=== PATIENT | male | born 1955 | race Caucasian/White ===

== ENCOUNTER 2016-11-14 13:37 | Inpatient (IN) | payer BC ==
[~2016-11-14] VITALS: Ht 185.4 cm; Wt 112.0 kg
[~2016-11-14 13:37] MED LIST: ATEN50TA2 PO; FURO20TA2 PO; IBUP40TA PO; LASI40TA PO; SPIR100T PO; THIA100TA PO; VITA500T53 PO; VITMTA PO
[2016-11-14] MEDS ORDERED: ONDANSETRON 4MG/2ML VIAL (J2405) As Ordered ONE (14:58)
[2016-11-14] MEDS ORDERED: LACTULOSE 20 GM/30 ML SYRUP UD As Ordered ONE (14:58)
[2016-11-14 15:10] LABS: INR 1.63
[2016-11-14] MEDS ORDERED: NS 1,000 ML IV SCH (15:15)
[2016-11-14 15:25] LABS: MEAN CORPUSCULAR HEMOGLOBIN 35.4 pg (27.0-33.0); MEAN CORPUSCULAR HGB CONC 33.8 g/dl (32.0-36.5); MEAN CORPUSCULAR VOLUME 104.5 fl (80.0-96.0); PLATELET COUNT, AUTOMATED 126 k/mm3 (150-450); RED CELL DISTRIBUTION WIDTH 15.3 % (11.5-14.5); WHITE BLOOD COUNT 6.8 K/mm3 (4.0-10.0)
[2016-11-14 15:26] LABS: ALBUMIN 2.5 GM/DL (3.2-5.2); ALBUMIN/GLOBULIN RATIO 0.51 (1.00-1.93); BILIRUBIN,DIRECT 2.6 MG/DL (0.0-0.2); BILIRUBIN,TOTAL 7.3 MG/DL (0.2-1.0); CALCIUM LEVEL 8.5 MG/DL (8.8-10.2); CREATININE FOR GFR 1.31 MG/DL (0.70-1.30); GLOMERULAR FILTRATION RATE 59.2 (>49); POTASSIUM SERUM 4.4 MEQ/L (3.5-5.1); TOTAL PROTEIN 7.4 GM/DL (6.4-8.2)
--- NOTE | 2016-11-14 16:03 | REP ---
CT of the abdomen pelvis 11/14/2016 without IV or oral contrast: Indication: Abdominal pain. Comparison: CT abdomen pelvis with IV and oral contrast 10/21/2016. Findings: There is a small left basilar pleural effusion decreased/improved from prior study. There is right basilar calcified pleural plaques, right basilar disease most compatible with scarring. There is a moderate amount of diffuse ascites within the abdomen and pelvis but improved from that seen on 10/21/2016. The liver has a slightly scalloped margin and is enlarged consistent with hepatomegaly. The spleen is also moderately enlarged, 17.3 cm in cranial caudal dimension. Pancreas is grossly normal. The gallbladder is contracted. There are no visualized stones. Mild thickening of the lateral limb of the left adrenal with density greater than simple fluid, therefore indeterminate. Multiple venous collaterals are seen within the abdomen in the region of splenic hilum, splenorenal location and paraesophageal locations. There is a recanalized umbilical vein. No definitive omental implants or peritoneal carcinomatosis are seen. Bladder is contracted. Scattered sigmoid diverticula are noted . Generalized mural thickening is seen throughout the colon contributed to by under distension, and nonspecific inflammatory and/or edematous changes from ascites. There is diffuse mural thickening seen throughout the small bowel which represents interval change when compared with prior study. Impression: Previous massive ascites is improved, now moderate in amount. Generalized mural thickening seen throughout the colon and to a greater extent small bowel. These findings can be contributed to by the generalized ascites. Differential diagnosis also includes infectious or inflammatory gastroenteritis. There is no free intraperitoneal air. Enlarged liver and spleen; venous collaterals consistent with cirrhosis and portal venous hypertension Parenchymal disease within the lung bases most compatible with atelectasis and/or scarring. Follow-up to resolution recommended. Small left basilar pleural effusion, with improvement. Calcified right basilar pleural plaques consistent with asbestos related disease. Signed by Blanca Poole MD 11/16/2016 10:23 P
[2016-11-14 16:44] LABS: ANISOCYTOSIS 1+; BANDS 37 % (< 11)
[2016-11-14] MEDS ORDERED: PROP10TA56 PO (16:57)
[2016-11-14] MEDS ORDERED: SPIR100T PO (16:57)
[2016-11-14] MEDS ORDERED: VITA500T3 PO (16:57)
[2016-11-14] MEDS ORDERED: FURO40TA2 PO (16:57)
[2016-11-14] MEDS ORDERED: LACT10SO29 PO (16:57)
[2016-11-14] MEDS ORDERED: VITMTA PO (16:57)
[2016-11-14] MEDS ORDERED: ONDANSETRON 4MG/2ML VIAL (J2405) IV PRN (17:00)
[2016-11-14] MEDS ORDERED: METOCLOPRAMIDE INJ 10MG/2ML VIAL (J2765) IV PRN (17:00)
--- NOTE | 2016-11-14 17:34 | HPEPDOC ---
General Date of Admission 11/14/16 Chief Complaint The patient is a 61-year-old male admitted with a reason for visit of Vomiting. Source: Patient, Family Exam Limitations: Clinical conditions History of Present Illness 61-year-old male with past medical history of recently diagnosed alcohol- induced hepatic cirrhosis presented to the ER with a chief complaint of abdominal pain with associated diarrhea over the last 3 days. The patient states that his abdominal pain is crampy and achy in nature, quantified as a 6 out of 10 in intensity, in the lower abdominal quadrants. The patient states that his abdominal pain is the worst when having loose bowel movements. The patient describes the diarrhea as loose, nonbloody, with up to 10 episodes a day for the last 3 days. Of note, the patient was started on Lasix, spironolactone, and lactulose over the last 3 weeks since his diagnosis. In addition, the patient has required 3 ultrasound-guided abdominal paracentesis yielding about 12 L of fluid on each occasion during this time period. At this time, the patient states that he has been feeling more confused, and dehydrated because of his lack of by mouth intake over the last 3 days with associated abdominal pain with diarrhea. Patient states that although his abdomen is mildly distended, it has not caused him any shortness of breath, and it is not nearly as distended as it has been in the past. In addition, the patient states that the lower extremity edema is also better than it has been in the past. The patient denies any complaints of fevers, chills, shortness of breath, chest pain , palpitations, sick contacts, recent travel, or ingestion of any foreign foods. In the ER, the patient had a CT scan of the abdomen which revealed an improvement of the ascites compared to before. However, a generalized mural thickening was seen throughout the colon and small bowel suggestive of possible underlying infectious or inflammatory gastroenteritis. In addition, the patient' s ammonia level appears to be at baseline to what it was when he was discharged from the hospital earlier this month. Of note, the patient does have an acute kidney injury as well as an elevated lactic acid level which appears to be secondary to a possible underlying infectious/inflammatory gastroenteritis with dehydration from diarrhea. We will get the patient to the inpatient hospitalist service for further evaluation and management. Home Medications Scheduled Cyanocobalamin (Vitamin B-12) 500 Mcg Tab 500 MCG PO DAILY (Reported) Lactulose (Lactulose) 10 Gm/15 Ml Sherrill 30 ML PO DAILY (Reported) Metronidazole (Flagyl) 500 Mg Tab 500 MG PO Q8H Midodrine HCl (Midodrine HCl) 5 Mg Tab 5 MG PO TID@08,12,16 Midodrine HCl (Midodrine HCl) 5 Mg Tab 5 MG PO TID Multivitamins *[facility] STOCKED* (Thera M Plus *[facility] STOCKED*) 1 Tab Tab 1 TAB PO DAILY (Reported) Pentoxifylline (Pentoxifylline ER) 400 Mg Tab 400 MG PO TID Allergies Coded Allergies: No Known Allergies (Unverified , 10/21/16) Past Medical History Medical History As noted in HPI. Surgical History History of right knee aspiration, and bunionectomy. Family History Significant Family History: No pertinent family hx Social History * Smoker: non-smoker Alcohol: other (previously drank 12-18 beers a day starting in his 20s. Most recently quit drinking 8-10 beers a week when he was found to have cirrhosis in the first week of October 2016.) Drugs: denies Review of Symptoms Other systems 10 point review of systems is negative unless otherwise specified in HPI. Physical Examination ENT Exam: Positive: Atraumatic, Mucous membr. moist/pink Chest Exam: Positive: Clear to auscultation, Normal air movement Heart Exam: Positive: Normal S1, Normal S2, Rate Normal Telemetry: Positive: Sinus Abdomen Exam: Positive: Other (abdomen noted to be distended, with positive fluid waves noted. No rebound tenderness, guarding, or rigidity noted.), Soft Extremity Exam: Positive: Edema (1+ pitting edema), Negative: Tenderness Vital Signs As listed in EMR Laboratory Data Labs 24H Laboratory Tests 2 11/14/16 14:40: Aspartate Amino Transf (AST/SGOT) 93H, Alanine Aminotransferase (ALT/SGPT) 74, Alkaline Phosphatase 172H, Total Bilirubin 7.3H, Direct Bilirubin 2.6H, Albumin 2.5L, Albumin/Globulin Ratio 0.51L, Ammonia 73H, Amylase Level 70, Anion Gap 12 , Anisocytosis 1+, Band Neutrophils 37H, White Blood Count 6.8, Red Blood Count 4.20L, Hemoglobin 14.9, Hematocrit 44.0, Mean Corpuscular Volume 104.5H, Mean Corpuscular Hemoglobin 35.4H, Mean Corpuscular Hemoglobin Concent 33.8, Red Cell Distribution Width 15.3H, Platelet Count 126L, Neutrophils (%) (Auto) , Lymphocytes (%) (Auto) , Monocytes (%) (Auto) , Eosinophils (%) (Auto) , Basophils (%) (Auto) , Neutrophils # (Auto) , Lymphocytes # (Auto) , Monocytes # (Auto) , Eosinophils # (Auto) , Basophils # (Auto) , Calcium Level 8.5L, Glomerular Filtration Rate 59.2, Lactic Acid Level 3.6*H, Large Unclassified Cells # , Large Unclassified Cells % , Lipase 322, Lymphocytes (Manual) 5L, Macrocytosis 2+, Metamyelocytes 2H, Monocytes (Manual) 5, Neutrophils 51, Platelet Estimate NORMAL, Prothromb Time International Ratio 1.63, Prothrombin Time 19.4H, Total Protein 7.4 CBC/BMP Laboratory Tests 11/14/16 14:40 Red Blood Count 4.20 L, Mean Corpuscular Volume 104.5 H, Mean Corpuscular Hemoglobin 35.4 H, Mean Corpuscular Hemoglobin Concent 33.8, Red Cell Distribution Width 15.3 H, Neutrophils (%) (Auto) , Lymphocytes (%) (Auto) , Monocytes (%) (Auto) , Eosinophils (%) (Auto) , Basophils (%) (Auto) , Neutrophils # (Auto) , Lymphocytes # (Auto) , Monocytes # (Auto) , Eosinophils # (Auto) , Basophils # (Auto) Assessment/Plan Problems: (1) Diarrhea Status: Acute Response to Treatment: Stable Problem Text: CT scan of the abdomen revealed an improvement of the ascites compared to before. However, a generalized mural thickening was seen throughout the colon and small bowel suggestive of possible underlying infectious or inflammatory gastroenteritis. GI panel ordered Will empirically cover the patient with meropenem Gentle IV fluid hydration at 60 mL an hour We will continue to monitor the patient's course (2) Lactic acidosis Status: Acute Problem Text: Serum lactate level noted to be 3.6 Possibly secondary to intravascular volume depletion from diarrhea, with possible underlying infectious/inflammatory gastroenteritis We will treat the patient with gentle IV fluid hydration given his underlying hepatic cirrhosis with frequent decompensation requiring 3 ultrasound guided abdominal paracenteses over the last 3 weeks. 2 L fluid resection diet Started on meropenem for empiric coverage, GI panel ordered. Repeat serum lactate level (3) Acute kidney injury Status: Acute Response to Treatment: Stable Problem Text: Serum creatinine noted to be 1.3, baseline creatinine 0.9-1.0 Possibly secondary to intravascular volume depletion, will order urine lytes. We will hold nephrotoxins such as Lasix and spironolactone at this time Gentle IV fluid hydration Repeat BMP in the a.m. (4) Hepatic cirrhosis Status: Chronic Problem Text: Patient recently diagnosed with hepatic cirrhosis secondary to alcohol use in the first week of October 2016. The patient was supposed to follow up at [facility] however he has been unable to obtain this appointment, and has sought possible referral to [place]. The patient has yet to get a liver biopsy done for further confirmation of diagnosis. We will hold the patient's Lasix, spironolactone, and lactulose at this time given his current diagnosis of diarrhea with acute kidney injury. The patient's ammonia level of 73 appears to be near its baseline compared to his 11/06 lab work. Plan / VTE VTE Prophylaxis Ordered?: Yes MOMO GARCIA MD Nov 14, 2016 17:34
--- NOTE | 2016-11-14 22:03 | EDDOCDS ---
Nurse's Notes [facility] Name: Kory Mosley Age: 61 yrs Sex: Male : 1955 Arrival Date: 11/14/2016 Time: 13:37 Bed 14 Private MD: John Martinez NCFM Diagnosis: Alcoholic cirrhosis of liver with ascites;Altered mental status, unspecified Presentation: 11/14 13:47 Presenting complaint: Patient states: seen here earlier this month and admitted with dy cirrhosis of liver. having generalized abdominal pain with vomiting and diarrhea since yesterday. Adult Sepsis Screening: Patient has new or worsening altered mentation (1 point). Patient's respiratory rate is less than 22. Systolic blood pressure is greater than 100. Patient has a qSOFA score of 1- Negative Sepsis Screen. Patient has abdominal pain- Positive Sepsis Screen. Notified Roberto Bravo NET REPAIRER Patient made STEVEN Level 2. Patient placed in exam room. Charge nurse notified. Suicide/Homicide risk assessment- the patient denies having any suicidal and/or homicidal ideations and does not present with any other emotional, behavioral or mental health complaints. 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 Transition of care: patient was not received from another setting of care. 13:47 Acuity: STEVEN Level 2 dy 13:47 Method Of Arrival: Walkin/Carried/Asstd dy Triage Assessment: 13:51 General: Appears ill. Pain: Location: abdomen. HIV screening NA for this visit Offered dy previously. Historical: - Allergies: No known drug Allergies; - Home Meds: 1. atenolol 50 mg Oral tab 1 tab once daily 2. furosemide 20 mg Oral tab 1 tab once daily 3. propranolol 10 mg Oral tab 1 tab twice a day 4. lactulose 10 gram/15 mL Oral soln 15 mL once daily for Hyperammonemia (Last dose: 11/12/2016) - PMHx: Hypertension; Cirrhosis; - PSHx: Bunion Surgery; right knee surgery; - Social history: Smoking status: Patient states was never smoker of tobacco. No barriers to communication noted, The patient speaks fluent [place], Speaks appropriately for age. - Family history: Not pertinent. - : The pt / caregiver states he / she is not on anticoagulants. Home medication list is obtained from the patient, family members. - Exposure Risk Screening:: None identified. Screenin:00 Screening information is obtained from the patient. Fall risk: No risks identified. jmb Assistance ADL's: requires no assistance with activities of daily living. Abuse/DV Screen: The patient / caregiver reports he/she is: not in a situation that causes fear, pain or injury. Nutritional screening: No deficits noted. home support is adequate. 16:59 Advance Directives: Currently, there is a health care proxy, Lou Mosley () Copy lf1 on file. Assessment: 14:00 General: Appears uncomfortable, Behavior is appropriate for age, cooperative. Pain: jmb Location: abdomen Pain currently is 8 out of 10 on a pain scale. Neurological: Level of Consciousness is awake, alert, obeys commands, Oriented to person, place, time, Apple Packing Header are equal bilaterally Speech is normal, Facial symmetry appears normal, Facial symmetry: tongue is midline. EENT: Sclera/Cornea jaundiced. Cardiovascular: Capillary refill < 3 seconds Heart tones present Pulses are all present. Rhythm is regular. Respiratory: Airway is patent Respiratory effort is even, unlabored, Respiratory pattern is regular, symmetrical, Breath sounds are clear bilaterally. GI: Abdomen is noted to have ascites, Bowel sounds present X 4 quads. Abd is soft X 4 quads. Derm: Skin is jaundiced. Musculoskeletal: Range of motion limited in all extremities. 15:08 General: Appears in no apparent distress, comfortable, Behavior is appropriate for age, jmb cooperative, Patient laying on stretcher with family at bedside. NO voiced complaints at this time. . Neurological: Level of Consciousness is awake, alert, obeys commands, Oriented to person, place, time. Respiratory: Airway is patent Respiratory effort is even, unlabored, Respiratory pattern is regular, symmetrical. 15:12 General: Appears comfortable, Behavior is cooperative. Neurological: Level of lf1 Consciousness is awake. EENT:. Respiratory: Respiratory effort is even, unlabored. GI: Abdomen is distended, noted to have ascites, Bowel sounds present X 4 quads. Derm: Skin is jaundiced. 16:27 General: Appears comfortable, Behavior is cooperative. Neurological: Level of lf1 Consciousness is awake, confused. EENT: No deficits noted. Respiratory: Respiratory effort is even, unlabored. GI: Abdomen is distended. Derm: Skin is jaundiced. 17:05 Adult Sepsis Screening: The patient does not have new or worsening altered mentation. lf1 Patient's respiratory rate is less than 22. Systolic blood pressure is less than or equal to 100 (1 point). Patient has a qSOFA score of 1- Negative Sepsis Screen. General: Appears in no apparent distress, uncomfortable, Behavior is cooperative. Pain: Location: chronic back pain Pain currently is 4 out of 10 on a pain scale. Neurological: Level of Consciousness is awake, alert, confused. EENT: No deficits noted. Respiratory: Respiratory effort is even, unlabored. GI: Abdomen is noted to have ascites. Derm: Skin is jaundiced. 18:00 General: Appears comfortable, Behavior is cooperative, Pt advised that we are currently lf1 awaiting for a bed assignment. Pain: Location: abdomen and back. Neurological: Level of Consciousness is awake, alert. Respiratory: Respiratory effort is even, unlabored. GI: Abdomen is distended. Derm: Skin is jaundiced. 18:35 General: Appears in no apparent distress, Behavior is cooperative. Pain: Location: back lf1 Pain currently is 4 out of 10 on a pain scale. Neurological: Level of Consciousness is awake, confused. Respiratory: Respiratory effort is even, unlabored. GI: Abdomen is distended, noted to have ascites. Derm: Skin is jaundiced. 19:47 General: Appears in no apparent distress, comfortable, Behavior is cooperative. Pain: jf3 Location: back Pain currently is 5 out of 10 on a pain scale. Neurological: Level of Consciousness is awake, confused. Cardiovascular: Capillary refill < 3 seconds Heart tones S1 S2 present Edema is 1+ to left midcalf, left ankle, right midcalf and right ankle Chest pain is denied. Respiratory: Airway is patent Respiratory effort is even, unlabored, Respiratory pattern is regular, symmetrical, Breath sounds are clear bilaterally. Denies shortness of breath. GI: Abdomen is distended, Bowel sounds present X 4 quads. distant. Derm: Skin is jaundiced. 20:31 General: Appears comfortable, Behavior is cooperative. Pain: Pain currently is 5 out of jf3 10 on a pain scale. Neurological: Level of Consciousness is awake, alert, Oriented to person, place, time. Cardiovascular: Capillary refill < 3 seconds. Respiratory: Airway is patent Respiratory effort is even, unlabored, Respiratory pattern is regular, symmetrical. 21:46 General: Appears in no apparent distress, comfortable, Behavior is cooperative. Pain: jf3 Pain currently is 4 out of 10 on a pain scale. Neurological: Level of Consciousness is awake, alert, Oriented to person. Cardiovascular: Capillary refill < 3 seconds. Respiratory: Airway is patent Respiratory effort is even, unlabored, Respiratory pattern is regular, symmetrical. Derm: Skin is jaundiced. Vital Signs: 13:38 BP 104 / 67; Pulse 87; Resp 18 S; Temp 98.3(O); Pulse Ox 98% on R/A; Weight 102.51 kg dd6 (R); Height 5 ft. 11 in. (180.34 cm) (R); 13:59 BP 145 / 80 (auto/); jf3 14:01 Pulse 92 MON; Pulse Ox 94% ; jf3 14:14 BP 131 / 73 (auto/); lf1 14:14 Pulse 90 MON; Pulse Ox 96% ; lf1 14:29 BP 138 / 78 (auto/); jmb 14:29 Pulse 98 MON; Pulse Ox 97% ; jmb 14:44 BP 131 / 74 (auto/); jmb 14:44 Pulse 98 MON; Pulse Ox 95% ; jmb 14:59 BP 125 / 76 (auto/); jmb 14:59 Pulse 100 MON; Pulse Ox 95% ; jmb 15:14 BP 125 / 80 (auto/); lf1 15:14 Pulse 102 MON; Pulse Ox 95% ; lf1 15:29 BP 119 / 77 (auto/); lf1 15:29 Pulse 102 MON; Pulse Ox 95% ; lf1 15:44 BP 97 / 60 (auto/); lf1 15:44 Pulse 100 MON; Pulse Ox 95% ; lf1 15:59 BP 107 / 68 (auto/); lf1 15:59 Pulse 104 MON; Pulse Ox 95% ; lf1 16:14 BP 109 / 61 (auto/); lf1 16:14 Pulse 106 MON; Pulse Ox 94% ; lf1 16:27 Pulse 104 MON; Resp 18; Pulse Ox 93% ; lf1 16:29 BP 114 / 71 (auto/); lf1 16:29 Pulse 104 MON; Pulse Ox 92% ; lf1 16:44 BP 113 / 75 (auto/); lf1 16:44 Pulse 106 MON; Pulse Ox 94% ; lf1 16:59 BP 98 / 55 (auto/); lf1 16:59 Pulse 100 MON; Resp 16; Temp 100.0(TE); Pulse Ox 93% ; Pain 4/10; lf1 17:13 BP 118 / 65 (auto/); lf1 17:13 Pulse 102 MON; Resp 16; Pulse Ox 93% ; lf1 17:15 BP 100 / 53 (auto/); lf1 17:15 Pulse 102 MON; Pulse Ox 93% ; lf1 17:30 BP 102 / 64 (auto/); lf1 17:30 Pulse 104 MON; Pulse Ox 95% ; lf1 17:45 BP 108 / 68 (auto/); lf1 17:45 Pulse 104 MON; Pulse Ox 93% ; lf1 18:00 BP 87 / 50 (auto/); jf3 18:00 Pulse 102 MON; Pulse Ox 94% ; jf3 18:15 BP 93 / 58 (auto/); lf1 18:15 Pulse 108 MON; Pulse Ox 94% ; lf1 18:30 BP 109 / 61 (auto/); lf1 18:30 Pulse 104 MON; Pulse Ox 98% ; lf1 18:45 BP 90 / 51 (auto/); lf1 18:45 Pulse 100 MON; Resp 18; Pulse Ox 96% ; Pain 4/10; lf1 18:59 Pulse 102 MON; Pulse Ox 96% ; jf3 19:00 Pulse 102 MON; Pulse Ox 96% ; lf1 19:00 BP 100 / 55 (auto/); jf3 19:15 BP 101 / 55 (auto/); jf3 19:15 Pulse 108 MON; Pulse Ox 96% ; jf3 19:30 BP 94 / 51 (auto/); jf3 19:30 Pulse 106 MON; Pulse Ox 98% ; jf3 19:45 BP 92 / 51 (auto/); jf3 19:45 Pulse 106 MON; Pulse Ox 99% ; jf3 20:00 BP 111 / 57 (auto/); jf3 20:00 Pulse 106 MON; Pulse Ox 94% ; jf3 20:15 BP 106 / 62 (auto/); jf3 20:15 Pulse 104 MON; Pulse Ox 94% ; jf3 20:30 BP 94 / 62 (auto/); jf3 20:30 Pulse 104 MON; Pulse Ox 94% ; jf3 20:31 BP 106 / 62; Pulse 103; Resp 18; Temp 98.7(TE); Pulse Ox 94% on R/A; Pain 5/10; jf3 21:15 BP 102 / 57 (auto/); jf3 21:15 Pulse 104 MON; Pulse Ox 94% ; jf3 21:30 BP 104 / 59 (auto/); jf3 21:30 Pulse 106 MON; Pulse Ox 95% ; jf3 21:45 BP 101 / 56 (auto/); jf3 21:45 Pulse 106 MON; Pulse Ox 95% ; jf3 13:38 Body Mass Index 31.52 (102.51 kg, 180.34 cm) dd6 Vitals: 13:38 Log In Time: November 14, 2016 at 13:36. dd6 ED Course: 13:38 Patient visited by Martin Goetz PCA. dd6 13:38 John Martinez is Private Physician. dd6 13:38 Patient moved to Waiting dd6 13:39 Patient moved to Pre RCE dd6 13:49 Triage Initiated dy 13:51 Patient moved to 14 dy 14:00 The patient / caregiver is instructed regarding the plan of care and ED course. jmb 14:02 Patient visited by Nahid Lora RN. jmb 14:16 Roberto Bravo FNP is [facility]. ke 14:16 Patient visited by Roberto Bravo FNP. ke 14:16 Patient visited by Roberto Bravo FNP. ke 14:29 Inserted saline lock: 20 gauge in left forearm and blood collected. The patient alexa tolerated the procedure well. Labs drawn. (by ED staff). Sent per order to lab. 14:36 Patient name changed from Kory\S\L\S\Dimitri\S\ to Kory\S\Jorge\S\Dimitri. EDMS 14:39 [facility] Payment Agreement was scanned into [employer] and attached to record. pm4 14:55 Patient visited by Roberto Bravo FNP. ke 15:05 Report received from Nahid Lora RN. lf1 15:09 Patient visited by Nahid Lora RN. jmb 15:12 Accompanied by Family Member. Door closed. Noise minimized. lf1 15:12 IV is intact. lf1 15:13 Patient visited by Priscilla Brooks RN. lf1 15:53 Patient visited by Roberto Bravo FNP. ke 16:05 Patient visited by Jaron Fulton PCA. jlf 16:12 Jay Guerrero is Hospitalizing Provider. ke 16:12 CT ABD & PELVIS: No Contrast Returned. EDMS 16:27 Patient visited by Priscilla Brooks,ROWDY. lf1 16:27 Door closed. Noise minimized. lf1 16:30 Patient visited by Priscilla Brooks,RN. lf1 17:05 Patient visited by Priscilla Brooks,ROWDY. lf1 17:13 Patient visited by Priscilla Brooks,ROWDY. lf1 17:16 Priscilla Brooks,RN is Primary Nurse. lf1 17:17 Patient visited by Priscilla Brooks,ROWDY. lf1 18:45 Report given to Cheng Kolb RN. lf1 19:49 Patient visited by Cheng Kolb,ROWDY. jf3 Administered Medications: 15:07 Drug: NS 0.9% 1000 ml [sodium chloride 0.9 % intravenous solution] Route: IV; Rate: jmb bolus; Site: left wrist; 15:07 Drug: Lactulose 30 ml [lactulose 20 gram/30 mL oral solution (30 mL)] Route: PO; jmb 15:08 Drug: Ondansetron 4 mg [ondansetron HCl 2 mg/mL intravenous solution (2 mL)] Route: jmb IVP; Site: left wrist; Order Results: Lab Order: Amylase; [facility]' 11/14/16 14:40 Test: AMYLASE; Value: 70; Range: 25-115; Units: U/L; Status: F Lab Order: Basic Metabolic Profile; SPEC' 11/14/16 14:40 Test: GLUCOSE, FASTING; Value: 107; Range: 80-110; Units: MG/DL; Status: F Test: BLOOD UREA NITROGEN; Value: 27; Range: 7-18; Abnormal: Above high normal; Units: MG/DL; Status: F Test: CREATININE FOR GFR; Value: 1.31; Range: 0.70-1.30; Abnormal: Above high normal; Units: MG/DL; Status: F Test: GLOMERULAR FILTRATION RATE; Value: 59.2; Range: >49; Status: F Test: SODIUM LEVEL; Value: 135; Range: 136-145; Abnormal: Below low normal; Units: MEQ/L; Status: F Test: POTASSIUM SERUM; Value: 4.4; Range: 3.5-5.1; Units: MEQ/L; Status: F Test: CHLORIDE LEVEL; Value: 97; Range: 98-107; Abnormal: Below low normal; Units: MEQ/L; Status: F Test: CARBON DIOXIDE LEVEL; Value: 26; Range: 21-32; Units: MEQ/L; Status: F Test: ANION GAP; Value: 12; Range: 8-16; Units: MEQ/L; Status: F Test: CALCIUM LEVEL; Value: 8.5; Range: 8.8-10.2; Abnormal: Below low normal; Units: MG/DL; Status: F Test Note: ; Units are mL/min/1.73 m2 Chronic Kidney Disease Staging per NKF: Stage I & II GFR >=60 Normal to Mildly Decreased Stage III GFR 30-59 Moderately Decreased Stage IV GFR 15-29 Severely Decreased Stage V GFR <15 Very Little GFR Left ESRD GFR <15 on [employer] Lab Order: CBC with Diff; SPEC'M 11/14/16 14:40 Test: WHITE BLOOD COUNT; Value: 6.8; Range: 4.0-10.0; Units: K/mm3; Status: F Test: RED BLOOD COUNT; Value: 4.20; Range: 4.30-6.10; Abnormal: Below low normal; Units: M/mm3; Status: F Test: HEMOGLOBIN; Value: 14.9; Range: 14.0-18.0; Units: g/dl; Status: F Test: HEMATOCRIT; Value: 44.0; Range: 42.0-52.0; Units: %; Status: F Test: MEAN CORPUSCULAR VOLUME; Value: 104.5; Range: 80.0-96.0; Abnormal: Above high normal; Units: fl; Status: F Test: MEAN CORPUSCULAR HEMOGLOBIN; Value: 35.4; Range: 27.0-33.0; Abnormal: Above high normal; Units: pg; Status: F Test: MEAN CORPUSCULAR HGB CONC; Value: 33.8; Range: 32.0-36.5; Units: g/dl; Status: F Test: RED CELL DISTRIBUTION WIDTH; Value: 15.3; Range: 11.5-14.5; Abnormal: Above high normal; Units: %; Status: F Test: PLATELET COUNT, AUTOMATED; Value: 126; Range: 150-450; Abnormal: Below low normal; Units: k/mm3; Status: F Test: NEUTROPHILS; Value: 51; Range: 35-75; Units: %; Status: F Test: BANDS; Value: 37; Range: < 11; Abnormal: Above high normal; Units: %; Status: F Test: LYMPHOCYTES; Value: 5; Range: 16-52; Abnormal: Below low normal; Units: %; Status: F Test: MONOCYTES; Value: 5; Range: 0-8; Units: %; Status: F Test: METAMYELOCYTES; Value: 2; Range: 0-0; Abnormal: Above high normal; Units: %; Status: F Test: ANISOCYTOSIS; Value: 1+; Status: F Test: MACROCYTOSIS; Value: 2+; Status: F Lab Order: Lipase; [facility] 11/14/16 14:40 Test: LIPASE; Value: 322; Range: 73-393; Units: U/L; Status: F Lab Order: Liver Profile; [facility] 11/14/16 14:40 Test: AST/SGOT; Value: 93; Range: 15-37; Abnormal: Above high normal; Units: U/L; Status: F Test: ALT/SGPT; Value: 74; Range: 12-78; Units: U/L; Status: F Test: ALKALINE PHOSPHATASE; Value: 172; Range: 45-117; Abnormal: Above high normal; Units: U/L; Status: F Test: BILIRUBIN,TOTAL; Value: 7.3; Range: 0.2-1.0; Abnormal: Above high normal; Units: MG/DL; Status: F Test: BILIRUBIN,DIRECT; Value: 2.6; Range: 0.0-0.2; Abnormal: Above high normal; Units: MG/DL; Status: F Test: TOTAL PROTEIN; Value: 7.4; Range: 6.4-8.2; Units: GM/DL; Status: F Test: ALBUMIN; Value: 2.5; Range: 3.2-5.2; Abnormal: Below low normal; Units: GM/DL; Status: F Test: ALBUMIN/GLOBULIN RATIO; Value: 0.51; Range: 1.00-1.93; Abnormal: Below low normal; Status: F Lab Order: Prothrombin Time Profile\E\INR; [facility] 11/14/16 14:40 Test: PROTHROMBIN TIME; Value: 19.4; Range: 12.3-14.5; Abnormal: Above high normal; Units: SECONDS; Status: F Test: INR; Value: 1.63; Status: F Test Note: ; THERAPUTIC HUMAN INR VALUES INDICATIONS NORMAL RANGES PROPHYLAXIS/TREATMENT OF: VENOUS THROMBOSIS 2.0-3.0 PULMONARY EMBOLISM 2.0-3.0 PREVENTION OF SYSTEMIC EMBOLISM FROM: TISSUE HEART VALVES 2.0-3.0 ACUTE MYOCARDIAL INFARCTION 2.0-3.0 VALVULAR HEART DISEASE 2.0-3.0 ATRIAL FIBRILLATION 2.0-3.0 MECHANICAL VALVES(HIGH RISK) 2.5-3.5 RECURRENT MYOCARDIAL INFARCTION 2.5-3.5 Lab Order: Lactic Acid ([place] tube on ice); [facility] 11/14/16 14:40 Test: LACTIC ACID LEVEL, LACTATE; Value: 3.6; Range: 0.4-2.0; Abnormal: Above upper panic limits; Units: MMOL/L; Status: F Lab Order: Ammonia ([place] Tube on Ice, Not [place]); [facility] 11/14/16 14:40 Test: AMMONIA; Value: 73; Range: <32; Abnormal: Above high normal; Units: uMOL/L; Status: F Lab Order: PLATELET ESTIMATE; [facility] 11/14/16 14:40 Test: PLATELET ESTIMATE; Value: NORMAL; Range: NORMAL; Status: F Radiology Order: CT ABD & PELVIS: No Contrast Test: CT ABD & PELVIS: No Contrast REASON FOR EXAMINATION: Abdomen Pain; CT of the abdomen pelvis 11/14/2016 without IV or oral contrast:; ; Indication: Abdominal pain.; ; Comparison: CT abdomen pelvis with IV and oral contrast 10/21/2016.; ; Findings: There is a small left basilar pleural effusion decreased/improved from; prior study. There is right basilar calcified pleural plaques, right basilar; disease most compatible with scarring. There is a moderate amount of diffuse; ascites within the abdomen and pelvis but improved from that seen on 10/21/2016.; The liver has a slightly scalloped margin and is enlarged consistent with; hepatomegaly. The spleen is also moderately enlarged, 17.3 cm in cranial caudal; dimension. Pancreas is grossly normal. The gallbladder is contracted. There; are no visualized stones. Mild thickening of the lateral limb of the left; adrenal with density greater than simple fluid, therefore indeterminate.; Multiple venous collaterals are seen within the abdomen in the region of splenic; hilum, splenorenal location and paraesophageal locations. There is a; recanalized umbilical vein. No definitive omental implants or peritoneal; carcinomatosis.; ; Bladder is contracted. Scattered sigmoid diverticula are noted . Generalized; mural thickening is seen throughout the colon contributed to by underdistension,; and nonspecific inflammatory and/or edematous changes from ascites. There is; diffuse mural thickening seen throughout the small bowel which represents; interval change when compared with prior study.; ; Impression:; Previous massive ascites is improved, now moderate in amount.; ; Generalized mural thickening seen throughout the colon and to a greater extent; small bowel. These findings can be contributed to by the generalized ascites.; Differential diagnosis also includes infectious or inflammatory gastroenteritis.; There is no free intraperitoneal air.; ; Enlarged liver and spleen; venous collaterals consistent with cirrhosis and; portal venous hypertension; ; Parenchymal disease within the lung bases most compatible with atelectasis and/or; scarring follow-up to resolution recommended.; ; Small left basilar pleural effusion, with improvement.; ; Calcified right basilar pleural plaques consistent with asbestos related; disease.; ; ; ; Unreviewed; Outcome: 16:13 Decision to Hospitalize by Provider. ke 22:02 Patient left the ED. jf3 Signatures: Dispatcher [employer] EDIN Jordy Lawson RN RN dy Elsner, Karl, NET REPAIRER NET REPAIRER Priscilla Lewis RN RN lf1 Martin Goetz, PROPERTY FIELD INSPECTOR PROPERTY FIELD INSPECTOR dd6 Nahid Lora RN RN jmb Forney, Jordain, PROPERTY FIELD INSPECTOR PROPERTY FIELD INSPECTOR jlf Cheng Kolb RN RN jf3 John Sepulveda, Reg Reg pm4 MTDD
--- NOTE | 2016-11-14 22:03 | EDDOCDS ---
Physician Documentation [facility] Name: Kory Mosley Age: 61 yrs Sex: Male : 1955 Arrival Date: 11/14/2016 Time: 13:37 Bed 14 Private MD: John Martinez [facility] Disposition: 11/14/16 16:13 Hospitalization ordered by Jay Guerrero for Inpatient Admission. Preliminary diagnosis are Alcoholic cirrhosis of liver with ascites, Altered mental status, unspecified. - Bed requested for 4 [place]. - Status is Inpatient Admission. jf3 - Condition is Stable. - Problem is an acute exacerbation. - Symptoms are unchanged. Historical: - Allergies: No known drug Allergies; - Home Meds: 1. atenolol 50 mg Oral tab 1 tab once daily 2. furosemide 20 mg Oral tab 1 tab once daily 3. propranolol 10 mg Oral tab 1 tab twice a day 4. lactulose 10 gram/15 mL Oral soln 15 mL once daily for Hyperammonemia (Last dose: 11/12/2016) - PMHx: Hypertension; Cirrhosis; - PSHx: Bunion Surgery; right knee surgery; - Social history: Smoking status: Patient states was never smoker of tobacco. No barriers to communication noted, The patient speaks fluent [place], Speaks appropriately for age. - Family history: Not pertinent. - : The pt / caregiver states he / she is not on anticoagulants. Home medication list is obtained from the patient, family members. - Exposure Risk Screening:: None identified. Vital Signs: 11/14 13:38 BP 104 / 67; Pulse 87; Resp 18 S; Temp 98.3(O); Pulse Ox 98% on R/A; Weight 102.51 kg / dd6 226 lbs (R); Height 5 ft. 11 in. (180.34 cm) (R); 13:59 BP 145 / 80 (auto/); jf3 14:01 Pulse 92 MON; Pulse Ox 94% ; jf3 14:14 BP 131 / 73 (auto/); lf1 14:14 Pulse 90 MON; Pulse Ox 96% ; lf1 14:29 BP 138 / 78 (auto/); jmb 14:29 Pulse 98 MON; Pulse Ox 97% ; jmb 14:44 BP 131 / 74 (auto/); jmb 14:44 Pulse 98 MON; Pulse Ox 95% ; jmb 14:59 BP 125 / 76 (auto/); jmb 14:59 Pulse 100 MON; Pulse Ox 95% ; jmb 15:14 BP 125 / 80 (auto/); lf1 15:14 Pulse 102 MON; Pulse Ox 95% ; lf1 15:29 BP 119 / 77 (auto/); lf1 15:29 Pulse 102 MON; Pulse Ox 95% ; lf1 15:44 BP 97 / 60 (auto/); lf1 15:44 Pulse 100 MON; Pulse Ox 95% ; lf1 15:59 BP 107 / 68 (auto/); lf1 15:59 Pulse 104 MON; Pulse Ox 95% ; lf1 16:14 BP 109 / 61 (auto/); lf1 16:14 Pulse 106 MON; Pulse Ox 94% ; lf1 16:27 Pulse 104 MON; Resp 18; Pulse Ox 93% ; lf1 16:29 BP 114 / 71 (auto/); lf1 16:29 Pulse 104 MON; Pulse Ox 92% ; lf1 16:44 BP 113 / 75 (auto/); lf1 16:44 Pulse 106 MON; Pulse Ox 94% ; lf1 16:59 BP 98 / 55 (auto/); lf1 16:59 Pulse 100 MON; Resp 16; Temp 100.0(TE); Pulse Ox 93% ; Pain 4/10; lf1 17:13 BP 118 / 65 (auto/); lf1 17:13 Pulse 102 MON; Resp 16; Pulse Ox 93% ; lf1 17:15 BP 100 / 53 (auto/); lf1 17:15 Pulse 102 MON; Pulse Ox 93% ; lf1 17:30 BP 102 / 64 (auto/); lf1 17:30 Pulse 104 MON; Pulse Ox 95% ; lf1 17:45 BP 108 / 68 (auto/); lf1 17:45 Pulse 104 MON; Pulse Ox 93% ; lf1 18:00 BP 87 / 50 (auto/); jf3 18:00 Pulse 102 MON; Pulse Ox 94% ; jf3 18:15 BP 93 / 58 (auto/); lf1 18:15 Pulse 108 MON; Pulse Ox 94% ; lf1 18:30 BP 109 / 61 (auto/); lf1 18:30 Pulse 104 MON; Pulse Ox 98% ; lf1 18:45 BP 90 / 51 (auto/); lf1 18:45 Pulse 100 MON; Resp 18; Pulse Ox 96% ; Pain 4/10; lf1 18:59 Pulse 102 MON; Pulse Ox 96% ; jf3 19:00 Pulse 102 MON; Pulse Ox 96% ; lf1 19:00 BP 100 / 55 (auto/); jf3 19:15 BP 101 / 55 (auto/); jf3 19:15 Pulse 108 MON; Pulse Ox 96% ; jf3 19:30 BP 94 / 51 (auto/); jf3 19:30 Pulse 106 MON; Pulse Ox 98% ; jf3 19:45 BP 92 / 51 (auto/); jf3 19:45 Pulse 106 MON; Pulse Ox 99% ; jf3 20:00 BP 111 / 57 (auto/); jf3 20:00 Pulse 106 MON; Pulse Ox 94% ; jf3 20:15 BP 106 / 62 (auto/); jf3 20:15 Pulse 104 MON; Pulse Ox 94% ; jf3 20:30 BP 94 / 62 (auto/); jf3 20:30 Pulse 104 MON; Pulse Ox 94% ; jf3 20:31 BP 106 / 62; Pulse 103; Resp 18; Temp 98.7(TE); Pulse Ox 94% on R/A; Pain 5/10; jf3 21:15 BP 102 / 57 (auto/); jf3 21:15 Pulse 104 MON; Pulse Ox 94% ; jf3 21:30 BP 104 / 59 (auto/); jf3 21:30 Pulse 106 MON; Pulse Ox 95% ; jf3 21:45 BP 101 / 56 (auto/); jf3 21:45 Pulse 106 MON; Pulse Ox 95% ; jf3 13:38 Body Mass Index 31.52 (102.51 kg, 180.34 cm) dd6 MDM: 14:26 NS 0.9% 1000 ml IV at bolus once ordered. ke 14:26 Ondansetron 4 mg IVP once ordered. ke 14:26 IV Saline Lock ordered. ke 14:26 Undress patient appropriately for examination ordered. ke 14:26 Lactulose Liquid 30 ml PO once ordered. ke 14:27 Amylase Ordered. EDMS 14:27 Basic Metabolic Profile Ordered. EDMS 14:27 CBC with Diff Ordered. EDMS 14:27 Lipase Ordered. EDMS 14:27 Liver Profile Ordered. EDMS 14:27 Prothrombin Time Profile\E\INR Ordered. EDMS 14:27 Lactic Acid (Georges tube on ice) Ordered. EDMS 14:27 Ammonia ([place] Tube on Ice, Not [place]a [place]) Ordered. EDMS 14:27 CT ABD & PELVIS: No Contrast Ordered. EDMS 14:27 NOTHING BY MOUTH+DIET ordered. EDMS 14:33 Financial registration complete. pm4 14:39 [facility] Payment Agreement was scanned into [employer] and attached to record. pm4 15:27 DIFFERENTIAL NO CHARGE Ordered. EDMS 16:08 Basic Metabolic Profile Reviewed. ke 16:08 CBC with Diff Reviewed. ke 16:08 Liver Profile Reviewed. ke 16:08 Prothrombin Time Profile\E\INR Reviewed. ke 16:08 Lactic Acid (Georges tube on ice) Reviewed. ke 16:08 Ammonia ([place] Tube on Ice, Not [place]a Green) Reviewed. ke 16:08 Amylase Reviewed. ke 16:08 Lipase Reviewed. ke 17:10 Admission / Observation Status ordered. EDMS 17:11 2 GRAM SODIUM DIET ordered. EDMS 17:13 LACTIC ACID LEVEL, LACTATE Ordered. EDMS 17:13 GASTROINTESTINAL (GI) PANEL Ordered. EDMS 17:36 SODIUM,RANDOM URINE Ordered. EDMS 17:36 CREATININE,RANDOM URINE Ordered. EDMS 19:32 LACTIC ACID LEVEL, LACTATE Ordered. EDMS 19:32 BASIC METABOLIC PROFILE Ordered. EDMS 19:32 MAGNESIUM LEVEL Ordered. EDMS 19:32 COMPLETE BLOOD COUNT Ordered. EDMS 19:32 AMMONIA Ordered. EDMS Administered Medications: 15:07 Drug: NS 0.9% 1000 ml [sodium chloride 0.9 % intravenous solution] Route: IV; Rate: jmb bolus; Site: left wrist; 15:07 Drug: Lactulose 30 ml [lactulose 20 gram/30 mL oral solution (30 mL)] Route: PO; jmb 15:08 Drug: Ondansetron 4 mg [ondansetron HCl 2 mg/mL intravenous solution (2 mL)] Route: jmb IVP; Site: left wrist; Signatures: [facility] Jordy Lawson RN Roberto Booth, ALMOND ROASTER ALMOND ROASTER Priscilla Lewis RN RN lf1 McLeulalia, Missy, SENIOR QUALITY CONTROL INSPECTOR SENIOR QUALITY CONTROL INSPECTOR tmm1 Cheng Kolb RN RN jf3 John Sepulveda, Reg Reg pm4 Nahid Lora RN The chart was reviewed and I authenticate all verbal orders and agree with the evaluation and treatment provided.Corrections: (The following items were deleted from the chart) 17:13 17:11 GASTROINTESTINAL (GI) PANEL ordered. EDMS EDMS 17:37 17:36 UREA NITROGEN,RANDOM URINE ordered. EDMS EDMS Attachments: 14:39 [facility] Payment Agreement pm4 MTDD
[2016-11-14 22:12] VITALS: BP 99/56
[2016-11-14] MEDS: MEROPENEM INJ 1 GM in D5W MINI-BAG PLUS 100 ML IV SCH (22:55)
[2016-11-14] MEDS ORDERED: PERCOCET 5MG/325MG TAB PO ONE (23:15)
[2016-11-15] VITALS (19 sets, daily range): BP systolic 79–113; BP diastolic 50–67
[2016-11-15] MEDS ORDERED: diphenhydrAMINE INJ 50MG/ML VIAL (J1200) IV ONE (01:30)
[2016-11-15 05:54] LABS: MEAN CORPUSCULAR HEMOGLOBIN 35.4 pg (27.0-33.0); MEAN CORPUSCULAR HGB CONC 33.2 g/dl (32.0-36.5); MEAN CORPUSCULAR VOLUME 106.7 fl (80.0-96.0); RED CELL DISTRIBUTION WIDTH 15.3 % (11.5-14.5); WHITE BLOOD COUNT 8.9 K/mm3 (4.0-10.0)
[2016-11-15 06:06] LABS: CALCIUM LEVEL 8.2 MG/DL (8.8-10.2); MAGNESIUM LEVEL 1.9 MG/DL (1.8-2.4)
[2016-11-15] MEDS ORDERED: SODIUM CHLORIDE 0.9% 1000 ML IV ONE ×2 (06:30→15:30)
[2016-11-15 06:33] LABS: CREATININE FOR GFR 2.67 MG/DL (0.70-1.30); POTASSIUM SERUM 5.2 MEQ/L (3.5-5.1)
[2016-11-15] MEDS: CYANOCOBALAMIN 500 MCG TAB PO SCH (09:24)
[2016-11-15] MEDS: MEROPENEM INJ 1 GM in D5W MINI-BAG PLUS 100 ML IV SCH (09:24)
[2016-11-15] MEDS: MULTIVITAMINS/MINERALS THERAP 1 TAB PO SCH (09:24)
--- NOTE | 2016-11-15 11:25 | REP ---
Clinical: Shortness of breath. Comparison: 10/21/2016. Findings: Chronic changes are suggested and remains stable. Bibasilar atelectasis and possible pleural effusion cannot be excluded. No pneumothorax. Mediastinum and cardiac silhouette grossly normal for portable technique. Impression: Cannot exclude trace basilar atelectasis and possible pleural effusion. Signed by Reinaldo Dawkins MD 11/15/2016 11:16 A
[2016-11-15 11:41] LABS: DIFF SLIDE NUMBER 117; MEAN CORPUSCULAR HEMOGLOBIN 35.5 pg (27.0-33.0); MEAN CORPUSCULAR HGB CONC 33.3 g/dl (32.0-36.5); MEAN CORPUSCULAR VOLUME 106.7 fl (80.0-96.0); RED CELL DISTRIBUTION WIDTH 14.3 % (11.5-14.5); WHITE BLOOD COUNT 9.4 K/mm3 (4.0-10.0)
[2016-11-15] MEDS ORDERED: MIDODRINE 5 MG TAB PO SCH (12:00)
[2016-11-15 12:12] LABS: ALBUMIN 1.8 GM/DL (3.2-5.2); ALBUMIN/GLOBULIN RATIO 0.44 (1.00-1.93); BILIRUBIN,TOTAL 10.9 MG/DL (0.2-1.0); CALCIUM LEVEL 8.2 MG/DL (8.8-10.2); CREATININE FOR GFR 2.73 MG/DL (0.70-1.30); GLOMERULAR FILTRATION RATE 25.4 (>49); POTASSIUM SERUM 5.1 MEQ/L (3.5-5.1); TOTAL PROTEIN 5.9 GM/DL (6.4-8.2)
[2016-11-15 12:15] LABS: PLATELET COUNT, AUTOMATED 70 k/mm3 (150-450)
[2016-11-15 12:20] LABS: BANDS 8 % (< 11)
[2016-11-15 12:21] LABS: ANISOCYTOSIS 2+; POLYCHROMASIA 1+
--- NOTE | 2016-11-15 12:24 | IPNPDOC ---
Assessment/Plan Date Seen The patient was seen on 11/15/16. Problems Problems: (1) Hepatic cirrhosis Status: Chronic Problem Text: hepatic cirrhosis 2/2 to alcohol use albumin ordered, pt started on midodrine nephrology consulted-appreciate their recommendations pt received paracentesis this afternoon- took off 500 cc fluid fluid sent for cell count and cultures We will hold the patient's Lasix, spironolactone, and lactulose at this time given his current diagnosis of diarrhea with acute kidney injury. Ammonia today is 40 from 73 on arrival to ED (2) Diarrhea Status: Acute Response to Treatment: Stable Problem Text: CT scan upon presentation showed generalized mural thickening was seen throughout the colon and small bowel suggestive of possible underlying infectious or inflammatory gastroenteritis. C-diff panel pending ordered blood culture ordered fungal smear GI panel ordered pending Continue pt on meropenem Gentle IV fluid hydration continued at 60 mL an hour We will continue to monitor the patient's course (3) Lactic acidosis Status: Acute Response to Treatment: Stable Problem Text: Serum lactate increased to 8.1 from 3.6 on arrival to ED May be 2/2 intravascular volume depletion from diarrhea or possible underlying infectious/inflammatory gastroenteritis Pt will receive paracentesis today and we will send for cultures and cell count of fluid 2 L fluid resection diet Will continue meropenem f GI panel ordered and pending Will continue to monitor serum lactate (4) Acute kidney injury Status: Acute Response to Treatment: Stable Problem Text: Nephrology consulted-appreciate their recommendations Serum creatinine noted to be 12.67, up from 1.31 on presentation to ED, baseline creatinine 0.9-1.0 May be 2/2 intravascular volume depletion Urine lytes ordered We will hold nephrotoxins such as Lasix and spironolactone at this time Gentle IV fluid hydration (5) Ascites Status: Chronic Response to Treatment: Stable Problem Text: pt will receive paracentesis today - 500 cc removed will send fluid for culture and cell counts (6) Alcohol abuse Status: Chronic Response to Treatment: Stable Problem Text: pt on multivitamin and B12 continue to monitor for signs of w/d pt not currently having signs of w/d (7) HTN (hypertension) Status: Chronic Problem Text: unfortunately pt is hypotensive will necessitate ICU care at this time pt received central line placement for potential future pressor therapy in ICU albumin has been ordered- will begin therapy Plan / VTE VTE Prophylaxis Ordered?: Yes Plan / Urinary Catheter Reason for insertion/continuin: Critical Pt monitoring Subjective Review of Systems CC/HPI The patient is a 61-year-old male admitted with a reason for visit of Diarrhea. General: Reports: Malaise, Denies: Chills, Fatigue, Night Sweats Constitutional: Denies: Chills, Fever Eyes: Denies: Conjunctivae inflammation, Eyelid inflammation, Pain, Redness, Vision change ENT: Denies: Head Aches Skin: Denies: Jaundice, Lesions, Rash Pulmonary: Denies: Cough, Dyspnea, Pleuritic Chest Pain Cardiovascular: Denies: Chest Pain, Edema, Orthopnea, Palpitations, Paroxysmal Noc. Dyspnea Gastrointestinal: Reports: Abdominal Pain (achy diffuse), Denies: Constipation, Diarrhea, Nausea, Vomiting Neurological: Denies: Incoordination, Numbness, Weakness Psych: Reports: Mood Normal Objective Physical Examination Eye Exam: Positive: Conjunctiva & lids normal, EOMI, PERRLA, Negative: Ptosis, Sclera icteric ENT Exam: Positive: Atraumatic, Mucous membr. moist/pink, Pharynx Normal, Tongue Midline, Negative: Pharyngeal Edema Neck Exam: Positive: Supple Chest Exam: Positive: Clear to auscultation, Normal air movement Heart Exam: Positive: Normal S1, Normal S2, Rate Normal, Negative: Gallops, Murmurs Telemetry: Positive: Sinus Abdomen Exam: Positive: Other (Abdomen continues to be distended but no rebound tenderness, guarding, or rigidity noted. Pt is not painful to palpitation.), Soft Extremity Exam: Positive: Edema (+1 edema b/l ), Negative: Tenderness Psych Exam: Positive: Mental status NL Vital Signs/I&O Vital Signs Date Time Temp Pulse Resp B/P Pulse Ox O2 Delivery O2 Flow Rate FiO2 11/15/16 06:00 97.1 85 18 90/54 93 Room Air I&O- Last 24 Hours up to 6 AM 11/15/16 06:00 Intake Total 664 ml Output Total 0 ml Balance 664 ml Laboratory Data Labs 24H Laboratory Tests 2 11/14/16 14:40: Aspartate Amino Transf (AST/SGOT) 93H, Alanine Aminotransferase (ALT/SGPT) 74, Alkaline Phosphatase 172H, Total Bilirubin 7.3H, Direct Bilirubin 2.6H, Albumin 2.5L, Albumin/Globulin Ratio 0.51L, Ammonia 73H, Amylase Level 70, Anion Gap 12 , Anisocytosis 1+, Band Neutrophils 37H, White Blood Count 6.8, Red Blood Count 4.20L, Hemoglobin 14.9, Hematocrit 44.0, Mean Corpuscular Volume 104.5H, Mean Corpuscular Hemoglobin 35.4H, Mean Corpuscular Hemoglobin Concent 33.8, Red Cell Distribution Width 15.3H, Platelet Count 126L, Neutrophils (%) (Auto) , Lymphocytes (%) (Auto) , Monocytes (%) (Auto) , Eosinophils (%) (Auto) , Basophils (%) (Auto) , Neutrophils # (Auto) , Lymphocytes # (Auto) , Monocytes # (Auto) , Eosinophils # (Auto) , Basophils # (Auto) , Calcium Level 8.5L, Glomerular Filtration Rate 59.2, Lactic Acid Level 3.6*H, Large Unclassified Cells # , Large Unclassified Cells % , Lipase 322, Lymphocytes (Manual) 5L, Macrocytosis 2+, Metamyelocytes 2H, Monocytes (Manual) 5, Neutrophils 51, Platelet Estimate NORMAL, Prothromb Time International Ratio 1.63, Prothrombin Time 19.4H, Total Protein 7.4 11/14/16 22:59: Lactic Acid Level 5.1*H 11/15/16 05:34: Ammonia 40H, Anion Gap 16, Calcium Level 8.2L, Glomerular Filtration Rate 26.0L , Lactic Acid Level 8.1*H, Blood Urea Nitrogen 37H, Creatinine 2.67#H, Sodium Level 136, Potassium Level 5.2H, Chloride Level 101, Carbon Dioxide Level 19L, Magnesium Level 1.9 11/15/16 11:18: B-Type Natriuretic Peptide 163H CBC/BMP Laboratory Tests 11/14/16 14:40 Red Blood Count 4.20 L, Mean Corpuscular Volume 104.5 H, Mean Corpuscular Hemoglobin 35.4 H, Mean Corpuscular Hemoglobin Concent 33.8, Red Cell Distribution Width 15.3 H, Neutrophils (%) (Auto) , Lymphocytes (%) (Auto) , Monocytes (%) (Auto) , Eosinophils (%) (Auto) , Basophils (%) (Auto) , Neutrophils # (Auto) , Lymphocytes # (Auto) , Monocytes # (Auto) , Eosinophils # (Auto) , Basophils # (Auto) 11/15/16 05:34 Red Blood Count 3.48 L, Mean Corpuscular Volume 106.7 H, Mean Corpuscular Hemoglobin 35.4 H, Mean Corpuscular Hemoglobin Concent 33.2, Red Cell Distribution Width 15.3 H, Calcium Level 8.2 L GME ATTESTATION GME ATTESTATION My preceptor for this patient encounter was physically present in the building during the encounter and was fully available. As needed, all aspects of the patient interview, examination, medical decision making process, and medical care plan development were reviewed and approved by the preceptor. Preceptor is aware and concurs with the plan as stated in the body of this note and will attest to such by his/her cosignature. RADHA NEGRON DO Nov 15, 2016 12:23
--- NOTE | 2016-11-15 13:55 | REP ---
Clinical: Catheter placement. Comparison: 11/15/2016 at 11:16 a.m. Findings: Right IJ line with tip in the SVC. Mediastinum and cardiac silhouette are stable. Basilar atelectasis cannot be excluded along with possible small layering effusion. No pneumothorax. Skeletal structures intact. Impression: 1. Right IJ line in SVC without pneumothorax. 2. Continued findings to suggest bibasilar atelectasis and possible layering effusion. Signed by Reinaldo Dawkins MD 11/15/2016 01:47 P
[2016-11-15] MEDS: MIDODRINE 5 MG TAB PO SCH ×2 (14:13→16:27)
[2016-11-15] MEDS: OCTREOTIDE ACETATE 1,200 MCG in NS 238.8 ML IV SCH (14:13)
--- NOTE | 2016-11-15 14:47 | RO ---
DATE OF PROCEDURE: 11/15/2016 PREPROCEDURE DIAGNOSIS: Hypotension. POSTPROCEDURE DIAGNOSIS: Hypotension. PROCEDURE: Right internal jugular (IJ) triple lumen central line. SURGEON: Dr. Karen Boyd DIRECTOR OF EVENT SALES: Dr. Dustin Rose SEDATION: None. ANESTHETIC: 1% local lidocaine. VENTILATION: Patient on 100% nonrebreather for the duration of the procedure. ESTIMATED BLOOD LOSS: 15 mL. DESCRIPTION OF PROCEDURE: The patient was placed in the supine position. The right side of the patient's neck was cleaned with Chloraprep, the patient was covered in a sterile manner. Ultrasound was used. Internal jugular was located, superficial 1% lidocaine was injected with ultrasound guidance, subsequently needle was inserted, flash of blood was obtained with ultrasound guidance. Subsequently, the wire was inserted, needle was removed, position of the wire was confirmed with ultrasound once again, so site was dilated, triple lumen central line was inserted over a guidewire, wire was removed. The line was secured with stitches and clamps. Subsequently, dressing was placed. All ports of central line were flushed. X-ray was ordered for confirmation. The patient tolerated the procedure with no complications.
--- NOTE | 2016-11-15 14:58 | RO ---
DATE OF PROCEDURE: 11/15/2016 PREPROCEDURE DIAGNOSIS: Cirrhosis with ascites. POSTPROCEDURE DIAGNOSIS: Cirrhosis with ascites. PROCEDURE: Diagnostic paracentesis. SURGEON: Dr. Karen Boyd MEDICAL RECORDS CUSTODIAN: Dr. Loo ANESTHESIA: 1% local lidocaine. VENTILATION: None. SEDATION: None. ESTIMATED BLOOD LOSS: Minimum. DESCRIPTION OF PROCEDURE: Patient was placed in supine position. The site was initially located with ultrasound. Subsequently cleaned with Chloraprep twice and covered in a sterile manner. Ultrasound was used for guidance to locate a spot as well. Subsequently, 1% local lidocaine was injected, first superficial then deep. The skin was nicked with a scalpel blade for approximately 1-2 mm. Skin traction was pulled and subsequently needle was inserted. Ascites fluid was obtained. Subsequently, a plastic catheter was advanced over the needle and needle was removed. A total of 250 mL syringe of ascites fluid was removed initially for testing. Preprocedure blood pressure: Patient had a blood pressure of 88/56. Subsequently, two plastic tubes were connected to low suction, further fluid was removed. After a total of 425 mL of fluid was removed, repeat vital signs showed a blood pressure of 80/50, subsequently the procedure was terminated given patient with hypotension and catheter was removed, dressing was placed. The patient tolerated the procedure with no complications. A total of 425 mL of ascites fluid was removed; it is pinkish, cloudy.
[2016-11-15 15:20] LABS: RBC ASCITES FLUID < 10 (<10mm3 cells/uL); TNC ASCITES FLUID 2895 cells/uL (0-20)
[2016-11-15 15:21] LABS: BF DIFF IF INDICATED? YES (NO)
[2016-11-15 16:13] LABS: CC BF DIFF EXAM CYTOCENTRIFUGE
[2016-11-15] MEDS ORDERED: NOREPINEPHRINE BITARTRATE 8 MG in D5W 500 ML IV SCH (18:00)
--- NOTE | 2016-11-15 20:15 | CR ---
DATE OF CONSULTATION: 11/15/2016 REQUESTING PHYSICIAN: Dr. Mary Mak CONSULTING PHYSICIAN: Dr. Pfeiffer REASON FOR CONSULTATION: Management of acute kidney injury in a cirrhotic patient. CHIEF COMPLAINT: The patient presented with diarrhea and vomiting yesterday. Note:history was obtained from the medical records and from the medical team. The patient was unable to provide me with any reliable history. HISTORY OF PRESENT ILLNESS: Mr. Kory Mosley is a 61-year-old male with a past medical history of alcoholic cirrhosis. As per patient, his last drink was on 10/21/2016. He has a history of ascites requiring taps, latest tap was on 11/11/2016 and about 12 liters of fluid was removed. The patient was also on Lasix, spironolactone, and Lactulose. He presented to the emergency room yesterday with diarrhea, which was non-bloody with up to ten episodes of day, pain in the abdomen, abdominal distention, nausea and vomiting. He also complained of decreased appetite and confusion. The patient got a CT scan of the abdomen and pelvis without IV contrast yesterday. His creatinine on admission was 1.3 on 11/14/2016, which has bumped to 2.7 today. Nephrology service was called for the management of acute kidney injury in the setting of decompensated cirrhosis. PAST MEDICAL HISTORY: 1. Decompensated liver cirrhosis secondary to alcohol abuse. 2. Ascites requiring multiple ascitic taps. 3. History of hypertension as well, as reported by the patient. PAST SURGICAL HISTORY: 1. Status post bunionectomy. 2. Recently, the patient got the ascitic tap on 11/11/2016 and 12 liters of fluid was removed. ALLERGIES: No known drug allergies. CURRENT MEDICATIONS: When I saw the patient, the patient was already on: - meropenem 1 gram IV every 12 hours - normal saline at 85 mL an hour - vitamin B12 - Benadryl - Reglan as needed - multivitamin - he was given one dose of normal saline bolus at 500 mL IV FAMILY HISTORY: No significant family history of end stage renal disease requiring hemodialysis. SOCIAL HISTORY: The patient lives at home. He is not a smoker. He has a history of alcohol abuse. His last drink was on 10/21/2016. He was recently diagnosed with cirrhosis on October. REVIEW OF SYSTEMS: CONSTITUTIONAL: The patient reported weakness, inability to walk and confusion. EYES: He denied any recent blurry vision or changes in vision. ENT: He denies any ear discharge, ear pain, sore throat, or dysphagia. CARDIOVASCULAR: He denies any chest pain or palpitations. RESPIRATORY: He denies any shortness of breath or cough. GASTROINTESTINAL: He reports cirrhosis and ascites and abdominal distention. GENITOURINARY: He denies any dysuria or hematuria. MUSCULOSKELETAL: He denies any muscle aches or pains. NEUROLOGIC: The patient reports history of confusion and he is confused at this time as well. ENDOCRINE: The patient denies any history of diabetes or thyroid problems. HEMATOLOGIC/ONCOLOGIC: There is no history of malignancy or anemia. SKIN: He denies any rashes or ulcers. PSYCHIATRIC: He denies any history of depression, but history of alcoholism is present. All other review of systems is negative. PHYSICAL EXAMINATION: GENERAL: The patient is awake, alert, oriented times two, lying in bed. Mildly confused. HEAD AND NECK EXAM: Positive conjunctival jaundice. Mucous membranes are dry. NECK: Supple. There is no jugular venous distention (JVD). CARDIOVASCULAR: S1, S2. Regular rate. No murmur, rub or gallop. RESPIRATORY: Clear to auscultation bilaterally; however, there were decreased breath sounds at the bases because of the ascites. ABDOMEN: Abdomen is distended, protuberant. Positive bowel sounds. No tenderness. Positive ascites. EXTREMITIES: No clubbing or cyanosis. Pulses are 2+. There is no edema of the lower extremities. NEUROLOGIC: The patient does not have any asterixis, but he is oriented times two. Power is 5/5 in all extremities. SKIN: No rashes or ulcers, but positive jaundice. LYMPHATICS: There is no significant cervical, axillary or inguinal lymphadenopathy. LABORATORY DATA: Complete blood count (CBC) showed a WBC of 9.4, hemoglobin 12.6, platelets of 70. His bands were 37 when he came in and they are 8 today. INR was 1.6. Urinalysis showed it was cloudy with positive bilirubin, positive urobilinogen. Urine creatinine was 322. Urine sodium was 12. Ascitic fluid, diagnostic tap done at the bedside this afternoon showed 2895 nucleated cells and 62% of them were neutrophils, which is diagnostic of spontaneous bacterial peritonitis. Basic metabolic panel (BMP) done today showed a sodium of 135, potassium 5.1, chloride 99, bicarbonate is 80, BUN 40, creatinine 2.7, lactate was 8.7, calcium 8.2, total bilirubin 10.9. Ammonia was 49. BNP was 163. Albumin is 1.9. Microbiology: Blood cultures are pending. IMAGING: Chest x-ray done this morning showed trace basilar atelectasis and possible pleural effusions. A CAT scan of the abdomen and pelvis without oral or intravenous contrast was done yesterday and showed massive ascites were improving though it was moderate in amount. There was a question of inflammatory gastroenteritis and liver and spleen were enlarged. There was portal venous hypertension. ASSESSMENT: 61-year-old male with a past medical history of alcoholic cirrhosis admitted this time with nausea, vomiting, and abdominal pain and diarrhea. The patient has severe sepsis secondary to spontaneous bacterial peritonitis and now he is in acute renal failure. PLAN: 1. Acute renal failure. The patient is in type 1 hepatorenal syndrome secondary to severe sepsis and SBP. He has been started on midodrine 10 mg by mouth every 8 hours, albumin 25% 25 grams intravenously every 8 hours and octreotide infusion at 50 mcg an hour. If the patient's mean arterial pressure stays below 65, then he will be started on Levophed infusion. The patient is being transferred to intensive care unit (ICU). 2. Severe sepsis secondary to spontaneous bacterial peritonitis. The patient got stat cultures done. Albumin already started. He has been transferred to intensive care unit (ICU), central line has been placed. Lactate is very high. Levophed is being initiated. The patient is already on antibiotics, meropenem 1 gram IV every 12 hours, which was decreased to 500 mg IV every 12 hours because of fall in the patient's GFR and acute renal failure. I ordered Stool C diff which is pending. 3. Lactic acidosis. Lactic acidosis is secondary to severe sepsis and inability of the lactate to be metabolized in the liver because of cirrhosis. Continue aggressive volume repletion with 25% albumin. Continue antibiotics. Follow the sepsis protocol. 4. Decompensated alcoholic cirrhosis. The patient's last alcohol drink was about 2 months ago. His MDS score is high. He is being started on Pentoxifylline. He is not a candidate for steroids at this time because of sepsis. 5. Hyponatremia. Hyponatremia is secondary to decompensated cirrhosis. It is expected to improve with intravenous albumin and hopefully with improving renal function. 6. Metabolic acidosis. Metabolic acidosis is secondary to acute kidney injury. Serum bicarbonate is around 18 at this time. I am hopeful with the improving kidney function that his bicarbonate will improve. I am not going to start bicarbonate repletion at this time. Thank you for involving us in the care of this patient. The plan of care was discussed with the hospitalist team, Dr. Mary Mak, and with the medical technician. The patient was transferred to intensive care unit (ICU). Orders were placed in the system. I shall follow the patient with you tomorrow morning. MARIANNE
[2016-11-15] MEDS ORDERED: FIDAXOMICIN 200 MG TAB (DIFICID) PO SCH (21:00)
[2016-11-15] MEDS: MEROPENEM INJ 500 MG in D5W MINI-BAG PLUS 100 ML IV SCH (21:21)
[2016-11-15] MEDS ORDERED: NS 1,000 ML IV SCH (23:00)
[2016-11-16] VITALS (31 sets, daily range): BP systolic 88–129; BP diastolic 51–69
[2016-11-16 06:22] LABS: ALBUMIN 2.1 GM/DL (3.2-5.2); ALBUMIN/GLOBULIN RATIO 0.6 (1.00-1.93); BILIRUBIN,DIRECT 4.1 MG/DL (0.0-0.2); BILIRUBIN,TOTAL 8.5 MG/DL (0.2-1.0); CALCIUM LEVEL 7.7 MG/DL (8.8-10.2); CREATININE FOR GFR 3.02 MG/DL (0.70-1.30); GLOMERULAR FILTRATION RATE 22.6 (>49); TOTAL PROTEIN 5.6 GM/DL (6.4-8.2)
[2016-11-16 06:26] LABS: POTASSIUM SERUM 5.3 MEQ/L (3.5-5.1)
[2016-11-16 06:31] LABS: INR 3.55
[2016-11-16 06:37] LABS: MEAN CORPUSCULAR HGB CONC 34.1 g/dl (32.0-36.5); MEAN CORPUSCULAR VOLUME 105.7 fl (80.0-96.0); WHITE BLOOD COUNT 9.2 K/mm3 (4.0-10.0)
[2016-11-16] MEDS: MULTIVITAMINS/MINERALS THERAP 1 TAB PO SCH (08:02)
[2016-11-16] MEDS: CYANOCOBALAMIN 500 MCG TAB PO SCH (08:02)
[2016-11-16] MEDS: MIDODRINE 5 MG TAB PO SCH ×3 (08:03→15:36)
[2016-11-16] MEDS: metroNIDAZOLE (FLAGYL) 500 MG TAB PO SCH ×3 (08:54→21:26)
[2016-11-16] MEDS: MEROPENEM INJ 500 MG in D5W MINI-BAG PLUS 100 ML IV SCH ×2 (08:54→21:25)
--- NOTE | 2016-11-16 11:35 | IPNPDOC ---
Assessment/Plan Date Seen The patient was seen on 11/16/16. Problems Problems: (1) Decompensated hepatic cirrhosis Status: Acute Problem Text: alcoholic cirrhosis with ascitis, thrombocytopenia, hyponatremia, coagulopathy and hepatic encephalopathy high bilirubin got bed side diagnostic tapping done on 11/15/16 positive for peritonitis on albumin , midodrine, octreotide, meropenem. (2) Severe sepsis Status: Acute Problem Text: present on admission due to c diff colitis and bacterial peritonitis. continue meropenem and metronidazole. (3) C. difficile diarrhea Status: Acute Problem Text: will start on metronidazole on gentle hydration also (4) Peritonitis Status: Acute Problem Text: could be primary SBP or secondary to c diff colitis will continue with meropenem , fluid culture and fungal culture of fluid pending (5) Acute kidney injury Status: Acute Response to Treatment: Stable Problem Text: from sepsis and volume depletion from diarrhea and hypotension resulting in hepatorenal syn on midodrine, albumin, levophed, octreotide (6) Lactic acidosis Status: Acute Response to Treatment: Stable Problem Text: Serum lactate increased to 8.1 from 3.6 on arrival to ED From liver failure + hypotension (7) Ascites Status: Chronic Response to Treatment: Stable Problem Text: pt will receive paracentesis today - 500 cc removed will send fluid for culture and cell counts (8) Alcohol abuse Status: Chronic Response to Treatment: Stable Problem Text: pt on multivitamin and B12 continue to monitor for signs of w/d pt not currently having signs of w/d Plan / VTE VTE Prophylaxis Ordered?: Yes Plan / Urinary Catheter Reason for insertion/continuin: Critical Pt monitoring Subjective Review of Systems CC/HPI The patient is a 61-year-old male admitted with a reason for visit of Diarrhea. Events since last encounter pateint complains of some craps in his abdomen and headache , poor appetite, denies any chest pain , or sob , denies any fever or chills, Objective Physical Examination General Exam: Positive: Alert, Cooperative, No Acute Distress Eye Exam: Positive: Conjunctiva & lids normal, EOMI, PERRLA, Sclera icteric, Negative: Ptosis ENT Exam: Positive: Atraumatic, Mucous membr. moist/pink, Pharynx Normal, Tongue Midline, Negative: Pharyngeal Edema Neck Exam: Positive: Supple Chest Exam: Positive: Clear to auscultation, Normal air movement Heart Exam: Positive: Normal S1, Normal S2, Rate Normal, Negative: Gallops, Murmurs Telemetry: Positive: Sinus Abdomen Exam: Positive: Normal bowel sounds, Other (Abdomen continues to be distended but no rebound tenderness, guarding, or rigidity noted. Pt is not painful to palpitation.), Soft Extremity Exam: Positive: Edema (+1 edema b/l ), Negative: Tenderness Psych Exam: Positive: Mental status NL Vital Signs/I&O Vital Signs Date Time Temp Pulse Resp B/P Pulse Ox O2 Delivery O2 Flow Rate FiO2 11/16/16 10:31 65 20 105/56 95 Nasal Cannula 2.0 11/16/16 08:17 97.2 I&O- Last 24 Hours up to 6 AM 11/16/16 06:00 Intake Total 2765 ml Output Total 795 ml Balance 1970 ml Laboratory Data Labs 24H Laboratory Tests 2 11/15/16 11:18: Blood Urea Nitrogen 40H, Creatinine 2.73H, Sodium Level 135L, Potassium Level 5.1, Chloride Level 99, Carbon Dioxide Level 18L, Calcium Level 8.2L, Aspartate Amino Transf (AST/SGOT) 83H, Alanine Aminotransferase (ALT/SGPT) 63, Alkaline Phosphatase 89, Total Bilirubin 10.9H, Total Protein 5.9#L, Albumin 1.8#L, Albumin/Globulin Ratio 0.44L, Anion Gap 18H, B-Type Natriuretic Peptide 163H, Glomerular Filtration Rate 25.4L 11/15/16 11:24: Anisocytosis 2+, Band Neutrophils 8, Lymphocytes (Manual) 16, Macrocytosis 2+, Monocytes (Manual) 2, Neutrophils 74, Platelet Estimate DECREASED, Polychromasia 1+ 11/15/16 11:52: Albumin 1.9L, Lactic Acid Level 8.7*H 11/15/16 11:55: Urine Amorphous Sediment MODERATEH, Urine Appearance CLOUDYH, Urine Color ANGEL , Urine pH 5.0, Urine Specific [place] 1.021, Urine Protein 1+H, Urine Glucose ( UA) 1+H, Urine Ketones NEGATIVE, Urine Urobilinogen 4.0H, Urine Bilirubin 1+H, Urine Leukocyte Esterase NEGATIVE, Urine Bacteria (Auto) 1+H, Urine Blood 2+H, Urine Calcium Carbonate Cryst(Auto) , Urine Calcium Oxalate Cryst (Auto) , Urine Calcium Phosphate Le (Auto) , Urine Cellular Casts , Urine Cystine Crystals , Urine Granular Casts (Auto) 13, Urine Hyaline Casts (Auto) 40, Urine Leucine Crystals , Urine Mucus (Auto) SMALL, Urine Nitrite NEGATIVE, Urine Oval Fat Bodies (Auto) , Urine RBC (Auto) 44H, Urine Random Creatinine 322.0, Urine Random Potassium 35.6, Urine Random Sodium 12, Urine Renal Epithelial Cells , Urine Sperm (Auto) , Urine Squamous Epithelial Cells 1, Urine Transitional Epithelial Cells , Urine Trichomonas (Auto) , Urine Triple Phosphate Cryst (Auto ) , Urine Tyrosine Crystals , Urine Uric Acid Crystals (Auto) , Urine WBC (Auto ) 3, Urine Waxy Casts (Auto) , Urine Yeast-Like Cells (Auto) 11/15/16 14:26: Body Fluid Appearance CLOUDY, Body Fluid Color YELLOW, Body Fluid Lymphocytes 17 , Body Fluid Monocytes/Macrophages 21, Body Fluid Neutrophils 62, Body Fluid RBC (Auto) < 10, Body Fluid Source ASCITES, Body Fluid Total Nucleated Cells 2895H 11/15/16 23:15: Lactic Acid Level 5.6*H 11/16/16 05:42: Blood Urea Nitrogen 56H, Creatinine 3.02H, Sodium Level 130L, Potassium Level 5.3H, Chloride Level 97L, Carbon Dioxide Level 22, Calcium Level 7.7L, Aspartate Amino Transf (AST/SGOT) 71H, Alanine Aminotransferase (ALT/SGPT) 56, Alkaline Phosphatase 59, Total Bilirubin 8.5H, Direct Bilirubin 4.1H, Total Protein 5.6L, Albumin 2.1L, Albumin/Globulin Ratio 0.60L, Ammonia 44H, Anion Gap 11, Glomerular Filtration Rate 22.6L 11/16/16 05:43: Magnesium Level 2.0, Prothromb Time International Ratio 3.55, Prothrombin Time 35.5H CBC/BMP Laboratory Tests 11/15/16 11:18 Calcium Level 8.2 L, Aspartate Amino Transf (AST/SGOT) 83 H, Alanine Aminotransferase (ALT/SGPT) 63, Alkaline Phosphatase 89, Total Bilirubin 10.9 H , Total Protein 5.9 #L, Albumin 1.8 #L 11/15/16 11:24 Red Blood Count 3.54 L, Mean Corpuscular Volume 106.7 H, Mean Corpuscular Hemoglobin 35.5 H, Mean Corpuscular Hemoglobin Concent 33.3, Red Cell Distribution Width 14.3 11/16/16 05:42 Calcium Level 7.7 L, Aspartate Amino Transf (AST/SGOT) 71 H, Alanine Aminotransferase (ALT/SGPT) 56, Alkaline Phosphatase 59, Total Bilirubin 8.5 H, Total Protein 5.6 L, Albumin 2.1 L, Red Blood Count 2.86 L, Mean Corpuscular Volume 105.7 H, Mean Corpuscular Hemoglobin 36.0 H, Mean Corpuscular Hemoglobin Concent 34.1, Red Cell Distribution Width 14.0, Direct Bilirubin 4.1 H Microbiology Microbiology 11/15/16 Blood Culture, Received Pending 11/15/16 Blood Culture, Received Pending 11/15/16 Fungal Smear, Received Pending 11/15/16 Fungal Culture, Received Pending 11/15/16 Gram Stain - Final, Resulted 11/15/16 Body Fluid Culture, Resulted Pending 11/15/16 Clostridium difficile (PCR) - Final, Complete 11/15/16 MRSA Screen, Received Pending RANJIT LOPEZ MD Nov 16, 2016 11:35
[2016-11-16] MEDS: OCTREOTIDE ACETATE 1,200 MCG in NS 238.8 ML IV SCH (13:36)
[2016-11-16] MEDS: oxyCODONE 5MG TAB PO PRN (15:37)
[2016-11-16] MEDS: PENTOXIFYLLINE 400 MG TAB PO SCH (17:32)
--- NOTE | 2016-11-16 18:18 | IPN ---
DATE: 11/16/2016 SUBJECTIVE: The patient was seen and examined at the bedside today. Last 24- hour events were noted. In addition to spontaneous bacterial peritonitis (SBP), the patient was also found to have a positive Clostridium (C.) difficile. The patient was started on Flagyl 500 mg by mouth every eight hours for C. difficile colitis. He continues to be on intravenous (IV) antibiotics. His urine output is slightly better than yesterday; however, he continues to be oliguric at this time. His creatinine is still trending up. He did not require any Levophed infusion because his blood pressure responded to albumin and midodrine. The patient is awake, alert times two, and his was also present at the bedside. His lactate is slightly better as compared with yesterday. Yesterday it was 5.6, and it is 3.1 today. REVIEW OF SYSTEMS: The patient denies any fevers, chills, rigors, headaches, chest pain, shortness of breath. He does report some pain abdomen and some or diarrhea which is getting better, and he reports abdominal distention as well. Rest of review of systems is negative. OBJECTIVE: VITAL SIGNS: Temperature is 96.6 degrees Fahrenheit, blood pressure is 122/63, pulse is 84, respiratory rate of 18, saturating 93% on nasal cannula at two liters per minute. INTAKE AND OUTPUT: Urine output is recorded as 250 mL yesterday, and 445 mL so far today since overnight. He had two liters positive fluid balance yesterday and about 80 mL positive fluid balance so far today since midnight. PHYSICAL EXAMINATION: GENERAL: The patient is awake, alert, oriented times three lying in bed, no apparent distress at this time. HEAD/NECK: Extraocular muscles intact. Positive jaundice in the sclerae. Mucous membranes are moist. Neck is supple. There is no jugular venous distention (JVD) . CARDIOVASCULAR: S1, S2, regular rate. No murmur, rub, or gallop. RESPIRATORY: Chest is clear to auscultation bilaterally. Bilateral equal air entry. No rales or rhonchi. ABDOMEN: Soft, distended, with positive ascites and positive tympanitic percussion in the epigastrium and hypogastrium. There is no tenderness at this time. Left lobe of the liver was also palpable. EXTREMITIES: Very trace edema on the bilateral lower extremities. No clubbing or cyanosis. Pulses are 2+. CENTRAL NERVOUS SYSTEM ([employer] PLATE): No asterixis at this time. Power is 5/5 in all extremities. SKIN: No rashes or ulcers, but positive jaundice. LABORATORY DATA: CBC showed a WBC 9.2, hemoglobin 10.3, platelets of 50. INR is 3.5. BMP shows sodium 130, potassium 5.3, chloride 97, bicarbonate 22, BUN 56, creatinine 3.02 which is worse than yesterday. Lactic acid is 3.1 today. Calcium is 7.7. Magnesium is 2. Total bilirubin is 8.5. Ammonia 44, albumin is 2.1. MICROBIOLOGY: Stool for C. difficile is positive. Gram's stain of body fluid showed moderate white blood cells, no organisms. Blood cultures are negative so far. CURRENT MEDICATIONS: The patient's current medications are reviewed by me. He is not requiring Levophed at this time. He continues to be on meropenem 500 mg IV every 12 hours. He was on IV normal saline at 50 mL per hour which was stopped by me today. He continues to be on Sandostatin drip at 50 mcg an hour. He is on vitamin B12. He has been started on Flagyl 500 mg by mouth every eight hours. He is on midodrine 10 mg by mouth three times a day, and he is on oxycodone as needed, and he has been started on pentoxifylline 400 mg by mouth twice a day. ASSESSMENT: A 61-year-old male with past medical history of alcoholic cirrhosis, last drink was about a month ago, admitted with pain abdomen and diarrhea. Later on he was found to have Clostridium (C.)difficile colitis and spontaneous bacterial peritonitis (SBP). Nephrology service following the patient for management of acute renal failure. PLAN: 1. Acute renal failure. It can be sec to severe sepsis, SBP, and C. difficile colitis. He was already started on midodrine 25%, albumin 25 gram IV every eight hours, and octreotide infusion. I ordered the Levophed, but the patient did not require Levophed yesterday because his mean arterial pressure is above 70. Continue to monitor 24-hour intake and output. Continue the current care in the intensive care unit (ICU) at this time. 2. Severe sepsis secondary to spontaneous bacterial peritonitis and C. difficile colitis. The patient is currently on IV meropenem, and he has been started on oral Flagyl as well. The patient is not requiring pressors at this time. Continue albumin 25 grams every eight hours. I am stopping the IV fluids at this time, because in patients with cirrhosis, IV fluids ultimately worsen the ascites. If patient needed IV hydration, I would give him 5% albumin instead of normal saline. 3. Lactic acidosis. Lactic acidosis is secondary to severe sepsis and inability of the lactate to be metabolized in the liver. However, lactic acid is getting better as compared with yesterday. Continue aggressive management in the ICU. 4. Decompensated alcoholic cirrhosis. The patient's last drink was one month ago. His MDS score is high. I have started the patient on pentoxifylline 400 mg by mouth twice a day. 5. Hyponatremia. Hyponatremia secondary to decompensated cirrhosis. Sodium will hopefully improve after improvement in the renal function. Continue the current management at this time, and continue albumin infusions. 6. Metabolic acidosis. The patient's bicarbonate improved as compared with yesterday, is 22. With improvement of the lactic acidosis, his metabolic acidosis will also improve. No need of bicarbonate administration at this time. The plan of care was discussed with the hospitalist team, Dr. Mary Mak, and with the patient's at the bedside today in the morning. MARIANNE
--- NOTE | 2016-11-16 23:03 | EDDOCDS ---
Physician Documentation [facility] Name: Kory Mosley Age: 61 yrs Sex: Male : 1955 Arrival Date: 11/14/2016 Time: 13:37 Bed 14 Private MD: John Martinez [facility] Disposition: 11/14/16 16:13 Hospitalization ordered by Jay Guerrero for Inpatient Admission. Preliminary diagnosis are Alcoholic cirrhosis of liver with ascites, Altered mental status, unspecified. - Bed requested for 4 [place]. - Status is Inpatient Admission. jf3 - Condition is Stable. - Problem is an acute exacerbation. - Symptoms are unchanged. Historical: - Allergies: No known drug Allergies; - Home Meds: 1. atenolol 50 mg Oral tab 1 tab once daily 2. furosemide 20 mg Oral tab 1 tab once daily 3. propranolol 10 mg Oral tab 1 tab twice a day 4. lactulose 10 gram/15 mL Oral soln 15 mL once daily for Hyperammonemia (Last dose: 11/12/2016) - PMHx: Hypertension; Cirrhosis; - PSHx: Bunion Surgery; right knee surgery; - Social history: Smoking status: Patient states was never smoker of tobacco. No barriers to communication noted, The patient speaks fluent Norwegian, Speaks appropriately for age. - Family history: Not pertinent. - : The pt / caregiver states he / she is not on anticoagulants. Home medication list is obtained from the patient, family members. - Exposure Risk Screening:: None identified. Vital Signs: 11/14 13:38 BP 104 / 67; Pulse 87; Resp 18 S; Temp 98.3(O); Pulse Ox 98% on R/A; Weight 102.51 kg / dd6 226 lbs (R); Height 5 ft. 11 in. (180.34 cm) (R); 13:59 BP 145 / 80 (auto/); jf3 14:01 Pulse 92 MON; Pulse Ox 94% ; jf3 14:14 BP 131 / 73 (auto/); lf1 14:14 Pulse 90 MON; Pulse Ox 96% ; lf1 14:29 BP 138 / 78 (auto/); jmb 14:29 Pulse 98 MON; Pulse Ox 97% ; jmb 14:44 BP 131 / 74 (auto/); jmb 14:44 Pulse 98 MON; Pulse Ox 95% ; jmb 14:59 BP 125 / 76 (auto/); jmb 14:59 Pulse 100 MON; Pulse Ox 95% ; jmb 15:14 BP 125 / 80 (auto/); lf1 15:14 Pulse 102 MON; Pulse Ox 95% ; lf1 15:29 BP 119 / 77 (auto/); lf1 15:29 Pulse 102 MON; Pulse Ox 95% ; lf1 15:44 BP 97 / 60 (auto/); lf1 15:44 Pulse 100 MON; Pulse Ox 95% ; lf1 15:59 BP 107 / 68 (auto/); lf1 15:59 Pulse 104 MON; Pulse Ox 95% ; lf1 16:14 BP 109 / 61 (auto/); lf1 16:14 Pulse 106 MON; Pulse Ox 94% ; lf1 16:27 Pulse 104 MON; Resp 18; Pulse Ox 93% ; lf1 16:29 BP 114 / 71 (auto/); lf1 16:29 Pulse 104 MON; Pulse Ox 92% ; lf1 16:44 BP 113 / 75 (auto/); lf1 16:44 Pulse 106 MON; Pulse Ox 94% ; lf1 16:59 BP 98 / 55 (auto/); lf1 16:59 Pulse 100 MON; Resp 16; Temp 100.0(TE); Pulse Ox 93% ; Pain 4/10; lf1 17:13 BP 118 / 65 (auto/); lf1 17:13 Pulse 102 MON; Resp 16; Pulse Ox 93% ; lf1 17:15 BP 100 / 53 (auto/); lf1 17:15 Pulse 102 MON; Pulse Ox 93% ; lf1 17:30 BP 102 / 64 (auto/); lf1 17:30 Pulse 104 MON; Pulse Ox 95% ; lf1 17:45 BP 108 / 68 (auto/); lf1 17:45 Pulse 104 MON; Pulse Ox 93% ; lf1 18:00 BP 87 / 50 (auto/); jf3 18:00 Pulse 102 MON; Pulse Ox 94% ; jf3 18:15 BP 93 / 58 (auto/); lf1 18:15 Pulse 108 MON; Pulse Ox 94% ; lf1 18:30 BP 109 / 61 (auto/); lf1 18:30 Pulse 104 MON; Pulse Ox 98% ; lf1 18:45 BP 90 / 51 (auto/); lf1 18:45 Pulse 100 MON; Resp 18; Pulse Ox 96% ; Pain 4/10; lf1 18:59 Pulse 102 MON; Pulse Ox 96% ; jf3 19:00 Pulse 102 MON; Pulse Ox 96% ; lf1 19:00 BP 100 / 55 (auto/); jf3 19:15 BP 101 / 55 (auto/); jf3 19:15 Pulse 108 MON; Pulse Ox 96% ; jf3 19:30 BP 94 / 51 (auto/); jf3 19:30 Pulse 106 MON; Pulse Ox 98% ; jf3 19:45 BP 92 / 51 (auto/); jf3 19:45 Pulse 106 MON; Pulse Ox 99% ; jf3 20:00 BP 111 / 57 (auto/); jf3 20:00 Pulse 106 MON; Pulse Ox 94% ; jf3 20:15 BP 106 / 62 (auto/); jf3 20:15 Pulse 104 MON; Pulse Ox 94% ; jf3 20:30 BP 94 / 62 (auto/); jf3 20:30 Pulse 104 MON; Pulse Ox 94% ; jf3 20:31 BP 106 / 62; Pulse 103; Resp 18; Temp 98.7(TE); Pulse Ox 94% on R/A; Pain 5/10; jf3 21:15 BP 102 / 57 (auto/); jf3 21:15 Pulse 104 MON; Pulse Ox 94% ; jf3 21:30 BP 104 / 59 (auto/); jf3 21:30 Pulse 106 MON; Pulse Ox 95% ; jf3 21:45 BP 101 / 56 (auto/); jf3 21:45 Pulse 106 MON; Pulse Ox 95% ; jf3 13:38 Body Mass Index 31.52 (102.51 kg, 180.34 cm) dd6 MDM: 14:26 NS 0.9% 1000 ml IV at bolus once ordered. ke 14:26 Ondansetron 4 mg IVP once ordered. ke 14:26 IV Saline Lock ordered. ke 14:26 Undress patient appropriately for examination ordered. ke 14:26 Lactulose Liquid 30 ml PO once ordered. ke 14:27 Amylase Ordered. EDMS 14:27 Basic Metabolic Profile Ordered. EDMS 14:27 CBC with Diff Ordered. EDMS 14:27 Lipase Ordered. EDMS 14:27 Liver Profile Ordered. EDMS 14:27 Prothrombin Time Profile\E\INR Ordered. EDMS 14:27 Lactic Acid (Georges tube on ice) Ordered. EDMS 14:27 Ammonia ([place] Green Tube on Ice, Not Pea Green) Ordered. EDMS 14:27 CT ABD & PELVIS: No Contrast Ordered. EDMS 14:27 NOTHING BY MOUTH+DIET ordered. EDMS 14:33 Financial registration complete. pm4 14:39 [facility] [place] Payment Agreement was scanned into [employer] and attached to record. pm4 15:27 DIFFERENTIAL NO CHARGE Ordered. EDMS 16:08 Basic Metabolic Profile Reviewed. ke 16:08 CBC with Diff Reviewed. ke 16:08 Liver Profile Reviewed. ke 16:08 Prothrombin Time Profile\E\INR Reviewed. ke 16:08 Lactic Acid (Georges tube on ice) Reviewed. ke 16:08 Ammonia ([place] Tube on Ice, Not [place]a Green) Reviewed. ke 16:08 Amylase Reviewed. ke 16:08 Lipase Reviewed. ke 17:10 Admission / Observation Status ordered. EDMS 17:11 2 GRAM SODIUM DIET ordered. EDMS 17:13 LACTIC ACID LEVEL, LACTATE Ordered. EDMS 17:13 GASTROINTESTINAL (GI) PANEL Ordered. EDMS 17:36 SODIUM,RANDOM URINE Ordered. EDMS 17:36 CREATININE,RANDOM URINE Ordered. EDMS 19:32 LACTIC ACID LEVEL, LACTATE Ordered. EDMS 19:32 BASIC METABOLIC PROFILE Ordered. EDMS 19:32 MAGNESIUM LEVEL Ordered. EDMS 19:32 COMPLETE BLOOD COUNT Ordered. EDMS 19:32 AMMONIA Ordered. EDMS 11/15 05:37 T-Sheet-- Draft Copy was scanned into [employer] and attached to record. clement Administered Medications: 11/14 15:07 Drug: NS 0.9% 1000 ml [sodium chloride 0.9 % intravenous solution] Route: IV; Rate: jmb bolus; Site: left wrist; 15:07 Drug: Lactulose 30 ml [lactulose 20 gram/30 mL oral solution (30 mL)] Route: PO; jmb 15:08 Drug: Ondansetron 4 mg [ondansetron HCl 2 mg/mL intravenous solution (2 mL)] Route: jmb IVP; Site: left wrist; Signatures: Dispatcher [employer] EDMS Jordy Lawson RN Roberto Booth, PROJECT MANAGEMENT PROFESSOR PROJECT MANAGEMENT PROFESSOR Priscilla Lewis RN RN lf1 McLear, Missy, BOTTLING MACHINE OPERATOR BOTTLING MACHINE OPERATOR tmm1 Arel, Priscilla Cheng Burrell,RN RN jf3 John Sepulveda, Reg Reg pm4 Nahid Lora RNb The chart was reviewed and I authenticate all verbal orders and agree with the evaluation and treatment provided.Corrections: (The following items were deleted from the chart) 17:13 17:11 GASTROINTESTINAL (GI) PANEL ordered. EDMS EDMS 17:37 17:36 UREA NITROGEN,RANDOM URINE ordered. EDMS EDMS Attachments: 14:39 [facility] [place] Payment Agreement pm4 11/15 05:37 T-Sheet-- Draft Copy clement Chart Complete MTDD
--- NOTE | 2016-11-16 23:03 | EDDOCDS ---
Physician Documentation [facility] Name: Kory Mosley Age: 61 yrs Sex: Male : 1955 Arrival Date: 11/14/2016 Time: 13:37 Bed 14 Private MD: John Martinez [facility] Disposition: 11/14/16 16:13 Hospitalization ordered by Jay Guerrero for Inpatient Admission. Preliminary diagnosis are Alcoholic cirrhosis of liver with ascites, Altered mental status, unspecified. - Bed requested for 4 [place]. - Status is Inpatient Admission. jf3 - Condition is Stable. - Problem is an acute exacerbation. - Symptoms are unchanged. Historical: - Allergies: No known drug Allergies; - Home Meds: 1. atenolol 50 mg Oral tab 1 tab once daily 2. furosemide 20 mg Oral tab 1 tab once daily 3. propranolol 10 mg Oral tab 1 tab twice a day 4. lactulose 10 gram/15 mL Oral soln 15 mL once daily for Hyperammonemia (Last dose: 11/12/2016) - PMHx: Hypertension; Cirrhosis; - PSHx: Bunion Surgery; right knee surgery; - Social history: Smoking status: Patient states was never smoker of tobacco. No barriers to communication noted, The patient speaks fluent Georgian, Speaks appropriately for age. - Family history: Not pertinent. - : The pt / caregiver states he / she is not on anticoagulants. Home medication list is obtained from the patient, family members. - Exposure Risk Screening:: None identified. Vital Signs: 11/14 13:38 BP 104 / 67; Pulse 87; Resp 18 S; Temp 98.3(O); Pulse Ox 98% on R/A; Weight 102.51 kg / dd6 226 lbs (R); Height 5 ft. 11 in. (180.34 cm) (R); 13:59 BP 145 / 80 (auto/); jf3 14:01 Pulse 92 MON; Pulse Ox 94% ; jf3 14:14 BP 131 / 73 (auto/); lf1 14:14 Pulse 90 MON; Pulse Ox 96% ; lf1 14:29 BP 138 / 78 (auto/); jmb 14:29 Pulse 98 MON; Pulse Ox 97% ; jmb 14:44 BP 131 / 74 (auto/); jmb 14:44 Pulse 98 MON; Pulse Ox 95% ; jmb 14:59 BP 125 / 76 (auto/); jmb 14:59 Pulse 100 MON; Pulse Ox 95% ; jmb 15:14 BP 125 / 80 (auto/); lf1 15:14 Pulse 102 MON; Pulse Ox 95% ; lf1 15:29 BP 119 / 77 (auto/); lf1 15:29 Pulse 102 MON; Pulse Ox 95% ; lf1 15:44 BP 97 / 60 (auto/); lf1 15:44 Pulse 100 MON; Pulse Ox 95% ; lf1 15:59 BP 107 / 68 (auto/); lf1 15:59 Pulse 104 MON; Pulse Ox 95% ; lf1 16:14 BP 109 / 61 (auto/); lf1 16:14 Pulse 106 MON; Pulse Ox 94% ; lf1 16:27 Pulse 104 MON; Resp 18; Pulse Ox 93% ; lf1 16:29 BP 114 / 71 (auto/); lf1 16:29 Pulse 104 MON; Pulse Ox 92% ; lf1 16:44 BP 113 / 75 (auto/); lf1 16:44 Pulse 106 MON; Pulse Ox 94% ; lf1 16:59 BP 98 / 55 (auto/); lf1 16:59 Pulse 100 MON; Resp 16; Temp 100.0(TE); Pulse Ox 93% ; Pain 4/10; lf1 17:13 BP 118 / 65 (auto/); lf1 17:13 Pulse 102 MON; Resp 16; Pulse Ox 93% ; lf1 17:15 BP 100 / 53 (auto/); lf1 17:15 Pulse 102 MON; Pulse Ox 93% ; lf1 17:30 BP 102 / 64 (auto/); lf1 17:30 Pulse 104 MON; Pulse Ox 95% ; lf1 17:45 BP 108 / 68 (auto/); lf1 17:45 Pulse 104 MON; Pulse Ox 93% ; lf1 18:00 BP 87 / 50 (auto/); jf3 18:00 Pulse 102 MON; Pulse Ox 94% ; jf3 18:15 BP 93 / 58 (auto/); lf1 18:15 Pulse 108 MON; Pulse Ox 94% ; lf1 18:30 BP 109 / 61 (auto/); lf1 18:30 Pulse 104 MON; Pulse Ox 98% ; lf1 18:45 BP 90 / 51 (auto/); lf1 18:45 Pulse 100 MON; Resp 18; Pulse Ox 96% ; Pain 4/10; lf1 18:59 Pulse 102 MON; Pulse Ox 96% ; jf3 19:00 Pulse 102 MON; Pulse Ox 96% ; lf1 19:00 BP 100 / 55 (auto/); jf3 19:15 BP 101 / 55 (auto/); jf3 19:15 Pulse 108 MON; Pulse Ox 96% ; jf3 19:30 BP 94 / 51 (auto/); jf3 19:30 Pulse 106 MON; Pulse Ox 98% ; jf3 19:45 BP 92 / 51 (auto/); jf3 19:45 Pulse 106 MON; Pulse Ox 99% ; jf3 20:00 BP 111 / 57 (auto/); jf3 20:00 Pulse 106 MON; Pulse Ox 94% ; jf3 20:15 BP 106 / 62 (auto/); jf3 20:15 Pulse 104 MON; Pulse Ox 94% ; jf3 20:30 BP 94 / 62 (auto/); jf3 20:30 Pulse 104 MON; Pulse Ox 94% ; jf3 20:31 BP 106 / 62; Pulse 103; Resp 18; Temp 98.7(TE); Pulse Ox 94% on R/A; Pain 5/10; jf3 21:15 BP 102 / 57 (auto/); jf3 21:15 Pulse 104 MON; Pulse Ox 94% ; jf3 21:30 BP 104 / 59 (auto/); jf3 21:30 Pulse 106 MON; Pulse Ox 95% ; jf3 21:45 BP 101 / 56 (auto/); jf3 21:45 Pulse 106 MON; Pulse Ox 95% ; jf3 13:38 Body Mass Index 31.52 (102.51 kg, 180.34 cm) dd6 MDM: 14:26 NS 0.9% 1000 ml IV at bolus once ordered. ke 14:26 Ondansetron 4 mg IVP once ordered. ke 14:26 IV Saline Lock ordered. ke 14:26 Undress patient appropriately for examination ordered. ke 14:26 Lactulose Liquid 30 ml PO once ordered. ke 14:27 Amylase Ordered. EDMS 14:27 Basic Metabolic Profile Ordered. EDMS 14:27 CBC with Diff Ordered. EDMS 14:27 Lipase Ordered. EDMS 14:27 Liver Profile Ordered. EDMS 14:27 Prothrombin Time Profile\E\INR Ordered. EDMS 14:27 Lactic Acid (Georges tube on ice) Ordered. EDMS 14:27 Ammonia ([place] Tube on Ice, Not [place]) Ordered. EDMS 14:27 CT ABD & PELVIS: No Contrast Ordered. EDMS 14:27 NOTHING BY MOUTH+DIET ordered. EDMS 14:33 Financial registration complete. pm4 14:39 [facility] [place] Agreement was scanned into [employer] and attached to record. pm4 15:27 DIFFERENTIAL NO CHARGE Ordered. EDMS 16:08 Basic Metabolic Profile Reviewed. ke 16:08 CBC with Diff Reviewed. ke 16:08 Liver Profile Reviewed. ke 16:08 Prothrombin Time Profile\E\INR Reviewed. ke 16:08 Lactic Acid (Georges tube on ice) Reviewed. ke 16:08 Ammonia ([place] Tube on Ice, Not [place]a [place]) Reviewed. ke 16:08 Amylase Reviewed. ke 16:08 Lipase Reviewed. ke 17:10 Admission / Observation Status ordered. EDMS 17:11 2 GRAM SODIUM DIET ordered. EDMS 17:13 LACTIC ACID LEVEL, LACTATE Ordered. EDMS 17:13 GASTROINTESTINAL (GI) PANEL Ordered. EDMS 17:36 SODIUM,RANDOM URINE Ordered. EDMS 17:36 CREATININE,RANDOM URINE Ordered. EDMS 19:32 LACTIC ACID LEVEL, LACTATE Ordered. EDMS 19:32 BASIC METABOLIC PROFILE Ordered. EDMS 19:32 MAGNESIUM LEVEL Ordered. EDMS 19:32 COMPLETE BLOOD COUNT Ordered. EDMS 19:32 AMMONIA Ordered. EDMS 11/15 05:37 T-Sheet-- Draft Copy was scanned into [employer] and attached to record. clement Administered Medications: 11/14 15:07 Drug: NS 0.9% 1000 ml [sodium chloride 0.9 % intravenous solution] Route: IV; Rate: jmb bolus; Site: left wrist; 15:07 Drug: Lactulose 30 ml [lactulose 20 gram/30 mL oral solution (30 mL)] Route: PO; jmb 15:08 Drug: Ondansetron 4 mg [ondansetron HCl 2 mg/mL intravenous solution (2 mL)] Route: jmb IVP; Site: left wrist; Signatures: Dispatcher [employer] EDMS Jordy Lawson RN Roberto Booth, GROUND SUPPORT EQUIPMENT FITTER GROUND SUPPORT EQUIPMENT FITTER Priscilla Lewis RN RN lf1 McLear, Missy, ASSEMBLY LEAD PERSON ASSEMBLY LEAD PERSON tmm1 Arel, Priscilla Cheng Burrell,RN RN jf3 John Sepulveda, Reg Reg pm4 Nahid Lora RNb The chart was reviewed and I authenticate all verbal orders and agree with the evaluation and treatment provided.Corrections: (The following items were deleted from the chart) 17:13 17:11 GASTROINTESTINAL (GI) PANEL ordered. EDMS EDMS 17:37 17:36 UREA NITROGEN,RANDOM URINE ordered. EDMS EDMS Attachments: 14:39 [facility] [place] Agreement pm4 11/15 05:37 T-Sheet-- Draft Copy clement Chart Complete MTDD
--- NOTE | 2016-11-16 23:03 | EDDOCDS ---
Nurse's Notes [facility] Name: Kory Mosley Age: 61 yrs Sex: Male : 1955 Arrival Date: 11/14/2016 Time: 13:37 Bed 14 Private MD: John Martinez NCFM Diagnosis: Alcoholic cirrhosis of liver with ascites;Altered mental status, unspecified Presentation: 11/14 13:47 Presenting complaint: Patient states: seen here earlier this month and admitted with dy cirrhosis of liver. having generalized abdominal pain with vomiting and diarrhea since yesterday. Adult Sepsis Screening: Patient has new or worsening altered mentation (1 point). Patient's respiratory rate is less than 22. Systolic blood pressure is greater than 100. Patient has a qSOFA score of 1- Negative Sepsis Screen. Patient has abdominal pain- Positive Sepsis Screen. Notified Roberto Bravo CLERICAL ORDER FILLER Patient made STEVEN Level 2. Patient placed in exam room. Charge nurse notified. Suicide/Homicide risk assessment- the patient denies having any suicidal and/or homicidal ideations and does not present with any other emotional, behavioral or mental health complaints. Status: Patient is not a manager of creative services or dependent. Transition of care: patient was not received from another setting of care. 13:47 Acuity: STEVEN Level 2 dy 13:47 Method Of Arrival: Walkin/Carried/Asstd dy Triage Assessment: 13:51 General: Appears ill. Pain: Location: abdomen. HIV screening NA for this visit Offered dy previously. Historical: - Allergies: No known drug Allergies; - Home Meds: 1. atenolol 50 mg Oral tab 1 tab once daily 2. furosemide 20 mg Oral tab 1 tab once daily 3. propranolol 10 mg Oral tab 1 tab twice a day 4. lactulose 10 gram/15 mL Oral soln 15 mL once daily for Hyperammonemia (Last dose: 11/12/2016) - PMHx: Hypertension; Cirrhosis; - PSHx: Bunion Surgery; right knee surgery; - Social history: Smoking status: Patient states was never smoker of tobacco. No barriers to communication noted, The patient speaks fluent Bulgarian, Speaks appropriately for age. - Family history: Not pertinent. - : The pt / caregiver states he / she is not on anticoagulants. Home medication list is obtained from the patient, family members. - Exposure Risk Screening:: None identified. Screenin:00 Screening information is obtained from the patient. Fall risk: No risks identified. jmb Assistance ADL's: requires no assistance with activities of daily living. Abuse/DV Screen: The patient / caregiver reports he/she is: not in a situation that causes fear, pain or injury. Nutritional screening: No deficits noted. home support is adequate. 16:59 Advance Directives: Currently, there is a health care proxy, Lou Mosley () Copy lf1 on file. Assessment: 14:00 General: Appears uncomfortable, Behavior is appropriate for age, cooperative. Pain: jmb Location: abdomen Pain currently is 8 out of 10 on a pain scale. Neurological: Level of Consciousness is awake, alert, obeys commands, Oriented to person, place, time, Canvas Cutter Machine are equal bilaterally Speech is normal, Facial symmetry appears normal, Facial symmetry: tongue is midline. EENT: Sclera/Cornea jaundiced. Cardiovascular: Capillary refill < 3 seconds Heart tones present Pulses are all present. Rhythm is regular. Respiratory: Airway is patent Respiratory effort is even, unlabored, Respiratory pattern is regular, symmetrical, Breath sounds are clear bilaterally. GI: Abdomen is noted to have ascites, Bowel sounds present X 4 quads. Abd is soft X 4 quads. Derm: Skin is jaundiced. Musculoskeletal: Range of motion limited in all extremities. 15:08 General: Appears in no apparent distress, comfortable, Behavior is appropriate for age, jmb cooperative, Patient laying on stretcher with family at bedside. NO voiced complaints at this time. . Neurological: Level of Consciousness is awake, alert, obeys commands, Oriented to person, place, time. Respiratory: Airway is patent Respiratory effort is even, unlabored, Respiratory pattern is regular, symmetrical. 15:12 General: Appears comfortable, Behavior is cooperative. Neurological: Level of lf1 Consciousness is awake. EENT:. Respiratory: Respiratory effort is even, unlabored. GI: Abdomen is distended, noted to have ascites, Bowel sounds present X 4 quads. Derm: Skin is jaundiced. 16:27 General: Appears comfortable, Behavior is cooperative. Neurological: Level of lf1 Consciousness is awake, confused. EENT: No deficits noted. Respiratory: Respiratory effort is even, unlabored. GI: Abdomen is distended. Derm: Skin is jaundiced. 17:05 Adult Sepsis Screening: The patient does not have new or worsening altered mentation. lf1 Patient's respiratory rate is less than 22. Systolic blood pressure is less than or equal to 100 (1 point). Patient has a qSOFA score of 1- Negative Sepsis Screen. General: Appears in no apparent distress, uncomfortable, Behavior is cooperative. Pain: Location: chronic back pain Pain currently is 4 out of 10 on a pain scale. Neurological: Level of Consciousness is awake, alert, confused. EENT: No deficits noted. Respiratory: Respiratory effort is even, unlabored. GI: Abdomen is noted to have ascites. Derm: Skin is jaundiced. 18:00 General: Appears comfortable, Behavior is cooperative, Pt advised that we are currently lf1 awaiting for a bed assignment. Pain: Location: abdomen and back. Neurological: Level of Consciousness is awake, alert. Respiratory: Respiratory effort is even, unlabored. GI: Abdomen is distended. Derm: Skin is jaundiced. 18:35 General: Appears in no apparent distress, Behavior is cooperative. Pain: Location: back lf1 Pain currently is 4 out of 10 on a pain scale. Neurological: Level of Consciousness is awake, confused. Respiratory: Respiratory effort is even, unlabored. GI: Abdomen is distended, noted to have ascites. Derm: Skin is jaundiced. 19:47 General: Appears in no apparent distress, comfortable, Behavior is cooperative. Pain: jf3 Location: back Pain currently is 5 out of 10 on a pain scale. Neurological: Level of Consciousness is awake, confused. Cardiovascular: Capillary refill < 3 seconds Heart tones S1 S2 present Edema is 1+ to left midcalf, left ankle, right midcalf and right ankle Chest pain is denied. Respiratory: Airway is patent Respiratory effort is even, unlabored, Respiratory pattern is regular, symmetrical, Breath sounds are clear bilaterally. Denies shortness of breath. GI: Abdomen is distended, Bowel sounds present X 4 quads. distant. Derm: Skin is jaundiced. 20:31 General: Appears comfortable, Behavior is cooperative. Pain: Pain currently is 5 out of jf3 10 on a pain scale. Neurological: Level of Consciousness is awake, alert, Oriented to person, place, time. Cardiovascular: Capillary refill < 3 seconds. Respiratory: Airway is patent Respiratory effort is even, unlabored, Respiratory pattern is regular, symmetrical. 21:46 General: Appears in no apparent distress, comfortable, Behavior is cooperative. Pain: jf3 Pain currently is 4 out of 10 on a pain scale. Neurological: Level of Consciousness is awake, alert, Oriented to person. Cardiovascular: Capillary refill < 3 seconds. Respiratory: Airway is patent Respiratory effort is even, unlabored, Respiratory pattern is regular, symmetrical. Derm: Skin is jaundiced. Vital Signs: 13:38 BP 104 / 67; Pulse 87; Resp 18 S; Temp 98.3(O); Pulse Ox 98% on R/A; Weight 102.51 kg dd6 (R); Height 5 ft. 11 in. (180.34 cm) (R); 13:59 BP 145 / 80 (auto/); jf3 14:01 Pulse 92 MON; Pulse Ox 94% ; jf3 14:14 BP 131 / 73 (auto/); lf1 14:14 Pulse 90 MON; Pulse Ox 96% ; lf1 14:29 BP 138 / 78 (auto/); jmb 14:29 Pulse 98 MON; Pulse Ox 97% ; jmb 14:44 BP 131 / 74 (auto/); jmb 14:44 Pulse 98 MON; Pulse Ox 95% ; jmb 14:59 BP 125 / 76 (auto/); jmb 14:59 Pulse 100 MON; Pulse Ox 95% ; jmb 15:14 BP 125 / 80 (auto/); lf1 15:14 Pulse 102 MON; Pulse Ox 95% ; lf1 15:29 BP 119 / 77 (auto/); lf1 15:29 Pulse 102 MON; Pulse Ox 95% ; lf1 15:44 BP 97 / 60 (auto/); lf1 15:44 Pulse 100 MON; Pulse Ox 95% ; lf1 15:59 BP 107 / 68 (auto/); lf1 15:59 Pulse 104 MON; Pulse Ox 95% ; lf1 16:14 BP 109 / 61 (auto/); lf1 16:14 Pulse 106 MON; Pulse Ox 94% ; lf1 16:27 Pulse 104 MON; Resp 18; Pulse Ox 93% ; lf1 16:29 BP 114 / 71 (auto/); lf1 16:29 Pulse 104 MON; Pulse Ox 92% ; lf1 16:44 BP 113 / 75 (auto/); lf1 16:44 Pulse 106 MON; Pulse Ox 94% ; lf1 16:59 BP 98 / 55 (auto/); lf1 16:59 Pulse 100 MON; Resp 16; Temp 100.0(TE); Pulse Ox 93% ; Pain 4/10; lf1 17:13 BP 118 / 65 (auto/); lf1 17:13 Pulse 102 MON; Resp 16; Pulse Ox 93% ; lf1 17:15 BP 100 / 53 (auto/); lf1 17:15 Pulse 102 MON; Pulse Ox 93% ; lf1 17:30 BP 102 / 64 (auto/); lf1 17:30 Pulse 104 MON; Pulse Ox 95% ; lf1 17:45 BP 108 / 68 (auto/); lf1 17:45 Pulse 104 MON; Pulse Ox 93% ; lf1 18:00 BP 87 / 50 (auto/); jf3 18:00 Pulse 102 MON; Pulse Ox 94% ; jf3 18:15 BP 93 / 58 (auto/); lf1 18:15 Pulse 108 MON; Pulse Ox 94% ; lf1 18:30 BP 109 / 61 (auto/); lf1 18:30 Pulse 104 MON; Pulse Ox 98% ; lf1 18:45 BP 90 / 51 (auto/); lf1 18:45 Pulse 100 MON; Resp 18; Pulse Ox 96% ; Pain 4/10; lf1 18:59 Pulse 102 MON; Pulse Ox 96% ; jf3 19:00 Pulse 102 MON; Pulse Ox 96% ; lf1 19:00 BP 100 / 55 (auto/); jf3 19:15 BP 101 / 55 (auto/); jf3 19:15 Pulse 108 MON; Pulse Ox 96% ; jf3 19:30 BP 94 / 51 (auto/); jf3 19:30 Pulse 106 MON; Pulse Ox 98% ; jf3 19:45 BP 92 / 51 (auto/); jf3 19:45 Pulse 106 MON; Pulse Ox 99% ; jf3 20:00 BP 111 / 57 (auto/); jf3 20:00 Pulse 106 MON; Pulse Ox 94% ; jf3 20:15 BP 106 / 62 (auto/); jf3 20:15 Pulse 104 MON; Pulse Ox 94% ; jf3 20:30 BP 94 / 62 (auto/); jf3 20:30 Pulse 104 MON; Pulse Ox 94% ; jf3 20:31 BP 106 / 62; Pulse 103; Resp 18; Temp 98.7(TE); Pulse Ox 94% on R/A; Pain 5/10; jf3 21:15 BP 102 / 57 (auto/); jf3 21:15 Pulse 104 MON; Pulse Ox 94% ; jf3 21:30 BP 104 / 59 (auto/); jf3 21:30 Pulse 106 MON; Pulse Ox 95% ; jf3 21:45 BP 101 / 56 (auto/); jf3 21:45 Pulse 106 MON; Pulse Ox 95% ; jf3 13:38 Body Mass Index 31.52 (102.51 kg, 180.34 cm) dd6 Vitals: 13:38 Log In Time: November 14, 2016 at 13:36. dd6 ED Course: 13:38 Patient visited by Martin Goetz PCA. dd6 13:38 John Martinez is Private Physician. dd6 13:38 Patient moved to Waiting dd6 13:39 Patient moved to Pre RCE dd6 13:49 Triage Initiated dy 13:51 Patient moved to 14 dy 14:00 The patient / caregiver is instructed regarding the plan of care and ED course. jmb 14:02 Patient visited by Nahid Lora RN. jmb 14:16 Roberto Bravo FNP is [facility]. ke 14:16 Patient visited by Roberto Bravo FNP. ke 14:16 Patient visited by Roberto Bravo FNP. ke 14:29 Inserted saline lock: 20 gauge in left forearm and blood collected. The patient alexa tolerated the procedure well. Labs drawn. (by ED staff). Sent per order to lab. 14:36 Patient name changed from Kory\S\L\S\Dimitri\S\ to Kory\S\Jorge\S\Dimitri. EDMS 14:39 [facility] [place] into [employer] and attached to record. pm4 14:55 Patient visited by Roberto Bravo FNP. ke 15:05 Report received from Nahid Lora RN. lf1 15:09 Patient visited by Nahid Lora RN. jmb 15:12 Accompanied by Family Member. Door closed. Noise minimized. lf1 15:12 IV is intact. lf1 15:13 Patient visited by Priscilla Brooks RN. lf1 15:53 Patient visited by Roberto Bravo FNP. ke 16:05 Patient visited by Jaron Fulton PCA. jlf 16:12 Jay Guerrero is Hospitalizing Provider. ke 16:12 CT ABD & PELVIS: No Contrast Returned. EDMS 16:27 Patient visited by Priscilla Brooks,ROWDY. lf1 16:27 Door closed. Noise minimized. lf1 16:30 Patient visited by Priscilla Brooks,RN. lf1 17:05 Patient visited by Priscilla Brooks,ROWDY. lf1 17:13 Patient visited by Priscilla Brooks,ROWDY. lf1 17:16 Priscilla Brooks,RN is Primary Nurse. lf1 17:17 Patient visited by Priscilla Brooks,ROWDY. lf1 18:45 Report given to Cheng Kolb RN. lf1 19:49 Patient visited by Cheng Kolb,ROWDY. jf3 11/15 05:37 T-Sheet-- Draft Copy was scanned into [employer] and attached to record. lja Administered Medications: 11/14 15:07 Drug: NS 0.9% 1000 ml [sodium chloride 0.9 % intravenous solution] Route: IV; Rate: jmb bolus; Site: left wrist; 15:07 Drug: Lactulose 30 ml [lactulose 20 gram/30 mL oral solution (30 mL)] Route: PO; jmb 15:08 Drug: Ondansetron 4 mg [ondansetron HCl 2 mg/mL intravenous solution (2 mL)] Route: jmb IVP; Site: left wrist; Order Results: Lab Order: Amylase; SPEC'M 11/14/16 14:40 Test: AMYLASE; Value: 70; Range: 25-115; Units: U/L; Status: F Lab Order: Basic Metabolic Profile; SPEC'M 11/14/16 14:40 Test: GLUCOSE, FASTING; Value: 107; Range: 80-110; Units: MG/DL; Status: F Test: BLOOD UREA NITROGEN; Value: 27; Range: 7-18; Abnormal: Above high normal; Units: MG/DL; Status: F Test: CREATININE FOR GFR; Value: 1.31; Range: 0.70-1.30; Abnormal: Above high normal; Units: MG/DL; Status: F Test: GLOMERULAR FILTRATION RATE; Value: 59.2; Range: >49; Status: F Test: SODIUM LEVEL; Value: 135; Range: 136-145; Abnormal: Below low normal; Units: MEQ/L; Status: F Test: POTASSIUM SERUM; Value: 4.4; Range: 3.5-5.1; Units: MEQ/L; Status: F Test: CHLORIDE LEVEL; Value: 97; Range: 98-107; Abnormal: Below low normal; Units: MEQ/L; Status: F Test: CARBON DIOXIDE LEVEL; Value: 26; Range: 21-32; Units: MEQ/L; Status: F Test: ANION GAP; Value: 12; Range: 8-16; Units: MEQ/L; Status: F Test: CALCIUM LEVEL; Value: 8.5; Range: 8.8-10.2; Abnormal: Below low normal; Units: MG/DL; Status: F Test Note: ; Units are mL/min/1.73 m2 Chronic Kidney Disease Staging per NKF: Stage I & II GFR >=60 Normal to Mildly Decreased Stage III GFR 30-59 Moderately Decreased Stage IV GFR 15-29 Severely Decreased Stage V GFR <15 Very Little GFR Left ESRD GFR <15 on ALUMINIZER Lab Order: CBC with Diff; SPEC'M 11/14/16 14:40 Test: WHITE BLOOD COUNT; Value: 6.8; Range: 4.0-10.0; Units: K/mm3; Status: F Test: RED BLOOD COUNT; Value: 4.20; Range: 4.30-6.10; Abnormal: Below low normal; Units: M/mm3; Status: F Test: HEMOGLOBIN; Value: 14.9; Range: 14.0-18.0; Units: g/dl; Status: F Test: HEMATOCRIT; Value: 44.0; Range: 42.0-52.0; Units: %; Status: F Test: MEAN CORPUSCULAR VOLUME; Value: 104.5; Range: 80.0-96.0; Abnormal: Above high normal; Units: fl; Status: F Test: MEAN CORPUSCULAR HEMOGLOBIN; Value: 35.4; Range: 27.0-33.0; Abnormal: Above high normal; Units: pg; Status: F Test: MEAN CORPUSCULAR HGB CONC; Value: 33.8; Range: 32.0-36.5; Units: g/dl; Status: F Test: RED CELL DISTRIBUTION WIDTH; Value: 15.3; Range: 11.5-14.5; Abnormal: Above high normal; Units: %; Status: F Test: PLATELET COUNT, AUTOMATED; Value: 126; Range: 150-450; Abnormal: Below low normal; Units: k/mm3; Status: F Test: NEUTROPHILS; Value: 51; Range: 35-75; Units: %; Status: F Test: BANDS; Value: 37; Range: < 11; Abnormal: Above high normal; Units: %; Status: F Test: LYMPHOCYTES; Value: 5; Range: 16-52; Abnormal: Below low normal; Units: %; Status: F Test: MONOCYTES; Value: 5; Range: 0-8; Units: %; Status: F Test: METAMYELOCYTES; Value: 2; Range: 0-0; Abnormal: Above high normal; Units: %; Status: F Test: ANISOCYTOSIS; Value: 1+; Status: F Test: MACROCYTOSIS; Value: 2+; Status: F Lab Order: Lipase; [facility] 11/14/16 14:40 Test: LIPASE; Value: 322; Range: 73-393; Units: U/L; Status: F Lab Order: Liver Profile; [facility] 11/14/16 14:40 Test: AST/SGOT; Value: 93; Range: 15-37; Abnormal: Above high normal; Units: U/L; Status: F Test: ALT/SGPT; Value: 74; Range: 12-78; Units: U/L; Status: F Test: ALKALINE PHOSPHATASE; Value: 172; Range: 45-117; Abnormal: Above high normal; Units: U/L; Status: F Test: BILIRUBIN,TOTAL; Value: 7.3; Range: 0.2-1.0; Abnormal: Above high normal; Units: MG/DL; Status: F Test: BILIRUBIN,DIRECT; Value: 2.6; Range: 0.0-0.2; Abnormal: Above high normal; Units: MG/DL; Status: F Test: TOTAL PROTEIN; Value: 7.4; Range: 6.4-8.2; Units: GM/DL; Status: F Test: ALBUMIN; Value: 2.5; Range: 3.2-5.2; Abnormal: Below low normal; Units: GM/DL; Status: F Test: ALBUMIN/GLOBULIN RATIO; Value: 0.51; Range: 1.00-1.93; Abnormal: Below low normal; Status: F Lab Order: Prothrombin Time Profile\E\INR; [facility] 11/14/16 14:40 Test: PROTHROMBIN TIME; Value: 19.4; Range: 12.3-14.5; Abnormal: Above high normal; Units: SECONDS; Status: F Test: INR; Value: 1.63; Status: F Test Note: ; THERAPUTIC HUMAN INR VALUES INDICATIONS NORMAL RANGES PROPHYLAXIS/TREATMENT OF: VENOUS THROMBOSIS 2.0-3.0 PULMONARY EMBOLISM 2.0-3.0 PREVENTION OF SYSTEMIC EMBOLISM FROM: TISSUE HEART VALVES 2.0-3.0 ACUTE MYOCARDIAL INFARCTION 2.0-3.0 VALVULAR HEART DISEASE 2.0-3.0 ATRIAL FIBRILLATION 2.0-3.0 MECHANICAL VALVES(HIGH RISK) 2.5-3.5 RECURRENT MYOCARDIAL INFARCTION 2.5-3.5 Lab Order: Lactic Acid ([place] tube on ice); [facility] 11/14/16 14:40 Test: LACTIC ACID LEVEL, LACTATE; Value: 3.6; Range: 0.4-2.0; Abnormal: Above upper panic limits; Units: MMOL/L; Status: F Lab Order: Ammonia ([place] Tube on Ice, Not [place]); [facility] 11/14/16 14:40 Test: AMMONIA; Value: 73; Range: <32; Abnormal: Above high normal; Units: uMOL/L; Status: F Lab Order: PLATELET ESTIMATE; [facility] 11/14/16 14:40 Test: PLATELET ESTIMATE; Value: NORMAL; Range: NORMAL; Status: F Radiology Order: CT ABD & PELVIS: No Contrast Test: CT ABD & PELVIS: No Contrast REASON FOR EXAMINATION: Abdomen Pain; CT of the abdomen pelvis 11/14/2016 without IV or oral contrast:; ; Indication: Abdominal pain.; ; Comparison: CT abdomen pelvis with IV and oral contrast 10/21/2016.; ; Findings: There is a small left basilar pleural effusion decreased/improved from; prior study. There is right basilar calcified pleural plaques, right basilar; disease most compatible with scarring. There is a moderate amount of diffuse; ascites within the abdomen and pelvis but improved from that seen on 10/21/2016.; The liver has a slightly scalloped margin and is enlarged consistent with; hepatomegaly. The spleen is also moderately enlarged, 17.3 cm in cranial caudal; dimension. Pancreas is grossly normal. The gallbladder is contracted. There; are no visualized stones. Mild thickening of the lateral limb of the left; adrenal with density greater than simple fluid, therefore indeterminate.; Multiple venous collaterals are seen within the abdomen in the region of splenic; hilum, splenorenal location and paraesophageal locations. There is a; recanalized umbilical vein. No definitive omental implants or peritoneal; carcinomatosis.; ; Bladder is contracted. Scattered sigmoid diverticula are noted . Generalized; mural thickening is seen throughout the colon contributed to by underdistension,; and nonspecific inflammatory and/or edematous changes from ascites. There is; diffuse mural thickening seen throughout the small bowel which represents; interval change when compared with prior study.; ; Impression:; Previous massive ascites is improved, now moderate in amount.; ; Generalized mural thickening seen throughout the colon and to a greater extent; small bowel. These findings can be contributed to by the generalized ascites.; Differential diagnosis also includes infectious or inflammatory gastroenteritis.; There is no free intraperitoneal air.; ; Enlarged liver and spleen; venous collaterals consistent with cirrhosis and; portal venous hypertension; ; Parenchymal disease within the lung bases most compatible with atelectasis and/or; scarring follow-up to resolution recommended.; ; Small left basilar pleural effusion, with improvement.; ; Calcified right basilar pleural plaques consistent with asbestos related; disease.; ; ; ; Unreviewed; Outcome: 16:13 Decision to Hospitalize by Provider. ke 22:02 Patient left the ED. jf3 Signatures: Dispatcher [employer] EDOR Jordy Lawson RN Roberto Booth, CLERICAL ORDER FILLER [facility] Priscilla LewisRN RN lf1 Martin Goetz, AUXILIARY POWER EQUIPMENT OPERATOR AUXILIARY POWER EQUIPMENT OPERATOR dd6 Nahid Lora RN RN jmb Forney, Jordain, AUXILIARY POWER EQUIPMENT OPERATOR AUXILIARY POWER EQUIPMENT OPERATOR jlf Priscilla Garcia JustinRN RN jf3 John Sepulveda, Reg Reg pm4 Chart Complete MTDD
[2016-11-17] VITALS (14 sets, daily range): BP systolic 95–130; BP diastolic 50–76
[2016-11-17] MEDS: oxyCODONE 5MG TAB PO PRN ×3 (00:07→16:04)
[2016-11-17] MEDS: metroNIDAZOLE (FLAGYL) 500 MG TAB PO SCH ×3 (05:55→21:39)
[2016-11-17 06:00] LABS: MEAN CORPUSCULAR HEMOGLOBIN 35.7 pg (27.0-33.0); MEAN CORPUSCULAR HGB CONC 34.4 g/dl (32.0-36.5); MEAN CORPUSCULAR VOLUME 103.6 fl (80.0-96.0); WHITE BLOOD COUNT 6.8 K/mm3 (4.0-10.0)
[2016-11-17 06:02] LABS: INR 2.82
[2016-11-17 06:11] LABS: ALBUMIN 2.4 GM/DL (3.2-5.2); ALBUMIN/GLOBULIN RATIO 0.77 (1.00-1.93); BILIRUBIN,TOTAL 7.3 MG/DL (0.2-1.0); CALCIUM LEVEL 7.9 MG/DL (8.8-10.2); CREATININE FOR GFR 1.91 MG/DL (0.70-1.30); GLOMERULAR FILTRATION RATE 38.3 (>49); MAGNESIUM LEVEL 2.3 MG/DL (1.8-2.4); POTASSIUM SERUM 4.7 MEQ/L (3.5-5.1); TOTAL PROTEIN 5.5 GM/DL (6.4-8.2)
[2016-11-17] MEDS: MIDODRINE 5 MG TAB PO SCH ×3 (08:01→15:58)
[2016-11-17] MEDS: PENTOXIFYLLINE 400 MG TAB PO SCH ×2 (08:02→18:13)
[2016-11-17] MEDS: CYANOCOBALAMIN 500 MCG TAB PO SCH (08:17)
[2016-11-17] MEDS: MULTIVITAMINS/MINERALS THERAP 1 TAB PO SCH (08:17)
[2016-11-17] MEDS: MEROPENEM INJ 500 MG in D5W MINI-BAG PLUS 100 ML IV SCH ×2 (08:17→20:51)
--- NOTE | 2016-11-17 09:18 | IPNPDOC ---
Assessment/Plan Date Seen The patient was seen on 11/17/16. Problems Problems: (1) Decompensated hepatic cirrhosis Status: Acute Problem Text: will receive paracentesis tomorrow pt is on pentoxifylline 400 mg BID PO alcoholic cirrhosis denies abdominal pain with ascites, thrombocytopenia, hyponatremia, coagulopathy and hepatic encephalopathy high bilirubin got bed side diagnostic tapping done on 11/15/16 & positive for peritonitis on albumin , midodrine, octreotide, meropenem. (2) Severe sepsis Status: Acute Problem Text: due to c diff colitis and bacterial peritonitis. continue meropenem and oral metronidazole. pt not on pressor therapy at this time as BP has been stable (3) C. difficile diarrhea Status: Acute Problem Text: will start on metronidazole on gentle hydration also (4) Peritonitis Status: Acute Problem Text: could be primary SBP or secondary to c diff colitis will continue with meropenem , fluid culture and fungal culture of fluid pending (5) Acute kidney injury Status: Acute Response to Treatment: Stable Problem Text: type 1 hepatrenal syndrome started on midodrine 25% albumin 25 g IV q8h octreotide infusion strict I&O nephrology consulted-appreciate their recommendations 2/2 sepsis and volume depletion from diarrhea and hypotension resulting in hepatorenal syndrome (6) Lactic acidosis Status: Acute Response to Treatment: Stable Problem Text: last lactic acid was 1.4- stabilized continue to monitor From liver failure + hypotension (7) Ascites Status: Chronic Response to Treatment: Stable Problem Text: pt will receive paracentesis today tomorrow last paracentesis + for peritonitis- abx therapy initiated (8) Alcohol abuse Status: Chronic Response to Treatment: Stable Problem Text: pt on multivitamin and B12 continue to monitor for signs of w/d pt not currently having signs of w/d Plan / VTE VTE Prophylaxis Ordered?: Yes Plan / Urinary Catheter Reason for insertion/continuin: Critical Pt monitoring Subjective Review of Systems CC/HPI The patient is a 61-year-old male admitted with a reason for visit of Diarrhea. General: Denies: Chills, Night Sweats Constitutional: Denies: Chills, Fever Eyes: Denies: Conjunctivae inflammation, Eyelid inflammation, Pain, Redness, Vision change Pulmonary: Denies: Cough, Dyspnea, Pleuritic Chest Pain Cardiovascular: Denies: Chest Pain, Orthopnea, Palpitations Gastrointestinal: Reports: Abdominal Pain (diffuse achy in nature), Denies: Nausea, Vomiting Genitourinary: Denies: Dysuria Neurological: Denies: Incoordination, Numbness, Weakness Psych: Reports: Mood Normal Objective Physical Examination General Exam: Positive: Alert, Cooperative, No Acute Distress Eye Exam: Positive: Conjunctiva & lids normal, EOMI, PERRLA, Sclera icteric, Negative: Ptosis ENT Exam: Positive: Atraumatic, Mucous membr. moist/pink, Pharynx Normal, Tongue Midline, Negative: Pharyngeal Edema Neck Exam: Positive: Supple Chest Exam: Positive: Clear to auscultation, Normal air movement Heart Exam: Positive: Normal S1, Normal S2, Rate Normal, Negative: Gallops, Murmurs Telemetry: Positive: Sinus Abdomen Exam: Positive: Normal bowel sounds, Other (abdomen is distended, ascitic. minor pain to palpitation diffusely.), Soft, Tenderness Extremity Exam: Positive: Edema (+1 edema b/l ), Negative: Tenderness Psych Exam: Positive: Mental status NL Vital Signs/I&O Vital Signs Date Time Temp Pulse Resp B/P Pulse Ox O2 Delivery O2 Flow Rate FiO2 11/17/16 08:32 16 Room Air 11/17/16 08:00 97.3 77 117/65 96 11/16/16 15:37 2.0 I&O- Last 24 Hours up to 6 AM 11/17/16 06:00 Intake Total 1640 ml Output Total 1550 ml Balance 90 ml Laboratory Data Labs 24H Laboratory Tests 2 11/16/16 11:19: Lactic Acid Level 3.1*H 11/16/16 23:30: Lactic Acid Level 1.4 11/17/16 05:36: Blood Urea Nitrogen 61H, Creatinine 1.91H, Sodium Level 132L, Potassium Level 4.7, Chloride Level 99, Carbon Dioxide Level 25, Calcium Level 7.9L, Aspartate Amino Transf (AST/SGOT) 55H, Alanine Aminotransferase (ALT/SGPT) 52, Alkaline Phosphatase 63, Total Bilirubin 7.3H, Total Protein 5.5L, Albumin 2.4L, Albumin/ Globulin Ratio 0.77L, Ammonia 39H, Anion Gap 8, Glomerular Filtration Rate 38.3L , Magnesium Level 2.3, Prothromb Time International Ratio 2.82, Prothrombin Time 29.7H CBC/BMP Laboratory Tests 11/17/16 05:36 Calcium Level 7.9 L, Aspartate Amino Transf (AST/SGOT) 55 H, Alanine Aminotransferase (ALT/SGPT) 52, Alkaline Phosphatase 63, Total Bilirubin 7.3 H, Total Protein 5.5 L, Albumin 2.4 L, Red Blood Count 2.91 L, Mean Corpuscular Volume 103.6 H, Mean Corpuscular Hemoglobin 35.7 H, Mean Corpuscular Hemoglobin Concent 34.4, Red Cell Distribution Width 15.0 H Microbiology Microbiology 11/15/16 Blood Culture - Preliminary, Resulted No growth after 24 hours . All specim... 11/15/16 Blood Culture - Preliminary, Resulted No growth after 24 hours . All specim... 11/15/16 Fungal Smear, Received Pending 11/15/16 Fungal Culture, Received Pending 11/15/16 Gram Stain - Final, Resulted 11/15/16 Body Fluid Culture, Resulted Pending 11/15/16 Clostridium difficile (PCR) - Final, Complete 11/15/16 MRSA Screen, Received Pending GME ATTESTATION GME ATTESTATION My preceptor for this patient encounter was physically present in the building during the encounter and was fully available. As needed, all aspects of the patient interview, examination, medical decision making process, and medical care plan development were reviewed and approved by the preceptor. Preceptor is aware and concurs with the plan as stated in the body of this note and will attest to such by his/her cosignature. RADHA NEGRON DO Nov 17, 2016 09:18
[2016-11-17] MEDS ORDERED: SLF 3 ML SYR IV PRN (12:15)
[2016-11-17] MEDS ORDERED: SODIUM CHLORIDE 0.9% INJ 10 ML SYR IV PRN (12:15)
--- NOTE | 2016-11-17 12:21 | IPN ---
DATE: 11/17/2016 SUBJECTIVE: Patient was seen and examined at the bedside today in the morning in the intensive care unit (ICU). He feels much better. His urine output is improving. His kidney function also started improving. His blood pressure is stable. Patient continues to be on intravenous (IV) octreotide infusion and IV albumin, and he is currently on midodrine 10 mg every eight hourly. Patient is not requiring Levophed in the last 24 hours. REVIEW OF SYSTEMS: Patient denies any fevers, chills, rigors, headache, nausea, vomiting, chest pain, shortness of breath. He still reports a decreased appetite, and he reports abdominal distention and ascites, and back pain associated with tense ascites. Rest of review of systems is negative. OBJECTIVE: Vital signs: Temperature is 97.3 degree Fahrenheit, blood pressure is 117/65, pulse is 77, respiratory rate of 16, saturating 96% on room air. Intake and output: Urine output recorded in the last 24 hours is 1145 mL, and urine output so far today since overnight is 900 mL. Weight in the bed scale is 112 kg. PHYSICAL EXAMINATION: GENERAL: Patient is awake, alert, oriented times three, lying in bed. No apparent distress. HEAD AND NECK: Extraocular muscles intact. Pupils equally round and reactive to light. Positive scleral icterus. Mucous membranes are moist. Neck is supple. There is no jugular venous distention (JVD). CARDIOVASCULAR: S1, S2, regular rate. No murmur, rub, or gallop. RESPIRATORY: Chest is clear to auscultation bilaterally. Bilateral equal air entry. No rales or rhonchi. ABDOMEN: Abdomen is soft, distended. Positive ascites. There is no tenderness. Positive bowel sounds. Left lobe of the liver is palpable. EXTREMITIES: Patient has 1+ pitting edema of the bilateral lower extremities. No clubbing or cyanosis at this time. Pulses are 2+. CENTRAL NERVOUS SYSTEM: No asterixis at this time. Power is 5/5 in all extremities. SKIN: No rashes or ulcers. Positive jaundice. LABORATORY REVIEW: CBC showed a WBC 6.8, hemoglobin 10.4, platelets are 52. BMP showed sodium 132, potassium 4.7, chloride 99, bicarbonate 25, BUN 61, creatinine 1.9. Lactic acid was 1.4 yesterday, calcium is 7.9, magnesium 2.3. Total bilirubin is 7.3, ammonia was 39, albumin is 2.4. Microbiology: Cultures are negative so far apart from positive Clostridium (C) difficile in the stools. CURRENT MEDICATIONS: Patient's current medications were all reviewed by me. There is no change in the medications at this time. He continues to be on oral Flagyl, intravenous (IV) meropenem, IV Sandostatin infusion, and albumin infusion as well. ASSESSMENT: A 61-year-old male with past medical history of alcoholic cirrhosis, last drink about a month ago, admitted to pain in abdomen and diarrhea. Later on, he was found to have Clostridium (C) difficile colitis and spontaneous bacterial peritonitis. Nephrology service following the patient for management of acute renal failure. PLAN: 1. Acute renal failure. It is secondary to severe sepsis, C. difficile colitis, and spontaneous bacterial peritonitis (SBP). Patient continues to be on IV albumin 25%, 25 gram IV 8 hours, octreotide infusion at 50 mcg at hour, and midodrine 10 mg by mouth three times a day. Renal function continues to improve. Continue the current regimen at this time. 2. Severe sepsis secondary to spontaneous bacterial peritonitis and C. difficile colitis. Patient continues to be on IV meropenem and oral Flagyl. His diarrhea is improved. His white cell is better. His lactate is back to normal. He is not requiring any pressors. Continue the current regimen at this time. It is okay to downgrade the patient to progressive care unit today. 3. Lactic acidosis. Patient's lactate came down to normal yesterday. His blood pressure is stable. 4. Decompensated alcoholic cirrhosis. Patient's last drink was one month ago. I started the patient on pentoxifylline 400 mg by mouth twice a day. 5. Hyponatremia. It is secondary to decompensated cirrhosis and acute kidney injury. Sodium is improving with IV albumin administration and improving urine output. Continue the current regimen at this time. 6. Tense ascites. Patient will get the ascites tap tomorrow. I will continue the albumin infusion at this time. Plan of care was discussed with the hospitalist team, Dr. Mary Mak.
[2016-11-17] MEDS: SODIUM CHLORIDE 0.9% INJ 10 ML SYR IV SCH ×2 (13:59→22:45)
[2016-11-17] MEDS: SLF 3 ML SYR IV SCH ×2 (13:59→22:45)
[2016-11-18] MEDS: oxyCODONE 5MG TAB PO PRN ×3 (00:28→18:33)
[2016-11-18] MEDS: SODIUM CHLORIDE 0.9% INJ 10 ML SYR IV SCH ×3 (05:30→20:49)
[2016-11-18] MEDS: metroNIDAZOLE (FLAGYL) 500 MG TAB PO SCH ×3 (05:30→20:48)
[2016-11-18] MEDS: SLF 3 ML SYR IV SCH ×3 (05:30→20:48)
[2016-11-18 05:49] LABS: MEAN CORPUSCULAR HEMOGLOBIN 35.9 pg (27.0-33.0); MEAN CORPUSCULAR HGB CONC 34.3 g/dl (32.0-36.5); MEAN CORPUSCULAR VOLUME 104.7 fl (80.0-96.0); RED CELL DISTRIBUTION WIDTH 13.8 % (11.5-14.5); WHITE BLOOD COUNT 4.2 K/mm3 (4.0-10.0)
[2016-11-18 05:53] LABS: INR 2.42
[2016-11-18 06:00] VITALS: BP 136/64
[2016-11-18 06:02] LABS: ALBUMIN 2.9 GM/DL (3.2-5.2); ALKALINE PHOSPHATASE 69 U/L (45-117); ALT/SGPT 51 U/L (12-78); ANION GAP 7 MEQ/L (8-16); AST/SGOT 63 U/L (15-37); BILIRUBIN,TOTAL 7.8 MG/DL (0.2-1.0); BLOOD UREA NITROGEN 44 MG/DL (7-18); CALCIUM LEVEL 7.7 MG/DL (8.8-10.2); CARBON DIOXIDE LEVEL 26 MEQ/L (21-32); CHLORIDE LEVEL 102 MEQ/L (98-107); CREATININE FOR GFR 1.23 MG/DL (0.70-1.30); GLOMERULAR FILTRATION RATE > 60.0 (>49); GLUCOSE, FASTING 97 MG/DL (80-110); MAGNESIUM LEVEL 2.3 MG/DL (1.8-2.4); POTASSIUM SERUM 4.7 MEQ/L (3.5-5.1); SODIUM LEVEL 135 MEQ/L (136-145); TOTAL PROTEIN 5.8 GM/DL (6.4-8.2)
[2016-11-18] MEDS: PENTOXIFYLLINE 400 MG TAB PO SCH ×2 (09:35→17:31)
[2016-11-18] MEDS: MULTIVITAMINS/MINERALS THERAP 1 TAB PO SCH (09:35)
[2016-11-18] MEDS: CYANOCOBALAMIN 500 MCG TAB PO SCH (09:35)
[2016-11-18] MEDS: MIDODRINE 5 MG TAB PO SCH ×3 (09:35→16:22)
[2016-11-18] MEDS: MEROPENEM INJ 500 MG in D5W MINI-BAG PLUS 100 ML IV SCH (09:38)
--- NOTE | 2016-11-18 10:48 | IPNPDOC ---
Assessment/Plan Date Seen The patient was seen on 11/18/16. Problems Problems: (1) Decompensated hepatic cirrhosis Status: Acute Problem Text: will receive paracentesis today fluid cultures pending pt is on pentoxifylline 400 mg BID PO alcoholic cirrhosis denies abdominal pain past: with ascites, thrombocytopenia, hyponatremia, coagulopathy and hepatic encephalopathy high bilirubin got bed side diagnostic tapping done on 11/15/16 & positive for peritonitis on albumin , midodrine, octreotide, meropenem. (2) Severe sepsis Status: Acute Problem Text: due to c diff colitis and bacterial peritonitis. continue meropenem and oral metronidazole. pt not on pressor therapy at this time as BP has been stable (3) C. difficile diarrhea Status: Acute Problem Text: no diarrhea in past 24 hours, in fact last BM was 2-3 days ago as per pt. continue metronidazole on gentle hydration also (4) Peritonitis Status: Acute Problem Text: could be primary SBP or secondary to c. diff colitis will continue with meropenem fluid culture and fungal culture of fluid pending (5) Acute kidney injury Status: Acute Response to Treatment: Stable Problem Text: type 1 hepatrenal syndrome started on midodrine 25% albumin 25 g IV [id number] receive paracentesis today octreotide infusion strict I&O nephrology consulted-appreciate their recommendations 2/2 sepsis and volume depletion from diarrhea and hypotension resulting in hepatorenal syndrome (6) Lactic acidosis Status: Acute Response to Treatment: Stable Problem Text: last lactic acid was 1.4- stabilized continue to monitor From liver failure + hypotension (7) Ascites Status: Chronic Response to Treatment: Stable Problem Text: pt. will receive paracentesis today - fluid will be sent for cultures last paracentesis + for peritonitis- abx. therapy initiated (8) Alcohol abuse Status: Chronic Response to Treatment: Stable Problem Text: pt. on multivitamin and B12 continue to monitor for signs of w/d pt not currently having signs of w/d Plan / VTE VTE Prophylaxis Ordered?: Yes Plan / Urinary Catheter Reason for insertion/continuin: Critical Pt monitoring Subjective Review of Systems CC/HPI The patient is a 61-year-old male admitted with a reason for visit of Diarrhea. General: Denies: Chills, Night Sweats Constitutional: Denies: Chills, Fever, Malaise Eyes: Denies: Conjunctivae inflammation, Eyelid inflammation, Pain, Redness, Vision change Skin: Denies: Breakdown, Bruising, Itching, Jaundice, Lesions, Rash Pulmonary: Denies: Cough, Dyspnea, Pleuritic Chest Pain Cardiovascular: Reports: Edema (+1 b/l), Denies: Chest Pain, Orthopnea, Palpitations Gastrointestinal: Denies: Abdominal Pain, Nausea, Vomiting Neurological: Denies: Weakness Psych: Reports: Mood Normal Objective Physical Examination General Exam: Positive: Alert, Cooperative, No Acute Distress Eye Exam: Positive: Conjunctiva & lids normal, EOMI, PERRLA, Sclera icteric, Negative: Ptosis ENT Exam: Positive: Atraumatic, Mucous membr. moist/pink, Pharynx Normal, Tongue Midline, Negative: Pharyngeal Edema Neck Exam: Positive: Supple Chest Exam: Positive: Clear to auscultation, Normal air movement Heart Exam: Positive: Normal S1, Normal S2, Rate Normal, Negative: Gallops, Murmurs Telemetry: Positive: Sinus Abdomen Exam: Positive: Normal bowel sounds, Other (abdomen is distended, ascitic. no pain to palpitation. ), Soft, Tenderness Extremity Exam: Positive: Edema (+1 edema b/l ), Negative: Tenderness Psych Exam: Positive: Mental status NL Vital Signs/I&O Vital Signs Date Time Temp Pulse Resp B/P Pulse Ox O2 Delivery O2 Flow Rate FiO2 11/18/16 09:45 18 11/18/16 06:00 96.8 81 136/64 94 Room Air 11/16/16 15:37 2.0 I&O- Last 24 Hours up to 6 AM 11/18/16 06:00 Intake Total 1500 ml Output Total 1725 ml Balance -225 ml Laboratory Data Labs 24H Laboratory Tests 2 11/18/16 05:20: Blood Urea Nitrogen 44H, Creatinine 1.23, Sodium Level 135L, Potassium Level 4.7 , Chloride Level 102, Carbon Dioxide Level 26, Calcium Level 7.7L, Aspartate Amino Transf (AST/SGOT) 63H, Alanine Aminotransferase (ALT/SGPT) 51, Alkaline Phosphatase 69, Total Bilirubin 7.8H, Total Protein 5.8L, Albumin 2.9#L, Albumin /Globulin Ratio 1.00, Ammonia 36H, Anion Gap 7L, Glomerular Filtration Rate > 60.0, Magnesium Level 2.3, Prothromb Time International Ratio 2.42, Prothrombin Time 26.4H CBC/BMP Laboratory Tests 11/18/16 05:20 Calcium Level 7.7 L, Aspartate Amino Transf (AST/SGOT) 63 H, Alanine Aminotransferase (ALT/SGPT) 51, Alkaline Phosphatase 69, Total Bilirubin 7.8 H, Total Protein 5.8 L, Albumin 2.9 #L, Red Blood Count 2.86 L, Mean Corpuscular Volume 104.7 H, Mean Corpuscular Hemoglobin 35.9 H, Mean Corpuscular Hemoglobin Concent 34.3, Red Cell Distribution Width 13.8 Microbiology Microbiology 11/15/16 Blood Culture - Preliminary, Resulted No Growth after 48 hours. All Specime... 11/15/16 Blood Culture - Preliminary, Resulted No Growth after 48 hours. All Specime... 11/15/16 Fungal Smear, Received Pending 11/15/16 Fungal Culture, Received Pending 11/15/16 Gram Stain - Final, Complete 11/15/16 Body Fluid Culture - Final, Complete 11/15/16 Clostridium difficile (PCR) - Final, Complete 11/17/16 MRSA Screen, Received Pending 11/15/16 MRSA Screen - Final, Complete GME ATTESTATION GME ATTESTATION My preceptor for this patient encounter was physically present in the building during the encounter and was fully available. As needed, all aspects of the patient interview, examination, medical decision making process, and medical care plan development were reviewed and approved by the preceptor. Preceptor is aware and concurs with the plan as stated in the body of this note and will attest to such by his/her cosignature. RADHA NEGRON DO Nov 18, 2016 10:48
[2016-11-18 14:00] VITALS: BP 120/76
[2016-11-18 22:00] VITALS: BP 132/68
[2016-11-19] MEDS: MEROPENEM INJ 500 MG in D5W MINI-BAG PLUS 100 ML IV SCH ×3 (00:52→18:02)
[2016-11-19] MEDS: oxyCODONE 5MG TAB PO PRN ×3 (02:24→18:54)
--- NOTE | 2016-11-19 03:31 | IPN ---
DATE: 11/18/2016 SUBJECTIVE: Patient was seen and examined at the bedside today in the morning. He feels much better today. He was downgraded out of intensive care unit (ICU). He is on the medical-surgical floor at this time. His kidney function continues to improve. REVIEW OF SYSTEMS: Patient denies any fever, chills, rigors, headache, nausea, vomiting, chest pain. He denies any shortness of breath, but he does report abdominal distention and discomfort, and he also reports back pain because of abdominal distention. The rest of the review of systems is negative. OBJECTIVE: VITAL SIGNS: Temperature is 97.5 degrees Fahrenheit, blood pressure is 120/76, pulse is 82, respiratory rate of 18, saturating 98% on room air. Intake and output: Urine output is recorded as 2.2 liters yesterday, 1400 mL so far today since overnight. GENERAL: Patient is awake, alert, and oriented times three, lying in bed in no apparent distress. HEAD AND NECK EXAM: Extraocular muscles are intact. Pupils equally round and reactive to light. Patient does have scleral icterus. Mucous membranes are moist. Neck is supple. There is no jugular venous distention (JVD). CARDIOVASCULAR: S1, S2 regular rate. No murmur, rub, or gallop. RESPIRATORY: Chest is clear to auscultation bilaterally. Bilaterally equal air entry. No rales or rhonchi. ABDOMEN: Soft, distended. Positive ascites. There is no tenderness. Positive bowel sounds. Liver is palpable as well. EXTREMITIES: No clubbing or cyanosis. Patient has 1+ pitting edema of the bilateral lower extremities. CENTRAL NERVOUS SYSTEM: No asterixis. Power is 5/5 in all extremities. Patient is oriented times three today. LAB REVIEW: CBC showed a WBC of 4.2, hemoglobin 10.3, platelets of 47. INR is 2.4 today. Repeat ascitic fluid cell count is pending. BMP done today shows sodium 135, potassium 4.7, chloride 102, bicarbonate 26, BUN 44, creatinine 1.23, calcium 7.7, total bilirubin 7.8, albumin is 2.9 today. MICROBIOLOGY: Nasal MRSA is negative. Blood cultures are negative so far. Ascitic fluid culture is pending so far. CURRENT MEDICATIONS: Patient's current medications were all reviewed by me. He continues to be on IV meropenem 500 mg IV every 12 hours, Flagyl 500 mg by mouth every eight hours, midodrine 10 mg by mouth three times a day, and there are no other changes in the medications as compared with yesterday. ASSESSMENT: 61-year-old male with past medical history of alcoholic cirrhosis last drink was about a month ago admitted this time with severe sepsis secondary to Clostridium difficile (C. diff) colitis and spontaneous bacterial peritonitis. Nephrology service following the patient for management of acute renal failure. PLAN: 1. Acute renal failure. It was secondary to severe sepsis and C. diff colitis. Patient required IV albumin, octreotide, and midodrine. His renal function is back to normal. Continue albumin for one more day. Octreotide is already stopped. 2. Severe sepsis secondary to spontaneous bacterial peritonitis and C. diff colitis. Patient's diarrhea significantly better. Continue current dose of Flagyl. I have increased the meropenem frequency to every eight hours because the patient's kidney function is better now. Patient should finish one course of antibiotics for one week. 3. Decompensated alcoholic cirrhosis. Patient has tense ascites at this time. He will get ascitic tap an about 5-6 liters of fluid can be removed. I am going to continue IV albumin at this time because patient is going to get the tap today by interventional radiology (IR). 4. Hyponatremia. Hyponatremia is secondary to decompensated cirrhosis and acute renal failure. Continue current administration of albumin. Sodium is improving and today's level is 135. 5. Alcoholic cirrhosis. Patient has been started on pentoxifylline 400 mg by mouth twice a day. Continue the current dose. Plan of care was discussed with the hospitalist team.
[2016-11-19] MEDS: metroNIDAZOLE (FLAGYL) 500 MG TAB PO SCH ×3 (05:02→21:39)
[2016-11-19] MEDS: SODIUM CHLORIDE 0.9% INJ 10 ML SYR IV SCH ×3 (05:03→22:00)
[2016-11-19] MEDS: SLF 3 ML SYR IV SCH ×3 (05:03→22:00)
[2016-11-19 05:43] LABS: MEAN CORPUSCULAR HEMOGLOBIN 35.3 pg (27.0-33.0); MEAN CORPUSCULAR HGB CONC 32.4 g/dl (32.0-36.5)
[2016-11-19 05:46] LABS: ALBUMIN 3.3 GM/DL (3.2-5.2); ALBUMIN/GLOBULIN RATIO 1.14 (1.00-1.93); ALKALINE PHOSPHATASE 74 U/L (45-117); ALT/SGPT 52 U/L (12-78); ANION GAP 7 MEQ/L (8-16); AST/SGOT 75 U/L (15-37); BILIRUBIN,TOTAL 8.9 MG/DL (0.2-1.0); BLOOD UREA NITROGEN 29 MG/DL (7-18); CALCIUM LEVEL 7.9 MG/DL (8.8-10.2); CARBON DIOXIDE LEVEL 27 MEQ/L (21-32); CHLORIDE LEVEL 101 MEQ/L (98-107); CREATININE FOR GFR 1.01 MG/DL (0.70-1.30); GLOMERULAR FILTRATION RATE > 60.0 (>49); GLUCOSE, FASTING 94 MG/DL (80-110); POTASSIUM SERUM 4.3 MEQ/L (3.5-5.1); SODIUM LEVEL 135 MEQ/L (136-145); TOTAL PROTEIN 6.2 GM/DL (6.4-8.2)
[2016-11-19 05:55] LABS: INR 2.45
[2016-11-19 06:00] VITALS: BP 128/64
--- NOTE | 2016-11-19 08:15 | IPNPDOC ---
Assessment/Plan Date Seen The patient was seen on 11/19/16. Problems Problems: (1) Decompensated hepatic cirrhosis Status: Acute Problem Text: pt did not have paracentesis performed one day ago as INR was >2 and plts <50- will give one unit of FFP and vitamin K today and recheck INR- if acceptable, pt may have paracentesis done today fluid cultures pending pt is on pentoxifylline 400 mg BID PO alcoholic cirrhosis denies abdominal pain past: with ascites, thrombocytopenia, hyponatremia, coagulopathy and hepatic encephalopathy high bilirubin got bed side diagnostic tapping done on 11/15/16 & positive for peritonitis on albumin , midodrine, octreotide, meropenem. (2) Severe sepsis Status: Acute Problem Text: due to c diff colitis and bacterial peritonitis. continue meropenem-dose increased by nephrology. continue oral metronidazole. pt not on pressor therapy at this time as BP has been stable (3) C. difficile diarrhea Status: Acute Problem Text: no diarrhea in past 24 hours, in fact last BM was 2-3 days ago as per pt. continue metronidazole on gentle hydration also (4) Peritonitis Status: Acute Problem Text: could be primary SBP or secondary to c. diff colitis will continue with meropenem- dose increased by nephro as kidney function improving fluid culture and fungal culture of fluid pending (5) Acute kidney injury Status: Acute Response to Treatment: Stable Problem Text: type 1 hepatrenal syndrome started on midodrine 25% albumin 25 g IV q8h- will continue for today, pt did not have paracentesis one day prior as his INR was too high and platelet too low, will give one unit FFP and vitamin K, recheck INR- may get paracentesis today if better octreotide infusion stopped strict I&O nephrology consulted-appreciate their recommendations 2/2 sepsis and volume depletion from diarrhea and hypotension resulting in hepatorenal syndrome (6) Lactic acidosis Status: Acute Response to Treatment: Stable Problem Text: last lactic acid was 1.4- stabilized continue to monitor From liver failure + hypotension (7) Ascites Status: Chronic Response to Treatment: Stable Problem Text: pt. will hopefully receive paracentesis today- will receive one unit FFP and vitamin K and recheck INR as it was too high one day ago and plts too low, plts are >50 today. fluid will be sent for cultures once pt has paracentesis last paracentesis + for peritonitis- abx. therapy initiated (8) Alcohol abuse Status: Chronic Response to Treatment: Stable Problem Text: pt. on multivitamin and B12 continue to monitor for signs of w/d pt not currently having signs of w/d (9) Back pain Status: Acute Response to Treatment: Stable Problem Text: This is new complaint, probably 2/2 distension abdomen due to his need for paracentesis. will schedule tramdol for pain 50 mg q12h prn Plan / VTE VTE Prophylaxis Ordered?: Yes Plan / Urinary Catheter Reason for insertion/continuin: Critical Pt monitoring Subjective Review of Systems CC/HPI The patient is a 61-year-old male admitted with a reason for visit of Diarrhea. General: Denies: Chills, Fatigue, Night Sweats Constitutional: Denies: Chills, Fever, Malaise Eyes: Denies: Conjunctivae inflammation, Eyelid inflammation, Pain, Vision change ENT: Denies: Ear Pain, Head Aches Skin: Denies: Jaundice, Lesions, Rash Pulmonary: Denies: Cough, Dyspnea Cardiovascular: Denies: Chest Pain Gastrointestinal: Denies: Abdominal Pain, Diarrhea, Nausea, Vomiting Genitourinary: Denies: Dysuria Neurological: Denies: Numbness, Weakness Psych: Reports: Mood Normal Objective Physical Examination General Exam: Positive: Alert, Cooperative, No Acute Distress Eye Exam: Positive: Conjunctiva & lids normal, EOMI, PERRLA, Sclera icteric, Negative: Ptosis ENT Exam: Positive: Atraumatic, Mucous membr. moist/pink, Pharynx Normal, Tongue Midline, Negative: Pharyngeal Edema Neck Exam: Positive: Supple Chest Exam: Positive: Clear to auscultation, Normal air movement Heart Exam: Positive: Normal S1, Normal S2, Rate Normal, Negative: Gallops, Murmurs Telemetry: Positive: Sinus Abdomen Exam: Positive: Normal bowel sounds, Other (abdomen is less distended, ascitic. no pain to palpitation. ), Soft, Tenderness Extremity Exam: Positive: Edema (+1 edema b/l ), Negative: Tenderness Psych Exam: Positive: Mental status NL Vital Signs/I&O Vital Signs Date Time Temp Pulse Resp B/P Pulse Ox O2 Delivery O2 Flow Rate FiO2 11/19/16 06:00 97.5 92 19 128/64 92 Room Air 11/16/16 15:37 2.0 I&O- Last 24 Hours up to 6 AM 11/19/16 06:00 Intake Total 1290 ml Output Total 2175 ml Balance -885 ml Laboratory Data Labs 24H Laboratory Tests 2 11/18/16 15:34: 11/19/16 05:05: Blood Urea Nitrogen 29H, Creatinine 1.01, Sodium Level 135L, Potassium Level 4.3 , Chloride Level 101, Carbon Dioxide Level 27, Calcium Level 7.9L, Aspartate Amino Transf (AST/SGOT) 75H, Alanine Aminotransferase (ALT/SGPT) 52, Alkaline Phosphatase 74, Total Bilirubin 8.9H, Total Protein 6.2L, Albumin 3.3, Albumin/ Globulin Ratio 1.14, Ammonia 47H, Anion Gap 7L, Glomerular Filtration Rate > 60.0, Magnesium Level 2.0, Prothromb Time International Ratio 2.45, Prothrombin Time 26.6H CBC/BMP Laboratory Tests 11/19/16 05:05 Calcium Level 7.9 L, Aspartate Amino Transf (AST/SGOT) 75 H, Alanine Aminotransferase (ALT/SGPT) 52, Alkaline Phosphatase 74, Total Bilirubin 8.9 H, Total Protein 6.2 L, Albumin 3.3, Red Blood Count 2.84 L, Mean Corpuscular Volume 109.0 H, Mean Corpuscular Hemoglobin 35.3 H, Mean Corpuscular Hemoglobin Concent 32.4, Red Cell Distribution Width 15.0 H Microbiology Microbiology 11/15/16 Blood Culture - Preliminary, Resulted No Growth after 72 hours. All specime... 11/15/16 Blood Culture - Preliminary, Resulted No Growth after 72 hours. All specime... 11/15/16 Fungal Smear, Received Pending 11/15/16 Fungal Culture, Received Pending 11/15/16 Gram Stain - Final, Complete 11/15/16 Body Fluid Culture - Final, Complete 11/18/16 Stool Occult Blood (JOSE A) - Final, Complete 11/15/16 Clostridium difficile (PCR) - Final, Complete 11/17/16 MRSA Screen - Final, Complete 11/15/16 MRSA Screen - Final, Complete GME ATTESTATION GME ATTESTATION My preceptor for this patient encounter was physically present in the building during the encounter and was fully available. As needed, all aspects of the patient interview, examination, medical decision making process, and medical care plan development were reviewed and approved by the preceptor. Preceptor is aware and concurs with the plan as stated in the body of this note and will attest to such by his/her cosignature. RADHA NEGRON DO Nov 19, 2016 08:15
[2016-11-19] MEDS: PENTOXIFYLLINE 400 MG TAB PO SCH ×3 (08:46→21:39)
[2016-11-19] MEDS: MIDODRINE 5 MG TAB PO SCH ×3 (08:46→15:07)
[2016-11-19] MEDS: MULTIVITAMINS/MINERALS THERAP 1 TAB PO SCH (08:46)
[2016-11-19] MEDS: CYANOCOBALAMIN 500 MCG TAB PO SCH (08:46)
[2016-11-19] MEDS ORDERED: PHYTONADIONE 10MG/ML INJECTION (J3430) IV ONE (09:45)
--- NOTE | 2016-11-19 12:09 | IPN ---
DATE: 11/19/2016 SUBJECTIVE: Patient was seen and examined at the bedside today in the morning. He feels much better. His kidney function is improving everyday. Patient did not get the ascitic tap done because of high INR and low platelet count. He continues to get IV albumin at this time. REVIEW OF SYSTEMS: Patient denies any fever, chills rigors, headache, nausea, vomiting, chest pain, shortness of breath. He does report abdominal distention and back pain and he still reports weakness and inability to walk. Rest of review of system is negative. OBJECTIVE: Vital signs: Temperature 97.5 degrees Fahrenheit, blood pressure is 128/64, pulse is 92, respiratory rate 18, saturating 92% on room air. Intake and output: Urine output recorded as 1.8 liters yesterday and around 375 mL today. There is no bed scale weight available. PHYSICAL EXAMINATION: General: Patient is awake, alert, oriented times three, lying in bed, no apparent distress. Head and neck exam: Extraocular muscles intact. Pupils equally round and reactive to light. Patient does have significant scleral icterus. Mucous membranes are moist. Neck is supple, there is no jugular venous distention (JVD). Cardiovascular: S1, S2. Regular rate. No murmur, rub or gallop. Respiratory: Chest is clear to auscultation bilaterally. Bilateral equal air entry. No rales. No rhonchi. Abdomen: Patient has tense ascites. Abdomen is distended. Positive bowel sounds. There is no tenderness. Liver is palpable. Extremities: No clubbing or stenosis. Patient has 1+ pitting edema of the bilateral lower extremities. Central nervous system: No asterixis. No focal neurological deficit. Power is 5/5 in all extremities. LAB REVIEW: CBC showed WBC of 5, hemoglobin 10, platelets 54. INR is 2.45 today. BMP showed sodium 135, potassium 4.3, chloride 101, bicarbonate 27, BUN 29, creatinine 1.01. Calcium is 7.9, magnesium 2, total bilirubin 8.9, total protein is 6.2. Microbiology: Stool for occult blood is positive. CURRENT MEDICATIONS: Patient's current medications were all reviewed by me. He continues to be on: - IV meropenem 500 mg IV every 8 hours - oral Flagyl His midodrine dose was decreased to 5 mg by mouth three times daily. There is no other change in the medication as compared with yesterday. ASSESSMENT: 61-year-old male with past medical history of alcoholic cirrhosis, last drink was about a month ago. Patient admitted this time with severe sepsis secondary to Clostridium difficile colitis and spontaneous bacterial peritonitis. Nephrology service following the patient for management of acute renal failure. PLAN: 1. Acute renal failure. It was secondary to severe sepsis, spontaneous bacterial peritonitis (SBP) and Clostridium difficile colitis. Patient got IV albumin, octreotide and midodrine. Octreotide has been stopped. I am going to decrease the midodrine dose to 5 mg every 8 hours and IV albumin can also be stopped today. 2. Sepsis secondary to SBP and C. Difficile colitis. Patient's sepsis is significantly improved. His white cell count is better. He continues to be on IV meropenem and Flagyl. Meropenem will be finished on November 22. His diarrhea is significantly better. 3. Decompensated alcohol cirrhosis. Patient has tense ascites. He will ge ascitic tap done today after infusion of fresh frozen plasma. Patient can also be given a dose of vitamin K 5 mg IV to help improve the INR. 4. Hyponatremia. Hyponatremia is secondary to decompensated cirrhosis. Sodium is around 135 which is stable. Continue to monitor for now. 5. Alcoholic cirrhosis. Patient has been started on Pentoxifylline for decompensated alcohol cirrhosis. Dose will be adjusted according to renal function. Plan of care was discussed with the patient's RN at the bedside and with the medical office technician.
[2016-11-19] MEDS: traMADol 50 MG TAB PO PRN (12:58)
[2016-11-19 14:00] VITALS: BP 144/72
[2016-11-19 15:30] LABS: INR 2.3
[2016-11-19 22:00] VITALS: BP 134/84
[2016-11-20] MEDS: traMADol 50 MG TAB PO PRN ×2 (00:08→21:07)
[2016-11-20] MEDS: MEROPENEM INJ 500 MG in D5W MINI-BAG PLUS 100 ML IV SCH ×3 (00:09→16:46)
[2016-11-20] MEDS: oxyCODONE 5MG TAB PO PRN ×2 (03:06→15:19)
[2016-11-20] MEDS: metroNIDAZOLE (FLAGYL) 500 MG TAB PO SCH ×3 (05:35→21:06)
[2016-11-20 06:00] VITALS: BP 138/78
[2016-11-20] MEDS: SODIUM CHLORIDE 0.9% INJ 10 ML SYR IV SCH ×2 (06:00→13:25)
[2016-11-20] MEDS: SLF 3 ML SYR IV SCH ×3 (06:00→22:00)
[2016-11-20 06:02] LABS: MEAN CORPUSCULAR HEMOGLOBIN 35.6 pg (27.0-33.0); MEAN CORPUSCULAR HGB CONC 33.3 g/dl (32.0-36.5); MEAN CORPUSCULAR VOLUME 106.9 fl (80.0-96.0); RED CELL DISTRIBUTION WIDTH 15.3 % (11.5-14.5); WHITE BLOOD COUNT 5.4 K/mm3 (4.0-10.0)
[2016-11-20 06:17] LABS: INR 2.45
[2016-11-20 06:20] LABS: ALBUMIN 3.1 GM/DL (3.2-5.2); ALBUMIN/GLOBULIN RATIO 1.11 (1.00-1.93); ALKALINE PHOSPHATASE 82 U/L (45-117); ALT/SGPT 50 U/L (12-78); ANION GAP 10 MEQ/L (8-16); AST/SGOT 76 U/L (15-37); BILIRUBIN,TOTAL 11.8 MG/DL (0.2-1.0); BLOOD UREA NITROGEN 20 MG/DL (7-18); CALCIUM LEVEL 7.9 MG/DL (8.8-10.2); CARBON DIOXIDE LEVEL 25 MEQ/L (21-32); CHLORIDE LEVEL 102 MEQ/L (98-107); CREATININE FOR GFR 0.85 MG/DL (0.70-1.30); GLOMERULAR FILTRATION RATE > 60.0 (>49); GLUCOSE, FASTING 108 MG/DL (80-110); POTASSIUM SERUM 4.3 MEQ/L (3.5-5.1); SODIUM LEVEL 137 MEQ/L (136-145); TOTAL PROTEIN 5.9 GM/DL (6.4-8.2)
--- NOTE | 2016-11-20 08:33 | IPNPDOC ---
Assessment/Plan Date Seen The patient was seen on 11/20/16. Problems Problems: (1) Decompensated hepatic cirrhosis Status: Acute Problem Text: pt did not have paracentesis performed again one day ago as INR was >2 and plts <50- will transfuse 1 unit platelet today pt may have paracentesis done today fluid cultures pending pt is on pentoxifylline 400 mg BID PO alcoholic cirrhosis denies abdominal pain past: with ascites, thrombocytopenia, hyponatremia, coagulopathy and hepatic encephalopathy high bilirubin got bed side diagnostic tapping done on 11/15/16 & positive for peritonitis on albumin , midodrine, octreotide, meropenem. (2) Severe sepsis Status: Acute Problem Text: due to c diff colitis and bacterial peritonitis. continue meropenem-dose increased by nephrology one day ago. continue oral metronidazole. pt not on pressor therapy at this time as BP has been stable (3) C. difficile diarrhea Status: Acute Problem Text: no diarrhea in past 24 hours, in fact last BM was 2-3 days ago as per pt. continue metronidazole on gentle hydration also (4) Peritonitis Status: Acute Problem Text: could be primary SBP or secondary to c. diff colitis will continue with meropenem- dose increased by nephro. one day ago as kidney function improving fluid culture and fungal culture of fluid pending (5) Acute kidney injury Status: Acute Response to Treatment: Stable Problem Text: type 1 hepatrenal syndrome started on midodrine 25% albumin 25 g IV q8h- will continue for today, pt did not have paracentesis again one day prior as his INR was sill too high and platelet too low will give 1 unit platelet today may get paracentesis today octreotide infusion stopped strict I&O nephrology consulted-appreciate their recommendations 2/2 sepsis and volume depletion from diarrhea and hypotension resulting in hepatorenal syndrome (6) Lactic acidosis Status: Acute Response to Treatment: Stable Problem Text: last lactic acid was 1.4- stabilized continue to monitor From liver failure + hypotension (7) Ascites Status: Chronic Response to Treatment: Stable Problem Text: pt. will hopefully receive paracentesis today- will receive 1 unit platelets transfused today fluid will be sent for cultures once pt has paracentesis last paracentesis + for peritonitis- abx. therapy initiated (8) Alcohol abuse Status: Chronic Response to Treatment: Stable Problem Text: pt. on multivitamin and B12 continue to monitor for signs of w/d pt not currently having signs of w/d (9) Back pain Status: Acute Response to Treatment: Stable Problem Text: This is new complaint, probably 2/2 distension abdomen due to his need for paracentesis. Says low back pain is better but now has right shoulder scapular pain, will have lidocaine patch ordered for pt. and k-pad pt says low back pain is present but a little improved from one day prior tramdol for pain 50 mg q12h prn Plan / VTE VTE Prophylaxis Ordered?: Yes Plan / Urinary Catheter Reason for insertion/continuin: Critical Pt monitoring Subjective Review of Systems CC/HPI The patient is a 61-year-old male admitted with a reason for visit of Diarrhea. General: Denies: Chills, Fatigue, Night Sweats Constitutional: Denies: Chills Eyes: Denies: Conjunctivae inflammation, Eyelid inflammation, Pain, Redness, Vision change ENT: Denies: Head Aches Skin: Denies: Bruising, Jaundice, Lesions, Rash Pulmonary: Denies: Cough, Dyspnea, Pleuritic Chest Pain Cardiovascular: Denies: Chest Pain, Orthopnea, Palpitations Gastrointestinal: Reports: Abdominal Pain (diffuse achy lower abdomen most likely 2/2 acitic abdomen), Denies: Nausea, Vomiting Genitourinary: Denies: Dysuria Musculoskeletal: Reports: Back Pain, Other Symptoms Neurological: Denies: Numbness, Weakness Psych: Reports: Mood Normal Objective Physical Examination General Exam: Positive: Alert, Cooperative, No Acute Distress Eye Exam: Positive: Conjunctiva & lids normal, EOMI, PERRLA, Sclera icteric, Negative: Ptosis ENT Exam: Positive: Atraumatic, Mucous membr. moist/pink, Pharynx Normal, Tongue Midline, Negative: Pharyngeal Edema Neck Exam: Positive: Supple Chest Exam: Positive: Clear to auscultation, Normal air movement Heart Exam: Positive: Normal S1, Normal S2, Rate Normal, Negative: Gallops, Murmurs Telemetry: Positive: Sinus Abdomen Exam: Positive: Normal bowel sounds, Other (distended abdomen, achy pain to palpitataion in lower pelvis b/l), Soft, Tenderness Extremity Exam: Positive: Edema (+1 edema b/l ), Negative: Tenderness Psych Exam: Positive: Mental status NL Vital Signs/I&O Vital Signs Date Time Temp Pulse Resp B/P Pulse Ox O2 Delivery O2 Flow Rate FiO2 11/20/16 06:00 97.3 138/78 11/20/16 03:36 16 Room Air 11/19/16 22:00 94 95 11/16/16 15:37 2.0 I&O- Last 24 Hours up to 6 AM 11/20/16 05:59 Intake Total 2150 ml Output Total 1050 ml Balance 1100 ml Laboratory Data Labs 24H Laboratory Tests 2 11/19/16 15:06: Prothromb Time International Ratio 2.30, Prothrombin Time 25.4H 11/20/16 05:35: Prothromb Time International Ratio 2.45, Prothrombin Time 26.6H, Blood Urea Nitrogen 20H, Creatinine 0.85, Sodium Level 137, Potassium Level 4.3, Chloride Level 102, Carbon Dioxide Level 25, Calcium Level 7.9L, Aspartate Amino Transf ( AST/SGOT) 76H, Alanine Aminotransferase (ALT/SGPT) 50, Alkaline Phosphatase 82, Total Bilirubin 11.8H, Total Protein 5.9L, Albumin 3.1L, Albumin/Globulin Ratio 1.11, Ammonia 33H, Anion Gap 10, Glomerular Filtration Rate > 60.0, Magnesium Level 2.0 CBC/BMP Laboratory Tests 11/20/16 05:35 Calcium Level 7.9 L, Aspartate Amino Transf (AST/SGOT) 76 H, Alanine Aminotransferase (ALT/SGPT) 50, Alkaline Phosphatase 82, Total Bilirubin 11.8 H , Total Protein 5.9 L, Albumin 3.1 L, Red Blood Count 2.92 L, Mean Corpuscular Volume 106.9 H, Mean Corpuscular Hemoglobin 35.6 H, Mean Corpuscular Hemoglobin Concent 33.3, Red Cell Distribution Width 15.3 H Microbiology Microbiology 11/15/16 Blood Culture - Preliminary, Resulted No Growth after 72 hours. All specime... 11/15/16 Blood Culture - Preliminary, Resulted No Growth after 72 hours. All specime... 11/15/16 Fungal Smear, Received Pending 11/15/16 Fungal Culture, Received Pending 11/15/16 Gram Stain - Final, Complete 11/15/16 Body Fluid Culture - Final, Complete 11/18/16 Stool Occult Blood (JOSE A) - Final, Complete 11/15/16 Clostridium difficile (PCR) - Final, Complete 11/17/16 MRSA Screen - Final, Complete 11/15/16 MRSA Screen - Final, Complete GME ATTESTATION GME ATTESTATION My preceptor for this patient encounter was physically present in the building during the encounter and was fully available. As needed, all aspects of the patient interview, examination, medical decision making process, and medical care plan development were reviewed and approved by the preceptor. Preceptor is aware and concurs with the plan as stated in the body of this note and will attest to such by his/her cosignature. RADHA NEGRON DO Nov 20, 2016 08:33
[2016-11-20] MEDS: PENTOXIFYLLINE 400 MG TAB PO SCH ×3 (08:38→21:06)
[2016-11-20] MEDS: CYANOCOBALAMIN 500 MCG TAB PO SCH (08:38)
[2016-11-20] MEDS: MULTIVITAMINS/MINERALS THERAP 1 TAB PO SCH (08:39)
[2016-11-20] MEDS: MIDODRINE 5 MG TAB PO SCH ×3 (08:39→15:18)
--- NOTE | 2016-11-20 12:57 | IPN ---
DATE: 11/20/2016 SUBJECTIVE: Patient was seen and examined at the bedside today in the morning. He is getting fresh frozen plasma (FFP) transfusion at this time and then he will be shortly going for ascitic tap. He otherwise feels better. His renal function is stable at this time. REVIEW OF SYSTEMS: Patient denies any fever, chills, rigors, headache, nausea, vomiting, chest pain, or shortness of breath. He does report abdominal distention and back pain because of tense ascites. The rest of review of systems is negative. OBJECTIVE: Vital Signs: Temperature 97.3 degrees Fahrenheit, blood pressure is 138/78, pulse is 94, respiratory rate 16, saturating 95% on room air. Intake and Output: Urine output recorded as 825 mL yesterday and 225 mL so far mL today since overnight. PHYSICAL EXAMINATION: General: Patient is awake, alert, oriented times three, laying in bed, no apparent distress. Head and Neck Exam: Extraocular muscles intact. Pupils equally round and reactive to light. Mucous membranes are moist. Significant scleral icterus. Neck is supple, there is no jugular venous distention (JVD). Cardiovascular: S1, S2. Regular rate. No murmur, rub or gallop. Respiratory: Chest is clear to auscultation bilaterally. Bilateral equal air entry. No rales. No rhonchi. Abdomen: Soft. Distended. Positive large volume ascites. No tenderness. Liver is palpable. Extremities: No clubbing or cyanosis. 1+ pitting edema of the bilateral lower extremities. Central Nervous System: No asterixis. No focal neurological deficit. Power is 5/5 in all extremities. Psychiatric: Normal mood. Skin: No rashes or ulcers. LAB REVIEW: CBC showed WBC of 5.4, hemoglobin 10.4, platelets 45. INR is 2.4. BMP showed sodium 137, potassium 4.3, chloride 102, bicarbonate 25, BUN 20, creatinine 0.85. Calcium is 7.9. Total bilirubin is 11.8. Albumin is 3.1. Microbiology: Ascitic fluid cultures are negative. Blood cultures are negative so far. CURRENT MEDICATIONS: Patient's medications were all reviewed by me. He continues to be on meropenem 500 mg IV every 8 hours. Last dose will be on 11/22/2016. He continues to be on Flagyl 500 mg by mouth every 8 hours. His midodrine dose at this time is 5 mg every 8 hours. ASSESSMENT: 61-year-old male with past medical history of alcoholic cirrhosis, last drink one month ago, admitted this time with severe sepsis, and nephrology service following the patient for management of acute renal failure. PLAN: 1. Acute renal failure. His kidney function is significantly better. Rowley catheter was removed yesterday. Albumin was stopped yesterday. His midodrine dose has been decreased to 5 mg every 8 hours and patient is going to get ascitic tap today. 2. Sepsis secondary to SBP and C. Difficile colitis. His white cell count is better. Patient's cultures are negative so far. He is getting IV meropenem which will be finished on 11/22/2016. Continue Flagyl at this time as well. 3. Decompensated alcohol cirrhosis and ascites. Patient will get the fresh frozen plasma (FFP) transfusion today and he will go shortly for ascitic tap after the FFP. Continue current dose of pentoxifylline 400 mg by mouth three times a day for alcoholic cirrhosis. Patient's renal function has improved. Nephrology service would sign off at this moment. The rest of the management is as per primary team. Please call nephrology service as needed for any help in the management of this patient in the future.
[2016-11-20] MEDS: LIDOCAINE 5% (LIDODERM) PATCH TD SCH (13:21)
[2016-11-20 13:47] LABS: SPEC. GRAVITY BODY FLUIDS 1.011 (NOT ESTABLISHED)
[2016-11-20 13:53] LABS: RBC ASCITES FLUID < 10 (<10mm3 cells/uL); TNC ASCITES FLUID 124 cells/uL (0-20)
[2016-11-20 14:01] LABS: BF DIFF IF INDICATED? YES (NO)
[2016-11-20 14:17] LABS: CC BF DIFF EXAM CYTOCENTRIFUGE
[2016-11-20 21:00] VITALS: BP 157/91
[2016-11-20] MEDS ORDERED: **NOTE PATIENT COMMENT** MISC XX SCH (21:00)
[2016-11-21] MEDS: SODIUM CHLORIDE 0.9% INJ 10 ML SYR IV SCH ×2 (00:33→08:55)
[2016-11-21] MEDS: MEROPENEM INJ 500 MG in D5W MINI-BAG PLUS 100 ML IV SCH ×2 (00:33→08:55)
[2016-11-21] MEDS: oxyCODONE 5MG TAB PO PRN (01:14)
[2016-11-21] MEDS: metroNIDAZOLE (FLAGYL) 500 MG TAB PO SCH (05:16)
[2016-11-21] MEDS: SLF 3 ML SYR IV SCH (05:16)
[2016-11-21 05:41] LABS: INR 2.71
[2016-11-21 05:54] LABS: MEAN CORPUSCULAR HEMOGLOBIN 35.5 pg (27.0-33.0); MEAN CORPUSCULAR HGB CONC 33.4 g/dl (32.0-36.5); MEAN CORPUSCULAR VOLUME 106.5 fl (80.0-96.0); RED CELL DISTRIBUTION WIDTH 15.3 % (11.5-14.5); WHITE BLOOD COUNT 6.3 K/mm3 (4.0-10.0)
[2016-11-21 05:59] LABS: ALBUMIN 3.1 GM/DL (3.2-5.2); ALBUMIN/GLOBULIN RATIO 1.07 (1.00-1.93); ALKALINE PHOSPHATASE 102 U/L (45-117); ALT/SGPT 51 U/L (12-78); ANION GAP 8 MEQ/L (8-16); AST/SGOT 83 U/L (15-37); BILIRUBIN,TOTAL 12.9 MG/DL (0.2-1.0); BLOOD UREA NITROGEN 17 MG/DL (7-18); CALCIUM LEVEL 8.3 MG/DL (8.8-10.2); CARBON DIOXIDE LEVEL 27 MEQ/L (21-32); CHLORIDE LEVEL 102 MEQ/L (98-107); CREATININE FOR GFR 0.86 MG/DL (0.70-1.30); GLOMERULAR FILTRATION RATE > 60.0 (>49); GLUCOSE, FASTING 113 MG/DL (80-110); MAGNESIUM LEVEL 2.1 MG/DL (1.8-2.4); POTASSIUM SERUM 4.4 MEQ/L (3.5-5.1); SODIUM LEVEL 137 MEQ/L (136-145)
[2016-11-21 06:25] VITALS: BP 138/79
[2016-11-21] MEDS: MULTIVITAMINS/MINERALS THERAP 1 TAB PO SCH (08:54)
[2016-11-21] MEDS: MIDODRINE 5 MG TAB PO SCH ×2 (08:54→12:01)
[2016-11-21] MEDS: CYANOCOBALAMIN 500 MCG TAB PO SCH (08:55)
[2016-11-21] MEDS: PENTOXIFYLLINE 400 MG TAB PO SCH (08:55)
[2016-11-21] MEDS: LIDOCAINE 5% (LIDODERM) PATCH TD SCH (08:56)
[2016-11-21] MEDS ORDERED: PENT40TASA PO (09:59)
[2016-11-21] MEDS ORDERED: MIDO5TA PO ×2 (09:59→12:50)
[2016-11-21] MEDS ORDERED: FLAG500T PO (09:59)
--- NOTE | 2016-11-21 20:19 | REP ---
ULTRASOUND-GUIDED PARACENTESIS: The procedure was performed under the direct supervision of Dr. Georges. The risks and benefits of the procedure were explained to the patient and informed consent was obtained. The largest pocket of fluid was localized in the right upper quadrant using ultrasound guidance. The skin was prepped and draped in a sterile fashion. 1% Lidocaine was used as a local anesthetic. An #8-Canadian [id number]-[id number] catheter was inserted using trocar technique. 9300 mL of yellow fluid was withdrawn with a sample sent to the lab for analysis. The patient tolerated the procedure well and there were no immediate complications. Reviewed by DIPTI Franco 11/25/2016 11:08 AEdited and Signed by Asif Georges MD 12/01/2016 08:45 A
[2016-12-04] MEDS ORDERED: FURO40TA2 PO (15:08)
[2016-12-04] MEDS ORDERED: PROP10TA56 PO (15:08)
[2016-12-04] MEDS ORDERED: MIDO5TA PO (15:08)
[2016-12-04] MEDS ORDERED: LACT10SO29 PO (15:08)
[2016-12-04] MEDS ORDERED: SPIR50TA2 PO (15:08)
--- NOTE | 2016-12-10 00:22 | DSES ---
DATE OF ADMISSION: 11/14/2016 DATE OF DISCHARGE: 11/21/2016 PRIMARY CARE PROVIDER: John Martinez SEED [place] PICKER: Dr. Pfeiffer REASON FOR ADMISSION: Diarrhea and vomiting. FINAL DIAGNOSES: 1. Clostridium difficile colitis. 2. Decompensated hepatic cirrhosis. 3. Sepsis secondary to bacterial peritonitis. 4. Acute kidney injury. 5. Ascites. HISTORY OF PRESENT ILLNESS: The patient is a 61-year-old male, past medical history significant for alcohol-induced hepatic cirrhosis, presented to the emergency room complaining of abdominal pain and diarrhea over the past 3 days. He stated that the pain is crampy, achy in nature, 6 out of 10 in intensity, lower abdominal quadrants. He stated he has been having loose bowel movements described as loose, nonbloody, up to 10 episodes a day for the past 3 days. The patient stated he recently started taking Lasix and spironolactone as well as lactulose for his cirrhosis. He also required three ultrasound-guided paracentesis, yielding 12 liters of fluid on each occasion during that time. The patient stated he has been feeling more confused and dehydrated because of lack of oral intake over the past 3 days. He was admitted under hospitalist service. HOSPITAL COURSE: CT scan of the belly revealed improvement in the ascites compared to prior imaging, but it did show generalized mural thickening seen throughout the colon, small bowel, suggestive of possible underlying infection, inflammatory gastroenteritis. Ammonia level appears to be at baseline. The patient gave a sample of the stool which came back positive for Clostridium difficile. The patient was treated with Dificid 200 mg by mouth twice a day and Flagyl for 7 days. The patient underwent another paracentesis during hospitalization, which was positive for peritonitis. He was treated with Merrem for peritonitis. Dr. Pfeiffer was consulted during the admission for acute kidney injury, which he felt it was likely secondary to severe sepsis due to spontaneous bacterial peritonitis (SBP). He started the patient on midodrine 10 mg every 8 hours and albumin 25% intravenously every 8 hours and octreotide infusion at 50 mcg an hour. The patient had lactic acidosis that eventually normalized. Once the patient completed a course of antibiotics for SBP as well as Clostridium difficile and creatinine had improved, kidney function returning to baseline, patient was discharged home after he had one more paracentesis. Upon discharge, it was explained to the patient and his significant other that his condition is very advanced and hospice services were offered. However, at this time, the patient states he would like to be referred to a airport operations officer and medical office rep in [place]. DISCHARGE INSTRUCTIONS: He is to followup with his primary care provider in 2-5 days. He is to followup with Dr. Pfeiffer in 1 week. The patient was given a referral to Dr. Hernandez in [facility] for gastroenterology. Diet: Low-sodium diet. Activities: As tolerated. DISCHARGE MEDICATIONS: Include: - pentoxifylline 400 mg by mouth three times a day - multivitamin one tablet by mouth daily - Lasix 40 mg by mouth daily - propranolol 10 mg by mouth twice a day - spironolactone 100 mg by mouth daily Condition was guarded.
== END 2016-11-21 13:25 | disposition home or self-care (01) | DRG 720 ==
LOC: M ED 13:37 → M ED INP 17:00 → M MSPAV 22:10 → M ICU 11-15 12:44 → M MSPAV 11-17 16:56
PROVIDERS: ADMIT Internal Medicine; ATTEND Internal Medicine
PROC: 05HM33Z Insertion of Infusion Device into Right Internal Jugular Vein, Percutaneous Approach (ICD-10-PCS; principal; 2016-11-15)
PROC: 0W9G3ZZ Drainage of Peritoneal Cavity, Percutaneous Approach (ICD-10-PCS; 2016-11-15)
PROC: 0W9G3ZZ Drainage of Peritoneal Cavity, Percutaneous Approach (ICD-10-PCS; 2016-11-20)
DX: A41.9 Sepsis, unspecified organism (principal); K76.7 Hepatorenal syndrome; N17.9 Acute kidney failure, unspecified; E87.0 Hyperosmolality and hypernatremia; A04.7 Enterocolitis due to Clostridium difficile; E87.2 Acidosis; K70.31 Alcoholic cirrhosis of liver with ascites; K65.2 Spontaneous bacterial peritonitis; N18.9 Chronic kidney disease, unspecified; Z79.899 Other long term (current) drug therapy; I12.9 Hypertensive chronic kidney disease with stage 1 through stage 4 chronic kidney disease, or unspecified chronic kidney disease; R65.20 Severe sepsis without septic shock

== ENCOUNTER → 2016-11-27 | Outpatient (CLI) | payer BC ==
[~2016-11-27] MED LIST changes: +FLAG500T PO; +FURO40TA2 PO; +LACT10SO29 PO; +MIDO5TA PO; +PENT40TASA PO; +PROP10TA56 PO; +SPIR50TA2 PO; +VITA500T3 PO
--- NOTE | 2016-11-27 16:21 | REP ---
ULTRASOUND GUIDED PARACENTESIS: The procedure was performed under the direct supervision of Dr. Chung. The risks and benefits of the procedure were explained to the patient and informed consent was obtained. The largest pocket of fluid was localized in the left flank using ultrasound guidance. The skin was prepped and draped in a sterile fashion. 1% Lidocaine was used as a local anesthetic. An 8-Armenian [id number] catheter was inserted using trocar technique. 7250 mL of yellow fluid was withdrawn and discarded. The patient tolerated the procedure well and there were no immediate complications. After the appropriate amount of monitored convalesce the patient was discharged from the department. Reviewed by DIPTI Franco 11/27/2016 04:43 PEdited and Signed by Adams Chung MD 11/27/2016 04:52 P
== END ==
LOC: M RADPRO 10:42
PROVIDERS: ATTEND Nurse Practitioner Family
DX: R18.8 Other ascites (principal); Z79.2 Long term (current) use of antibiotics; Z79.899 Other long term (current) drug therapy; Z88.8 Allergy status to other drugs, medicaments and biological substances

== ENCOUNTER → 2016-12-03 | Outpatient (REF) | payer BC ==
[2016-12-03 18:38] LABS: VITAMIN B12 LEVEL > 2000 PG/ML (247-911)
[2016-12-03 18:39] LABS: FOLATE 10.2 NG/ML (>5.4)
[2016-12-03 18:46] LABS: FERRITIN 1890 NG/ML (26-388); PERCENT SATURATION 97.8 % (19.7-37.4); TOTAL IRON BINDING CAPACITY 135 UG/DL (250-450)
== END ==
LOC: M LAB REF 16:58
PROVIDERS: ATTEND Internal Medicine Nephrology
DX: D64.9 Anemia, unspecified (principal)

== ENCOUNTER → 2016-12-04 | Outpatient (REF) | payer BC | LOC: M LAB REF 12:55 | PROVIDERS: ATTEND Internal Medicine Nephrology | DX: A04.7 Enterocolitis due to Clostridium difficile (principal) ==

== ENCOUNTER → 2016-12-04 | Outpatient (CLI) | payer BC ==
--- NOTE | 2016-12-05 19:05 | REP ---
ULTRASOUND GUIDED PARACENTESIS: The procedure was performed under the direct supervision of Dr. Chung. The images were reviewed with Dr. Chung. The largest pocket of fluid was localized in the right flank using ultrasound guidance. The skin was prepped and draped in a sterile fashion. 1% Lidocaine was used as a local anesthetic. An 8-Norwegian [id number] catheter was inserted using trocar technique. 5900 mL of chivo colored fluid was withdrawn and discarded. The patient tolerated the procedure well and there were no immediate complications. After the appropriate amount of monitored convalesce the patient was discharged from the department. Reviewed by DIPTI Franco 12/08/2016 05:14 PEdited and Signed by Adams Chung MD 12/08/2016 05:33 P
== END ==
LOC: M RADPRO 12:31
PROVIDERS: ATTEND Nurse Practitioner Family
DX: K70.31 Alcoholic cirrhosis of liver with ascites (principal); D53.9 Nutritional anemia, unspecified; I10 Essential (primary) hypertension; R23.3 Spontaneous ecchymoses; Z88.6 Allergy status to analgesic agent; Z88.8 Allergy status to other drugs, medicaments and biological substances

== ENCOUNTER → 2016-12-12 | Outpatient (CLI) | payer BC ==
--- NOTE | 2016-12-12 15:50 | REP ---
ULTRASOUND GUIDED PARACENTESIS: The procedure was performed under the direct supervision of Dr. Chung. The risks and benefits of the procedure were explained to the patient and informed consent was obtained. The largest pocket of fluid was localized in the right flank using ultrasound guidance. The skin was prepped and draped in a sterile fashion. 1% Lidocaine was used as a local anesthetic. An 8-Chinese fyvgu-kdnf-ujfd catheter was inserted using trocar technique. 5650 mL of chivo fluid was withdrawn and discarded. The patient tolerated the procedure well and there were no immediate complications. After the appropriate amount of monitored convalesce the patient was discharged from the department. Reviewed by DIPTI Franco 12/12/2016 04:19 PEdited and Signed by Adams Chung MD 12/12/2016 04:57 P
== END ==
LOC: M RADPRO 12:23
PROVIDERS: ATTEND Nurse Practitioner Family
DX: R18.8 Other ascites (principal); Z88.6 Allergy status to analgesic agent; Z88.8 Allergy status to other drugs, medicaments and biological substances; Z79.899 Other long term (current) drug therapy

== ENCOUNTER → 2016-12-19 | Outpatient (CLI) | payer BC ==
[~2016-12-19] MED LIST changes: +XIFA550T PO
[2016-12-19 13:20] LABS: INR 1.71
[2016-12-19 13:32] LABS: ALBUMIN 2.4 GM/DL (3.2-5.2); ALBUMIN/GLOBULIN RATIO 0.53 (1.00-1.93); ALKALINE PHOSPHATASE 155 U/L (45-117); ALT/SGPT 79 U/L (12-78); ANION GAP 7 MEQ/L (8-16); AST/SGOT 84 U/L (15-37); BILIRUBIN,TOTAL 7.3 MG/DL (0.2-1.0); BLOOD UREA NITROGEN 26 MG/DL (7-18); CALCIUM LEVEL 8.4 MG/DL (8.8-10.2); CARBON DIOXIDE LEVEL 27 MEQ/L (21-32); CHLORIDE LEVEL 99 MEQ/L (98-107); GLOMERULAR FILTRATION RATE > 60.0 (>49); GLUCOSE, FASTING 112 MG/DL (80-110); SODIUM LEVEL 133 MEQ/L (136-145); TOTAL PROTEIN 6.9 GM/DL (6.4-8.2)
[2016-12-19 14:01] LABS: ADD MORPHOLOGY? YES; BASO % 0.6 % (0.0-1.0); EOS # 0.1 K/mm3 (0.0-0.50); EOS % 1.4 % (0.0-3.0); LARGE UNSTAINED CELL # 0.3 K/mm3 (0.0-0.4); LARGE UNSTAINED CELL % 3.4 % (0.0-4.0); LYMPH # 0.8 K/mm3 (1.5-4.5); LYMPH % 9.1 % (24.0-44.0); MEAN CORPUSCULAR HEMOGLOBIN 35.7 pg (27.0-33.0); MEAN CORPUSCULAR HGB CONC 33.4 g/dl (32.0-36.5); MEAN CORPUSCULAR VOLUME 106.9 fl (80.0-96.0); MONO # 0.7 K/mm3 (0.0-0.8); MONO % 8.4 % (0.0-5.0); NEUTROPHILS # 6.8 K/mm3 (1.8-7.7); NEUTROPHILS % 77.2 % (36.0-66.0); PLATELET COUNT, AUTOMATED 104 k/mm3 (150-450); WHITE BLOOD COUNT 8.8 K/mm3 (4.0-10.0)
[2016-12-19 14:25] LABS: ANISOCYTOSIS 2+
== END ==
LOC: M SMT 10:25
PROVIDERS: ATTEND Internal Medicine Gastroenterology
DX: K76.6 Portal hypertension (principal)

== ENCOUNTER → 2016-12-26 | Outpatient (CLI) | payer BC ==
[~2016-12-26] MED LIST changes: +LIDOCAINE 1% MDV 20ML VIAL As Ordered ONE
--- NOTE | 2016-12-26 15:26 | REP ---
ULTRASOUND GUIDED PARACENTESIS: The procedure was performed under the direct supervision of Dr. Chung. The risks and benefits of the procedure were explained to the patient and informed consent was obtained. The largest pocket of fluid was localized in the right flank using ultrasound guidance. The skin was prepped and draped in a sterile fashion. 1% Lidocaine was used as a local anesthetic. An #8-Yakut vaghk-csen-efre catheter was inserted using trocar technique. 6950 mL of clear yellow fluid was withdrawn and discarded. The patient tolerated the procedure well and there were no immediate complications. After the appropriate amount of monitored convalescence the patient was discharged from the department. Reviewed by DIPTI Franco 12/26/2016 03:44 PEdited and Signed by Adams Chung MD 12/26/2016 04:26 P
== END ==
LOC: M RADPRO 11:06
PROVIDERS: ATTEND Nurse Practitioner Family
DX: K70.31 Alcoholic cirrhosis of liver with ascites (principal); K76.6 Portal hypertension
CPT/HCPCS: 49083; P9047

== ENCOUNTER → 2016-12-29 | Outpatient (CLI) | payer BC ==
[~2016-12-29] VITALS: Ht 180.3 cm; Wt 94.3 kg
[~2016-12-29] MED LIST changes: -LIDOCAINE 1% MDV 20ML VIAL As Ordered ONE; +PROPOFOL 200 MG/20 ML VIAL As Ordered ONE
[2016-12-29] MEDS: NS 1,000 ML IV SCH ×2 (07:45→14:44)
--- NOTE | 2016-12-29 15:20 | ROOR ---
Patient Name: Kory Mosley Procedure Date: 12/29/2016 2:54 PM Date of : 1955 Age: 61 Room: [facility] Gender: Male Note Status: Finalized Procedure: Upper GI endoscopy Indications: Cirrhosis rule out esophageal varices, Portal hypertension rule out esophageal varices, Exclusion of gastric varices Providers: Jordy HERNANDEZ MD Referring MD: John Martinez NP Requesting Provider: Medicines: Monitored Anesthesia Care Complications: No immediate complications. Procedure: Pre-Anesthesia Assessment: - The heart rate, respiratory rate, oxygen saturations, blood pressure, adequacy of pulmonary ventilation, and response to care were monitored throughout the procedure. The Endoscope was introduced through the mouth, and advanced to the second part of duodenum. The upper GI endoscopy was accomplished without difficulty. The patient tolerated the procedure well. Findings: Grade I varices were found in the lower third of the esophagus. They were small in size. Small varices-no endoscopic therapy indicated One superficial esophageal ulcer with no bleeding was found at the gastroesophageal junction. The lesion was 8 mm in largest dimension. Biopsies were taken with a cold forceps for histology. Mild portal hypertensive gastropathy was found in the gastric fundus and in the gastric body. There is no endoscopic evidence of varices in the cardia. The examined duodenum was normal. Impression: - Grade I esophageal varices. (Small varices-no endoscopic therapy indicated) - Shallow non-bleeding esophageal ulcer at GE junction. Biopsied. - Mild to moderate portal hypertensive gastropathy with heme type material in stomach - Normal examined duodenum. Recommendation: - Use Prilosec (omeprazole) 40 mg PO daily. - Await pathology results. - Give a beta ayala with dosage titrated by the heart rate. Start/continue a Non-selective Beta Ayala such as Propranolol or Nadolol, titrate to heart rate. - Return to my office at the next available appointment. - Perform a colonoscopy at appointment to be scheduled. (I would also recommend repeating EGD to ascertain healing of the esophageal ulcer--biopsies pending) Jordy Hernandez MD Jordy HERNANDEZ MD 12/29/2016 3:20:36 PM This report has been signed electronically. Number of Addenda: 0 Note Initiated On: 12/29/2016 2:54 PM Estimated Blood Loss: Estimated blood loss: none.
[2016-12-29 15:40] VITALS: BP 127/73
== END | disposition home or self-care (01) ==
LOC: M OPP 14:07
PROVIDERS: ATTEND Internal Medicine Gastroenterology
DX: K74.60 Unspecified cirrhosis of liver (principal); I85.10 Secondary esophageal varices without bleeding; K76.6 Portal hypertension; K22.10 Ulcer of esophagus without bleeding; K31.89 Other diseases of stomach and duodenum; I10 Essential (primary) hypertension; R18.8 Other ascites; R06.02 Shortness of breath; Z57.8 Occupational exposure to other risk factors; Z80.3 Family history of malignant neoplasm of breast; Z79.899 Other long term (current) drug therapy

== ENCOUNTER → 2017-01-09 | Outpatient (CLI) | payer BC ==
[~2017-01-09] MED LIST changes: -PROPOFOL 200 MG/20 ML VIAL As Ordered ONE
--- NOTE | 2017-01-10 08:08 | REP ---
ULTRASOUND GUIDED PARACENTESIS: The procedure was performed under the direct supervision of Dr. Banks. The risks and benefits of the procedure were explained to the patient and informed consent was obtained. The largest pocket of fluid was localized in the left flank using ultrasound guidance. The skin was prepped and draped in a sterile fashion. 1% Lidocaine was used as a local anesthetic. An #8-Yi slmha-wvzj-mjgk catheter was inserted using trocar technique. 8750 mL of chivo-colored fluid was withdrawn and discarded. The patient tolerated the procedure well and there were no immediate complications. After the appropriate amount of monitored convalescence the patient was discharged from the department. Reviewed by DIPTI Franco 01/12/2017 08:20 AEdited and Signed by Manish Banks MD 01/12/2017 11:34 A
== END ==
LOC: M RADPRO 12:43
PROVIDERS: ATTEND Internal Medicine Nephrology
DX: K70.31 Alcoholic cirrhosis of liver with ascites (principal); K76.6 Portal hypertension
CPT/HCPCS: 49083; 96374; P9047

== ENCOUNTER → 2017-01-15 | Outpatient (REF) | payer BC ==
[2017-01-15 13:35] LABS: BASO % 0.5 % (0.0-1.0); EOS # 0.1 K/mm3 (0.0-0.50); EOS % 1.2 % (0.0-3.0); LARGE UNSTAINED CELL # 0.1 K/mm3 (0.0-0.4); LARGE UNSTAINED CELL % 1.2 % (0.0-4.0); LYMPH # 0.7 K/mm3 (1.5-4.5); LYMPH % 6.7 % (24.0-44.0); MEAN CORPUSCULAR HEMOGLOBIN 34.8 pg (27.0-33.0); MEAN CORPUSCULAR HGB CONC 32.9 g/dl (32.0-36.5); MEAN CORPUSCULAR VOLUME 105.9 fl (80.0-96.0); MONO # 0.6 K/mm3 (0.0-0.8); MONO % 6.2 % (0.0-5.0); NEUTROPHILS # 8.3 K/mm3 (1.8-7.7); NEUTROPHILS % 84.2 % (36.0-66.0); PLATELET COUNT, AUTOMATED 124 k/mm3 (150-450); RED CELL DISTRIBUTION WIDTH 13.8 % (11.5-14.5); WHITE BLOOD COUNT 9.8 K/mm3 (4.0-10.0)
[2017-01-15 13:45] LABS: ALBUMIN 2.3 GM/DL (3.2-5.2); ALBUMIN/GLOBULIN RATIO 0.56 (1.00-1.93); BILIRUBIN,TOTAL 6.1 MG/DL (0.2-1.0); CALCIUM LEVEL 8.5 MG/DL (8.8-10.2); CREATININE FOR GFR 1.44 MG/DL (0.70-1.30); GLOMERULAR FILTRATION RATE 53.1 (>49); PERCENT SATURATION 97.3 % (19.7-37.4); POTASSIUM SERUM 4.2 MEQ/L (3.5-5.1); TOTAL PROTEIN 6.4 GM/DL (6.4-8.2)
[2017-01-15 13:55] LABS: INR 1.7
== END ==
LOC: M LABDRAW1 12:50 → M LAB REF 12:50
PROVIDERS: ATTEND Internal Medicine Gastroenterology
DX: K70.31 Alcoholic cirrhosis of liver with ascites (principal)

== ENCOUNTER → 2017-01-15 | Outpatient (REF) | payer BC ==
[2017-01-15 13:53] LABS: ALBUMIN 2.3 GM/DL (3.2-5.2); ALBUMIN/GLOBULIN RATIO 0.56 (1.00-1.93); BILIRUBIN,DIRECT 2.5 MG/DL (0.0-0.2); BILIRUBIN,TOTAL 6.1 MG/DL (0.2-1.0); TOTAL PROTEIN 6.4 GM/DL (6.4-8.2)
== END ==
LOC: M LAB REF 12:52
PROVIDERS: ATTEND Internal Medicine Nephrology
DX: K70.31 Alcoholic cirrhosis of liver with ascites (principal)

== ENCOUNTER → 2017-01-23 | Outpatient (CLI) | payer BC ==
--- NOTE | 2017-01-23 13:51 | REP ---
ULTRASOUND GUIDED PARACENTESIS: The procedure was performed under the direct supervision of Dr. Georges. The risks and benefits of the procedure were explained to the patient and informed consent was obtained. The largest pocket of fluid was localized in the right flank using ultrasound guidance. The skin was prepped and draped in a sterile fashion. 1% lidocaine was used as a local anesthetic. An #8-Welsh uwgwq-bcnk-wlqx catheter was inserted using trocar technique. 8150 mL of chivo-colored fluid was withdrawn and discarded. The patient tolerated the procedure well and there were no immediate complications. After the appropriate amount of monitored convalescence, the patient was discharged from the department. Reviewed by DIPTI Franco 01/23/2017 03:37 PEdited and Signed by Asif Georges MD 01/23/2017 04:55 P
== END ==
LOC: M RADPRO 10:39
PROVIDERS: ATTEND Internal Medicine Nephrology
DX: K70.31 Alcoholic cirrhosis of liver with ascites (principal); K76.6 Portal hypertension; Z79.899 Other long term (current) drug therapy; Z88.8 Allergy status to other drugs, medicaments and biological substances
CPT/HCPCS: 49083; 96365; P9047

== ENCOUNTER → 2017-02-06 | Outpatient (CLI) | payer BC ==
[~2017-02-06] MED LIST changes: +MULT1CHW39 PO; +RANI1TAB6 PO
--- NOTE | 2017-02-06 16:15 | REP ---
ULTRASOUND GUIDED PARACENTESIS: The procedure was performed under the direct supervision of Dr. Georgse. The risks and benefits of the procedure were explained to the patient and informed consent was obtained. The largest pocket of fluid was localized in the right flank using ultrasound guidance. The skin was prepped and draped in a sterile fashion. 1% Lidocaine was used as a local anesthetic. An #8-English rrkap-cdzm-prmo catheter was inserted using trocar technique. 8875 mL of chivo-colored fluid was withdrawn and discarded. The patient tolerated the procedure well and there were no immediate complications. After the appropriate amount of monitored convalescence the patient was discharged from the department. Reviewed by DIPTI Franco 02/06/2017 04:28 PEdited and Signed by Asif Georges MD 02/06/2017 04:49 P
== END ==
LOC: M RADPRO 10:37
PROVIDERS: ATTEND Internal Medicine Nephrology
DX: K70.31 Alcoholic cirrhosis of liver with ascites (principal); K76.6 Portal hypertension; I10 Essential (primary) hypertension; D64.9 Anemia, unspecified; Z88.8 Allergy status to other drugs, medicaments and biological substances; Z79.899 Other long term (current) drug therapy
CPT/HCPCS: 49083; 96365; P9047

== ENCOUNTER → 2017-02-10 | Outpatient (REF) | payer BC ==
[2017-02-10 18:38] LABS: ALBUMIN 2.3 GM/DL (3.2-5.2); ALBUMIN/GLOBULIN RATIO 0.51 (1.00-1.93); BILIRUBIN,TOTAL 5.2 MG/DL (0.2-1.0); TOTAL PROTEIN 6.8 GM/DL (6.4-8.2)
== END ==
LOC: M LAB REF 16:44
PROVIDERS: ATTEND Internal Medicine Nephrology
DX: K70.31 Alcoholic cirrhosis of liver with ascites (principal)

== ENCOUNTER → 2017-02-13 | Outpatient (CLI) | payer BC ==
[~2017-02-13] VITALS: Ht 180.3 cm; Wt 90.7 kg
[~2017-02-13] MED LIST changes: +LIDOCAINE 2% INJ 100 MG/5 ML SDV (FOR ANES.) As Ordered ONE; +NS 1,000 ML IV SCH; +PROPOFOL 200 MG/20 ML VIAL As Ordered ONE
--- NOTE | 2017-02-13 11:32 | ROOR ---
Patient Name: Kory Mosley Procedure Date: 02/13/2017 11:16 AM Date of : 1955 Age: 61 Room: [facility] Gender: Male Note Status: Finalized Procedure: Upper GI endoscopy Indications: Cirrhosis rule out esophageal varices, follow up esophageal ulcer Providers: Jordy HERNANDEZ MD Referring MD: John Martinez NP, Daxa Valdez MD Requesting Provider: Medicines: Monitored Anesthesia Care Complications: No immediate complications. Procedure: Pre-Anesthesia Assessment: - The heart rate, respiratory rate, oxygen saturations, blood pressure, adequacy of pulmonary ventilation, and response to care were monitored throughout the procedure. The Endoscope was introduced through the mouth, and advanced to the second part of duodenum. The upper GI endoscopy was accomplished without difficulty. The patient tolerated the procedure well. Findings: Grade I varices were found in the lower third of the esophagus. Small varices-no endoscopic therapy indicated The exam of the esophagus was otherwise normal. Mild portal hypertensive gastropathy was found in the gastric fundus and in the gastric body. The exam of the stomach was otherwise normal. The examined duodenum was normal. Impression: - Grade I esophageal varices. Small varices-no endoscopic therapy indicated - Portal hypertensive gastropathy. - Stomach is otherwise normal. No gastric varices seen - Normal examined duodenum. - No specimens collected. Recommendation: - Observe patient's clinical course. Jordy Hernandez MD Jordy HERNANDEZ MD 02/13/2017 11:32:36 AM This report has been signed electronically. Number of Addenda: 0 Note Initiated On: 02/13/2017 11:16 AM Estimated Blood Loss: Estimated blood loss: none.
--- NOTE | 2017-02-13 11:47 | ROOR ---
Patient Name: Kory Mosley Procedure Date: 02/13/2017 11:18 AM Date of : 1955 Age: 61 Room: [facility] Gender: Male Note Status: Finalized Procedure: Colonoscopy Indications: Screening for colorectal malignant neoplasm Providers: Jordy HERNANDEZ MD Referring MD: John Martinez NP, Daxa Valdez MD Requesting Provider: Medicines: Monitored Anesthesia Care Complications: No immediate complications. Procedure: Pre-Anesthesia Assessment: - The heart rate, respiratory rate, oxygen saturations, blood pressure, adequacy of pulmonary ventilation, and response to care were monitored throughout the procedure. The Colonoscope was introduced through the anus and advanced to the terminal ileum, with identification of the appendiceal orifice and IC valve. The colonoscopy was performed without difficulty. The patient tolerated the procedure well. The quality of the bowel preparation was good. Findings: The perianal exam findings include non-thrombosed external hemorrhoids. (Exam: Complete, Prep: Good or Excellent.) A 5 mm polyp was found in the mid ascending colon. The polyp was sessile. The polyp was removed with a cold snare. Resection and retrieval were complete. An area of mildly congested mucosa was found from rectum to descending colon. Small Internal Hemorrhoids. The exam was otherwise without abnormality on direct and retroflexion views. Impression: - Non-thrombosed external hemorrhoids found on perianal exam. - Small Internal Hemorrhoids. - One 5 mm polyp in the mid ascending colon, removed with a cold snare. Resected and retrieved. - The examination of the colon is otherwise normal on direct and retroflexion views. Recommendation: - Repeat colonoscopy in 5 years for surveillance. Jordy Hernandez MD Jordy HERNANDEZ MD 02/13/2017 11:47:26 AM This report has been signed electronically. Number of Addenda: 0 Note Initiated On: 02/13/2017 11:18 AM Estimated Blood Loss: Estimated blood loss: none.
[2017-02-13 12:20] VITALS: BP 113/69
== END | disposition home or self-care (01) ==
LOC: M OPP 09:47
PROVIDERS: ATTEND Internal Medicine Gastroenterology
DX: Z12.11 Encounter for screening for malignant neoplasm of colon (principal); D12.2 Benign neoplasm of ascending colon; K64.4 Residual hemorrhoidal skin tags; K64.8 Other hemorrhoids; K63.89 Other specified diseases of intestine; K74.60 Unspecified cirrhosis of liver; I85.10 Secondary esophageal varices without bleeding; K76.6 Portal hypertension; K31.89 Other diseases of stomach and duodenum; I12.9 Hypertensive chronic kidney disease with stage 1 through stage 4 chronic kidney disease, or unspecified chronic kidney disease; R12 Heartburn; N18.9 Chronic kidney disease, unspecified; Z88.8 Allergy status to other drugs, medicaments and biological substances; Z79.899 Other long term (current) drug therapy; Z80.3 Family history of malignant neoplasm of breast

== ENCOUNTER → 2017-02-19 | Outpatient (CLI) | payer BC ==
[~2017-02-19] MED LIST changes: -LIDOCAINE 2% INJ 100 MG/5 ML SDV (FOR ANES.) As Ordered ONE; -NS 1,000 ML IV SCH; -PROPOFOL 200 MG/20 ML VIAL As Ordered ONE
--- NOTE | 2017-02-19 12:36 | REP ---
THERAPEUTIC PARACENTESIS: Subsequent. HISTORY: Hepatic ascites. PROCEDURE: The patient was interviewed and informed consent was obtained. Preliminary sonography survey confirms the presence of a large amount of diffuse abdominal ascites. Ultrasound was utilized to select optimal location for today's paracentesis in the right flank. After patient safety time-out was articulated and agreed to, the right flank area was prepped and draped in the usual fashion. 1% lidocaine was given, 4 mL, for local anesthetic. An #8-Occitan paracentesis catheter was placed in the peritoneal space without significant technical difficulty. 6400 mL of chivo ascitic fluid was retrieved. The patient tolerated the procedure well. IMPRESSION: Ultrasound guided paracentesis procedure. Albumin was given per referring providers request during the procedure. Signed by Adams Chung MD 02/19/2017 05:35 P
== END ==
LOC: M RADPRO 08:52
PROVIDERS: ATTEND Internal Medicine Nephrology
DX: K70.31 Alcoholic cirrhosis of liver with ascites (principal); K76.6 Portal hypertension; I10 Essential (primary) hypertension; Z79.899 Other long term (current) drug therapy; Z88.8 Allergy status to other drugs, medicaments and biological substances
CPT/HCPCS: 49083; 96365; P9047

== ENCOUNTER 2017-03-04 23:33 | Inpatient (IN) | payer BC ==
[~2017-03-04] VITALS: Ht 180.3 cm; Wt 84.4 kg
[2017-03-05] VITALS (14 sets, daily range): BP systolic 83–101; BP diastolic 47–65; PULSE 90
[2017-03-05] MEDS ORDERED: ONDANSETRON 4MG/2ML VIAL (J2405) IV ONE (01:00)
--- NOTE | 2017-03-05 01:50 | REPUSA ---
CLINICAL HISTORY: Chest pain. TECHNIQUE: Multiple axial CT images were obtained through the thorax without IV contrast material. COMMENTS: Small left pleural effusion. Passive atelectatic airspace disease of the left lower lobe. Bilateral basilar atelectatic pulmonary changes. Elevation of the right hemidiaphragm. Right pleural calcifications. Moderate ascites. Mild cardiomegaly. Small pericardial effusion. There is no evidence of pleural or parenchymal-based mass. There is no evidence of hilar or mediastin al lymphadenopathy. The heart and great vessels are within normal limits. There is no intra or extrahepatic biliary ductal dilatation. The spleen is unremarkable. The visualiz ed pancreas is of normal contour and attenuation characteristics. There is no evidence of adrenal mas s. The visualized portions of the kidneys present no abnormalities. The bony structures are free of lytic or blastic lesions. IMPRESSION: Cardiomegaly. Small pericardial effusion. Small left pleural effusion. Passive atelectatic airspace disease of the left lower lobe. Basilar atelectatic pulmonary changes. Elevation of the right hemidiaphragm. Right basilar pleural plaque calcifications. Thank you for your kind referral of this patient.
[2017-03-05 02:00] LABS: INR 2.12
[2017-03-05 02:06] LABS: DIFF SLIDE NUMBER 115; MEAN CORPUSCULAR HEMOGLOBIN 35.1 pg (27.0-33.0); MEAN CORPUSCULAR HGB CONC 33.3 g/dl (32.0-36.5); MEAN CORPUSCULAR VOLUME 105.4 fl (80.0-96.0); PLATELET COUNT, AUTOMATED 213 k/mm3 (150-450); RED CELL DISTRIBUTION WIDTH 14.7 % (11.5-14.5)
--- NOTE | 2017-03-05 02:10 | REPUSA ---
CLINICAL HISTORY: Abdominal pain. TECHNIQUE: Multiple axial, sagittal and coronal CT images were obtained through the abdomen and pelvi s without administration of oral or IV contrast material. COMMENTS: The liver is cirrhotic without mass or defect. There is no intra or extrahepatic biliary ductal dilat ation. The spleen is mildly enlarged. The gallbladder is within normal limits. The pancreas is of nor mal contour and attenuation characteristics. There is no evidence of adrenal mass. The kidneys are normal in size, shape and configuration. No renal or ureteral calculi are identified. There is no hydroureter or hydronephrosis. There is no evidence for appendicitis. There is no bowel wall thickening. No evidence for small or la rge bowel obstruction. There is no evidence of intrinsic or extrinsic bladder mass. There is large ascites. There is diffuse thickening of the wall of the bladder. Images of the lung bases show no evidence of pleural or parenchymal mass. There are no pleural effusi ons. The bony structures are free of lytic or blastic lesions. Multilevel degenerative changes are seen in volving the thoracolumbar spine. Scattered calcifications are seen involving the aorta and major branches compatible with atherosclero sis. IMPRESSION: Large ascites. Liver cirrhosis. Splenomegaly. Thickened bladder. Findings are suggestive of mild cystitis. Thank you for your kind referral of this patient.
[2017-03-05 02:19] LABS: ANISOCYTOSIS 1+; BANDS 10 % (< 11)
[2017-03-05 02:20] LABS: HYPOCHROMASIA 1+
[2017-03-05] MEDS ORDERED: fentaNYL 100 MCG/2 ML INJECTION (J3010) IV ONE (02:45)
[2017-03-05 02:46] LABS: ALBUMIN 1.7 GM/DL (3.2-5.2); ALBUMIN/GLOBULIN RATIO 0.39 (1.00-1.93); BILIRUBIN,DIRECT 2.8 MG/DL (0.0-0.2); BILIRUBIN,TOTAL 6.9 MG/DL (0.2-1.0); CALCIUM LEVEL 7.6 MG/DL (8.8-10.2); CREATININE FOR GFR 2.41 MG/DL (0.70-1.30); GLOMERULAR FILTRATION RATE 29.3 (>49); POTASSIUM SERUM 4.8 MEQ/L (3.5-5.1); TOTAL PROTEIN 6.1 GM/DL (6.4-8.2)
--- NOTE | 2017-03-05 04:42 | HPEPDOC ---
General Date of Admission Mar 05, 2017 at 04:07 Other Providers PCP: John Martinez Attending Physician: MARCUS COHEN MD Chief Complaint The patient is a 61-year-old male admitted with a reason for visit of Decompensated Hepatic Cirrhosis. History of Present Illness 61-year-old male with past medical history of alcohol induced liver cirrhosis diagnosed in October 2016 presented to the ER with a chief complaint of increased abdominal distention. 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 The patient notes that he has been getting abdominal paracentesis every 2 weeks over the last 5 months, removing anywhere from 6-8 L of fluid in the process here at [facility]. He states that he was scheduled for paracentesis on Thursday03/06/2017, however his abdominal distention has worsened and he states that he could no longer wait. The patient denies an increase in salty food or fluid intake. However, the patient does note that he ate a significant amount of fruit yesterday afternoon, after which he noted that his abdominal distention gotten worse. The patient also notes that he has had some chills over the last 24 hours. He denies any abdominal pain, but does state that the abdominal distention is uncomfortable. The patient denies any complaints of confusion, cough, chest pain, palpitations, or any nausea/vomiting /diarrhea. In the ER, a CT scan of the abdomen/pelvis revealed a large amount of ascites. Laboratory results were significant for acute kidney injury superimposed on chronic kidney disease. The patient will be admitted under the hospitalist service for further evaluation and management of decompensated hepatic cirrhosis. Home Medications Scheduled Furosemide (Furosemide) 40 Mg Tab 40 MG PO DAILY (Reported) Midodrine HCl (Midodrine HCl) 5 Mg Tab 5 MG PO BID (Reported) Propranolol HCl (Propranolol HCl) 10 Mg Tab 10 MG PO BID (Reported) Ranitidine HCl (Ranitidine [address]) 150 Mg Tab 1 TAB PO BID (Reported) Rifaximin (Xifaxan) 550 Mg Tab 550 MG PO BID (Reported) Spironolactone (Spironolactone) 50 Mg Tab 50 MG PO DAILY (Reported) Allergies Coded Allergies: Aspirin (Verified Adverse Reaction, Mild, rectal bleeding, 03/04/17) Omeprazole (Verified Adverse Reaction, Mild, stomach pain, 03/04/17) Past Medical History Medical History As noted in HPI. Family History Significant Family History: No pertinent family hx Social History * Smoker: non-smoker Alcohol: other (previously drank 12-18 beers a day starting in his 20s. Most recently quit drinking 8-10 beers a week when he was found to have cirrhosis in the first week of October 2016.) Drugs: denies Review of Symptoms Other systems 10 point review of systems negative unless otherwise specified in HPI. Physical Examination General Exam: Positive: Alert, Cooperative, No Acute Distress ENT Exam: Positive: Atraumatic, Mucous membr. moist/pink Neck Exam: Negative: JVD Chest Exam: Positive: Diminished, Rales (faint rales noted in the left lower lobe) Heart Exam: Positive: Normal S1, Normal S2, Rate Normal Abdomen Exam: Positive: Soft, Negative: Tenderness Extremity Exam: Negative: Swelling, Tenderness Psych Exam: Positive: Oriented x 3 Vital Signs Vital Signs Date Time Temp Pulse Resp B/P Pulse Ox O2 Delivery O2 Flow Rate FiO2 03/05/17 03:45 83/55 03/05/17 03:43 98.8 93 18 96 Nasal Cannula 2 Laboratory Data Labs 24H Laboratory Tests 2 03/05/17 01:41: Activated Partial Thromboplast Time 40.6H, Aspartate Amino Transf (AST/SGOT) 71H , Alanine Aminotransferase (ALT/SGPT) 45, Alkaline Phosphatase 136H, Total Bilirubin 6.9H, Direct Bilirubin 2.8H, Albumin 1.7L, Albumin/Globulin Ratio 0.39L, Anion Gap 10, Anisocytosis 1+, Band Neutrophils 10, Calcium Level 7.6L, Glomerular Filtration Rate 29.3L, Hypochromasia 1+, Lipase 400H, Lymphocytes ( Manual) 1L, Macrocytosis 2+, Metamyelocytes 1H, Monocytes (Manual) 4, Neutrophils 84H, Platelet Estimate NORMAL, Prothromb Time International Ratio 2.12, Prothrombin Time 23.8H, Total Protein 6.1L CBC/BMP Laboratory Tests 03/05/17 01:41 Red Blood Count 3.10 L, Mean Corpuscular Volume 105.4 H, Mean Corpuscular Hemoglobin 35.1 H, Mean Corpuscular Hemoglobin Concent 33.3, Red Cell Distribution Width 14.7 H Plan / VTE VTE Prophylaxis Ordered?: Yes Plan Plan Decompensated Liver cirrhosis CT scan abdomen/pelvis notable for a large amount of ascites Ultrasound-guided paracentesis ordered Ascites fluid cell count ordered MELD Score Calculated to be 31 (Estimated 66% 90-day Mortality Rate) Has abstained from Alcohol since October 2016 Ammonia level ordered, Cont Rifaximin Patient follows with Hepatology in the [place], [place] Area-- next appt in March 2017 Patient's current condition is guarded at best, we will continue to monitor progress Acute kidney injury superimposed on chronic kidney disease likely secondary to decompensated liver cirrhosis, with decrease in effective circulating volume Baseline serum creatinine 1.2-1.4 (serum creatinine today noted to be 2.41) Likely secondary to decompensated liver cirrhosis secondary to intravascular volume depletion 2/2 Hypoalbuminemia Will with-hold Nephrotoxins at this time--(Diuretics will also be held as the patient is noted to be borderline hypotensive at this time in the ER) Repeat trend BMP following paracentesis Leukocytosis likely 2/2 Above WBC noted to be 15K Blood cultures ordered Ascites Fluid Count ordered Will Empirically treat the patient for SBP with Rocephin Lactic Acid Level ordered With Borderline low B/P, elevated WBC, and Possible SBP there is concern for a septic picture complicating the patient's underlying decompensated liver cirrhosis presentation DVT prophylaxis ordered Current condition guarded at best, with poor Prison prognosis given the patient's advanced Liver Disease and current clinical presentation. The patient will be admitted under the service of Dr. Cohen, who will begin to follow the patient on 03/05/2017. MOMO GARCIA MD Mar 05, 2017 04:42
[2017-03-05] MEDS ORDERED: SLF 3 ML SYR IV PRN (05:30)
[2017-03-05 05:48] LABS: MEAN CORPUSCULAR HEMOGLOBIN 35.6 pg (27.0-33.0); MEAN CORPUSCULAR HGB CONC 32.8 g/dl (32.0-36.5); MEAN CORPUSCULAR VOLUME 108.3 fl (80.0-96.0); RED CELL DISTRIBUTION WIDTH 14.8 % (11.5-14.5); WHITE BLOOD COUNT 14.2 K/mm3 (4.0-10.0)
[2017-03-05] MEDS: MORPHINE 4 MG/ML 1ML SYRINGE IV PRN ×2 (05:51→07:05)
[2017-03-05] MEDS: SLF 3 ML SYR IV SCH ×3 (05:52→21:51)
[2017-03-05] MEDS: cefTRIAXone SOD 2 GM in D5W MINI-BAG PLUS 50 ML IV SCH (05:52)
[2017-03-05 06:08] LABS: ALBUMIN 1.6 GM/DL (3.2-5.2); ALBUMIN/GLOBULIN RATIO 0.38 (1.00-1.93); BILIRUBIN,TOTAL 7.8 MG/DL (0.2-1.0); CALCIUM LEVEL 7.7 MG/DL (8.8-10.2); CREATININE FOR GFR 2.7 MG/DL (0.70-1.30); GLOMERULAR FILTRATION RATE 25.7 (>49); TOTAL PROTEIN 5.8 GM/DL (6.4-8.2)
[2017-03-05 06:11] LABS: POTASSIUM SERUM 5.2 MEQ/L (3.5-5.1)
[2017-03-05] MEDS: FAMOTIDINE 20 MG TAB PO SCH ×2 (08:58→21:51)
[2017-03-05] MEDS: LACTOBACILLUS ACIDOPHILUS CAP (BACID) PO SCH ×2 (08:58→21:51)
[2017-03-05] MEDS: rifAXIMin 550 MG TAB (XIFAXAN) PO SCH ×2 (08:58→21:51)
[2017-03-05] MEDS ORDERED: MIDODRINE 5 MG TAB PO SCH (09:00)
[2017-03-05] MEDS ORDERED: oxyCODONE 5MG TAB PO PRN (09:45)
[2017-03-05] MEDS ORDERED: PHYTONADIONE 5 MG TAB PO ONE (12:30)
[2017-03-05 13:36] LABS: TOTAL PROTEIN, BODY FLUID 0.9 G/DL (NOT ESTABLISHED)
[2017-03-05 13:54] LABS: RBC ASCITES FLUID < 10 (<10mm3 cells/uL); TNC ASCITES FLUID 4827 cells/uL (0-20)
[2017-03-05 13:58] LABS: BF DIFF IF INDICATED? YES (NO)
[2017-03-05 14:50] LABS: CC BF DIFF EXAM CYTOCENTRIFUGE
[2017-03-05] MEDS ORDERED: NS 1,000 ML IV SCH (15:30)
--- NOTE | 2017-03-05 17:02 | REP ---
ULTRASOUND GUIDED PARACENTESIS: The procedure was performed under the direct supervision of Dr. Chung. The risks and benefits of the procedure were explained to the patient and informed consent was obtained. The largest pocket of fluid was localized in the right flank using ultrasound guidance. The skin was prepped and draped in a sterile fashion. 1% Lidocaine was used as a local anesthetic. An 8-Korean [id number] catheter was inserted using trocar technique. 57246 mL of dark yellow fluid was withdrawn with a sample sent to the lab for analysis. The patient tolerated the procedure well and there were no immediate complications. Reviewed by DIPTI Franco 03/06/2017 08:48 AEdited and Signed by Adams Chung MD 03/06/2017 12:45 P
[2017-03-05] MEDS: MIDODRINE 5 MG TAB PO SCH (17:41)
[2017-03-05] MEDS: MEROPENEM INJ 1 GM in D5W MINI-BAG PLUS 100 ML IV SCH (17:41)
[2017-03-05 18:43] LABS: ALBUMIN 2.4 GM/DL (3.2-5.2); ALBUMIN/GLOBULIN RATIO 0.65 (1.00-1.93); CALCIUM LEVEL 7.9 MG/DL (8.8-10.2); CREATININE FOR GFR 3.36 MG/DL (0.70-1.30); TOTAL PROTEIN 6.1 GM/DL (6.4-8.2)
[2017-03-05 18:45] LABS: POTASSIUM SERUM 5.6 MEQ/L (3.5-5.1)
--- NOTE | 2017-03-05 19:37 | CR ---
DATE OF CONSULTATION: 03/05/2017 CONSULTATION REPORT FOR: Jose Hall MD REASON FOR CONSULTATION: Acute renal failure in this gentleman with history of hepatic cirrhosis and ascites. HISTORY OF PRESENT ILLNESS: Mr. Mosley is a 61-year-old gentleman with known history of alcoholic cirrhosis and recurrent ascites. He gets paracentesis done almost every week. He is admitted to [facility] with worsening abdominal distension and weakness. He is noticed to have massive ascites and worsening kidney function with serum creatinine significantly elevated from his prior baseline. A nephrology consultation was requested this morning and the patient was seen on his bedside in progressive care unit. PAST MEDICAL AND SURGICAL HISTORY: Significant for: 1. 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 2. Recurrent ascites requiring paracentesis. 3. Chronic kidney disease at baseline. 4. Chronic hypotension. MEDICATIONS: His home medications include: furosemide 40 mg daily, midodrine 5 mg twice a day, propranolol 10 mg twice a day, ranitidine 150 mg twice a day, Xifaxan 550 mg twice a day and spironolactone 50 mg daily. ALLERGIES: The patient has allergy to ASPIRIN and OMEPRAZOLE. FAMILY HISTORY: Negative for renal failure or hepatic failure. PERSONAL AND SOCIAL HISTORY: The patient stopped drinking in September 2016. He was diagnosed with alcoholic cirrhosis in October. He denies any smoking or drug use. REVIEW OF SYSTEMS: The patient feels generally weak and tired. He denies any high-grade fever, shivering or chills. Ears, nose and throat are unremarkable. He denies any sore throat or sinus problems. Cardiovascular system is significant for shortness of breath due to increased ascites. He denies any chest pain. Respiratory system is negative for cough or hemoptysis. Gastrointestinal (GI) system is as per history of present illness. The patient has recurrent ascites. He denies any rectal bleeding or black colored stools. There is no vomiting or hematemesis. Genitourinary () system is significant for decreased urine output. There is no history of kidney stones. Hematological system is significant for chronic anemia. Neurological system is negative for seizures or altered mentation. Psychosocial system is negative for depression or anxiety. Skin is significant for jaundice. There is no history of rash or ulcers. Musculoskeletal system is negative for any significant leg edema. PHYSICAL EXAMINATION: Temperature 98.3 degrees Fahrenheit, heart rate 88 per minute and respiratory rate 18 per minute. Blood pressure 88/53 mmHg and oxygen saturation 96% on room air. Head is atraumatic. The patient has obvious jaundice with yellowish-brownish discoloration of his skin. Pupils are equal and reactive to light. Sclerae is icteric. Ears, nose and throat are unremarkable. His palate is also yellowish in color. Neck is supple and jugular venous distention (JVD) is only mild. There is no thyroid enlargement and trachea is midline. Heart sounds are regular and lungs with slightly diminished breath sounds at bases. Abdomen is markedly distended and tender. Bowel sounds are present. I could not palpate any organomegaly. Extremities have no cyanosis or clubbing. His lower extremities have 1+ edema. Neurologically he is awake, alert and oriented times three. There is no focal neurological deficit. LABORATORY DATA: WBC count 15.0, hemoglobin 10.9 and hematocrit 32.7. Platelets 230. 84% neutrophils and 10% band neutrophils noted. His chemistry showed sodium level 135, potassium 5.2, CO2 21, BUN 49 and creatinine 2.7 service tech/welder. His lactic acid level was 6.7 and a repeat lactic acid level 7.6. His initial lactic acid level was 5.5 and a repeat one this afternoon is 7.9. Sodium is 133 and potassium 5.6. BUN 57 and creatinine 3.36. Total bilirubin is 10.0, AST 68, ALT 43 and alkaline phosphatase 91. Albumin 2.4. CT scan of abdomen and pelvis showed large amount of ascites and cirrhotic liver. Splenomegaly was also noted and a thickened bladder. PROBLEMS: 1. Acute renal failure superimposed on possible chronic kidney disease. This is most likely hepatorenal in origin. The patient has massive ascites with cirrhosis of liver and possible ongoing infection. He has leukocytosis with elevated bands. I am concerned about possibility of cystitis or spontaneous bacterial peritonitis (SBP). Unfortunately we do not have a urinalysis available so far. I suggest to get paracentesis done and check the fluid for cell count and cultures. The patient has already been started on empiric antibiotic therapy. At the time of paracentesis the patient should be treated with IV albumin. I would recommend to do the paracentesis as soon as possible today and then repeat it as needed. To be on safe side only 5 or 6 liters should be drained at one time and replaced with 25% albumin 100 mL every 6 hours. The patient should be kept on low-sodium diet and fluid restriction of 1500 mL per day. At this point there is no indication for emergent dialysis and we will continue to monitor his renal function closely. 2. Hyperkalemia. Most likely this is related to worsening kidney function and use of spironolactone. At present all his diuretics should be put on hold and certainly spironolactone should be stopped. Electrolytes will be checked again in several hours. 3. Lactic acidosis. This is most likely related to hypotension. IV albumin is likely to help. We can increase the midodrine dose to 10 mg three times a day. 4. Chronic hypotension. The patient has been on low-dose midodrine however at present he is probably also septic with leukocytosis and bandemia. I suggest to increase his midodrine dose to 10 mg three times a day. Broad-spectrum antibiotics should be continued until his culture results are back. 5. Metabolic acidosis. The patient has mild metabolic acidosis in addition to lactic acidosis. This could be related to acute renal failure. We will avoid sodium bicarbonate at this point. I would recommend to get a venous blood gas to check for his acidosis status. Overall prognosis remains poor. I will follow Mr. Mosley along with you. I thank you for involving me in his care.
[2017-03-05] MEDS ORDERED: SOD POLYSTYRENE SULFONATE SUSP 15 GM/60 ML UD PO ONE (21:00)
[2017-03-06] VITALS (19 sets, daily range): BP systolic 86–112; BP diastolic 50–63
[2017-03-06] MEDS: MEROPENEM INJ 1 GM in D5W MINI-BAG PLUS 100 ML IV SCH ×2 (03:19→16:13)
[2017-03-06 05:15] LABS: MEAN CORPUSCULAR HEMOGLOBIN 35.9 pg (27.0-33.0); MEAN CORPUSCULAR HGB CONC 32.7 g/dl (32.0-36.5); MEAN CORPUSCULAR VOLUME 109.8 fl (80.0-96.0); RED CELL DISTRIBUTION WIDTH 14.4 % (11.5-14.5); WHITE BLOOD COUNT 10.5 K/mm3 (4.0-10.0)
[2017-03-06 05:33] LABS: ALBUMIN 2.3 GM/DL (3.2-5.2); ALBUMIN/GLOBULIN RATIO 0.77 (1.00-1.93); BILIRUBIN,TOTAL 9.4 MG/DL (0.2-1.0); CALCIUM LEVEL 7.7 MG/DL (8.8-10.2); CREATININE FOR GFR 3.63 MG/DL (0.70-1.30); GLOMERULAR FILTRATION RATE 18.3 (>49); TOTAL PROTEIN 5.3 GM/DL (6.4-8.2)
[2017-03-06 05:41] LABS: INR 3.14
[2017-03-06 05:43] LABS: POTASSIUM SERUM 5.6 MEQ/L (3.5-5.1)
[2017-03-06] MEDS: SLF 3 ML SYR IV SCH ×3 (06:00→21:29)
[2017-03-06] MEDS: cefTRIAXone SOD 2 GM in D5W MINI-BAG PLUS 50 ML IV SCH (06:00)
[2017-03-06] MEDS: MIDODRINE 5 MG TAB PO SCH ×3 (06:01→16:13)
[2017-03-06 07:07] LABS: MEAN CORPUSCULAR HEMOGLOBIN 35.8 pg (27.0-33.0); MEAN CORPUSCULAR HGB CONC 32.5 g/dl (32.0-36.5); MEAN CORPUSCULAR VOLUME 110.2 fl (80.0-96.0); RED CELL DISTRIBUTION WIDTH 14.4 % (11.5-14.5); WHITE BLOOD COUNT 11.6 K/mm3 (4.0-10.0)
[2017-03-06] MEDS ORDERED: PHYTONADIONE 5 MG TAB PO ONE (08:00)
[2017-03-06] MEDS: FAMOTIDINE 20 MG TAB PO SCH ×2 (08:35→20:21)
[2017-03-06] MEDS: rifAXIMin 550 MG TAB (XIFAXAN) PO SCH ×2 (08:35→20:21)
[2017-03-06] MEDS: LACTOBACILLUS ACIDOPHILUS CAP (BACID) PO SCH ×2 (08:35→20:20)
[2017-03-06 09:05] LABS: VENOUS BASE EXCESS -8.1 (-2.0-2.0); VENOUS O2 SATURATION 98.9 % (60.0-80.0); VENOUS PARTIAL PRESSURE O2 138.7 mmHg (30.0-50.0); VENOUS STANDARD HCO3 17.9 MEQ/L; VENOUS TOTAL CO2 19.5 MEQ/L (24.0-28.0)
--- NOTE | 2017-03-06 11:40 | IPN ---
DATE OF VISIT: 03/05/2017 TIME OF VISIT: 9 a.m. SUBJECTIVE: Mr. Mosley is a 61-year-old male with history of alcoholism, liver cirrhosis secondary to alcohol abuse, who was admitted overnight for worsening abdominal pain. Per patient, he was doing relatively well until 3-4 days ago, when he noticed worsening distention of his abdomen. He was recently diagnosed with liver cirrhosis back in October and has since been seeing a security systems integrator in [place]. He is currently not on the wait list for a liver transplant but has an appointment with them coming up in March. His last paracentesis was 02/20/2017. Since his paracentesis, has been doing well until 3 days ago when he started noticing fluid build up of his abdomen. In the last couple of days, also noticed chills. Denies any fevers, rigors, lightheadedness, dizziness, chest pain. He continues to feel uncomfortable with his abdomen due to worsening abdominal distention. OBJECTIVE: VITAL SIGNS: Blood pressure 99/65, heart rate 92, temperature 98.3, respiration rate 18, pulse oximetry 96% on room air. INTAKE AND OUTPUT: Not documented. Weight is 95.6 kg. GENERAL: Patient is lying in bed, comfortable, in no acute respiratory or psychiatric distress. Appears older than chronological age. Skin is bronzed. HEENT: Normocephalic, atraumatic. Moist oral mucosa. Fair dentition. Nasal septum midline. No thrush or lesions appreciated. Eyes: Extraocular movement intact. Pupils equal and reactive to light. Positive for scleral icterus. NECK: Supple. Trachea midline. Neck vein distention by the ear. HEART: Distant sounding but regular. Could not appreciate murmurs, rubs, or gallops. LUNGS: Breath sounds diminished bilateral lung bases with dullness to percussion. ABDOMEN: Is distended. Tender diffusely but most significant in left lower quadrant. It is dull to percussion. Difficult to appreciate bowel sounds. Could not appreciate organomegaly due to significant ascites. EXTREMITIES: 1 to 2+ pitting edema bilateral lower extremities. Also has sacral edema. NEUROLOGIC: Alert, awake, oriented times three. No focal deficits appreciated. PSYCHIATRIC: Pleasant. Normal affect. LABORATORY DATA: WBC 14.2, mild decrease from yesterday. Hemoglobin 10, hematocrit 30.4, platelets 163. Sodium 135, potassium 5.2, chloride 102, carbon dioxide 21, BUN 49, creatinine 2.7, glucose 100. Lactic acid 7.6, increased from this morning 5.5. Calcium 7.7, total bilirubin 7.8, AST 69, ALT 45, alkaline phosphatase 119, total protein 5.8, albumin 1.6. PT 23.8, INR 2.12. Blood culture is pending. CT chest showed cardiomegaly, small pericardial effusion, small left pleural effusion, passive atelectatic airspace disease of left lower lobe, bibasilar atelectatic pulmonary changes, elevation of right hemidiaphragm, right basilar pleural plaque calcification. CT abdomen and pelvis showed large ascites, liver cirrhosis, hepatomegaly, thickened bladder suggestive of mild cystitis. IMPRESSION AND PLAN: Mr. Mosley is a 61-year-old male with past medical history of alcoholism, liver cirrhosis, who previously was undergoing paracentesis every 2 weeks, who presented to the emergency department (ED) for worsening ascites. 1. Liver cirrhosis with ascites. Based on his signs and symptoms, it is concerning for spontaneous bacterial peritonitis (SBP). The patient will be undergoing paracentesis both for therapeutic and diagnostic tests later today. The patient has been empirically started on Rocephin. Will continue the same. Will followup with peritoneal fluid culture. His model for end-stage liver disease (MELD) score is 32. Patient follows with a security systems integrator in [place]. The patient currently is not wait listed. His last alcoholic drink was approximately 5 months ago. 2. Acute kidney injury (NICOLÁS), etiology unclear. Could be secondary to underlying infection. CT did show possible cystitis. Will followup with urinalysis. Because of his worsening renal function, we have asked Dr. Valdez for assistance. Will follow up with his recommendations. 3. Elevated lactic acid. Could be secondary to underlying infection and/or liver disease. Continue to monitor lactic acid level. Repeat every 4 hours. Continue antibiotic as mentioned above. Due to his volume status, no IV fluid will be given. If his condition worsens, he will likely require pressor support. 4. Hypotension. Patient reports baseline systolic blood pressure typically in the 1-teen range. His hypotension could be secondary to underlying infection. We will continue to monitor. Hopefully this will improve with albumin support. If worsens, might need pressor support. 5. Hypoalbuminemia. Secondary to liver cirrhosis. Depending on how much he will have fluid removal, will likely require a significant amount of albumin supplementation. 6. Supratherapeutic INR. Level is elevated secondary to his liver cirrhosis. 7. History of alcoholism. The patient reportedly has been sober since September 2016. No concern for withdrawal at this time. 8. Pericardial effusion. CT chest incidentally showed a small amount of pericardial effusion. We have ordered echocardiogram to further evaluate. 9. History of Clostridium (C) difficile colitis. Will need to monitor his symptoms closely due to this history. Have added Bacid while the patient is on empiric treatment for SBP. 10. History of adenomatous polyp. Last colonoscopy was January 2017. 11. Deep venous thrombosis (DVT) prophylaxis. Sequential compression devices (SCDs), thromboembolism deterrents (TEDs). No pharmacological intervention due to elevated INR secondary to his liver cirrhosis. My preceptor for this patient encounter was Dr. Hall. The preceptor was physically present in the building during the encounter and was fully available. As needed, all aspects of the patient interview, examination, medical decision making process, and medical care plan development were reviewed and approved by the preceptor. The preceptor is aware and concurs with the plan as stated in the body of this note and will attest to such by his/her cosignature. MARIANNE
--- NOTE | 2017-03-06 13:09 | IPN ---
DATE: 03/06/2017 Mr. Mosley is seen this morning on his bedside. He was transferred to the intensive care unit after his paracentesis yesterday. Patient had 11.8 liters of ascitic fluid drained following which he was given a large amount of intravenous albumin to prevent hypotension. He already has acute renal failure in the setting of hepatic failure and possible subacute bacterial peritonitis. The patient is feeling much better today and reports that his abdominal discomfort has completely resolved. He denies any nausea, vomiting, dyspnea or chest pain. PHYSICAL EXAMINATION: Temperature 97.1 degrees Fahrenheit, heart rate 70 per minute and respiratory rate 18 per minute. Blood pressure 106/60 mmHg and oxygen saturation 98% on room air. He is jaundiced which is unchanged since yesterday. Head is atraumatic. Pupils are equal and reactive to light and sclera is icteric. Ears, nose and throat are unremarkable. His neck veins are not abnormally distended. Neck is supple and without JVD or thyroid enlargement. Heart sounds are regular and lungs clear to auscultation. Abdomen is minimally distended with some residual ascites. Bowel sounds are normal. There is no tenderness. Extremities have no cyanosis or clubbing. Skin has no rash or ulcers. Neurologically he is awake, alert and oriented times three. Today's labs show WBC count 11.6, hemoglobin 8.0, and hematocrit 24.7. Platelets are 88,000. He had a blood gas done which showed pH of 7.26, pCO2 41, pO2 138.7 and bicarb 17.9. His chemistry showed sodium level 132 and potassium 5.6. CO2 is up to 21 today, BUN 67 and creatinine 3.63. Glucose 141. His lactic acid level 4.8. Calcium is 7.7 and total bilirubin 9.4. Total protein 5.3 and albumin 2.3. Ascitic fluid cultures are still pending and blood cultures are negative. PROBLEMS: 1. Acute renal failure superimposed on chronic kidney disease. The patient has slight worsening of kidney function since yesterday which is most likely related to negative fluid balance, massive ascites drained and hypotension. He does have some urine output today while he had no urine output for the last several days. We anticipate that with IV albumin infusion his kidney function will improve over the next couple of days. At this point there is no emergent indication for dialysis. 2. Lactic acidosis. The patient does have lactic acidosis as indicated by his blood gas and lactic acid level. His lactic acid level is better than before and blood pressure is also better. We will monitor and repeat his lactic acid level. I suggest to continue with broad spectrum antibiotics for possible peritonitis. 3. Hyperkalemia. This is mild and likely to improve as his urine output is now improving. I also anticipate that hyperkalemia would improve as his acidosis improves. Suggest to recheck his electrolytes again later this evening. 4. Anemia and thrombocytopenia. Most likely related to cirrhosis of liver and hemodynamic changes. I suggest to monitor closely for any blood loss. His CBC should be checked and transfusion should be arranged if he drops his hemoglobin any further. 5. Hypotension most likely this was related to massive amount of ascites drained yesterday. I recommend to drain only 5-6 liters at a time and probably increase the frequency of his paracentesis to once a week. At present, I recommend to continue with intravenous albumin infusions to maintain his systolic blood pressure about 100 mmHg. The patient is very high risk for acute renal failure with massive paracentesis. I have discussed the care plan with the physicians involved and nursing staff. I have answered all the questions the patient and his family had.
--- NOTE | 2017-03-06 14:05 | IPN ---
DATE: 03/06/2017 SUBJECTIVE: This is a 61-year-old male who is seen and examined at bedside. Yesterday he underwent a paracentesis with 11.8 liters removed. He did require a multiple vials albumin. He was transferred to ICU after becoming hypotensive. This morning feels a lot better compared to admission. States that since removal of fluid he feels as if he is 100% back to his normal self. Chills resolved. No fevers, cough, chest pain, shortness of breath, palpitations, nausea, vomiting, diarrhea, or constipation. His urine output has improved after his paracentesis. OBJECTIVE: VITAL SIGNS: Blood pressure 101/62, heart rate 77, temperature 97.1, T-max 99, respiration rate 18, pulse oximetry 98% on room air. Intake and output in the last 24 hours 720 and 260. No bowel movements documented. Weight is 85.1 kg, yesterday was 95 kg. GENERAL: Patient is sitting in bed in no acute respiratory or psychiatric distress. Family is at bedside. His skin appears bronzed. HEENT: Normocephalic, atraumatic. Moist oral mucosa. Fair dentition. Ears with normal tympanic membranes. Eyes extraocular movement intact. Pupils equal and reactive to light. Positive for scleral icterus. NECK: Supple. Trachea midline. No JVD. HEART: Distant sounding but regular. Could not appreciate murmurs, rubs, or gallops. LUNGS: Breath sounds diminished bilateral lung bases with dullness to percussion. ABDOMEN: Distended but less so than compared to yesterday. No caput medusa. Bowel sounds are hypoactive but present. EXTREMITIES: 1+ edema bilateral lower extremities. No sacral edema. NEUROLOGIC: He is alert, awake, oriented times three. No focal deficits appreciated. PSYCHIATRIC: Pleasant. Cooperative. Normal affect. LABORATORY DATA: WBC 11.6, increased from yesterday 10.5, hemoglobin 8, mildly improved fro 7.5, hematocrit 24.7, platelets 88. This is a decrease from yesterday of 163. Sodium 132, potassium 5.6, chloride 99, carbon dioxide 21, BUN 67, creatinine 3.63, glucose 141. Lactic acid 4.8, calcium 7.7, total bilirubin 9.1, AST 57, ALT 37, alkaline phosphatase 66, PT 32.3, INR 3.14. Urinalysis cloudy appearance, 1+ protein, trace ketones, 1+ bilirubin and 2 urobilinogen. Blood gas pH 7.26, pCO2 41, pO2 138. Paracentesis fluid showed total nucleated cells of 4827. IMPRESSION/PLAN: Mr. Mosley is a 61-year-old male with a history of alcoholism , liver cirrhosis, who presented with worsening ascites and chills. 1. Abdominal pain secondary to liver cirrhosis and possible SBP. We will continue with meropenem, on day 2 of antibiotics. Symptoms are a lot better today compared to yesterday after his paracentesis. 2. Acute kidney injury. His renal function appears worsened today compared to yesterday. This is likely secondary to excessive removal of his ascites. He did receive 1 liter of normal saline yesterday. Will continue to monitor. Greatly appreciate Dr. Valdez's assistance. 3. Elevated lactic acid. Level is improving today compared to yesterday. This is likely secondary to underlying infection and liver disease. He is on meropenem as mentioned above. 4. Hypotension. Blood pressure is improving today compared to yesterday. He did receive IV fluids as mentioned above. We also increased his midodrine last night. He is also receiving albumin. 5. Hypoalbuminemia. Received a total of 7 vials yesterday. Because of his significant ascitic fluid removal we will supplement again with 4 vials of albumin. 6. Supratherapeutic INR. INR continues to be elevated today. We have written for a one time dose of vitamin K. 7. Hyponatremia. Likely secondary to his ascites secondary to his liver disease. Continue to monitor for now. 8. Hyperkalemia. Continue to monitor for now. Have adjusted his diet so it will be a low potassium diet. Because of his SBP the patient will not be resumed on Lasix at this time. 9. Anemia. His hemoglobin today shows a decrease compared to yesterday. No acute evidence of bleeding at this time. Will continue to monitor. 10. Thrombocytopenia. In reviewing his labs on previous admissions his lowest platelet was 45. We will continue to monitor for now. 11. History of alcoholism. Continues to be abstinent in the last 5 months. No concern for withdrawals at this time. 12. Incidental finding of pericardial effusion on CT. Echocardiogram has been ordered and completed. Results are pending. 13. History of adenomatous polyp. Last colonoscopy was January 2017. 14. History of Clostridium (C) difficile colitis. Monitor for symptoms. He is currently being empirically treated for SBP. Continue Bacid. 15. Deep venous thrombosis (DVT) prophylaxis. Sequential compression devices (SCD), thromboembolism deterrents (TEDS). No pharmacological intervention secondary to supratherapeutic INR secondary to his liver disease. My preceptor for this patient encounter was Dr. Jose Hall. The preceptor was physically present in the building during the encounter and was fully available. As needed, all aspects of the patient interview, examination, medical decision making process, and medical care plan development were reviewed and approved by the preceptor. The preceptor is aware and concurs with the plan as stated in the body of this note and will attest to such by his/her cosignature. MARIANNE
[2017-03-07] VITALS (17 sets, daily range): BP systolic 90–123; BP diastolic 53–75
[2017-03-07] MEDS: MEROPENEM INJ 1 GM in D5W MINI-BAG PLUS 100 ML IV SCH ×2 (03:43→19:04)
[2017-03-07 04:40] LABS: INR 2.83
[2017-03-07 04:41] LABS: MEAN CORPUSCULAR HEMOGLOBIN 36.4 pg (27.0-33.0); MEAN CORPUSCULAR HGB CONC 34.3 g/dl (32.0-36.5); MEAN CORPUSCULAR VOLUME 106.1 fl (80.0-96.0); RED CELL DISTRIBUTION WIDTH 14.3 % (11.5-14.5); WHITE BLOOD COUNT 9.3 K/mm3 (4.0-10.0)
[2017-03-07 04:55] LABS: ALBUMIN 2.4 GM/DL (3.2-5.2); ALBUMIN/GLOBULIN RATIO 0.8 (1.00-1.93); BILIRUBIN,TOTAL 5.2 MG/DL (0.2-1.0); CALCIUM LEVEL 7.3 MG/DL (8.8-10.2); CREATININE FOR GFR 3.1 MG/DL (0.70-1.30); GLOMERULAR FILTRATION RATE 21.9 (>49); POTASSIUM SERUM 4.2 MEQ/L (3.5-5.1); TOTAL PROTEIN 5.4 GM/DL (6.4-8.2)
[2017-03-07] MEDS: SLF 3 ML SYR IV SCH ×3 (06:01→22:00)
[2017-03-07] MEDS: MIDODRINE 5 MG TAB PO SCH ×2 (06:01→17:57)
--- NOTE | 2017-03-07 06:49 | ECHO ---
DATE OF PROCEDURE: 03/05/2017 REFERRING PROVIDER: Dr. Jose Hall PATIENT LOCATION: Room 3208 REASON FOR THE ECHOCARDIOGRAM: Pericardial effusion. 2D MEASUREMENT: IVS: 1.1 cm LV: 4.9 cm LVPW: 1.1 cm LA: 3.4 cm Aorta: 4.0 cm IVC: 2.4 cm DOPPLER MEASUREMENT: Peak velocity across the aortic valve: 1.96 m/s Peak velocity across the LVOT: 1.58 m/s Peak gradient across the aortic valve: 15.3 mmHg Mean gradient across the aortic valve: 7.0 mmHg Mitral E: 0.69, mitral A: 0.71 with a ratio of 0.97 Maximum tricuspid valve velocity: 2.6 m/s 2D COMMENTS: 1. Normal left ventricular size, wall thickness and normal global left ventricular systolic function estimated at 65%. 2. Normal left atrium. Normal right atrium and right ventricle. 3. The atrial septum appeared to be normal without evidence of defect or shunt. 4. Mildly enlarged aortic root at 4.0 cm. 5. Trace pericardial effusion noted, no evidence of cardiac tamponade. 6. Mildly calcified aortic valve with minimally limited leaflet excursion. Mildly calcified mitral annulus with normal anterior mitral valve leaflet motion. Normal tricuspid valve. The pulmonic valve and proximal pulmonary artery branches were not well visualized. 7. The inferior vena cava was mildly enlarged, central venous pressure might be elevated. DOPPLER: It detects trace mitral regurgitation and mild tricuspid regurgitation. The calculated pulmonary artery systolic pressure varied between 30-40 mmHg. Abnormal relaxation pattern was noted across the mitral valve leaflets as well as the mitral valve annulus consistent with a delayed relaxation. IMPRESSION: 1. Normal global left ventricular systolic function. There are features of left ventricular diastolic dysfunction, grade 1. 2. Aortic valve sclerosis with trivial aortic stenosis but no aortic regurgitation. 3. Mildly calcified mitral annulus with trace mitral regurgitation. 4. Mild tricuspid regurgitation with mild pulmonary hypertension. 5. Mildly dilated aortic root at 4.0 cm. 6. The inferior vena cava was mildly enlarged, central venous pressure might be elevated. 7. Trace pericardial effusion was noted. No evidence of cardiac tamponade. Copy To: Dr. Jose Hall [facility]
[2017-03-07 08:17] LABS: VENOUS BASE EXCESS -2.4 (-2.0-2.0); VENOUS O2 SATURATION 66.5 % (60.0-80.0); VENOUS PARTIAL PRESSURE CO2 46.2 mmHg (38.0-50.0)
[2017-03-07] MEDS: FAMOTIDINE 20 MG TAB PO SCH ×2 (08:51→20:49)
[2017-03-07] MEDS: rifAXIMin 550 MG TAB (XIFAXAN) PO SCH ×2 (08:51→20:49)
[2017-03-07] MEDS: LACTOBACILLUS ACIDOPHILUS CAP (BACID) PO SCH ×2 (08:51→20:49)
[2017-03-07] MEDS: FUROSEMIDE 40 MG TAB PO SCH (11:37)
[2017-03-07] MEDS: SPIRONOLACTONE 25 MG TAB PO SCH (11:37)
--- NOTE | 2017-03-07 12:12 | IPN ---
DATE OF VISIT: 03/07/2017 Mr. Mosley is seen this morning on his bedside in intensive care unit. He is feeling better and his blood pressure has improved. He denies any abdominal pain, nausea or vomiting. He has no dyspnea or chest pain. On physical exam, temperature 98.7 degrees Fahrenheit, heart rate 85 per minute and respiratory rate 20 per minute. Blood pressure 117/65 mmHg and oxygen saturation 96% on room air. He is jaundiced. Head is atraumatic. Neck is supple and without JVD or thyroid enlargement. Pupils are equal and reactive to light and sclera is icteric. Heart sounds are regular and lungs clear to auscultation. Abdomen is distended with ascites which is slightly worse than yesterday. Extremities have no cyanosis or clubbing. Neurologically he is awake, alert and oriented times three. Today's labs show WBC count 9.3, hemoglobin 7.6 and hematocrit 22.2. Platelets 72,000. Blood gas showed a pH of 7.32, pCO2 46, pO2 38 on a venous blood gas and bicarb 22. His chemistry showed sodium 132 and potassium 4.2. BUN 74 and creatinine 3.10. His lactic acid level is down to 2.1. Calcium 7.3 and total bilirubin is down to 5.2. Total protein 5.4 and albumin 2.4. PROBLEMS: 1. Acute renal failure superimposed on chronic kidney disease. Improvement in kidney function is noted which is very encouraging. The patient had a urine output of 755 mL yesterday. He is retaining more fluid and his ascites is increasing. In view of improving kidney function we will go ahead and resume his diuretics. He will be started on Lasix 40 mg and spironolactone 25 mg daily. 2. Lactic acidosis. This has improved as his blood pressure has improved. The patient is not on any pressors other than midodrine which will be continued. 3. Hyperkalemia. Potassium level has also corrected as his acidosis and kidney function has started to improve. At this point no intervention is indicated. 4. Worsening anemia and thrombocytopenia. Probably the patient has some blood loss as his platelets are also being consumed up and hemoglobin has dropped significantly. I recommend to transfuse him 2 units of packed RBCs. 5. Disposition from a renal standpoint, the patient can be transferred to progressive care unit.
--- NOTE | 2017-03-07 12:49 | IPN ---
DATE: 03/07/2017 SUBJECTIVE: This is a 61-year-old male who is seen and examined in intensive care unit (ICU) room. Overnight, no reported acute events. This morning feels a lot better compared to yesterday. Denies any chest pain, shortness of breath, nausea, vomiting, diarrhea, constipation. Had formed bowel movement. No longer reports chills. OBJECTIVE: VITAL SIGNS: Blood pressure 117/65, heart rate 90, temperature 97.9, respiration rate 19, pulse oximetry 96% on room air. Intake and output in the last 24 hours 1410 and 755. Weight is 85.8 kg. GENERAL: Patient is lying in bed comfortable and in no acute distress. He is alert, awake, oriented times three. Pleasant, cooperative. Family at bedside. HEENT: Normocephalic, atraumatic. Moist oral mucosa. NECK: Supple. Trachea midline. No jugular venous distention (JVD). HEART: Regular rate and rhythm. Normal S1, S2. Could not appreciate murmurs, rubs, or gallops. LUNGS: Breath sounds diminished in bilateral lung bases. No accessory muscle use. ABDOMEN: Distended but nontender. Significantly less protuberant today and less distended today compared to prior visits. Bowel sounds are distant. EXTREMITIES: Significantly less edematous today compared to previous visits. NEUROLOGIC: He is alert, awake, oriented times three. No focal deficits appreciated. PSYCHIATRIC: Pleasant. Cooperative. Normal affect. LABORATORY DATA: WBC 9.3, hemoglobin 7.6, hematocrit 22.2, platelets 72. Sodium 132, potassium 4.2, chloride 97, carbon dioxide 24, BUN 74, creatinine 3.1, glucose 122, lactic acid 2.1, calcium 7.3, total bilirubin 5.2, AST 51, ALT 33, alkaline phosphatase 70, albumin 2.4, PT 29.1, INR 2.83. Venous gas shows pH of 7.3, PCO2 46.2. Gram-stain with moderate WBC, no organisms. Echocardiogram from February 2017 showed normal left ventricular systolic function, features of left ventricular diastolic dysfunction, grade 1 aortic valve sclerosis with trivial stenosis, no regurgitation. IVC mildly enlarged. Central venous pressure might be elevated. Trace pericardial effusion. No tamponade. IMPRESSION/PLAN: Mr. Mosley is a pleasant 61-year-old male with a history of alcoholism, liver cirrhosis, who presented with worsening ascites and chills. 1. Abdominal pain. Secondary to a combination of worsening ascites and possible spontaneous bacterial peritonitis. The patient will continue with meropenem. He is status post paracentesis on 03/05/2017. At that time he had 11.8 liters of fluid removed. After discussion with Dr. Valdez, it is recommended that he should have paracentesis weekly rather than twice a month, and removal should be limited to 5 to 6 liters each episode to prevent worsening hypotension and acute kidney injury. His abdominal pain is now resolved now that he is status post paracentesis and antibiotic coverage. 2. Acute kidney injury. Renal function showed slight improvement today compared to yesterday. His urine output is also improved. Currently no plans for emergent dialysis. Greatly appreciate Dr. Valdez's assistance. 3. Elevated lactic acid. Likely secondary to underlying infection and liver disease. Level is significantly improved compared to admission. Monitor for now. 4. Hypotension. Blood pressure is significantly improved. Because of his improved blood pressure, we will resume his Lasix 40 mg daily with hold parameters. Also resume spironolactone but decrease dose compared to his home dose of 50 mg daily at home. We will also decrease his midodrine today due to his improved blood pressure. He remains asymptomatic with his hypotension. 5. Hypoalbuminemia, secondary to liver disease. He is status post 11 vials of albumin so far this admission. 6. Anemia, etiology unclear. Check iron studies. He is status post colonoscopy in January 2017, at that time was found to have adenomatous polyps. Because of decrease in his hemoglobin, we have order for 2 units of packed red blood cells. 7. Thrombocytopenia. In reviewing his prior laboratory studies from previous admissions, his lowest platelet was 45. He is currently not on any anticoagulation. We will continue to monitor for now. 8. Liver cirrhosis, secondary to alcoholism. The patient continues to remain abstinent in the last 5 months. Follows with instrument and control technician in [place]. His next appointment is in March. 9. Supratherapeutic INR. He is status post vitamin K. INR level is improved today. 10. Hyponatremia, likely secondary to his ascites from liver disease. Monitor for now. 11. Hyperkalemia, resolved. Continue on low potassium diet. We will resume his Lasix and spironolactone today. 12. Abnormal CT. CT of the chest on admission found to have small pericardial effusion. Echocardiogram showed evidence of trace effusion without concern for tamponade. Continue to monitor for now. 13. History of adenomatous polyp. Last colonoscopy was January 2017. 14. History of Clostridium (C) difficile colitis. Continue to monitor for now. He is currently treated for possible SBP. Continue Bacid. No diarrhea episodes since admission. 15. Deep venous thrombosis (DVT) prophylaxis. Sequential compression devices (SCD), thromboembolism deterrents (TEDS). No pharmacological intervention secondary to supratherapeutic INR due to his advanced liver disease. My preceptor for this patient encounter was Dr. Hall. The preceptor was physically present in the building during the encounter and was fully available. As needed, all aspects of the patient interview, examination, medical decision making process, and medical care plan development were reviewed and approved by the preceptor. The preceptor is aware and concurs with the plan as stated in the body of this note and will attest to such by his/her cosignature. MARIANNE
[2017-03-08] VITALS (18 sets, daily range): BP systolic 82–123; BP diastolic 50–79
[2017-03-08] MEDS: MEROPENEM INJ 1 GM in D5W MINI-BAG PLUS 100 ML IV SCH ×2 (04:37→16:26)
[2017-03-08 06:45] LABS: MEAN CORPUSCULAR HEMOGLOBIN 33.7 pg (27.0-33.0); MEAN CORPUSCULAR HGB CONC 33.4 g/dl (32.0-36.5); RED CELL DISTRIBUTION WIDTH 16.5 % (11.5-14.5); RETIC HEMOGLOBIN CONTENT CHr 37.1 PG (24-36); RETICULOCYTE % ADVIA2120 3.8 % (0.5-1.5); WHITE BLOOD COUNT 8.7 K/mm3 (4.0-10.0)
[2017-03-08 06:46] LABS: INR 2.23
[2017-03-08 06:52] LABS: MEAN CORPUSCULAR VOLUME 100.8 fl (80.0-96.0)
[2017-03-08] MEDS: SLF 3 ML SYR IV SCH ×3 (06:55→20:47)
[2017-03-08] MEDS: MIDODRINE 5 MG TAB PO SCH ×2 (06:55→16:27)
[2017-03-08 07:07] LABS: ALBUMIN 2.4 GM/DL (3.2-5.2); ALBUMIN/GLOBULIN RATIO 0.75 (1.00-1.93); BILIRUBIN,TOTAL 4.9 MG/DL (0.2-1.0); CALCIUM LEVEL 7.4 MG/DL (8.8-10.2); CREATININE FOR GFR 2.27 MG/DL (0.70-1.30); GLOMERULAR FILTRATION RATE 31.4 (>49); TOTAL PROTEIN 5.6 GM/DL (6.4-8.2)
[2017-03-08] MEDS: rifAXIMin 550 MG TAB (XIFAXAN) PO SCH ×2 (08:07→20:45)
[2017-03-08] MEDS: LACTOBACILLUS ACIDOPHILUS CAP (BACID) PO SCH ×2 (08:07→20:45)
[2017-03-08] MEDS: FAMOTIDINE 20 MG TAB PO SCH ×2 (08:07→20:45)
[2017-03-08] MEDS: FUROSEMIDE 40 MG TAB PO SCH (08:08)
[2017-03-08] MEDS: SPIRONOLACTONE 25 MG TAB PO SCH (08:08)
[2017-03-08] MEDS ORDERED: METOPROLOL TART 12.5 MG PER 1/2 TAB PO SCH (09:00)
[2017-03-08] MEDS ORDERED: METOPROLOL 5 MG/5 ML VIAL IV STA ×2 (10:49→11:37)
[2017-03-08 11:16] LABS: MAGNESIUM LEVEL 2.2 MG/DL (1.8-2.4)
[2017-03-08] MEDS ORDERED: MIDODRINE 5 MG TAB PO STA (11:39)
[2017-03-08] MEDS ORDERED: SODIUM CHLORIDE 0.9% 1000 ML IV ONE (11:45)
--- NOTE | 2017-03-08 12:42 | IPNPDOC ---
Text Note Date of Service The patient was seen on 03/08/17. NOTE Subjective: Pt feels well. Denies any complaints. 11 AM, patient wanted to know onset rapid atrial fibrillation. Asymptomatic. Patient denies chest pain/ shortness of breath. Objective: Vitals: (see below) General: No acute distress, laying comfortably in bed. HEENT: Moist mucous membranes. Neck: No JVD or lymphadenopathy Cardiac: RRR, No murmurs Pulm: Diminished breath sounds at the bases bilaterally with crackles noted b/ l. No wheezing, rhonchi Abd: NT/mildly distended.+ BS Ext: No edema or cyanosis Labs (see below) Images: Assessment/Plan 1. New onset atrial fibrillation with rapid ventricular response- started on metoprolol twice a day. We will need to address whether patient is a good candidates for anticoagulation given his baseline liver disease and INR greater than 2. Echocardiogram (see above). Cardiac enzymes and EKG pending. TSH pending 2. Decompensated cirrhosis- from alcoholic liver disease- patient states he was told he is not a transplant candidate by his vp analytics. Status post paracentesis with 11.8 L output, 11 bottles albumin. On Midodrin. Restarted on Lasix and spironolactone. Appreciate Dr. Valdez's input. Meld score greater than 30. Patient has a very poor prognosis and high mortality rate. 3. Acute on chronic anemia- transfuse 2 units PRBC. No bleeding at this time. We 'll continue to monitor. 4. Acute kidney injury- likely secondary to decompensated cirrhosis as well as underlying sepsis. Improving. 5. Lactic acidosis secondary to the above. Improving. 6. Chronic thrombocytopenia- from liver disease. No bleeding at this time 7. Hyperkalemia- resolved 8. Hyponatremia- improving; secondary to cirrhosis 9. History of C. difficile 10. History of adenomatous polyp DVT prophy: SCDs VS,Fishbone, I+O VS, Fishbone, I+O Laboratory Tests 03/08/17 04:46 Calcium Level 7.4 L, Aspartate Amino Transf (AST/SGOT) 83 H, Alanine Aminotransferase (ALT/SGPT) 41, Total Creatine Kinase 23 L, Alkaline Phosphatase 131 H, Total Bilirubin 4.9 H, Total Protein 5.6 L, Albumin 2.4 L, Red Blood Count 2.76 L, Mean Corpuscular Volume 100.8 #H, Mean Corpuscular Hemoglobin 33.7 H, Mean Corpuscular Hemoglobin Concent 33.4, Red Cell Distribution Width 16.5 H Vital Signs Date Time Temp Pulse Resp B/P Pulse Ox O2 Delivery O2 Flow Rate FiO2 03/08/17 11:59 140 132/89 03/08/17 08:00 98.2 18 100 Room Air 03/05/17 05:15 2.0 I&O- Last 24 Hours up to 6 AM 03/08/17 06:00 Intake Total 1690 ml Output Total 1200 ml Balance 490 ml MARCUS COHEN MD Mar 08, 2017 12:42
--- NOTE | 2017-03-08 13:16 | IPNPDOC ---
Text Note Date of Service The patient was seen on 03/08/17. VS,Fishbone, I+O VS, Fishbone, I+O Laboratory Tests 03/08/17 04:46 Calcium Level 7.4 L, Aspartate Amino Transf (AST/SGOT) 83 H, Alanine Aminotransferase (ALT/SGPT) 41, Total Creatine Kinase 23 L, Alkaline Phosphatase 131 H, Total Bilirubin 4.9 H, Total Protein 5.6 L, Albumin 2.4 L, Red Blood Count 2.76 L, Mean Corpuscular Volume 100.8 #H, Mean Corpuscular Hemoglobin 33.7 H, Mean Corpuscular Hemoglobin Concent 33.4, Red Cell Distribution Width 16.5 H Vital Signs Date Time Temp Pulse Resp B/P Pulse Ox O2 Delivery O2 Flow Rate FiO2 03/08/17 12:52 145 90/68 03/08/17 08:00 98.2 18 100 Room Air 03/05/17 05:15 2.0 I&O- Last 24 Hours up to 6 AM 03/08/17 05:59 Intake Total 1810 ml Output Total 1300 ml Balance 510 ml MARCUS COHEN MD Mar 08, 2017 13:16 3. Diabetes mellitus- oral agents on hold. On SSI 4. Hyperlipidemia -on statin 5. Constipation improved. Likely secondary to necrotic. 6. Hypothyroidism- on Synthroid 7. Anxiety/depression- on clonazepam 8. Bipolar disorder- continue home meds 9. Rheumatoid arthritis- on the leflunomide 10. GERD- on PPI 11. Insomnia- on trazodone as needed 12. Vitamin D- on replacement DVT prophy: SCDs/heparin subcutaneous VS,Fishbone, I+O VS, Fishbone, I+O Laboratory Tests 03/08/17 04:46 Calcium Level 7.4 L, Aspartate Amino Transf (AST/SGOT) 83 H, Alanine Aminotransferase (ALT/SGPT) 41, Total Creatine Kinase 23 L, Alkaline Phosphatase 131 H, Total Bilirubin 4.9 H, Total Protein 5.6 L, Albumin 2.4 L, Red Blood Count 2.76 L, Mean Corpuscular Volume 100.8 #H, Mean Corpuscular Hemoglobin 33.7 H, Mean Corpuscular Hemoglobin Concent 33.4, Red Cell Distribution Width 16.5 H Vital Signs Date Time Temp Pulse Resp B/P Pulse Ox O2 Delivery O2 Flow Rate FiO2 03/08/17 12:52 145 90/68 03/08/17 08:00 98.2 18 100 Room Air 03/05/17 05:15 2.0 I&O- Last 24 Hours up to 6 AM 03/08/17 05:59 Intake Total 1810 ml Output Total 1300 ml Balance 510 ml MARCUS COHEN MD Mar 08, 2017 13:16
[2017-03-08] MEDS ORDERED: DIGOXIN INJ 0.5 MG/2 ML AMP (J1160) IV STA (14:48)
--- NOTE | 2017-03-08 16:06 | ECGEPIP ---
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
[2017-03-08] MEDS: PROPRANOLOL 10 MG TAB PO SCH (20:46)
--- NOTE | 2017-03-08 21:45 | IPN ---
DATE: 03/08/2017 SUBJECTIVE: Mr. Mosley is seen this afternoon on his bedside in progressive care unit. He is somewhat discouraged as he had a new-onset atrial fibrillation with tachycardia. He denies any dyspnea or chest pain. There is no nausea or vomiting. However, his ascites is increasing once again. PHYSICAL EXAMINATION: VITAL SIGNS: Temperature 97.8 degrees Fahrenheit, heart rate 118 per minute and respiratory rate 18 per minute. Blood pressure 100/52 mmHg and oxygen saturation 97% on room air. Intake and output records from yesterday showed total intake 1760 and output 1200 mL. HEENT: His jaundice has slightly improved. His head is atraumatic. Neck veins are not abnormally distended. Ears, nose and throat are unremarkable. Sclerae are still icteric. Pupils are equal and reactive to light. HEART: Sounds are irregular and tachycardiac. LUNGS: Lung sounds clear to auscultation. ABDOMEN: Distended with ascites. Bowel sounds are normal. EXTREMITIES: Have no cyanosis or clubbing. LABORATORY DATA: Today's labs show WBC count 8.7, hemoglobin 9.3 and hematocrit 27.8. Platelets are 83,000. Sodium 133 and potassium 4.0. CO2 of 21, BUN 74 and creatinine 2.27. Iron level is 78 and saturation 60%. Ferritin 1617. CPK 23 and troponin 0.03. A TSH level is 1.84. PROBLEMS: 1. Acute kidney injury superimposed on chronic kidney disease. Kidney function is gradually improving. The patient has no uremic symptoms. 2. Recurrent ascites with cirrhosis of liver. Ascites is re-accumulating. He is likely to require paracentesis again in few days. I have recommended weekly paracentesis with at the most 5-6 liters of fluid removal per procedure. He did have severe hypotension following his prior paracentesis when 11.8 liters of fluid was removed. That puts him at very high risk for recurrent acute renal failure. 3. Anemia. Most likely his anemia is related to blood loss as he also has severe thrombocytopenia and high risk for bleeding. His anemia has improved at present with transfusion. Continued monitoring is needed. 4. Thrombocytopenia. Slight improvement in platelets is noted over last 24 hours. There is no obvious acute blood loss. 5. New-onset atrial fibrillation. The patient is auto-anticoagulated due to his hepatic insufficiency. INR is 2.23. His ventricular rate is improving as he is receiving digoxin and diltiazem. He has also been placed on low-dose metoprolol. 6. Cirrhosis of liver with recurrent ascites. The patient has been started on spironolactone and furosemide in low dose which will be continued for now as his kidney function is improving and it might help with the prevention of recurrent ascites to a certain extent.
[2017-03-09] VITALS: BP 100/69
[2017-03-09] MEDS: MEROPENEM INJ 1 GM in D5W MINI-BAG PLUS 100 ML IV SCH ×2 (04:00→16:47)
[2017-03-09] MEDS: SLF 3 ML SYR IV SCH ×3 (04:04→20:55)
[2017-03-09 04:45] VITALS: BP 111/73
[2017-03-09 05:01] LABS: MEAN CORPUSCULAR HGB CONC 33.5 g/dl (32.0-36.5); MEAN CORPUSCULAR VOLUME 101.7 fl (80.0-96.0); RED CELL DISTRIBUTION WIDTH 16.8 % (11.5-14.5); WHITE BLOOD COUNT 8.8 K/mm3 (4.0-10.0)
[2017-03-09 05:06] LABS: ALBUMIN 2.1 GM/DL (3.2-5.2); ALBUMIN/GLOBULIN RATIO 0.62 (1.00-1.93); BILIRUBIN,TOTAL 4.6 MG/DL (0.2-1.0); CALCIUM LEVEL 7.4 MG/DL (8.8-10.2); GLOMERULAR FILTRATION RATE 36.3 (>49); INR 2.33; POTASSIUM SERUM 3.8 MEQ/L (3.5-5.1); TOTAL PROTEIN 5.5 GM/DL (6.4-8.2)
[2017-03-09] MEDS: MIDODRINE 5 MG TAB PO SCH ×2 (07:00→16:47)
[2017-03-09 08:00] VITALS: BP 111/73
[2017-03-09] MEDS: PROPRANOLOL 10 MG TAB PO SCH ×2 (08:12→20:54)
[2017-03-09] MEDS: SPIRONOLACTONE 25 MG TAB PO SCH (08:12)
[2017-03-09] MEDS: LACTOBACILLUS ACIDOPHILUS CAP (BACID) PO SCH ×2 (08:12→20:55)
[2017-03-09] MEDS: rifAXIMin 550 MG TAB (XIFAXAN) PO SCH ×2 (08:13→20:55)
[2017-03-09] MEDS: FUROSEMIDE 40 MG TAB PO SCH (08:13)
[2017-03-09] MEDS: FAMOTIDINE 20 MG TAB PO SCH ×2 (08:13→20:55)
[2017-03-09] MEDS ORDERED: VANCOMYCIN HCL 1,000 MG, VIAL MATE ADAPTER 1 EACH in D5W 250 ML IV ONE (09:30)
[2017-03-09 12:00] VITALS: BP 124/69
--- NOTE | 2017-03-09 13:01 | IPN ---
DATE OF VISIT: 03/09/2017 Ms. Mosley is seen this morning on his bedside. He is feeling better, and his dizziness has improved. He reports rash on his left leg and a blister on his right leg. The patient denies any fever or chills. There is no nausea or vomiting. However, his abdominal distention due to ascites has increased. On physical examination, temperature 99 degrees Fahrenheit, heart rate 70 per minute, and respiratory rate 18 per minute. Blood pressure 111/73 mmHg and oxygen saturation 97% on room air. Head: Is atraumatic. Ears, nose, and throat are unremarkable. Neck is supple and without jugular venous distention (JVD) or thyroid enlargement. Pupils are equal and reactive to light and sclerae icteric. Heart sounds are regular now. Lungs clear to auscultation. Abdomen is distended with ascites. Bowel sounds are present. Extremities have no cyanosis or clubbing. Skin has multiple ecchymotic areas on his extremities. On the left leg, he has rash, which seems to be scabbed over. On the right leg, he has a small pustule, which is draining purulent discharge. Neurologically, he is awake, alert, and oriented times three. Today's laboratories show WBC count 8.8, hemoglobin 10.3, and hematocrit 30.7, platelets 7000. Sodium 132, potassium 3.8, BUN 66, and creatinine 2.0. Total bilirubin is down to 4.6. PROBLEMS: 1. Acute renal failure proposed on chronic kidney disease. Further improvement in kidney function is noted since yesterday. We will continue to monitor his kidney function on a daily basis. At present, there is no indication for dialysis, and he remains nonoliguric. 2. Anemia and thrombocytopenia. His anemia has improved following transfusion. Platelets have been essentially unchanged. 3. Cirrhosis of liver with recurrent ascites. The patient has gradually increasing amount of ascites following his last paracentesis. I recommend to drain only 5-6 liters at one time. He is likely to require paracentesis soon. 4. Atrial fibrillation with rapid rate. The patient has sinus rhythm. He is already auto anticoagulated due to his advanced liver disease. He remains on low-dose beta isabella and probably will not need digoxin anymore. 5. Pustule in right lower extremity. The patient has been on meropenem, which is probably not covering. We will get a culture from his wound and give him a dose of vancomycin 1 gram intravenously today. A vancomycin level will be checked tomorrow morning, and then further dose will be calculated. MTDD
--- NOTE | 2017-03-09 14:05 | IPN ---
DATE: 03/09/2017 SUBJECTIVE: This is a 61-year-old male who is seen and examined at bedside. Yesterday, he went into rapid atrial fibrillation and required multiple medications to help slow down his rate, including Digoxin 0.5 mg IV times one, diltiazem 10 mg IV times one, Lopressor total of 5 mg IV times one and one dose of Lopressor by mouth 12.5 mg times one. He converted back to sinus rhythm later in the afternoon. This morning, because of infection to his right foot, he was started on vancomycin times one. Denies any chest pain, shortness of breath, palpitations, fevers, chills, nausea, vomiting, diarrhea, constipation. Wants to know if he can walk around in his room, as he was placed on bedrest after his atrial fibrillation with rapid ventricular rate. OBJECTIVE: VITAL SIGNS: Blood pressure 111/73, heart rate 71, respiration rate 18, pulse oximetry 97% on room air, temperature 99, maximum temperature (t-max) was 99.8 last night. Intake and output in the last 24 hours 1200 and 1950, net negative of 750 overnight. One bowel movement. Documented weight is 87.6 kg. GENERAL: Patient is lying in bed comfortable and in no acute distress. He is alert, awake, oriented times three. Pleasant, cooperative. Daughter at bedside. Tired, chronically ill and frail appearing. HEENT: Normocephalic, atraumatic. Moist oral mucosa. No thrush or oral lesions appreciated. Fair dentition. Eyes: Extraocular movements intact. Pupils are equal and reactive to light. Scleral icterus. NECK: Supple. Trachea midline. No jugular venous distention (JVD). Chest with symmetric chest rise. No accessory muscle use. Breath sounds are clear to auscultation bilaterally. HEART: Regular rate and rhythm. Normal S1, S2. Did not appreciate murmurs, rubs, or gallops. ABDOMEN: Protuberant and distended. Bowel sounds are normoactive and not tender to palpation. No guarding. No rebound. No peritoneal signs. EXTREMITIES: No longer edematous. Pedal pulses are present bilaterally. SKIN: He has jaundice with multiple areas of ecchymotic changes throughout his upper extremities and lower extremities bilaterally. His right pretibial region has small lesion measuring approximately 1.0 x 1.0 cm. It is currently draining purulent discharge. Not significantly tender to palpation. Area is red and warm to palpation. LABORATORY DATA: WBC 8.8, hemoglobin 10.3, improved from yesterday 9.3, hematocrit 30.7, platelets 72. Sodium 132, potassium 3.8, chloride 101, carbon dioxide 34, BUN 66, creatinine 2.0, which is improved compared to yesterday, which was 74 and 2.27. Cardiac markers are negative times 5, albumin 2.1, total bilirubin 4.6, PT 25.6, INR 2.33. IMPRESSION/PLAN: Mr. Mosley is a pleasant 61-year-old male with liver cirrhosis, admitted for worsening ascites. 1. Ascites and possible spontaneous bacterial peritonitis. Currently on day 4 of meropenem. It appears that he is slowly starting to accumulate fluid. We will continue to monitor for now. If it continues worsen significantly, he might require repeat paracentesis sooner than planned. His most recent paracentesis was 03/12/2017 and at that time had 11.8 liters removed. In the future, for each paracentesis, we will aim to remove only 5 to 6 liters to prevent hypotension and acute kidney injury. 2. Right lower extremity cellulitis. Wound culture has already been sent and was given IV vancomycin today by Dr. Valdez. 3. Acute kidney injury on chronic kidney disease. His renal function significantly improved compared to admission. There is no plan for emergent dialysis due to his improved function. Greatly appreciate Dr. Valdez's assistance. 4. Atrial fibrillation with rapid ventricular rate. The patient has converted back to sinus rhythm with multiple medications given. Despite not being anticoagulated, his INR is 2.3. The patient is currently on propranolol 10 mg by mouth twice a day, which is his home medication. 5. Anemia. Hemoglobin is improved compared to yesterday. He is status post 2 units of packed red blood cells. No gross evidence of bleeding. 6. Thrombocytopenia. This is chronic and likely secondary to cirrhosis. No intervention needed at this time. We will continue to monitor. 7. Hypotension, resolved. His blood pressure has been running high and we have resumed his Lasix 40 mg daily. He is also on half dose of his spironolactone, 25 mg daily. 8. Hypoalbuminemia. Received 11 vials of albumin since admission. He will require further transfusion with repeat paracentesis. 9. Supratherapeutic INR. Secondary to liver disease. He is status post Vitamin K. 10. Hyponatremia, secondary to ascites. Monitor for now. No significant change. 11. History of Clostridium (C.) difficile colitis. Monitor symptoms closely to prevent recurrence. Continue Bacid. 12. Deep vein thrombosis (DVT) prophylaxis. Sequential compression device (SCD ) and TEDs. No pharmacological intervention secondary to elevated INR from his liver disease. We did discuss further anticoagulation recommendations for him at this time. 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 He has an appointment with his nurse care manager on 03/16/2017. My preceptor for this patient encounter was Dr. Hall. The preceptor was physically present in the building during the encounter and was fully available. As needed, all aspects of the patient interview, examination, medical decision making process, and medical care plan development were reviewed and approved by the preceptor. The preceptor is aware and concurs with the plan as stated in the body of this note and will attest to such by his/her cosignature. MARIANNE
[2017-03-09 15:42] VITALS: BP 110/71
[2017-03-09 19:32] VITALS: BP 112/71
--- NOTE | 2017-03-09 21:16 | ECGEPIP ---
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
[2017-03-10] VITALS (7 sets, daily range): BP systolic 110–117; BP diastolic 67–81
[2017-03-10] MEDS: MEROPENEM INJ 1 GM in D5W MINI-BAG PLUS 100 ML IV SCH ×2 (04:16→15:25)
[2017-03-10] MEDS: SLF 3 ML SYR IV SCH ×3 (04:17→20:57)
[2017-03-10] MEDS: MIDODRINE 5 MG TAB PO SCH ×2 (06:27→16:51)
[2017-03-10 06:28] LABS: MEAN CORPUSCULAR HEMOGLOBIN 33.7 pg (27.0-33.0); MEAN CORPUSCULAR HGB CONC 32.9 g/dl (32.0-36.5); MEAN CORPUSCULAR VOLUME 102.5 fl (80.0-96.0); RED CELL DISTRIBUTION WIDTH 16.7 % (11.5-14.5); WHITE BLOOD COUNT 10.4 K/mm3 (4.0-10.0)
[2017-03-10 06:32] LABS: INR 2.33
[2017-03-10 06:54] LABS: ALBUMIN 2.2 GM/DL (3.2-5.2); ALBUMIN/GLOBULIN RATIO 0.69 (1.00-1.93); BILIRUBIN,TOTAL 6.3 MG/DL (0.2-1.0); CALCIUM LEVEL 7.3 MG/DL (8.8-10.2); CREATININE FOR GFR 1.78 MG/DL (0.70-1.30); GLOMERULAR FILTRATION RATE 41.6 (>49); POTASSIUM SERUM 3.9 MEQ/L (3.5-5.1); TOTAL PROTEIN 5.4 GM/DL (6.4-8.2); VANCOMYCIN RANDOM 5.5 UG/ML
[2017-03-10] MEDS ORDERED: VANCOMYCIN HCL 1,000 MG, VIAL MATE ADAPTER 1 EACH in D5W 250 ML IV ONE (08:00)
[2017-03-10] MEDS: LACTOBACILLUS ACIDOPHILUS CAP (BACID) PO SCH ×2 (08:41→20:57)
[2017-03-10] MEDS: rifAXIMin 550 MG TAB (XIFAXAN) PO SCH ×2 (08:42→20:56)
[2017-03-10] MEDS: FAMOTIDINE 20 MG TAB PO SCH ×2 (08:42→20:57)
[2017-03-10] MEDS: SPIRONOLACTONE 25 MG TAB PO SCH (08:42)
[2017-03-10] MEDS: PROPRANOLOL 10 MG TAB PO SCH ×2 (08:42→20:57)
[2017-03-10] MEDS: FUROSEMIDE 40 MG TAB PO SCH (08:43)
--- NOTE | 2017-03-10 12:01 | IPN ---
DATE: 03/12/2017 Mr. Mosley is seen this morning on his bedside. He is somewhat discouraged with his condition. His appetite is not great. He denies any vomiting or diarrhea. His abdominal distension is increasing due to recurrent ascites. He denies any dyspnea, chest pain, cough, fever or chills. We gave him one dose of intravenous vancomycin yesterday due to a pustule on his right leg while culture from that pustule is still pending. PHYSICAL EXAMINATION: Temperature 97.6 degrees Fahrenheit, heart rate 70 per minute and respiratory rate 18 per minute. Blood pressure 117/69 mmHg and oxygen saturation 98% on room air. Head is atraumatic. Neck is supple and without any JVD or thyroid enlargement. Trachea is midline. Pupils are equal and reactive to light and sclera is icteric. Nose and throat are unremarkable. Heart sounds are regular and lungs clear to auscultation. Abdomen is markedly distended with ascites. Bowel sounds are present. Extremities have no cyanosis or clubbing. Skin has multiple areas of ecchymosis on his upper extremities. Neurologically he is awake, alert and oriented times three. Today's labs show WBC count 10.4, hemoglobin 10.9 and hematocrit 33.1. Platelets 83,000. Sodium is 130 and potassium 3.9. CO2 20, BUN 66 and creatinine 1.78. Glucose 175 and calcium 7.3. Total bilirubin is up to 6.3 today. Protein 5.4 and albumin 2.2. PROBLEMS: 1. Acute renal failure superimposed on chronic kidney disease. Slight improvement in kidney function noticed since yesterday. He has a decent amount of urine output with diuretic use, which will be continued. 2. Hyponatremia. Sodium is gradually decreasing due to recurrent ascites. At present we would like to continue with the diuretics due to large amount of ascites and try to keep him in an even fluid balance. 3. Anemia. His anemia has been stable since he was transfused. No intervention is indicated. 4. Thrombocytopenia. Platelets are also essentially unchanged for the last several days. There is no active bleeding. 5. Cirrhosis of liver with recurrent ascites. The patient is likely to require another paracentesis this week. I recommend to remove about 5-6 liters at a time. 6. Right leg pustule. The patient remains on vancomycin. Today his vancomycin level was 5.5. I have given him one more gram of vancomycin today pending the culture results. He is currently afebrile. 7. Possible SBP. The patient has been on intravenous meropenem. The patient continues to have a guarded prognosis due to advanced liver disease leading to hepatorenal issues. We will continue to monitor and follow him along with you.
[2017-03-10] MEDS ORDERED: ONDANSETRON 4MG/2ML VIAL (J2405) IV PRN (15:15)
--- NOTE | 2017-03-10 15:37 | IPN ---
DATE: 03/10/2017 SUBJECTIVE: This is a 61-year-old who was seen and examined at bedside. Overnight, no reported acute events. This morning, feels tired, but no chest pain, shortness of breath, palpitations, fevers, chills, night sweats, diarrhea. Anxious to go home. OBJECTIVE: VITAL SIGNS: Blood pressure 117/69, heart rate 70, temperature 97.6, respiration rate 18, pulse oximetry 98% on room air. INTAKE AND OUTPUT: Over the last 24 hours: 1680 and 1075. Weight is 87.8 kg. GENERAL: Patient is lying in bed, comfortable, no acute distress. at bedside. HEENT: Normocephalic, atraumatic. Sclerae anicteric. NECK: Supple. Trachea midline. No jugular venous distention (JVD). CHEST: Symmetric chest rise. No accessory muscle use. Breath sounds were diminished bilaterally. HEART: Regular rate and rhythm. Normal S1, S2. ABDOMEN: Protuberant, distended, but not tender to palpation. Bowel sounds present but distant. No guarding. No rebound. EXTREMITIES: No pedal edema. Pedal pulses present bilaterally. SKIN: Jaundice with multiple ecchymotic changes of upper and lower extremities. Persistent ulcer by his right pretibial region draining purulent discharge. LABORATORY DATA: WBC 10.4, hemoglobin 10.9, hematocrit 33.1, platelets 83. Sodium 130, potassium 3.9, chloride 99, carbon dioxide 20, BUN 66, creatinine 1.78, glucose 175, calcium 7.3. Total bilirubin 6.3, alkaline phosphatase 177. Wound culture: Few epithelial cells. No organisms. IMPRESSION AND PLAN: Mr. Mosley is a 61-year-old male with history of liver cirrhosis admitted for worsening ascites. 1. Ascites and possible spontaneous bacterial peritonitis (SBP). Currently on day five of meropenem. His abdomen has began to be more distended each day. We will plan for paracentesis tomorrow, but will hopefully remove only 6 liters to prevent acute kidney injury (NICOLÁS) and hypotension. He will likely require four vials of albumin. 2. Right lower extremity cellulitis. Wound culture has been sent. Gram-stain did not show organisms. Vancomycin is currently managed by Dr. Valdez. 3. Acute kidney injury on chronic kidney disease (CKD). Renal function has improved today. Greatly appreciate Dr. Vazquez's assistance. 4. Atrial fibrillation with rapid ventricular response. Continues to be in sinus rhythm. He is on propranolol 10 mg by mouth twice a day. INR is supratherapeutic due to his liver disease. 5. Anemia. Hemoglobin is not significantly changed compared to yesterday. We have requested a stool occult test. 6. Thrombocytopenia secondary to cirrhosis. Will monitor for now. Currently not on antiplatelet therapy. 7. Hypoalbuminemia. Continue with albumin supplementation with paracentesis. 8. History of Clostridium (C) difficile. Continue to monitor closely. No episodes of diarrhea reported. Continue Bacid. 9. Deep venous thrombosis (DVT) prophylaxis. Sequential compression devices (SCDs), thromboembolitic deterrents (TEDs). No pharmacological interventions secondary to supratherapeutic INR. My preceptor for this patient encounter was Dr. Cunningham. The preceptor was physically present in the building during the encounter and was fully available as needed. All aspects of the patient interview, examination, medical decision-making process, and medical care plan development were reviewed and approved by the preceptor. The preceptor is aware and concurs with the plan as stated in the body of this note and will attest to such by his/her co-signature. MARIANNE
[2017-03-11] VITALS (8 sets, daily range): BP systolic 105–135; BP diastolic 65–86
[2017-03-11] MEDS: SLF 3 ML SYR IV SCH ×3 (04:40→20:28)
[2017-03-11] MEDS: MEROPENEM INJ 1 GM in D5W MINI-BAG PLUS 100 ML IV SCH ×2 (04:40→15:23)
[2017-03-11 05:46] LABS: INR 2.35; MEAN CORPUSCULAR HEMOGLOBIN 34.5 pg (27.0-33.0); MEAN CORPUSCULAR HGB CONC 33.1 g/dl (32.0-36.5); MEAN CORPUSCULAR VOLUME 104.2 fl (80.0-96.0); RED CELL DISTRIBUTION WIDTH 16.7 % (11.5-14.5)
[2017-03-11 06:07] LABS: ALBUMIN/GLOBULIN RATIO 0.59 (1.00-1.93); BILIRUBIN,TOTAL 8.6 MG/DL (0.2-1.0); CALCIUM LEVEL 7.4 MG/DL (8.8-10.2); CREATININE FOR GFR 1.74 MG/DL (0.70-1.30); GLOMERULAR FILTRATION RATE 42.7 (>49); POTASSIUM SERUM 4.2 MEQ/L (3.5-5.1); TOTAL PROTEIN 5.4 GM/DL (6.4-8.2)
[2017-03-11] MEDS: rifAXIMin 550 MG TAB (XIFAXAN) PO SCH ×2 (08:14→20:28)
[2017-03-11] MEDS: MIDODRINE 5 MG TAB PO SCH ×2 (08:14→17:27)
[2017-03-11] MEDS: LACTOBACILLUS ACIDOPHILUS CAP (BACID) PO SCH ×2 (08:14→20:27)
[2017-03-11] MEDS: SPIRONOLACTONE 25 MG TAB PO SCH (08:14)
[2017-03-11] MEDS: FAMOTIDINE 20 MG TAB PO SCH ×2 (08:14→20:28)
[2017-03-11] MEDS: FUROSEMIDE 40 MG TAB PO SCH (08:15)
[2017-03-11] MEDS ORDERED: PHYTONADIONE 5 MG TAB PO ONE (10:00)
[2017-03-11 10:15] LABS: BILIRUBIN,DIRECT 3.3 MG/DL (0.0-0.2)
[2017-03-11] MEDS: PROPRANOLOL 10 MG TAB PO SCH ×2 (11:34→20:27)
--- NOTE | 2017-03-11 11:38 | IPN ---
DATE OF VISIT: 03/11/2017 Mr. Mosley is seen this morning on his bedside. He is feeling about the same and wants to go home. He has increased abdominal ascites and is scheduled for another paracentesis today. The patient has no fever or chills. He denies any dyspnea, chest pain, nausea, or vomiting. On physical examination, temperature 97.8 degrees Fahrenheit, heart rate 75 per minute, and respiratory rate 18 per minute. Blood pressure 135/76 mmHg and oxygen saturation 97% on room air. Intake and output records from yesterday showed total intake 1520 and output 700 mL. His neck is supple and without jugular venous distention (JVD) or thyroid enlargement. Head is atraumatic. Sclera is icteric, and pupils are equal and reactive to light. Ears, nose, and throat are unremarkable. Heart sounds regular. Lungs clear to auscultation. Abdomen is markedly distended with ascites. Bowel sounds are present. Extremities: Have no cyanosis or clubbing. Today's laboratories show hemoglobin 10.4 and hematocrit 31.5. Platelets are 76,000 and WBC count 9.0. Sodium 130 and potassium 4.2. BUN 74 and creatinine 1.74. Bilirubin is up to 8.6 and the rest of his liver function tests (LFTs) are improving. PROBLEMS: 1. Acute kidney injury superimposed on chronic kidney disease. Slight improvement in serum creatinine is noted over last 24 hours. At this point, his kidney function will still need to be monitored, as the patient is scheduled for paracentesis and is at risk for another episode of acute renal failure due to hypotension and intravascular hypovolemia. 2. Hyponatremia. Sodium level is unchanged over last 24 hours. Electrolytes should be checked again tomorrow morning. 3. Cirrhosis of liver with recurrent ascites. The patient is scheduled for paracentesis later today. I have recommended to remove only 5-6 liters at a time and perform paracentesis on weekly basis to prevent hypotension and acute renal failure. 4. Anemia and thrombocytopenia. His anemia is stable, and platelets are slightly lower today. This most likely related to cirrhosis of liver. There is no active bleeding at this point. 5. Hypotension. The patient does get hypotension following paracentesis. He should receive 25% albumin 8 grams per liter of fluid removed. 6. Atrial fibrillation. The patient had paroxysmal atrial fibrillation and has converted back to sinus rhythm. He is auto anticoagulated. He remains on beta isabella now.
[2017-03-11 15:31] LABS: INR 1.9
[2017-03-11 18:33] LABS: RBC ASCITES FLUID < 10 (<10mm3 cells/uL); TNC ASCITES FLUID 357 cells/uL (0-20)
[2017-03-11 18:40] LABS: BF DIFF IF INDICATED? YES (NO)
[2017-03-11 19:02] LABS: CC BF DIFF EXAM CYTOCENTRIFUGE
[2017-03-12 04:00] VITALS: BP 107/74
[2017-03-12] MEDS: MEROPENEM INJ 1 GM in D5W MINI-BAG PLUS 100 ML IV SCH ×2 (04:04→15:22)
[2017-03-12] MEDS: SLF 3 ML SYR IV SCH ×3 (04:05→20:34)
[2017-03-12] MEDS: MIDODRINE 5 MG TAB PO SCH ×2 (06:03→16:41)
[2017-03-12 06:19] LABS: INR 2.21
[2017-03-12 06:27] LABS: MEAN CORPUSCULAR HEMOGLOBIN 34.6 pg (27.0-33.0); MEAN CORPUSCULAR VOLUME 101.9 fl (80.0-96.0); RED CELL DISTRIBUTION WIDTH 16.3 % (11.5-14.5); WHITE BLOOD COUNT 7.9 K/mm3 (4.0-10.0)
[2017-03-12 06:31] LABS: ALBUMIN 2.1 GM/DL (3.2-5.2); ALBUMIN/GLOBULIN RATIO 0.62 (1.00-1.93); BILIRUBIN,TOTAL 9.5 MG/DL (0.2-1.0); CALCIUM LEVEL 7.9 MG/DL (8.8-10.2); CREATININE FOR GFR 1.69 MG/DL (0.70-1.30); GLOMERULAR FILTRATION RATE 44.1 (>49); TOTAL PROTEIN 5.5 GM/DL (6.4-8.2)
[2017-03-12 08:00] VITALS: BP 123/73
[2017-03-12] MEDS: rifAXIMin 550 MG TAB (XIFAXAN) PO SCH ×2 (08:58→20:34)
[2017-03-12] MEDS: SPIRONOLACTONE 25 MG TAB PO SCH (08:59)
[2017-03-12] MEDS: FAMOTIDINE 20 MG TAB PO SCH ×2 (08:59→20:33)
[2017-03-12] MEDS: LACTOBACILLUS ACIDOPHILUS CAP (BACID) PO SCH ×2 (08:59→20:33)
[2017-03-12] MEDS: PROPRANOLOL 10 MG TAB PO SCH ×2 (08:59→20:33)
[2017-03-12] MEDS: FUROSEMIDE 40 MG TAB PO SCH (09:00)
[2017-03-12 09:08] LABS: BILIRUBIN,DIRECT 3.8 MG/DL (0.0-0.2)
--- NOTE | 2017-03-12 09:38 | REP ---
CT abdomen and pelvis without IV or bowel contrast: Comparison is 03/05/2017. Within the visualized lung cortes are bibasilar infiltrates, not significantly changed. There is a large volume of ascites throughout the abdomen and pelvis as previously. The margin of the liver is mildly nodular compatible with cirrhosis. No hepatic masses are sign identified, however the study is insensitive in the absence of IV contrast. There are pacemaker opaque material flow in the gallbladder lumen, possibly biliary sludge in the gallbladder is not distended. There is no intrahepatic or extrahepatic biliary duct dilatation. Pancreas is homogeneous and normal size unremarkable. The spleen is enlarged measuring 17 cm craniocaudad. There are no focal splenic lesions. There are small varices in the splenic hilus. The adrenals are unremarkable. The kidneys and abdominal aorta are unremarkable. Pelvis: The bladder is unremarkable. There is a large volume of ascites. The pelvic bowel loops are unremarkable. Impression: No significant interval change. Large volume of ascites. The findings in the liver are compatible with cirrhosis. Suspect there are small varices in the splenic hilus. No biliary duct dilatation. Signed by Asif Vargas MD 03/12/2017 09:29 A
[2017-03-12] MEDS: PHYTONADIONE 5 MG TAB PO SCH (11:23)
[2017-03-12 12:00] VITALS: BP 108/70
--- NOTE | 2017-03-12 14:24 | REP ---
MRCP: MRCP exam is accomplished utilizing multiple heavily T2-weighted sequences in the axial and coronal planes with MIP reconstruction images. Study is limited due to motion and significant ascites. Large amount of ascites is present. No gross filling defect is seen in the gallbladder. There is no evidence of intrahepatic or extrahepatic biliary dilatation. Common bile duct measures approximately 3 mm maximally. There is no definite evidence of choledocholithiasis. IMPRESSION: No evidence of biliary dilatation or choledocholithiasis. Gallbladder is mildly distended and grossly unremarkable. Large amount of ascites. Signed by Asif Georges MD 03/12/2017 04:51 P
--- NOTE | 2017-03-12 14:31 | IPN ---
DATE OF SERVICE: 03/11/2017 SUBJECTIVE: This is a 61-year-old male who was seen and examined at bedside. Overnight, no reported acute events. This morning, still feels tired, anxious to go home. Had one formed bowel movement last night. No chest pain, shortness of breath, palpitations, fevers, chills, nausea, vomiting, diarrhea, constipation. Reports worsening abdominal distention today compared to yesterday. OBJECTIVE: VITAL SIGNS: Blood pressure 135/76, heart rate 75, temperature 97.8, respiration rate 18, pulse oximetry 97% on room air. INTAKE AND OUTPUT: The last 24 hours: 1520 and 700. Weight is 89.7 kg, yesterday was 87.8 kg. HEENT: Normocephalic, atraumatic. Moist oral mucosa. NECK: Supple. Trachea midline. CHEST: Symmetric chest rise. No accessory muscle use. Breath sounds were diminished bilateral lung bases. HEART: Regular rate and rhythm with normal S1, S2. ABDOMEN: Is protuberant, distended, but not tender to palpation. No guarding. No rebound. EXTREMITIES: No pedal edema. Pedal pulses present bilaterally. SKIN: Jaundice with persistent ecchymotic changes. Right pretibial region with ulcer. No longer has purulent drainage. It is not tender to palpation. He has persistent scleral icterus. LABORATORY DATA: WBC 9, hemoglobin 10.4, hematocrit 31.5, platelets 76. Sodium 130, potassium 4.2, chloride 98, carbon dioxide 23, BUN 74, creatinine 1.74, glucose 141, calcium 7.4, total bilirubin is 8.6, direct bilirubin is 3.3, AST 63, ALT 40, alkaline phosphatase 136. Coagulation study today: PT 25.6, INR 2.35. IMPRESSION AND PLAN: Mr. Mosley is a 61-year-old male with past medical history of liver cirrhosis admitted for worsening ascites. 1. Ascites and possible spontaneous bacterial peritonitis (SBP). Currently on day #6 of meropenem. Because of his worsening ascites today, we have planned for repeat paracentesis but only with total of 6 liters removed. We have also ordered four vials albumin. Because of his elevated international normalized ratio (INR), fresh frozen plasma (FFP) was also given and will repeat INR level today prior to his paracentesis. 2. Acute kidney injury on chronic kidney disease. Renal function continues to be improving. Greatly appreciate Dr. Valdez's assistance. 3. Atrial fibrillation with rapid ventricular response. Continues to remain in sinus rhythm. He is on propranolol 10 mg by mouth twice a day. INR is supratherapeutic secondary to his cirrhotic liver. 4. Anemia. Hemoglobin has not changed today compared to yesterday. Will monitor for now. 5. Thrombocytopenia. Secondary to liver disease. 6. Hypoalbuminemia. Continue albumin supplementation with four vials ordered today. 7. History of Clostridium (C) difficile colitis. Continue Bacid. Monitor his symptoms closely due to his history in the past. 8. Hypertension and ascites. He is on home-dose Lasix 40 mg daily and spironolactone is decreased to 25 mg daily. 9. Deep venous thrombosis (DVT) prophylaxis. Sequential compression devices (SCDs), thromboembolitic deterrents (TEDs). No pharmacological interventions secondary to the patient already being supratherapeutic with his INR and per patient's request. Informed him that with cirrhotic liver, he is still high risk for hypercoagulable state; however, patient would like to discuss with [place] regarding anticoagulation. My preceptor for this patient encounter was Dr. Yesenia Cunningham. The preceptor was physically present in the building during the encounter and was fully available as needed. All aspects of the patient interview, examination, medical decision-making process, and medical care plan development were reviewed and approved by the preceptor. The preceptor is aware and concurs with the plan as stated in the body of this note and will attest to such by his/her co-signature. MARIANNE
[2017-03-12] MEDS: BACITRACIN OINT 30GM TOP SCH (15:30)
[2017-03-12 16:00] VITALS: BP 109/72
--- NOTE | 2017-03-12 17:15 | IPN ---
DATE: 03/12/2017 Mr. Mosley is seen this morning at his bedside. He underwent paracentesis yesterday and 6.5 liters of fluid was removed. He still has significant ascites. He denies any nausea or vomiting. He wants to go home as he does not like hospital food. He also has followup at a liver transplant clinic in [place] early next week. PHYSICAL EXAMINATION: Temperature 98 degrees Fahrenheit, heart rate 74 per minute and respiratory rate 18 per minute. Blood pressure 123/73 mmHg and oxygen saturation 98% on room air. His head is atraumatic. Pupils are equal and reactive to light and sclera is icteric. Ears, nose and throat are unremarkable. Neck is supple and without jugular venous distention (JVD) or thyroid enlargement. Heart sounds are regular and lungs clear to auscultation. Abdomen: Distended with ascites. Bowel sounds are present. Extremities: Have no cyanosis or clubbing. Skin has multiple ecchymotic areas on his upper extremity. His ulcer on the right leg is covered with a dressing. Neurologically, he is awake, alert and oriented x3. Today's labs show WBC count 7.9, hemoglobin 10.2 and hematocrit 29.9. Platelets 74,000. Sodium 130 and potassium 4.0. BUN 77 and creatinine 1.69. Calcium level 7.9. Total bilirubin is up to 9.5, direct bilirubin 3.8 and AST 52. Total protein 5.5 and albumin 2.1. Alkaline phosphatase is down to 116. PROBLEMS: 1. Acute renal failure superimposed on chronic kidney disease. Slight improvement in kidney function is noted. The patient had only about 6 liters of paracentesis done yesterday which was safe and he did not drop his blood pressure or had adverse effect on the kidney function. 2. Hyponatremia. This is mild and stable and related to his liver failure and chronic kidney disease. No intervention is indicated. He is only on low dose diuretics, which should be continued. 3. Cirrhosis of liver with recurrent ascites. The patient has worsening serum bilirubin level. His ascites has also been significantly decompensated. He just had a paracentesis yesterday and seems to have significant ascites again today. He is likely to require further paracentesis. His prognosis probably is gradually worsening. I would suggest to use IV albumin in case of any aggressive paracentesis procedures. 4. Anemia. His anemia is stable at present and no intervention is indicated. 5. Thrombocytopenia. This is stable and unchanged. MTDD
[2017-03-12 19:51] VITALS: BP 119/81
--- NOTE | 2017-03-12 20:18 | IPN ---
DATE: 03/12/2017 TIME OF VISIT: 08:30 a.m. SUBJECTIVE: This is a 61-year-old male who has been examined at bedside. Overnight underwent paracentesis with a little over 6 liters removed. He reported relief of abdominal distention after paracentesis was performed. Still feels tired and anxious to go home. He has an appointment with [facility] in March and remains optimistic that they will be able to put him on the transplant list and help with his advanced liver disease. Otherwise, denies any chest pain, shortness of breath, palpitations, fevers, chills, nausea, vomiting, diarrhea, constipation. His right leg is also improving significantly. OBJECTIVE: VITAL SIGNS: Blood pressure 107/74, heart rate 76, temperature 96.0, respiration rate 24, pulse oximetry 98% on room air. INTAKE AND OUTPUT: The last 24 hours is 1280 and 6925. Had 6.25 liters from paracentesis. GENERAL: Patient is lying in bed, is comfortable. In no acute distress. Alert , awake, oriented times three. Pleasant, cooperative. Chronically ill-appearing. at bedside. HEENT: Normocephalic, atraumatic. Moist oral mucosa. Good dentition. NECK: Supple. Trachea midline. No jugular venous distention (JVD). CHEST: Symmetric chest rise. No accessory muscle use. Breath sounds were diminished bilateral lung bases. CARDIOVASCULAR: Regular rate and rhythm with normal S1, S2. ABDOMEN: Protuberant, distended, but nontender to palpation. No guarding. No rebound. EXTREMITIES: No pedal edema. Pedal pulses present bilaterally. SKIN: With chronic ecchymotic changes and is jaundiced. His right tibial region is significantly improved compared to prior visits. LABORATORY DATA: WBC 7.9, hemoglobin 10.2, hematocrit 29.9, platelets 74. Sodium 130, potassium 4, chloride 99, carbon dioxide 23, BUN 77, creatinine 1.69 , glucose 151, calcium 7.9. Total bilirubin 9.5, direct bilirubin 3.8, AST 52, ALT 35, alkaline phosphatase 116, total protein 5.5. PT 24.6, INR 2.21. Wound culture shows Stenotrophomonas, which is sensitive to Levaquin and Bactrim. CT abdomen and pelvis performed this morning showed no significant interval change, large volume of ascites. Findings of liver are compatible with cirrhosis. There are small varices in the splenic hilus. No biliary ductal dilatation. IMPRESSION AND PLAN: Mr. Mosley is a pleasant 61-year-old male with past medical history of liver cirrhosis, admitted for worsening ascites. 1. Sepsis on admission in the setting of possible SBP. He is on day seven of meropenem. He underwent repeat paracentesis last night with 6.2 liters removed. He tolerated that well. Because of his INR being elevated, he did require fresh frozen plasma yesterday. Unfortunately, his abnormal CT continues to show ascites along with his physical examination, we will attempt for a repeat paracentesis tomorrow, as he is not likely to have this done over the weekend. Vitamin K level was also ordered daily to help with his INR for pending paracentesis. In terms of his SBP, patient will be undergoing paracentesis again tomorrow and cell count will be checked. If polymorphonuclear leukocytes (PMN) is less than 250, then we will consider discontinuation of antibiotic course. 2. Elevated bilirubin. Etiology unclear. Could be secondary to advanced liver disease and/or obstruction. We have ordered an magnetic resonance cholangiopancreatography (MRCP). To further evaluate. We have also reached out to Dr. Hernandez for assistance, who is familiar with the patient on an outpatient basis. Per Dr. Hernandez, it is likely that his elevated level is secondary to his underlying liver condition and no ideal treatment can be offered to the patient at this time, as he is already seeing a train attendant at [facility]. However, Dr. Hernandez has agreed to see the patient. 3. Acute kidney injury on chronic kidney disease. His renal function continues to be stable in the last two days. No intervention needed at this time. I greatly appreciate Dr. Valdez's assistance. 4. Atrial fibrillation with rapid ventricular response. He fortunately has remained in sinus rhythm. He is on home dose propranolol 10 mg by mouth twice a day. INR is remains elevated secondary to his advanced liver disease. 5. Anemia. Hemoglobin and hematocrit are stable. Continue to monitor for now. 6. Thrombocytopenia. Platelet level has remained steady. No intervention needed. 7. Hypoalbuminemia. Continue albumin supplementation whenever he undergoes paracentesis. 8. Elevated INR. Secondary to liver disease. 9. History of Clostridium (C) difficile colitis. Asymptomatic for infection. Continue to monitor. 10. Right foot ulcer. His culture came back sensitive to Levaquin and Bactrim. 11. Hyponatremia. Level is unchanged compared to yesterday. This is likely secondary to cirrhosis. We will monitor for now. 12. Deep venous thrombosis (DVT) prophylaxis. Sequential compression devices (SCDs), thromboembolitic deterrents (TEDs). No pharmacological interventions secondary to elevated INR. Spoke with Dr. Valdez, Dr. Hernandez and . Patient and are aware of his advanced disease and prognosis. My preceptor for this patient encounter was Dr. Yesenia Cunningham. The preceptor was physically present in the building during the encounter and was fully available as needed. All aspects of the patient interview, examination, medical decision making process, and medical care plan development were reviewed and approved by the preceptor. The preceptor is aware and concurs with the plan as stated in the body of this note and will attest to such by his/her co-signature. MARIANNE
--- NOTE | 2017-03-12 21:40 | REP ---
ULTRASOUND-GUIDED PARACENTESIS: The procedure was performed under the direct supervision of Dr. Georges. The risks and benefits of the procedure were explained to the patient and informed consent was obtained. The largest pocket of fluid was localized in the right flank using ultrasound guidance. The skin was prepped and draped in a sterile fashion. 1% Lidocaine was used as a local anesthetic. An #8-Albanian bbwpr-tcke-aqub catheter was inserted using trocar technique. 6250 mL of red-colored fluid was withdrawn with a sample sent to the lab for analysis. The patient tolerated the procedure well and there were no immediate complications. Reviewed by DIPTI Franco 03/13/2017 05:29 PEdited and Signed by Asif Georges MD 03/16/2017 05:33 P
--- NOTE | 2017-03-12 23:23 | CR ---
DATE OF CONSULTATION: 03/12/2017 I saw this patient inpatient. REQUESTING PHYSICIAN: Hospitalist service. REASON FOR CONSULTATION: Liver disease and ascites. HISTORY OF PRESENT ILLNESS: Mr. Mosley is a patient well known to me with a history of alcoholic cirrhosis with extensive ascites who has been abstinent from alcohol who presents with progressive worsening of shortness of breath, weakness , and sudden increase in ascites. He has been admitted and has had large-volume paracentesis performed. His lab work continues to slightly worsen over the past several days. He requires frequent abdominal paracentesis. PAST MEDICAL HISTORY: 1. 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 2. Ascites. 3. Portal hypertension. MEDICATIONS AT HOME: - ranitidine - Xifaxan - furosemide 40 mg daily - spironolactone 50 mg daily - midodrine 5 mg twice a day - pentoxifylline ALLERGIES: ASPIRIN and OMEPRAZOLE. FAMILY HISTORY: Noncontributory. SOCIAL HISTORY: Negative for tobacco. Quit alcohol completely and reliably on 10/18/2016. PHYSICAL EXAMINATION: Temperature 98.2, pulse 75, respiratory 28, blood pressure is 119/81, pulse oximetry 95% on room air. GENERAL: He is awake, alert, and oriented times three in no acute distress. He is comfortably in bed. He appears somewhat fatigued but not toxic in appearance. He is more markedly jaundiced. HEAD, EYES, EARS, NOSE AND THROAT: Grossly without abnormality except for scleral icterus. NECK: Negative for lymphadenopathy, thyromegaly. CHEST: Clear bilaterally. HEART: Regular rate and rhythm, S1, S2. No murmurs or gallops. ABDOMEN: Soft, full, positive shifting dullness. He is not tender. No masses are palpable. EXTREMITIES: 1+ pedal edema. Pulses are palpable. LABORATORY WORK: Total bilirubin 4.6/6.3/8.6/9.5, AST is 52, ALT 35, alkaline phosphatase 116, albumin 2.1. BUN 77, creatinine 1.69. PT/INR 2.21. Hemoglobin 10.2, hematocrit 29.9, platelet count is 74. Ascites fluid on 03/05/2017 showing total nucleated cells of 4827 with neutrophils being 63%. Repeat after antibiotic start for spontaneous bacterial peritonitis (SBP) done on 03/11/2017: Total nucleated blood cells 357 with 66% neutrophils. Noncontrast CT abdomen and pelvis 03/12/2017 shows large-volume ascites, liver cirrhosis, small varices in the splenic hilus. No biliary ductal dilatation. Magnetic resonance cholangiopancreatography (MRCP) dated 03/12/2017. Impression : No evidence of biliary dilation or choledocholithiasis. The gallbladder is mildly distended but grossly unremarkable. Large volume of ascites. IMPRESSION 1. Decompensated cirrhosis of the liver with large ascites. 2. Thrombocytopenia. 3. Coagulopathy. 4. Presently with model for end-stage liver disease (MELD) score of 29. 5. possible SBP RECOMMENDATIONS: 1. Continue present management with supportive care and continued antibiotics for probable SBP, although formal culture of ascites did not grow any organism. 2. Repeat paracentesis fluid should be sent for white count once again to confirm decreasing nucleated cell count and appropriate treatment of SBP. 3. Will check an ultrasound of portal vessels to rule out portal vein thrombosis. MTDD
[2017-03-12 23:59] VITALS: BP 122/75
[2017-03-13] VITALS (7 sets, daily range): BP systolic 106–133; BP diastolic 69–85
[2017-03-13] MEDS: SLF 3 ML SYR IV SCH ×2 (03:40→13:31)
[2017-03-13] MEDS: MEROPENEM INJ 1 GM in D5W MINI-BAG PLUS 100 ML IV SCH ×2 (03:40→16:49)
[2017-03-13] MEDS: MIDODRINE 5 MG TAB PO SCH ×2 (06:08→16:49)
[2017-03-13 06:20] LABS: INR 1.9; WHITE BLOOD COUNT 9.6 K/mm3 (4.0-10.0)
[2017-03-13 06:32] LABS: ALBUMIN 2.2 GM/DL (3.2-5.2); ALBUMIN/GLOBULIN RATIO 0.55 (1.00-1.93); BILIRUBIN,TOTAL 8.9 MG/DL (0.2-1.0); CALCIUM LEVEL 8.5 MG/DL (8.8-10.2); CREATININE FOR GFR 1.83 MG/DL (0.70-1.30); GLOMERULAR FILTRATION RATE 40.3 (>49); TOTAL PROTEIN 6.2 GM/DL (6.4-8.2)
[2017-03-13 06:38] LABS: MEAN CORPUSCULAR HEMOGLOBIN 36.8 pg (27.0-33.0); MEAN CORPUSCULAR VOLUME 107.5 fl (80.0-96.0)
[2017-03-13 06:39] LABS: MEAN CORPUSCULAR HGB CONC 34.3 g/dl (32.0-36.5); RED CELL DISTRIBUTION WIDTH 15.8 % (11.5-14.5)
[2017-03-13] MEDS: LACTOBACILLUS ACIDOPHILUS CAP (BACID) PO SCH (09:00)
[2017-03-13] MEDS: FAMOTIDINE 20 MG TAB PO SCH (09:00)
[2017-03-13] MEDS: rifAXIMin 550 MG TAB (XIFAXAN) PO SCH (09:18)
[2017-03-13] MEDS: PHYTONADIONE 5 MG TAB PO SCH (09:18)
[2017-03-13] MEDS: PROPRANOLOL 10 MG TAB PO SCH (09:18)
[2017-03-13] MEDS: SPIRONOLACTONE 25 MG TAB PO SCH (09:18)
[2017-03-13] MEDS: FUROSEMIDE 40 MG TAB PO SCH (09:18)
[2017-03-13] MEDS: BACITRACIN OINT 30GM TOP SCH (09:19)
[2017-03-13] MEDS ORDERED: LIDOCAINE 1% MDV 20ML VIAL As Ordered ONE (13:46)
--- NOTE | 2017-03-13 17:07 | REP ---
ULTRASOUND ABDOMEN WITH DUPLEX DOPPLER EVALUATION OF PORTAL VASCULATURE: Real-time ultrasound evaluation of the abdomen is performed. Gallbladder demonstrates diffusely thickened wall up to 9 mm. Gallbladder is contracted with no definite stones. There is diffuse ascites in the abdomen. There is no intrahepatic or extrahepatic biliary dilation, common bile duct measuring 5 mm in diameter. The liver is psoriatic with diffusely heterogenous echotexture and a nodular contour. No gross mass is seen sonographically. There is no gross abnormality of the visualized pancreas. Body and tail of the pancreas is not optimally seen due to overlying bowel gas. Spleen is enlarged measuring 15.0 x 9.6 x 16.0 cm. Splenic index is 2304. Kidneys are essentially normal in size and echotexture, right kidney measuring 12.3 x 6.5 x 5.1 cm and left kidney 14.0 x 5.6 x 5.7 cm. There is no renal mass, hydronephrosis or nephrolithiasis. Abdominal aorta is not dilated, maximum AP diameter just below the diaphragm is 3.2 cm, at the level of the renal artery is 2.2 cm and at the bifurcation 1.7 cm. Real-time ultrasound evaluation and duplex Doppler interrogation of the portal vasculature is performed. The main portal vein is mildly dilated at 14 mm. Flow is seen in the splenic vein in region of the splenic hilum and is of normal direction. The more central splenic vein could not be visualized, nor could the superior mesenteric vein. The main portal vein demonstrates internal flow with no thrombus. Velocity is 24.3 cm/s. There is no evidence of portal vein thrombosis. The intrahepatic portal veins demonstrates somewhat elevated velocities up to 55.7 cm/s. There is normal direction of flow in the portal veins. Peal systolic velocity in the main hepatic artery is 72 cm/s. IMPRESSION: Significant abdominal ascites. Gallbladder wall thickening likely secondary to ascites. No biliary dilatation. There are findings of cirrhosis of the liver and splenomegaly. No evidence of portal vein thrombosis. Normal direction of flow in the portal veins. Signed by Asif Georges MD 03/16/2017 05:39 P
--- NOTE | 2017-03-13 17:29 | REP ---
ULTRASOUND GUIDED PARACENTESIS: The procedure was performed under the direct supervision of Dr. Georges. The risks and benefits of the procedure were explained to the patient and informed consent was obtained. The largest pocket of fluid was localized in the right flank using ultrasound guidance. The skin was prepped and draped in a sterile fashion. 1% Lidocaine was used as a local anesthetic. An 8-Macedonian xaady-twna-raam catheter was inserted using trocar technique. 5800 mL of dark chivo fluid was withdrawn and discarded. The patient tolerated the procedure well and there were no immediate complications. Reviewed by DIPTI Franco 03/13/2017 05:42 PEdited and Signed by Asif Georges MD 03/16/2017 05:37 P
[2017-03-13] MEDS ORDERED: PHYT5TA PO (18:31)
[2017-03-13] MEDS ORDERED: BACI50OI TOP (18:31)
[2017-03-13] MEDS ORDERED: CIPR-250 PO (18:31)
[2017-03-13] MEDS ORDERED: BACITAB3 PO (18:31)
[2017-03-13] MEDS ORDERED: SPIR25TA2 PO (18:31)
--- NOTE | 2017-03-14 15:05 | DSES ---
DATE OF ADMISSION: 03/05/2017 DATE OF DISCHARGE: 03/13/2017 PRIMARY CARE PROVIDER: John Martinez CONSULTATIONS: Dr. Valdez, nephrology, Dr. Hernandez, gastroenterology, interventional radiology. PROCEDURES: Paracentesis times three with a 23.8 liters of acetic fluid removed. DIAGNOSTIC TESTINGS: 1) CT chest on admission showed cardiomegaly, small pericardial effusion. 2) CT abdomen and pelvis reported large ascites, liver cirrhosis. Suspect small varices in the splenic hilus. 3) Magnetic resonance cholangiopancreatography (MRCP) showed no evidence of biliary ductal dilatation or choledocholithiasis. Gallbladder mildly distended but grossly unremarkable. Large amount of ascites. 4) Abdominal ultrasound showed gallbladder wall thickening secondary to ascites. Thick liver with splenomegaly. No evidence of portal vein thrombosis. Normal direction of flow in portal veins. 5) Echocardiogram showed normal left ventricular systolic function. Features of left ventricular diastolic dysfunction, grade 1 aortic valve sclerosis with trivial aortic stenosis. No regurgitation. Inferior vena cava mildly enlarged. Central venous pressure might be elevated. Trace pericardial effusion. No tamponade. DISCHARGE DIAGNOSES: 1. Sepsis secondary to spontaneous bacterial peritonitis. 2. Recurrent ascites. 3. Liver cirrhosis. Model for end-stage liver disease (MELD) score of 32 on admission. 4. Acute on chronic kidney disease. 5. Atrial fibrillation with rapid ventricular response. 6. Hypotension. 7. Hypoalbuminemia. 8. Elevated INR, reversed with 1 unit of FFP . 9. Anemia required 2 units of PRBCs. 10. Right leg cellulitis. 11. Hyponatremia. 12. Thrombocytopenia. SECONDARY ADMITTING DIAGNOSES: 1. Clostridium (C) difficile colitis. 2. History of alcoholism with last use September 2016. BRIEF HOSPITAL COURSE: Mr. Mosley is a pleasant 61-year-old male with past medical history as mentioned above who presented to the emergency department (ED ) on the day of admission complaining of worsening abdominal pain, distention, and chills. He reportedly was doing well up until 3-4 days prior to presentation. His last paracentesis prior to admission was 02/20/2017, and previously the plan was to get paracentesis every 2 weeks; however, because of his worsening symptoms, he presented to the emergency room (ER) for further evaluation. On admission, he was found to be hypotensive with systolic blood pressure lowest of 78/52. He also had elevated lactic acid level; highest was 7.7. He was treated for sepsis from spontaneous bacterial peritonitis and was started on Meropenem. Midodrine dose was also increased to help improve blood pressure. For his worsening ascites, he underwent paracentesis with over 23 liters of fluid removed. He initially had a nucleated cell count of 4800 but culture was negative for organisms. His acute renal failure was secondary to combination of septic state and also aggressive removal of ascites which improved with less excessive fluid removal. It was recommended by Dr. Valdez that his paracentesis be performed weekly but goal should be only 5-6 Liters to prevent hypotension and renal failure. His renal function slowly improved and did not require emergent dialysis. Hospital course was prolonged due to development of atrial fibrillation with rapid ventricular response (RVR) and required rate-controlling agents, including digoxin, metoprolol. Fortunately, his atrial fibrillation with RVR was very short lived, and for the remainder of his stay he remained in sinus rhythm with just Propanolol, home medication. With his cirrhosis, he is auto-anticoagulated; however, he is also still at risk for hypercoagulable state. We discussed need for possible anticoagulation from hypercoagulable from liver disease. However, he wished to see [facility] before further intervention. He was aware of increased risk of stroke with atrial fibrillation. For his anemia, he received a total of 2 units of packed red blood cells. He also received 1 unit of fresh frozen plasma (FFP) to reverse INR so paracentesis could be performed. He will be sent home with vitamin K until evaluation by [facility] so he can continue with his weekly therapeutic tap. His hyponatremia was believed to be secondary to liver cirrhosis and did not require an intervention. He was also evaluated by Dr. Hernandez from gastroenterology, and because of his spontaneous bacterial peritonitis (SBP) causing sepsis, it was recommended at the time of discharge that he be continued with prophylactic ciprofloxacin until further evaluation by [facility]. PHYSICAL EXAMINATION AT TIME OF DISCHARGE: VITAL SIGNS: Blood pressure 133/78, heart rate 68, temperature 97.3, respiratory rate 16, pulse oximetry 98% on room air. GENERAL: Patient is lying in bed comfortable. No acute distress. Alert, awake, oriented times three. Pleasant, cooperative, anxious to go home. HEENT: Normocephalic, atraumatic. Moist oral mucosa. Chronic icterus. NECK: Supple. Trachea midline. No jugular venous distention (JVD). CHEST: Symmetric chest rise. No accessory muscle use. Breath sounds were clear to auscultation bilaterally. HEART: Regular rate and rhythm with normal S1, S2. ABDOMEN: Soft. Significantly less distended now that he underwent a repeat paracentesis earlier today. No guarding. No rebound. No peritoneal sign. EXTREMITIES: No pedal edema. Pedal pulses present bilaterally. SKIN: With chronic ecchymotic changes throughout, and also he has chronic jaundice secondary to his cirrhosis. LABORATORY DATA: WBC 9.6, hemoglobin 11.5, hematocrit 33.4, platelets 107. Sodium 130, potassium 5, chloride 98, carbon dioxide 24, BUN 78, creatinine 1.83 , glucose 118, calcium 8.5. Total bilirubin 8.9, AST 63, ALT 36, alkaline phosphatase 149. PT 21.9, INR 1.9. DISPOSITION: Home. ACTIVITY: As tolerated. DIET: A 2-gram sodium diet with 1500 fluid mL. DISCHARGE MEDICATIONS: New medication: - bacitracin topical daily for 7 days - ciprofloxacin 250 mg by mouth daily - Bacid 1 tablet by mouth twice a day - vitamin K 2.5 mg by mouth daily - spironolactone 25 mg by mouth daily Continue the following home medications: - Lasix 40 mg by mouth daily - midodrine 5 mg by mouth twice a day - propranolol 10 mg by mouth twice a day - ranitidine one tablet by mouth twice a day - Xifaxan 550 mg by mouth twice a day Stop the following home medication until further evaluation by Aaron: - spironolactone 50 mg by mouth daily DISCHARGE INSTRUCTIONS: Patient is to followup with his primary care physician ( PCP) next week, [facility], on 03/16/2017. Followup with Dr. Pfeiffer's office next week and Dr. Hernandez's office in 2 weeks. He was instructed to return to the hospital if he has worsening recurrent symptoms, abnormal bleeding, diarrhea, or anything else concerning to patient and family. All this was explained to the patient and at the time of discharge and all questions answered. TIME SPENT: 55 minutes. My preceptor for this patient encounter was Dr. Yesenia Cunningham. The preceptor was physically present in the building during the encounter and was fully available as needed. All aspects of the patient interview, examination, medical decision making process, and medical care plan development were reviewed and approved by the preceptor. The preceptor is aware and concurs with the plan as stated in the body of this note and will attest to such by his/her co-signature. cc: John Hernandez [facility]
--- NOTE | 2017-03-14 15:05 | IPN ---
DATE: 03/13/2017 Mr. Mosley is seen this morning on his bedside. He is sitting in the chair. He is hoping to go home today. He denies any nausea or vomiting. He has no dyspnea or chest pain. However, his ascites is increasing. The patient has no fever or chills. PHYSICAL EXAMINATION: Temperature 98 degrees Fahrenheit, heart rate 70 per minute and respiratory rate 18 per minute. Blood pressure 120/85 mmHg and oxygen saturation 96%. Head is atraumatic. Neck is supple and without jugular venous distention (JVD) or thyroid enlargement. Pupils are equal, reactive to light and sclera anicteric. Neck veins are not abnormally distended. Heart: Sounds are regular and lungs slightly diminished breath sounds at bases. Abdomen is distended with ascites and bowel sounds are present. Extremities: Have no cyanosis or clubbing. Neurologically he is awake, alert and oriented times three. Today's labs show WBC count 9.6, hemoglobin 11.5 and hematocrit 33.4. Platelets 107. Sodium is 130 and potassium 5.0. BUN 78 and creatinine 1.83. Calcium level is 8.5 and total bilirubin is 8.9 today. Rest of his LFTs are unchanged. PROBLEMS: 1. Acute kidney injury superimposed on chronic kidney disease. Slight worsening of kidney function is noted since yesterday. This is most likely related to his paracentesis than negative fluid balance. At present we will continue to monitor. 2. Worsening ascites with cirrhosis of liver. The patient is likely to require another paracentesis today. I suggest to continue using IV albumin to prevent hypotension and intravascular hypovolemia. The patient is high risk for acute renal failure due to recurrent paracentesis. His overall prognosis remains guarded. 3. Hyponatremia, is mild and stable. No intervention indicated at this point. We will continue with chronic diuretics. 4. Disposition: From renal standpoint, the patient can be discharged to home when he is hemodynamically stable after paracentesis. He will follow up with Dr. Pfeiffer next week in the office for his kidney problems.
== END 2017-03-13 19:50 | disposition home or self-care (01) | DRG 720 ==
LOC: M ED 03-05 01:22 → M ED INP 03-05 04:07 → M PCU 03-05 05:14 → M ICU 03-05 14:32 → M PCU 03-07 14:19
PROVIDERS: ADMIT Internal Medicine; ATTEND Internal Medicine
PROC: 0W9G30Z Drainage of Peritoneal Cavity with Drainage Device, Percutaneous Approach (ICD-10-PCS; principal; 2017-03-05)
PROC: 30233J1 Transfusion of Nonautologous Serum Albumin into Peripheral Vein, Percutaneous Approach (ICD-10-PCS; 2017-03-05)
PROC: 30233N1 Transfusion of Nonautologous Red Blood Cells into Peripheral Vein, Percutaneous Approach (ICD-10-PCS; 2017-03-07)
PROC: 0W9G30Z Drainage of Peritoneal Cavity with Drainage Device, Percutaneous Approach (ICD-10-PCS; 2017-03-11)
PROC: 30233K1 Transfusion of Nonautologous Frozen Plasma into Peripheral Vein, Percutaneous Approach (ICD-10-PCS; 2017-03-11)
PROC: 0W9G30Z Drainage of Peritoneal Cavity with Drainage Device, Percutaneous Approach (ICD-10-PCS; 2017-03-13)
DX: A41.9 Sepsis, unspecified organism (principal); K76.7 Hepatorenal syndrome; D68.4 Acquired coagulation factor deficiency; N17.9 Acute kidney failure, unspecified; E87.2 Acidosis; K65.2 Spontaneous bacterial peritonitis; I95.89 Other hypotension; I31.3 Pericardial effusion (noninflammatory); K70.31 Alcoholic cirrhosis of liver with ascites; D69.6 Thrombocytopenia, unspecified; E87.1 Hypo-osmolality and hyponatremia; E88.09 Other disorders of plasma-protein metabolism, not elsewhere classified; I48.91 Unspecified atrial fibrillation; E87.5 Hyperkalemia; K72.90 Hepatic failure, unspecified without coma; L03.115 Cellulitis of right lower limb; N18.9 Chronic kidney disease, unspecified; D64.9 Anemia, unspecified; F10.21 Alcohol dependence, in remission; Z79.899 Other long term (current) drug therapy; Z88.6 Allergy status to analgesic agent; Z88.8 Allergy status to other drugs, medicaments and biological substances

== ENCOUNTER → 2017-03-19 | Outpatient (CLI) | payer BC ==
[~2017-03-19] MED LIST changes: +BACI50OI TOP; +BACITAB3 PO; +CIPR-250 PO; +CIPR250T3 PO; +PHYT5TA PO; +SPIR25TA2 PO; +VITA200T4 PO; +VITA400C2 PO
--- NOTE | 2017-03-19 18:22 | REP ---
ULTRASOUND GUIDED PARACENTESIS: The procedure was performed under the direct supervision of Dr. Georges. The risks and benefits of the procedure were explained to the patient and informed consent was obtained. The largest pocket of fluid was localized in the right flank using ultrasound guidance. The skin was prepped and draped in a sterile fashion. 1% Lidocaine was used as a local anesthetic. An 8-Tajik eembr-avcb-ieeb catheter was inserted using trocar technique. 3900 mL of red colored fluid was withdrawn and discarded. The patient tolerated the procedure well and there were no immediate complications. After the appropriate amount of monitored convalesce the patient was discharged from the department. Reviewed by DIPTI Franco 03/20/2017 08:30 AEdited and Signed by Asif Georges MD 03/20/2017 05:08 P
== END ==
LOC: M RADPRO 09:51
PROVIDERS: ATTEND Internal Medicine Nephrology
DX: R18.8 Other ascites (principal); K74.69 Other cirrhosis of liver; K76.6 Portal hypertension; N18.2 Chronic kidney disease, stage 2 (mild); F10.21 Alcohol dependence, in remission; Z88.8 Allergy status to other drugs, medicaments and biological substances
CPT/HCPCS: 49083; 96365; P9047

== ENCOUNTER 2017-03-23 09:56 | Inpatient (IN) | payer BC ==
[~2017-03-23] VITALS: Ht 180.3 cm; Wt 79.4 kg
[~2017-03-23 09:56] MED LIST changes: -CIPR250T3 PO; -VITA200T4 PO; -VITA400C2 PO
[2017-03-23] MEDS ORDERED: VITA200T4 PO (10:05)
[2017-03-23 11:41] LABS: BASO % 0.3 % (0.0-1.0); EOS # 0.2 K/mm3 (0.0-0.50); EOS % 2.5 % (0.0-3.0); LARGE UNSTAINED CELL # 0.1 K/mm3 (0.0-0.4); LARGE UNSTAINED CELL % 0.8 % (0.0-4.0); LYMPH # 0.7 K/mm3 (1.5-4.5); LYMPH % 8.4 % (24.0-44.0); MEAN CORPUSCULAR HEMOGLOBIN 34.7 pg (27.0-33.0); MEAN CORPUSCULAR HGB CONC 33.9 g/dl (32.0-36.5); MEAN CORPUSCULAR VOLUME 102.3 fl (80.0-96.0); MONO # 0.7 K/mm3 (0.0-0.8); MONO % 9.7 % (0.0-5.0); NEUTROPHILS # 5.6 K/mm3 (1.8-7.7); NEUTROPHILS % 78.2 % (36.0-66.0); PLATELET COUNT, AUTOMATED 102 k/mm3 (150-450); RED CELL DISTRIBUTION WIDTH 16.2 % (11.5-14.5); WHITE BLOOD COUNT 7.1 K/mm3 (4.0-10.0)
[2017-03-23 12:01] LABS: ALBUMIN 2.3 GM/DL (3.2-5.2); ALBUMIN/GLOBULIN RATIO 0.58 (1.00-1.93); BILIRUBIN,DIRECT 2.4 MG/DL (0.0-0.2); BILIRUBIN,TOTAL 5.4 MG/DL (0.2-1.0); CALCIUM LEVEL 8.2 MG/DL (8.8-10.2); GLOMERULAR FILTRATION RATE 22.8 (>49); POTASSIUM SERUM 4.4 MEQ/L (3.5-5.1); TOTAL PROTEIN 6.3 GM/DL (6.4-8.2)
[2017-03-23] MEDS ORDERED: SPIR25TA2 PO (12:04)
[2017-03-23] MEDS ORDERED: VITA400C2 PO (12:04)
[2017-03-23] MEDS ORDERED: BACITAB3 PO (12:04)
[2017-03-23] MEDS ORDERED: CIPR250T3 PO (12:04)
[2017-03-23] MEDS ORDERED: ONDANSETRON 4MG/2ML VIAL (J2405) IV PRN (13:30)
--- NOTE | 2017-03-23 13:43 | ECGEPIP ---
Stationary ECG Study [facility] - ED Test Date: 2017-03-23 Pat Name: MARY MCPHERSON Department: Room: - Gender: [employer] Coordinator: rn : 1955 Requested By: GABE Mendoza Order Number: [id number] Reading MD: Mike Betts Measurements Intervals [place] Rate: 61 P: [place]: 0 QRS: -1 QRSD: 96 T: -1 QT: 431 QTc: 434 Interpretive Statements SINUS RHYTHM INFERIOR MYOCARDIAL INFARCTION, PROBABLY OLD NSTTW ABNORMALITIES SIMILAR TO 03/08/17 Electronically Signed On 03-23-2017 13:42:43 EDT by Mike Betts
--- NOTE | 2017-03-23 14:02 | HPEPDOC ---
Medical History and Physical Date of Admission March 23, 2017 at 13:24 History and Physical PRIMARY CARE PROVIDER: ATTENDING: Marcus Hall MD CHIEF COMPLAINT: Told his renal function is worse HISTORY OF PRESENT ILLNESS: This is a 61-year-old male with past history of alcohol abuse leading to decompensated cirrhosis with multiple paracentesis, acute renal failure, and recent hospitalization for possible SBP and he compensated cirrhosis presents stating that his assistant store manager operations told him his kidney function has worsened. Patient has denied chest pain/shortness of breath/palpitations. No nausea/ vomiting/abdominal pain. Patient has not noticed increasing weight gain out of the ordinary. Recent paracentesis on with 3700 mL. The patient states his abdomen is nontender. No fevers or chills. No cough. No diarrhea. The patient's baseline creatinine appeared to be 1.8 on his prior admission prior to discharge. It was noted to be greater than 3 when seen by his assistant store manager operations today, for which she was sent to the ED. PAST MEDICAL HISTORY: As per HPI PAST SURGICAL HISTORY: Multiple paracentesis SOCIAL HISTORY: Denies tobacco. H/o alcohol abuse. Lives with . FAMILY HISTORY: Non contributory ALLERGIES: Please see below. REVIEW OF SYSTEMS: HEENT: Denies sore throat/headache CARDIOVASCULAR: Denies chest pain/palpitations RESPIRATORY: No shortness of breath/cough GASTROINTESTINAL: denies nausea/vomiting GENITOURINARY: Denies dysuria/urinary urgency. MUSCULOSKELETAL: Denies myalgias/arthralgias NEUROLOGICAL: Denies any focal weakness Rest of ROS negative. HOME MEDICATIONS: Please see below. PHYSICAL EXAMINATION: Vitals: (see below) General: No acute distress, laying comfortably in bed. HEENT: Moist mucous membranes. Neck: No JVD or lymphadenopathy Cardiac: RRR, No murmurs Pulm: Diminished breath sounds at the bases bilaterally with crackles noted b/ l. No wheezing, rhonchi Abd: NT/ distended.+ BS Ext: No edema or cyanosis. Eccymosis from prior admission on chest, right arm, back, which patient states is improving. LABORATORY DATA: See below. IMAGING: MICROBIOLOGY: Please see below. ASSESSMENT/PLAN: 1. Decompensated cirrhosis- from alcoholic liver disease- Will need to f/u with [place]. Will give Albumin q8h. Schedule for repeat paracentesis with cell count/culture. On Midodrin. On Lasix and spironolactone. Meld score 30. Patient has a very poor prognosis and high mortality rate. 2. Acute kidney injury- likely secondary to decompensated cirrhosis. Baseline Cr. 1.8 from prior d/c. Now 3.0/ BUN 104. Started on Albumin q8h. Appreciate Dr. Valdez's input. 3. Atrial fibrillation - back in NSR. Refused anticoagulation. 4. Acute on chronic anemia- transfuse 2 units PRBC. No bleeding at this time. We 'll continue to monitor. 5. Chronic thrombocytopenia- from liver disease. No bleeding at this time 6. Chronic Hyponatremia 2/2 cirrhosis- stable. at baseline 9. History of C. difficile 10. History of adenomatous polyp.. DVT prophy - SCDs Pt will be followed by Dr. Janet Ye starting 03/24/17 at 7am. Vital Signs Vital Signs Date Time Temp Pulse Resp B/P (MAP) Pulse Ox O2 Delivery O2 Flow Rate FiO2 03/23/17 11:40 96.3 03/23/17 11:32 107/69 (82) 03/23/17 11:26 60 100 03/23/17 11:11 18 03/23/17 09:56 Room Air Laboratory Data Labs 24H Laboratory Tests 2 03/23/17 11:29: White Blood Count 7.1, Red Blood Count 2.56L, Hemoglobin 8.9L, Hematocrit 26.2L , Mean Corpuscular Volume 102.3H, Mean Corpuscular Hemoglobin 34.7H, Mean Corpuscular Hemoglobin Concent 33.9, Red Cell Distribution Width 16.2H, Platelet Count 102L, Neutrophils (%) (Auto) 78.2H, Lymphocytes (%) (Auto) 8.4L, Monocytes (%) (Auto) 9.7H, Eosinophils (%) (Auto) 2.5, Basophils (%) (Auto) 0.3 , Neutrophils # (Auto) 5.6, Lymphocytes # (Auto) 0.7L, Monocytes # (Auto) 0.7, Eosinophils # (Auto) 0.2, Basophils # (Auto) 0.0, Large Unclassified Cells % 0.8 , Large Unclassified Cells # 0.1, Anion Gap 10, Glomerular Filtration Rate 22.8L , Calcium Level 8.2L, Aspartate Amino Transf (AST/SGOT) 83H, Alanine Aminotransferase (ALT/SGPT) 47, Alkaline Phosphatase 186H, Total Bilirubin 5.4H , Direct Bilirubin 2.4H, Total Protein 6.3L, Albumin 2.3L, Albumin/Globulin Ratio 0.58L, Lipase 552H CBC/BMP Laboratory Tests 03/23/17 11:29 Red Blood Count 2.56 L, Mean Corpuscular Volume 102.3 H, Mean Corpuscular Hemoglobin 34.7 H, Mean Corpuscular Hemoglobin Concent 33.9, Red Cell Distribution Width 16.2 H, Neutrophils (%) (Auto) 78.2 H, Lymphocytes (%) (Auto ) 8.4 L, Monocytes (%) (Auto) 9.7 H, Eosinophils (%) (Auto) 2.5, Basophils (%) ( Auto) 0.3, Neutrophils # (Auto) 5.6, Lymphocytes # (Auto) 0.7 L, Monocytes # ( Auto) 0.7, Eosinophils # (Auto) 0.2, Basophils # (Auto) 0.0 Home Medications Scheduled Ciprofloxacin HCl (Ciprofloxacin HCl) 250 Mg Tab, 250 MG PO DAILY TAKES AT NOON Furosemide (Furosemide) 40 Mg Tab, 40 MG PO DAILY Lactobacillus Acidophilus (Bacid) 1 Tab Tab, 1 TAB PO DAILY TAKES AT NOON Midodrine HCl (Midodrine HCl) 5 Mg Tab, 5 MG PO BID Propranolol HCl (Propranolol HCl) 10 Mg Tab, 10 MG PO BID Ranitidine HCl (Ranitidine [address]) 150 Mg Tab, 1 TAB PO BID TAKES AT NOON AND BEDTIME Rifaximin (Xifaxan) 550 Mg Tab, 550 MG PO BID Spironolactone (Spironolactone) 25 Mg Tab, 25 MG PO DAILY Vitamin E (Vitamin E) 400 Unit Cap, 400 UNIT PO TID Allergies Coded Allergies: Aspirin (Verified Adverse Reaction, Mild, rectal bleeding, 03/04/17) Omeprazole (Verified Adverse Reaction, Mild, stomach pain, 03/04/17) MARCUS HALL MD March 23, 2017 14:02
[2017-03-23 14:30] VITALS: BP 112/78
[2017-03-23 14:34] LABS: VENOUS BASE EXCESS -7.4 (-2.0-2.0); VENOUS O2 SATURATION 79.2 % (60.0-80.0); VENOUS PARTIAL PRESSURE CO2 45.4 mmHg (38.0-50.0); VENOUS PARTIAL PRESSURE O2 53.2 mmHg (30.0-50.0); VENOUS STANDARD HCO3 18.1 MEQ/L; VENOUS TOTAL CO2 20.9 MEQ/L (24.0-28.0)
[2017-03-23] MEDS ORDERED: SLF 3 ML SYR IV PRN (15:45)
[2017-03-23 17:03] VITALS: BP 100/60
[2017-03-23 17:38] LABS: TOTAL PROTEIN, BODY FLUID 0.8 G/DL (NOT ESTABLISHED)
[2017-03-23 18:29] LABS: RBC ASCITES FLUID 11 (<10mm3 cells/uL); TNC ASCITES FLUID 150 cells/uL (0-20)
[2017-03-23 18:30] LABS: BF DIFF IF INDICATED? YES (NO)
[2017-03-23 18:46] LABS: CC BF DIFF EXAM CYTOCENTRIFUGE
[2017-03-23 19:57] VITALS: BP 102/54
[2017-03-23] MEDS: SLF 3 ML SYR IV SCH (21:00)
[2017-03-23 22:10] VITALS: BP 99/61
[2017-03-23 23:07] VITALS: BP 103/57
[2017-03-24] VITALS (8 sets, daily range): BP systolic 100–125; BP diastolic 60–69
[2017-03-24 05:52] LABS: MEAN CORPUSCULAR HEMOGLOBIN 34.3 pg (27.0-33.0); MEAN CORPUSCULAR HGB CONC 32.9 g/dl (32.0-36.5); MEAN CORPUSCULAR VOLUME 104.1 fl (80.0-96.0); RED CELL DISTRIBUTION WIDTH 15.6 % (11.5-14.5); WHITE BLOOD COUNT 7.5 K/mm3 (4.0-10.0)
[2017-03-24 05:59] LABS: CALCIUM LEVEL 7.5 MG/DL (8.8-10.2); CREATININE FOR GFR 2.67 MG/DL (0.70-1.30); MAGNESIUM LEVEL 2.2 MG/DL (1.8-2.4); POTASSIUM SERUM 3.9 MEQ/L (3.5-5.1)
[2017-03-24] MEDS: SLF 3 ML SYR IV SCH ×3 (06:29→22:54)
--- NOTE | 2017-03-24 07:54 | REP ---
ULTRASOUND GUIDED PARACENTESIS: The procedure was performed under the direct supervision of Dr. Georges. The risks and benefits of the procedure were explained to the patient and informed consent was obtained. The largest pocket of fluid was localized in the right flank using ultrasound guidance. The skin was prepped and draped in a sterile fashion. 1% lidocaine was used as a local anesthetic. Using ultrasound guidance, an #8-Congolese [id number]-[id number] catheter was inserted using trocar technique. 4150 mL of low viscosity red colored fluid was withdrawn and sent to the laboratory for analysis. The patient tolerated the procedure well and there were no immediate complications. Reviewed by DIPTI Franco 03/24/2017 08:00 AEdited and Signed by Asif Georges MD 03/24/2017 03:57 P
[2017-03-24] MEDS: PROPRANOLOL 10 MG TAB PO SCH ×2 (09:00→21:00)
[2017-03-24] MEDS: MIDODRINE 5 MG TAB PO SCH ×2 (09:23→15:12)
[2017-03-24] MEDS: VITAMIN E 400 INTERNATIONAL UNITS CAP PO SCH ×3 (09:24→22:53)
[2017-03-24] MEDS: FAMOTIDINE 20 MG TAB PO SCH ×2 (09:24→22:53)
[2017-03-24] MEDS: CIPROFLOXACIN 250 MG TAB PO SCH (09:24)
[2017-03-24] MEDS: LACTOBACILLUS ACIDOPHILUS CAP (BACID) PO SCH (09:24)
[2017-03-24] MEDS: rifAXIMin 550 MG TAB (XIFAXAN) PO SCH ×2 (09:25→22:53)
--- NOTE | 2017-03-24 15:32 | IPNPDOC ---
Text Note Date of Service The patient was seen on 03/24/17. NOTE Subjective: Patient is a 61 year old male with a PMHx of Cirrhosis 2/2 alcohol abuse (with complications of ascites, SBP, acute renal failure and encephalopathy) who presented to the ER at the direction of his personal fitness manager with worsening renal function. Patient was admitted for likely hepatorenal syndrome. Patient was seen and examined at the beside. Has not had any complaints this morning. Objective: Vitals (See below) General: Lying in bed, no acute distress, comfortable, AAOx3 HEENT: NC, AT CVS: RRR, +S1S2 Lungs: Fair air entry b/l, no appreciable crackles Abdomen: Soft, ND, Mild distension, +BSx4 Extremities: +PPx4, - Edema, - Calf tenderness Assessment and plan: 1. Ascites - 2/2 Decompensated cirrhosis - Presented with weight gain and abdominal distension - Physical with mild abdominal distention - s/p Paracentesis (4150 cc output) - Fluid consistent with cirrhosis (SAAG >1.1), no evidence of infection, will f/ u cultures - c/w Propranolol, Midodrine, Rifaximin, Lactobacillus and Ciprofloxacin (SBP prophylaxis) 2. Acute kidney injury - likely 2/2 hepatorenal syndrome - Cr baseline of 0.8 - Presented with Cr of 3.0, has improved to 2.67 - c/w Albumin 25% [id number] and Midodrine - Nephrology is following - appreciate their input 3. A. fib - currently in NSR - c/w rate control with propranolol - not on full anticoagulation 4. Chronic Anemia - Hg baseline of 10 - Hg remains stable over last 2 days - Will continue to monitor 5. Chronic thrombocytopenia - Platelet count remains low - Will continue to follow 6. Chronic hyponatremia - likely 2/2 cirrhosis - will follow 7. Hx of C. difficile 8. Hx of adenomatous polyp 9. GI prophylaxis - c/w famotidine 10. DVT prophylaxis - c/w SCDs VS,Fishbone, I+O VS, Fishbone, I+O Laboratory Tests 03/24/17 04:59 Red Blood Count 2.53 L, Mean Corpuscular Volume 104.1 H, Mean Corpuscular Hemoglobin 34.3 H, Mean Corpuscular Hemoglobin Concent 32.9, Red Cell Distribution Width 15.6 H, Calcium Level 7.5 L Vital Signs Date Time Temp Pulse Resp B/P (MAP) Pulse Ox O2 Delivery O2 Flow Rate FiO2 03/24/17 12:00 97.9 91 20 107/63 (78) 100 Room Air I&O- Last 24 Hours up to 6 AM 03/24/17 06:00 Intake Total 540 ml Output Total 5050 ml Balance -4510 ml NIK SANTOYO MD March 24, 2017 15:32
[2017-03-25] VITALS (10 sets, daily range): BP systolic 105–136; BP diastolic 65–84
[2017-03-25 05:53] LABS: CALCIUM LEVEL 7.4 MG/DL (8.8-10.2); CREATININE FOR GFR 2.5 MG/DL (0.70-1.30); GLOMERULAR FILTRATION RATE 28.1 (>49); MAGNESIUM LEVEL 2.3 MG/DL (1.8-2.4); POTASSIUM SERUM 3.9 MEQ/L (3.5-5.1)
[2017-03-25 05:56] LABS: MEAN CORPUSCULAR HEMOGLOBIN 35.2 pg (27.0-33.0); MEAN CORPUSCULAR HGB CONC 34.4 g/dl (32.0-36.5); MEAN CORPUSCULAR VOLUME 102.3 fl (80.0-96.0); RED CELL DISTRIBUTION WIDTH 16.1 % (11.5-14.5); WHITE BLOOD COUNT 6.6 K/mm3 (4.0-10.0)
[2017-03-25] MEDS: SLF 3 ML SYR IV SCH ×3 (06:34→22:49)
[2017-03-25] MEDS: CIPROFLOXACIN 250 MG TAB PO SCH (06:34)
[2017-03-25] MEDS: PROPRANOLOL 10 MG TAB PO SCH ×2 (09:00→21:00)
[2017-03-25] MEDS: rifAXIMin 550 MG TAB (XIFAXAN) PO SCH ×2 (09:11→22:48)
[2017-03-25] MEDS: LACTOBACILLUS ACIDOPHILUS CAP (BACID) PO SCH (09:11)
[2017-03-25] MEDS: VITAMIN E 400 INTERNATIONAL UNITS CAP PO SCH ×3 (09:11→22:48)
[2017-03-25] MEDS: MIDODRINE 5 MG TAB PO SCH ×2 (09:11→17:01)
[2017-03-25] MEDS: FAMOTIDINE 20 MG TAB PO SCH ×2 (09:11→22:49)
--- NOTE | 2017-03-25 10:46 | CR ---
DATE OF CONSULTATION: 03/24/2017 REASON FOR CONSULTATION: Acute renal failure superimposed on chronic kidney disease in this gentleman with known history of hepatorenal syndrome. HISTORY OF PRESENT ILLNESS: Mr. Mosley is a 61-year-old gentleman who is known to our service from prior hospitalizations and office followup. He has known history of alcoholic cirrhosis with recurrent ascites. He was recently discharged from [facility]. He was seen in the office for followup and was noticed to have worsening kidney function with creatinine up to 3.0. He was sent to emergency room by his primary linen controller. Apparently the patient had a paracentesis done just on with 3700 fluid removal. PAST MEDICAL AND SURGICAL HISTORY: Significant for: 1. Alcoholic cirrhosis with recurrent ascites. 2. Stage III of chronic kidney disease at baseline. 3. History of hepatorenal syndrome with recurrent acute renal failure. 4. History of anemia requiring transfusions. 5. History of thrombocytopenia. 6. History of chronic hypotension. MEDICATIONS: His home medications include: - furosemide 40 mg daily - midodrine 5 mg twice daily - propranolol 10 mg twice daily - Zantac 150 mg twice daily - Xifaxan 550 mg twice a day - spironolactone 25 mg daily ALLERGIES: The patient has allergy to ASPIRIN and OMEPRAZOLE. FAMILY HISTORY: Negative for hepatic failure and end-stage renal disease. PERSONAL AND SOCIAL HISTORY: The patient does have history of alcohol use in the past. However, he has been alcohol free for almost 6 months. He denies any smoking or drug use. The patient is and lives with his . REVIEW OF SYSTEMS: Denies any fever or chills. He feels generally weak. However, is at about baseline. Ears, nose and throat are unremarkable. Cardiovascular system negative for dyspnea or chest pain. Respiratory system is negative for cough or hemoptysis. GI system is as per history of present illness. He has recurrent ascites and requires weekly paracentesis. He denies any nausea, vomiting, black colored stools or blood in the stools. system is negative for dysuria or hematuria. Musculoskeletal system is negative for leg edema. Endocrine system is negative for diabetes or thyroid problems. Hematological system is significant for chronic anemia and thrombocytopenia. Skin is significant for multiple ecchymosis all over his body. Neurological system is negative for seizures or altered mentation. PHYSICAL EXAMINATION: The patient is awake and alert at the time of my visit this morning. His temperature is 97.8 degrees Fahrenheit, heart rate 96 per minute and respiratory rate 20 per minute. Blood pressure 100/60 mmHg and oxygen saturation 100% on room air. Head: Is atraumatic. Ears, nose and throat are unremarkable. Pupils are equal and reactive to light and sclera is icteric. Neck is supple and JVD is only mild. There is no thyroid enlargement and no abnormal cervical lymph nodes. Heart: Sounds are regular and tachycardiac. Lungs: Clear to auscultation. Abdomen is distended with ascites. Bowel sounds are present. There is no tenderness at present. Extremities: Have no cyanosis or clubbing. Skin has multiple areas of ecchymosis all over his limbs and upper chest and neck. Neurologically he is awake, alert and oriented times three. LABORATORY DATA: His WBC count was 7.1, hemoglobin 8.9 and hematocrit 26.2. Platelets 102,000. Sodium 130 and potassium 4.4. BUN 104 and creatinine 3.0. Lactic acid 2.6 and calcium 8.2. AST 83, ALT 47, alkaline phosphatase 186, total protein 6.3 and albumin 2.3. Blood gas showed a pH of 7.25, pCO2 45.4, pO2 53.2 and bicarb 18. This was a venous blood gas. Urinalysis showed pH 5.0, no protein and no blood. His ascitic fluid was also analyzed and showed only 150 nucleated cells with 28% neutrophils and 27% lymphocytes. There were 45% monocytes or macrophages. Fluid total protein was 0.83 and albumin 0.3. PROBLEMS: 1. Acute renal failure superimposed on chronic kidney disease. Most likely related to decompensated cirrhosis and hepatorenal syndrome. I discussed the care plan with Dr. Hall at the time of admission. I recommend to continue with IV albumin every 8 hours and monitor his renal function closely. He most likely had worsening hepatorenal syndrome after paracentesis. 2. Cirrhosis of liver with recurrent ascites. The patient requires weekly paracentesis. I recommend to give him IV albumin prior to each paracentesis. The patient is trying to get on liver transplant list at in [place], [place]. 3. Anemia and thrombocytopenia. This a chronic issue and related to his cirrhosis and kidney disease. At present, there is no indication for transfusion. His platelets are chronically low but no active bleeding. 4. Hyponatremia. This is mild and chronic. No intervention indicated at this point. We will continue to monitor his electrolytes on daily basis. 5. Chronic hypotension. The patient has been on midodrine and I suggest to increase the dose of midodrine to 5 mg three times daily in order to keep his systolic blood pressure about 100 mmHg. I thank you for involving me in the care of Mr. Mosley. I will follow him along with you.
--- NOTE | 2017-03-25 11:31 | IPNPDOC ---
Text Note Date of Service The patient was seen on 03/25/17. NOTE Subjective: Patient is a 61 year old male with a PMHx of Cirrhosis 2/2 alcohol abuse (with complications of ascites, SBP, acute renal failure and encephalopathy) who presented to the ER at the direction of his jig fitter with worsening renal function. Patient was admitted for likely hepatorenal syndrome. Patient was seen and examined at the beside. He notes that there were no events yesterday evening. He has been restarted on the majority of his home medications. Objective: Vitals (See below) General: Lying in bed, no acute distress, comfortable, AAOx3 HEENT: NC, AT CVS: RRR, +S1S2 Lungs: Fair air entry b/l, no appreciable crackles Abdomen: Soft, ND, Mild distension, +BSx4 Extremities: +PPx4, - Edema, - Calf tenderness Assessment and plan: 1. Acute kidney injury - likely 2/2 hepatorenal syndrome - Cr baseline of 0.8 - Presented with Cr of 3.0, continues to decline with current - c/w Albumin 25% [id number] and Midodrine - Nephrology is following - appreciate their input 2. s/p Ascites - 2/2 Decompensated cirrhosis - Presented with weight gain and abdominal distension - Physical with mild abdominal distention - s/p Paracentesis (4150 cc output) - Fluid consistent with cirrhosis (SAAG >1.1), no evidence of infection, will f/ u cultures - c/w Propranolol, Midodrine, Rifaximin, Lactobacillus and Ciprofloxacin (SBP prophylaxis) 3. Right leg wound - Wound culture 03/09/2017: Stenotrophomonas Maltophilia - sensitive to Levaquin - Will check CRP 4. A. fib - currently in NSR - c/w rate control with propranolol - not on full anticoagulation 5. Chronic Anemia - Hg baseline of 10 - Hg remains stable over last 2 days - Will continue to monitor 6. Chronic thrombocytopenia - Platelet count remains low - Will continue to follow 7. Chronic hyponatremia - likely 2/2 cirrhosis - will follow 8. Hx of C. difficile 9. Hx of adenomatous polyp 10. GI prophylaxis - c/w famotidine 11. DVT prophylaxis - c/w SCDs VS,Fishbone, I+O VS, Fishbone, I+O Laboratory Tests 03/25/17 05:06 Red Blood Count 2.29 L, Mean Corpuscular Volume 102.3 H, Mean Corpuscular Hemoglobin 35.2 H, Mean Corpuscular Hemoglobin Concent 34.4, Red Cell Distribution Width 16.1 H 03/25/17 05:07 Calcium Level 7.4 L Vital Signs Date Time Temp Pulse Resp B/P (MAP) Pulse Ox O2 Delivery O2 Flow Rate FiO2 03/25/17 09:00 101/59 03/25/17 08:00 98.1 80 20 98 Room Air I&O- Last 24 Hours up to 6 AM 03/25/17 05:59 Intake Total 1370 ml Output Total 875 ml Balance 495 ml NIK SANTOYO MD March 25, 2017 11:31
[2017-03-26] VITALS: BP 125/74
[2017-03-26 04:00] VITALS: BP 126/73
[2017-03-26] MEDS: SLF 3 ML SYR IV SCH ×3 (05:21→20:27)
[2017-03-26] MEDS: CIPROFLOXACIN 250 MG TAB PO SCH (05:21)
[2017-03-26 05:23] LABS: MEAN CORPUSCULAR HGB CONC 33.8 g/dl (32.0-36.5); MEAN CORPUSCULAR VOLUME 103.6 fl (80.0-96.0); RED CELL DISTRIBUTION WIDTH 15.6 % (11.5-14.5); WHITE BLOOD COUNT 5.6 K/mm3 (4.0-10.0)
[2017-03-26 05:28] LABS: CALCIUM LEVEL 7.7 MG/DL (8.8-10.2); CREATININE FOR GFR 2.42 MG/DL (0.70-1.30); GLOMERULAR FILTRATION RATE 29.2 (>49); MAGNESIUM LEVEL 2.1 MG/DL (1.8-2.4); POTASSIUM SERUM 3.8 MEQ/L (3.5-5.1)
[2017-03-26 07:30] VITALS: BP 116/70
[2017-03-26] MEDS: VITAMIN E 400 INTERNATIONAL UNITS CAP PO SCH ×3 (08:32→20:26)
[2017-03-26] MEDS: MIDODRINE 5 MG TAB PO SCH ×2 (08:33→17:21)
[2017-03-26] MEDS: FAMOTIDINE 20 MG TAB PO SCH ×2 (08:33→20:26)
[2017-03-26] MEDS: PROPRANOLOL 10 MG TAB PO SCH ×2 (08:33→20:30)
[2017-03-26] MEDS: SPIRONOLACTONE 25 MG TAB PO SCH ×2 (08:33→17:21)
[2017-03-26] MEDS: rifAXIMin 550 MG TAB (XIFAXAN) PO SCH ×2 (08:33→20:26)
[2017-03-26] MEDS: LACTOBACILLUS ACIDOPHILUS CAP (BACID) PO SCH (08:33)
--- NOTE | 2017-03-26 11:06 | IPN ---
DATE: 03/25/2017 Mr. Mosley is seen this morning on his bedside. He reports feeling tired today but denies any nausea, vomiting, dyspnea or chest pain. He continues to receive intravenous albumin infusion every eight hours and his kidney function has been improving since admission. Intake and output records from yesterday show a positive balance of only 80 mL. PHYSICAL EXAMINATION: Temperature 97.7 degrees Fahrenheit, heart rate 97 per minute and respiratory rate 20 per minute. Blood pressure 136/70 mmHg and oxygen saturation 97% on room air. Head is atraumatic. Ears, nose and throat are unremarkable. Neck is supple and without jugular venous distention (JVD) or thyroid enlargement. Pupils are equal and reactive to light and sclera is icteric. Heart sounds are somewhat tachycardiac today. Lungs sound clear to auscultation. Abdomen is distended with ascites but nontender. Bowel sounds are normal. Extremities have no cyanosis or clubbing. Skin is jaundiced with multiple areas of ecchymosis. Neurologically, he is awake, alert and oriented times three. LABORATORY DATA: Today's laboratories show WBC count 6.6, hemoglobin 8.1 and hematocrit 23.4. Sodium 128 and potassium 3.9. BUN is down to 88 and creatinine 2.50. PROBLEMS: 1. Acute kidney injury superimposed on chronic kidney disease. The patient is known to have hepatorenal syndrome and acute kidney injury is most likely related to hepatorenal. It is improving with IV albumin infusion. I recommend to continue with the same. The patient does not have any acute infections. 2. Hepatic cirrhosis with recurrent ascites. His ascites is gradually increasing once again. He is likely to require another paracentesis and should be given IV albumin prior to paracentesis. 3. Hyponatremia. His volume status is essentially unchanged. His oral intake has been limited and he should continue with fluid restriction. At present, we will not give him any sodium but continue with IV albumin and diuretic. His electrolytes should be checked again tomorrow morning. 4. Hypotension. The patient has chronic hypotension for which he has been on midodrine which should be continued.
[2017-03-26 12:00] VITALS: BP 107/63
--- NOTE | 2017-03-26 13:32 | IPNPDOC ---
Text Note Date of Service The patient was seen on 03/26/17. NOTE Subjective: Patient is a 61 year old male with a PMHx of Cirrhosis 2/2 alcohol abuse (with complications of ascites, SBP, acute renal failure and encephalopathy) who presented to the ER at the direction of his riddler operator with worsening renal function. Patient was admitted for likely hepatorenal syndrome. Patient was seen and examined at the beside. Patient has noted to feel more fatigued today and tired. He denies any bleeding in his stool. He notes that is abdomen is slightly more distended than usual. Objective: Vitals (See below) General: Lying in bed, no acute distress, comfortable, AAOx3 HEENT: NC, AT CVS: RRR, +S1S2 Lungs: Fair air entry b/l, no appreciable crackles Abdomen: Soft, ND, Mild distension, +BSx4 Extremities: +PPx4, - Edema, - Calf tenderness Assessment and plan: 1. Acute kidney injury - likely 2/2 hepatorenal syndrome - Cr baseline of 0.8 - Presented with Cr of 3.0, continues to decline with current - c/w Albumin 25%; will increase frequency to [id number], Midodrine and Spironolactone - Nephrology is following - appreciate their input 2. s/p Ascites - 2/2 Decompensated cirrhosis - Presented with weight gain and abdominal distension - Physical with mild abdominal distention - Reports that he gets scheduled paracentesis on a weekly basis - s/p Paracentesis 03/23/2017 with 4150 cc output - Will re-order paracentesis for tomorrow AM - Fluid consistent with cirrhosis (SAAG >1.1), no evidence of infection, Cultures negative - c/w Propranolol, Midodrine, Rifaximin, Lactobacillus and Ciprofloxacin (SBP prophylaxis) 3. Right leg wound - No evidence of active infection - Wound culture 03/09/2017: Stenotrophomonas Maltophilia - sensitive to Levaquin - CRP not significantly elevated 4. A. fib - currently in NSR - c/w rate control with propranolol - not on full anticoagulation 5. Chronic Anemia - Hg baseline of 10 - Currently Hg is 7.7 and patient appears to be symptomatic - Will transfuse 2 units of PRBC and follow up post transfusion CBC 6. Chronic thrombocytopenia - Platelet count remains low - Will continue to follow 7. Chronic hyponatremia - likely 2/2 cirrhosis - will follow 8. Hx of C. difficile 9. Hx of adenomatous polyp 10. GI prophylaxis - c/w famotidine 11. DVT prophylaxis - c/w SCDs VS,Fishbone, I+O VS, Fishbone, I+O Laboratory Tests 03/26/17 04:42 Calcium Level 7.7 L 03/26/17 04:43 Red Blood Count 2.20 L, Mean Corpuscular Volume 103.6 H, Mean Corpuscular Hemoglobin 35.0 H, Mean Corpuscular Hemoglobin Concent 33.8, Red Cell Distribution Width 15.6 H Vital Signs Date Time Temp Pulse Resp B/P (MAP) Pulse Ox O2 Delivery O2 Flow Rate FiO2 03/26/17 08:33 85 126/73 03/26/17 07:30 98.0 22 100 Room Air I&O- Last 24 Hours up to 6 AM 03/26/17 06:00 Intake Total 1430 ml Output Total 1325 ml Balance 105 ml NIK SANTOYO MD March 26, 2017 13:32
--- NOTE | 2017-03-26 18:05 | IPN ---
DATE: 03/26/2017 Mr. Mosley is seen this morning on his bedside. He reports feeling weak and short of breath when he tries to get up and walk. He denies any nausea or vomiting. There is no fever or chills. PHYSICAL EXAMINATION: Temperature 98.0 degrees Fahrenheit, heart rate 88 per minute and respiratory rate 22 per minute. Blood pressure 116/70 mmHg and oxygen saturation 100% on room air. His head is atraumatic. Neck is supple and without jugular venous distention (JVD). Pupils are equal and reactive to light and sclerae is icteric. His heart sounds are regular and lungs clear to auscultation. Abdomen distended with ascites. Bowel sounds are normal. There is no tenderness. Extremities have no cyanosis or clubbing. Skin has ecchymosis all over his body. Neurologically he is awake, alert and oriented times three. Today's labs show WBC count 5.6, hemoglobin 7.7 and hematocrit 22.8. Platelets 53,000. Sodium 130 and potassium 3.8. BUN 78 and creatinine 2.42. Calcium level is 7.7 and magnesium 2.1. PROBLEMS: 1. Acute kidney injury superimposed on chronic kidney disease. Gradual improvement in kidney function is noted since admission. The patient has no uremic symptoms. His kidney problem is related to hepatorenal syndrome. At present I would recommend to continue with IV albumin infusions. 2. Hyponatremia. Slight improvement is noted. He is back on spironolactone 25 mg twice a day which should be continued. 3. Cirrhosis of liver with recurrent ascites. The patient is likely to have another paracentesis again tomorrow. I would recommend to limit the fluid removal to about 4-5 liters per session of paracentesis. The patient will also receive 100 grams of albumin intravenously prior to paracentesis in order to prevent worsening renal function. 4. Anemia. His anemia is worse today and he is going to have 2 units of packed red blood cells (RBCs) transfused. 5. Thrombocytopenia. Platelets are also slightly worse. At this point there is no emergent need for platelet transfusion. He will need to be monitored closely. 6. Hypotension. This is chronic and he remains on midodrine 5 mg three times a day.
[2017-03-26 20:00] VITALS: BP 127/81
[2017-03-26 20:27] LABS: BASO % 0.2 % (0.0-1.0); EOS # 0.2 K/mm3 (0.0-0.50); LARGE UNSTAINED CELL # 0.1 K/mm3 (0.0-0.4); LARGE UNSTAINED CELL % 2.1 % (0.0-4.0); LYMPH # 0.5 K/mm3 (1.5-4.5); LYMPH % 8.7 % (24.0-44.0); MEAN CORPUSCULAR HEMOGLOBIN 33.1 pg (27.0-33.0); MEAN CORPUSCULAR HGB CONC 33.1 g/dl (32.0-36.5); MEAN CORPUSCULAR VOLUME 100.1 fl (80.0-96.0); MONO # 0.7 K/mm3 (0.0-0.8); MONO % 12.7 % (0.0-5.0); NEUTROPHILS # 3.9 K/mm3 (1.8-7.7); NEUTROPHILS % 73.3 % (36.0-66.0); RED CELL DISTRIBUTION WIDTH 19.3 % (11.5-14.5); WHITE BLOOD COUNT 5.4 K/mm3 (4.0-10.0)
[2017-03-26 20:49] LABS: PLATELET COUNT, AUTOMATED 62 k/mm3 (150-450)
[2017-03-27 04:00] VITALS: BP 110/65
[2017-03-27 05:07] LABS: MEAN CORPUSCULAR HEMOGLOBIN 33.4 pg (27.0-33.0); MEAN CORPUSCULAR HGB CONC 34.3 g/dl (32.0-36.5); MEAN CORPUSCULAR VOLUME 97.5 fl (80.0-96.0); RED CELL DISTRIBUTION WIDTH 19.7 % (11.5-14.5); WHITE BLOOD COUNT 5.4 K/mm3 (4.0-10.0)
[2017-03-27 05:16] LABS: ALBUMIN 2.9 GM/DL (3.2-5.2); CALCIUM LEVEL 7.7 MG/DL (8.8-10.2); CREATININE FOR GFR 2.3 MG/DL (0.70-1.30); GLOMERULAR FILTRATION RATE 30.9 (>49); MAGNESIUM LEVEL 2.1 MG/DL (1.8-2.4); POTASSIUM SERUM 4.4 MEQ/L (3.5-5.1)
[2017-03-27] MEDS: CIPROFLOXACIN 250 MG TAB PO SCH (05:49)
[2017-03-27] MEDS: SLF 3 ML SYR IV SCH ×3 (05:49→21:14)
[2017-03-27 07:15] VITALS: BP 112/68
[2017-03-27 09:07] VITALS: BP 112/68
[2017-03-27] MEDS: LACTOBACILLUS ACIDOPHILUS CAP (BACID) PO SCH (09:07)
[2017-03-27] MEDS: SPIRONOLACTONE 25 MG TAB PO SCH ×2 (09:07→17:09)
[2017-03-27] MEDS: VITAMIN E 400 INTERNATIONAL UNITS CAP PO SCH ×3 (09:07→21:14)
[2017-03-27] MEDS: rifAXIMin 550 MG TAB (XIFAXAN) PO SCH ×2 (09:07→21:14)
[2017-03-27] MEDS: PROPRANOLOL 10 MG TAB PO SCH (09:07)
[2017-03-27] MEDS: MIDODRINE 5 MG TAB PO SCH ×3 (09:07→18:06)
[2017-03-27] MEDS: FAMOTIDINE 20 MG TAB PO SCH ×2 (09:07→21:14)
[2017-03-27 10:55] LABS: INR 2.49
[2017-03-27 12:00] VITALS: BP 109/65
[2017-03-27] MEDS ORDERED: OCTREOTIDE ACETATE 1,200 MCG in NS 238.8 ML IV SCH (12:00)
--- NOTE | 2017-03-27 12:55 | IPNPDOC ---
Text Note Date of Service The patient was seen on 03/27/17. 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 Patient was admitted for likely hepatorenal syndrome. Patient was seen and examined at the beside. He does not have any additional complaints today. Objective: Vitals (See below) General: Lying in bed, no acute distress, comfortable, AAOx3 HEENT: NC, AT CVS: RRR, +S1S2 Lungs: Fair air entry b/l, no appreciable crackles Abdomen: Soft, ND, Mild distension, +BSx4 Extremities: +PPx4, - Edema, - Calf tenderness Assessment and plan: 1. Acute kidney injury - likely 2/2 hepatorenal syndrome - Cr baseline of 0.8 - Presented with Cr of 3.0, continues to decline with current - c/w Albumin 25%, Midodrine and Spironolactone - Nephrology has increased dose of midodrine, added Octreotide and IV fluid hydration - Nephrology is following - appreciate their input 2. s/p Ascites - 2/2 Decompensated cirrhosis - Presented with weight gain and abdominal distension - Physical with mild abdominal distention - Reports that he gets scheduled paracentesis on a weekly basis - s/p Paracentesis 03/23/2017 with 4150 cc output - Will go for Paracentesis today - Fluid consistent with cirrhosis (SAAG >1.1), no evidence of infection, Cultures negative - c/w Propranolol, Midodrine, Rifaximin, Lactobacillus and Ciprofloxacin (SBP prophylaxis) 3. Right leg wound - No evidence of active infection - Wound culture 03/09/2017: Stenotrophomonas Maltophilia - sensitive to Levaquin - CRP not significantly elevated 4. A. fib - currently in NSR - c/w rate control with propranolol - not on full anticoagulation 5. Chronic Anemia - Hg baseline of 10 - Currently Hg is 7.7 and patient appears to be symptomatic - Will transfuse 2 units of PRBC and follow up post transfusion CBC 6. Chronic thrombocytopenia - Platelet count remains low - Will continue to follow 7. Chronic hyponatremia - likely 2/2 cirrhosis - will follow 8. Hx of C. difficile 9. Hx of adenomatous polyp 10. GI prophylaxis - c/w famotidine 11. DVT prophylaxis - c/w SCDs Disposition: - Patient is a candidate for liver transplant - Information has been sent over as requested - Awaiting improvement in renal function VS,Fishbone, I+O VS, Fishbone, I+O Laboratory Tests 03/26/17 18:03 Red Blood Count 2.87 L, Mean Corpuscular Volume 100.1 H, Mean Corpuscular Hemoglobin 33.1 H, Mean Corpuscular Hemoglobin Concent 33.1, Red Cell Distribution Width 19.3 H, Neutrophils (%) (Auto) 73.3 H, Lymphocytes (%) (Auto ) 8.7 L, Monocytes (%) (Auto) 12.7 H, Eosinophils (%) (Auto) 3.0, Basophils (%) (Auto) 0.2, Neutrophils # (Auto) 3.9, Lymphocytes # (Auto) 0.5 L, Monocytes # ( Auto) 0.7, Eosinophils # (Auto) 0.2, Basophils # (Auto) 0.0 03/27/17 04:34 Red Blood Count 2.76 L, Mean Corpuscular Volume 97.5 H, Mean Corpuscular Hemoglobin 33.4 H, Mean Corpuscular Hemoglobin Concent 34.3, Red Cell Distribution Width 19.7 H, Calcium Level 7.7 L Vital Signs Date Time Temp Pulse Resp B/P (MAP) Pulse Ox O2 Delivery O2 Flow Rate FiO2 03/27/17 09:07 69 112/68 03/27/17 07:15 97.0 20 98 Room Air I&O- Last 24 Hours up to 6 AM 03/27/17 05:59 Intake Total 1170 ml Output Total 701 ml Balance 469 ml NIK SANTOYO MD March 27, 2017 12:55
[2017-03-27] MEDS ORDERED: MIDODRINE 5 MG TAB PO SCH (13:00)
[2017-03-27 16:15] VITALS: BP 115/64
[2017-03-27 19:17] VITALS: BP 111/69
[2017-03-28] VITALS: BP 94/55
[2017-03-28 00:50] VITALS: BP 124/74
[2017-03-28] MEDS: CIPROFLOXACIN 250 MG TAB PO SCH (05:12)
[2017-03-28 05:13] VITALS: BP 116/67
[2017-03-28] MEDS: SLF 3 ML SYR IV SCH (05:13)
[2017-03-28 05:27] LABS: MEAN CORPUSCULAR HGB CONC 32.9 g/dl (32.0-36.5); MEAN CORPUSCULAR VOLUME 100.3 fl (80.0-96.0); RED CELL DISTRIBUTION WIDTH 19.2 % (11.5-14.5); WHITE BLOOD COUNT 4.1 K/mm3 (4.0-10.0)
[2017-03-28 05:36] LABS: CALCIUM LEVEL 7.5 MG/DL (8.8-10.2); CREATININE FOR GFR 2.02 MG/DL (0.70-1.30); GLOMERULAR FILTRATION RATE 35.9 (>49); MAGNESIUM LEVEL 2.2 MG/DL (1.8-2.4); POTASSIUM SERUM 4.1 MEQ/L (3.5-5.1)
[2017-03-28 07:48] VITALS: BP 108/71
[2017-03-28] MEDS: MIDODRINE 5 MG TAB PO SCH (08:33)
[2017-03-28] MEDS: LACTOBACILLUS ACIDOPHILUS CAP (BACID) PO SCH (08:34)
[2017-03-28] MEDS: SPIRONOLACTONE 25 MG TAB PO SCH (08:34)
[2017-03-28] MEDS: VITAMIN E 400 INTERNATIONAL UNITS CAP PO SCH (08:34)
[2017-03-28] MEDS: FAMOTIDINE 20 MG TAB PO SCH (08:34)
[2017-03-28] MEDS: rifAXIMin 550 MG TAB (XIFAXAN) PO SCH (08:34)
[2017-03-28 09:19] LABS: ALBUMIN 2.9 GM/DL (3.2-5.2); PHOSPHORUS LEVEL 3.8 MG/DL (2.5-4.9)
[2017-03-28 11:31] VITALS: BP 119/73
[2017-03-28] MEDS ORDERED: MIDO5TA PO (12:48)
--- NOTE | 2017-03-28 14:15 | DSES ---
DATE OF ADMISSION: 03/23/2017 DATE OF DISCHARGE: 03/28/2017 PRIMARY CARE PHYSICIAN: Dr. John Martinez REFERRING PHYSICIAN: None. CONSULTING PHYSICIANS: Dr. Valdez and Dr. Pfeiffer. CONDITION ON DISCHARGE: Stable/guarded. FINAL DIAGNOSES: 1. Acute kidney injury, likely secondary to hepatorenal syndrome. 2. Ascites secondary to decompensated cirrhosis. PROCEDURES: Paracentesis performed on two occasions, the first of which was on 03/23/2017, and the second was on 03/27/2017. 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 Patient was admitted for likely hepatorenal syndrome. HOSPITAL COURSE: 1. Acute kidney injury, likely secondary to hepatorenal syndrome. Creatinine baseline of 0.8. Presented with a creatinine of 3.0. Throughout his hospital course, his creatinine has continued to trend down. He has been put on albumin infusion of 25% every 8 hours, which has been increased to every 6 hours. His midodrine dose of 5 mg three times a day has been increased to 10 mg three times a day, and he has been continued on spironolactone. Nephrology has been consulted, who has been following the patient, and have added octreotide infusion. We appreciate nephrology's help. 2. Status post ascites secondary to decompensated cirrhosis. Presented with weight gain and abdominal distention. Physical with mild abdominal distention was noted. Reports that he is getting scheduled paracenteses on a weekly basis. He is status post paracentesis on 03/23/2017 and 03/27/2017. First one removed 4 liters of fluid, and the second one removed 3.5 liters of fluid. Fluid was consistent with cirrhosis with a SAAG score of greater than 1.1. No evidence of infection. Cultures were negative. Continues propranolol, midodrine, rifaximin, Lactobacillus, and ciprofloxacin for spontaneous bacterial peritonitis prophylaxis. 3. Right leg wound. No evidence of an active infection. Wound culture on 03/09/2017 was positive for Stenotrophomonas maltophilia, which is sensitive to Levaquin. C-reactive protein (CRP) was not significantly elevated. 4. Atrial fibrillation, currently in normal sinus rhythm. Continue with rate control with propranolol. Not on full anticoagulation. 5. Chronic anemia. Hemoglobin baseline of 10. Currently hemoglobin is 8.8. He is status post 2 units of blood transfusion after his hemoglobin had trended down to 7.7 and he was symptomatic. 6. Chronic thrombocytopenia. Platelet count remains low but stable. 7. Chronic hyponatremia, likely secondary to cirrhosis. 8. History of Clostridium (C) difficile. 9. History of adenomatous polyp. 10. Gastrointestinal (GI) prophylaxis. Continue with famotidine. 11. Deep vein thrombosis (DVT) prophylaxis. Continue with sleeve compression devices. DISCHARGE MEDICATIONS: Patient has been discharged home/transferred with the following medications: - ciprofloxacin 250 mg by mouth daily - Lactobacillus one tablet by mouth daily - ranitidine one tablet by mouth twice a day - rifaximine 550 mg by mouth twice a day - spironolactone 25 mg by mouth daily - vitamin E 400 units outpatient three times a day - midodrine 10 mg by mouth three times a day DISCHARGE INSTRUCTIONS: Patient has been advised to followup immediately with [facility] in [place], [place], where he will be evaluated for a liver transplant. TIME SPENT ON DISCHARGE: 35 minutes.
--- NOTE | 2017-03-28 18:12 | IPN ---
DATE: 03/27/2017 SUBJECTIVE: The patient was seen and examined at the bedside today in the morning. He denies any active complaints. He reports that he is clinically getting better. His creatinine slowly continues to get better. The patient reports that his abdomen is distended and he is going for ascitic tap today. The patient is hemodynamically stable at this time. REVIEW OF SYSTEMS: The patient denies any fevers, chills, rigors, headache, nausea, vomiting. He does report decreased appetite. He does report abdominal distention. The patient reports that his urine output is improving and he also reports improving leg edema. The rest of the review of systems is negative. OBJECTIVE: VITAL SIGNS: Temperature is 97 degrees Fahrenheit, blood pressure is 112/68, pulse is 69, respiratory rate of 18, saturating 98% on room air. Intake and output: Urine output recorded is 1 liter yesterday and 1250 mL so far today. Weight on the bed scale is 81.9 kg. PHYSICAL EXAMINATION: GENERAL: The patient is awake, alert, and oriented times three, lying in bed. No apparent distress. HEAD AND NECK EXAMINATION: Extraocular muscles are intact. Pupils are equal, round and reactive to light. The patient has significant scleral icterus. He has temporal wasting. Mucous membranes are moist. NECK: Supple. There is no jugular venous distention (JVD). CARDIOVASCULAR: S1, S2. Regular rate. No murmur, rub or gallop. RESPIRATORY: Chest is clear to auscultation bilaterally. Bilateral equal air entry. No rales or rhonchi. ABDOMEN: Soft, distended. Moderate amount of ascites. Liver, left lobe is palpable. There is no other organomegaly appreciated. EXTREMITIES: No clubbing or cyanosis. Pulses are 2+. No edema of the bilateral lower extremities. NEUROLOGIC: No focal neurological deficits. Power is 5/5 in all extremities. PSYCHIATRIC: Normal mood and affect. LABORATORY REVIEW: Complete blood count (CBC) showed a WBC of 5.4, hemoglobin 9.2, platelets of 54. Basic metabolic panel (BMP) showed sodium 130, potassium 4.4, chloride 101, bicarbonate 22, BUN 76, creatinine is 2.3, it was 2.4 yesterday. Calcium is 7.7. C-reactive protein is 1.3, albumin is 2.9. CURRENT MEDICATIONS: The patient's medications were all reviewed by me today. I have started the patient on Octreotide infusion at 50 mcg per hour. He continues to be on ciprofloxacin for spontaneous bacterial peritonitis. His midodrine dose has been increased to 10 mg by mouth three times a day. I have stopped his Inderal at this time because he is in renal failure. He continues to be on spironolactone 25 mg by mouth twice a day. ASSESSMENT: 61-year-old male with a past medical history of decompensated cirrhosis with ascites and portal hypertension requiring frequent taps with a baseline creatinine of around 1.2. Admitted this time because of acute renal failure. PLAN: 1. Acute kidney injury superimposed on chronic kidney disease stage II. The patient's renal function is improving. Continue IV albumin at this time. I have stopped the Inderal. I have increased the dose of midodrine to 10 mg by mouth three times a day. Continue octreotide infusion as well. Continue to monitor daily intake and output. 2. Liver cirrhosis decompensated with ascites. The patient has tense ascites today. He is going for another ascitic tap. He continues to be on IV albumin at this time. 3. Portal hypertension. The patient is in acute renal failure at this time. I have stopped the Inderal at this time. Once the patient's renal function is improved, he can be slowly restarted on low dose of Inderal. 4. Hyponatremia. It is secondary to hypovolemia and decompensated cirrhosis. He is currently on spironolactone 25 mg twice a day. Sodium is stable at around 130, which is acceptable for him at this time. 5. Recent history of spontaneous bacterial peritonitis. Continue ciprofloxacin 250 mg by mouth daily for SBP prophylaxis. 6. History of hepatic encephalopathy. Continue current dose of Rifaximin 550 mg by mouth twice a day. 7. Anemia and thrombocytopenia. Hemoglobin is acceptable at 9.2 at this time. He is status post packed red blood cell transfusion. Continue to monitor for now. Thrombocytopenia is secondary to sequestration of platelets in the spleen secondary to cirrhosis. No need of platelets transfusion at this time. Continue to monitor for now. The plan of care was discussed with the patient and his at bedside today in the morning.
--- NOTE | 2017-03-29 13:25 | IPN ---
DATE: 03/28/2017 SUBJECTIVE: The patient was seen and examined at the bedside today. He got paracentesis done yesterday. He reports 3.5 liters of fluid was removed. He was started on octreotide infusion yesterday. His beta blockers were held yesterday. His renal function continues to improve. Creatinine is down from 2.3 to 2 today, and his sodium level is also improving. REVIEW OF SYSTEMS: The patient denies any fevers, chills, rigors, headaches, nausea, vomiting, chest pain. He reports that his abdominal distention is better after ascitic tap. The patient does report some weakness and drowsiness. Rest of review of systems is negative. OBJECTIVE: VITAL SIGNS: Temperature is 97.2 degrees Fahrenheit, blood pressure is 119/73, pulse is 64, respiratory rate of 18, saturating 99% on room air. INTAKE AND OUTPUT: Urine output recorded as 1.4 liters yesterday, 450 mL so far today since overnight. Weight in the bed scale is 79.4 kg. PHYSICAL EXAMINATION: GENERAL: The patient is awake, alert, oriented times three, lying in bed but slightly slow to respond. The patient is weak and cachectic. HEAD/NECK: Extraocular muscles intact. Pupils equal, round, and reactive to light. The patient has scleral icterus. He has temporal wasting. Mucous membranes are moist. Neck is supple. There is no jugular venous distention (JVD). CARDIOVASCULAR: S1, S2. Regular rate. No murmur, rub, or gallop. RESPIRATORY: Chest is clear to auscultation bilaterally. Bilateral equal air entry. No rales or rhonchi. ABDOMEN: Soft, mildly distended. His ascites is better today. Mild dullness to percussion in the flanks. Left lobe of the liver is palpable. The patient has a dressing at the ascitic tap site. EXTREMITIES: No clubbing or cyanosis. Pulses are 2+. No edema of the extremities. CENTRAL NERVOUS SYSTEM (SPORTS PHYSICIAN): No focal neurological deficit. He has no asterixis. Power is 5/5 in all extremities. SKIN: The patient has multiple ecchymoses and bruises all over the skin. LABORATORY DATA: CBC showed WBC of 4.1, hemoglobin 8.8, platelets of 48. INR is 2.4, was from yesterday. BMP showed sodium 134, potassium 4.1, chloride 102, bicarbonate 20, BUN 66, creatinine 2; it was 2.3 yesterday. Calcium is 7.5. IMAGING: Paracentesis was done. Official report is pending. As reported by patient, he got 3.5 liters of ascitic tap done. CURRENT MEDICATIONS: The patient's medications were all reviewed by me. He continues to be on intravenous (IV) Sandostatin drip. He is currently on midodrine 10 mg by mouth three times a day, and he continues to get IV albumin as well. There is no other change in the medications today as compared with yesterday. ASSESSMENT: 61-year-old male with past medical history of cirrhosis of liver, decompensated ascites, and admitted this time because of acute renal failure. PLAN: 1. Acute kidney injury superimposed on chronic kidney disease. It is most likely secondary to hepatorenal syndrome. The patient is getting IV albumin, IV octreotide infusion, and midodrine 10 mg by mouth three times a day. He is hemodynamically stable. His renal function continues to improve. 2. Decompensated cirrhosis and ascites. Patient got the ascitic tap done; 3.5 liters of fluid was removed. He continues to be on IV albumin. He is on a low dose of spironolactone 25 mg by mouth twice a day. I would not give any more diuretic because his renal function still has not improved back to his baseline. Continue rifaximin 550 mg by mouth twice a day for prevention of hepatic encephalopathy. I stopped the patient's beta isabella yesterday because his renal function was not improving. 3. The patient recently had spontaneous bacterial peritonitis (SBP). Continue ciprofloxacin for SBP prophylaxis. 4. Hyponatremia. It is secondary to decompensated cirrhosis, fluid overload, and acute renal failure. His sodium is improving from 130 to 134 today. Continue to monitor for now. 5. Anemia. The patient's hemoglobin is 8.8. He required blood transfusion during this admission as well. Continue to monitor for now. Transfuse as needed for hemoglobin drop below eight. DISPOSITION: The patient follows up with hepatology at [facility]. He told me that his labs and current progress was reviewed by hepatology at transplant center, and they want the patient to be transferred when bed is available. It is okay to transfer the patient from nephrology standpoint for higher level of care to [facility]. The plan of care was discussed with the hospitalist, Dr. Isra Ye.
--- NOTE | 2017-03-30 12:35 | REP ---
Ultrasound-guided paracentesis The procedure was performed under the direct supervision of Dr. Georges. The risks and benefits of the procedure were explained to the patient and informed consent was obtained. The largest pocket of fluid was localized in the left lower quadrant using ultrasound guidance. The skin was prepped and draped in a sterile fashion. 1% lidocaine was used as a local anesthetic. An 8-[place] multi side-hole catheter was inserted using trocar technique. 3,500 ml of red colored fluid was withdrawn and discarded. The the patient tolerated the procedure well and there were no immediate complications. After the appropriate amount of monitored convalescence the patient was discharged from the department. Reviewed by DIPTI Franco 03/30/2017 08:21 ASigned by Asif Georges MD 03/30/2017 12:23 P
== END 2017-03-28 14:57 | disposition short-term general hospital (02) | DRG 280 ==
LOC: M ED 11:30 → M ED INP 13:24 → M PCU 14:31
PROVIDERS: ADMIT Internal Medicine; ATTEND Internal Medicine
PROC: 0W9G3ZZ Drainage of Peritoneal Cavity, Percutaneous Approach (ICD-10-PCS; principal; 2017-03-23)
PROC: 30233J1 Transfusion of Nonautologous Serum Albumin into Peripheral Vein, Percutaneous Approach (ICD-10-PCS; 2017-03-23)
PROC: 30233N1 Transfusion of Nonautologous Red Blood Cells into Peripheral Vein, Percutaneous Approach (ICD-10-PCS; 2017-03-26)
DX: K70.31 Alcoholic cirrhosis of liver with ascites (principal); K76.7 Hepatorenal syndrome; K65.2 Spontaneous bacterial peritonitis; I95.89 Other hypotension; D69.6 Thrombocytopenia, unspecified; N17.9 Acute kidney failure, unspecified; E87.1 Hypo-osmolality and hyponatremia; N18.3 Chronic kidney disease, stage 3 (moderate); I48.91 Unspecified atrial fibrillation; D64.9 Anemia, unspecified; F10.21 Alcohol dependence, in remission; Z79.899 Other long term (current) drug therapy; Z88.6 Allergy status to analgesic agent; Z88.8 Allergy status to other drugs, medicaments and biological substances

== ENCOUNTER → 2017-04-09 | Outpatient (CLI) | payer OTHER, BC ==
[~2017-04-09] MED LIST changes: +CIPR250T3 PO; +VITA200T4 PO; +VITA400C2 PO
[2017-04-09 17:59] LABS: INR 2.53
[2017-04-09 18:03] LABS: MEAN CORPUSCULAR HEMOGLOBIN 33.2 pg (27.0-33.0); MEAN CORPUSCULAR HGB CONC 32.4 g/dl (32.0-36.5); MEAN CORPUSCULAR VOLUME 102.4 fl (80.0-96.0); RED CELL DISTRIBUTION WIDTH 21.5 % (11.5-14.5); WHITE BLOOD COUNT 4.5 K/mm3 (4.0-10.0)
[2017-04-09 19:13] LABS: ALBUMIN 3.5 GM/DL (3.2-5.2); ALBUMIN/GLOBULIN RATIO 1.09 (1.00-1.93); BILIRUBIN,TOTAL 6.5 MG/DL (0.2-1.0); CALCIUM LEVEL 8.6 MG/DL (8.8-10.2); CREATININE FOR GFR 2.03 MG/DL (0.70-1.30); GLOMERULAR FILTRATION RATE 35.7 (>49); TOTAL PROTEIN 6.7 GM/DL (6.4-8.2)
[2017-04-09 19:19] LABS: POTASSIUM SERUM 5.2 MEQ/L (3.5-5.1)
== END ==
LOC: M SMT 15:24
PROVIDERS: ATTEND Nurse Practitioner Family
DX: K74.60 Unspecified cirrhosis of liver (principal)

== ENCOUNTER → 2017-04-14 | Outpatient (CLI) | payer OTHER, BC ==
[2017-04-14 13:28] LABS: MEAN CORPUSCULAR HEMOGLOBIN 33.8 pg (27.0-33.0); MEAN CORPUSCULAR HGB CONC 31.9 g/dl (32.0-36.5); MEAN CORPUSCULAR VOLUME 106.2 fl (80.0-96.0); RED CELL DISTRIBUTION WIDTH 20.8 % (11.5-14.5); WHITE BLOOD COUNT 4.5 K/mm3 (4.0-10.0)
[2017-04-14 13:33] LABS: INR 2.61
[2017-04-14 13:49] LABS: ALBUMIN 3.2 GM/DL (3.2-5.2); ALBUMIN/GLOBULIN RATIO 0.94 (1.00-1.93); BILIRUBIN,TOTAL 5.9 MG/DL (0.2-1.0); CREATININE FOR GFR 1.68 MG/DL (0.70-1.30); GLOMERULAR FILTRATION RATE 44.4 (>49); POTASSIUM SERUM 4.4 MEQ/L (3.5-5.1); TOTAL PROTEIN 6.6 GM/DL (6.4-8.2)
== END ==
LOC: M SMT 09:43
PROVIDERS: ATTEND Nurse Practitioner Family
DX: K74.60 Unspecified cirrhosis of liver (principal)

== ENCOUNTER → 2017-04-15 | Outpatient (REF) | payer BC, OTHER ==
[~2017-04-15] MED LIST changes: +ALLO10TA PO; +DARB10SYRN SC; +DIGO0.25 PO; +ZOSY2INJ2 IV; +[UNRECOGNIZED DRUG - CODE] IV
[2017-04-15 18:26] LABS: PERCENT SATURATION 99.2 % (19.7-37.4)
== END ==
LOC: M LAB REF 16:50
PROVIDERS: ATTEND Internal Medicine Nephrology
DX: D64.9 Anemia, unspecified (principal)

== ENCOUNTER 2017-04-16 09:34 | Outpatient (CLI) | payer BC, OTHER ==
[~2017-04-16] VITALS: Ht 180.3 cm; Wt 91.8 kg
[~2017-04-16 09:34] MED LIST changes: -ALLO10TA PO; -DARB10SYRN SC; -DIGO0.25 PO; -ZOSY2INJ2 IV; -[UNRECOGNIZED DRUG - CODE] IV
[2017-04-16 09:40] VITALS: BP 125/77
[2017-04-16 11:30] VITALS: BP 120/65
[2017-04-16 11:45] VITALS: BP 111/70
[2017-04-16 12:51] VITALS: BP 115/70
== END 2017-04-16 13:00 | disposition home or self-care (01) ==
LOC: M OPCLI4PR 09:34 → M OPCLI4PV 09:34 → M OPCLI4PR 09:37 → M MSPAV 09:37 → M OPCLI4PR 13:00 → M MSPAV 13:00
PROVIDERS: ATTEND Internal Medicine Gastroenterology
DX: R18.8 Other ascites (principal); K74.60 Unspecified cirrhosis of liver; Z88.8 Allergy status to other drugs, medicaments and biological substances
CPT/HCPCS: 96365; P9047

== ENCOUNTER → 2017-04-17 | Outpatient (CLI) | payer OTHER, BC ==
[~2017-04-17] MED LIST changes: +ALLO10TA PO; +[UNRECOGNIZED DRUG - CODE] IV
[2017-04-17 13:38] LABS: INR 2.4
[2017-04-17 13:41] LABS: MEAN CORPUSCULAR HEMOGLOBIN 34.2 pg (27.0-33.0); MEAN CORPUSCULAR HGB CONC 32.4 g/dl (32.0-36.5); MEAN CORPUSCULAR VOLUME 105.7 fl (80.0-96.0); RED CELL DISTRIBUTION WIDTH 20.7 % (11.5-14.5); WHITE BLOOD COUNT 4.7 K/mm3 (4.0-10.0)
[2017-04-17 13:58] LABS: ALBUMIN 3.2 GM/DL (3.2-5.2); ALBUMIN/GLOBULIN RATIO 0.94 (1.00-1.93); BILIRUBIN,TOTAL 6.5 MG/DL (0.2-1.0); CALCIUM LEVEL 8.7 MG/DL (8.8-10.2); CREATININE FOR GFR 1.62 MG/DL (0.70-1.30); GLOMERULAR FILTRATION RATE 46.3 (>49); POTASSIUM SERUM 4.5 MEQ/L (3.5-5.1); TOTAL PROTEIN 6.6 GM/DL (6.4-8.2)
== END ==
LOC: M SMT 09:13
PROVIDERS: ATTEND Nurse Practitioner Family
DX: K74.60 Unspecified cirrhosis of liver (principal)

== ENCOUNTER → 2017-04-21 | Outpatient (CLI) | payer OTHER, BC ==
[~2017-04-21] MED LIST changes: +DARB10SYRN SC; +DIGO0.25 PO; +ZOSY2INJ2 IV
[2017-04-21 14:24] LABS: INR 2.37
[2017-04-21 14:27] LABS: ALBUMIN 2.9 GM/DL (3.2-5.2); ALBUMIN/GLOBULIN RATIO 0.81 (1.00-1.93); BILIRUBIN,TOTAL 6.7 MG/DL (0.2-1.0); CALCIUM LEVEL 8.5 MG/DL (8.8-10.2); CREATININE FOR GFR 1.71 MG/DL (0.70-1.30); GLOMERULAR FILTRATION RATE 43.5 (>49); POTASSIUM SERUM 4.3 MEQ/L (3.5-5.1); TOTAL PROTEIN 6.5 GM/DL (6.4-8.2)
[2017-04-21 14:30] LABS: MEAN CORPUSCULAR HEMOGLOBIN 34.5 pg (27.0-33.0); MEAN CORPUSCULAR HGB CONC 32.4 g/dl (32.0-36.5); MEAN CORPUSCULAR VOLUME 106.4 fl (80.0-96.0); RED CELL DISTRIBUTION WIDTH 20.5 % (11.5-14.5)
== END ==
LOC: M SMT 10:31
PROVIDERS: ATTEND Nurse Practitioner Family
DX: K74.60 Unspecified cirrhosis of liver (principal)

== ENCOUNTER 2017-04-22 10:47 | Outpatient (CLI) | payer BC, OTHER ==
[~2017-04-22 10:47] MED LIST changes: -ALLO10TA PO; -DARB10SYRN SC; -DIGO0.25 PO; -ZOSY2INJ2 IV; -[UNRECOGNIZED DRUG - CODE] IV
== END 2017-04-22 14:00 | disposition home or self-care (01) ==
LOC: M INFU 10:47
PROVIDERS: ATTEND Internal Medicine Gastroenterology
DX: K74.60 Unspecified cirrhosis of liver (principal); R18.8 Other ascites; Z88.8 Allergy status to other drugs, medicaments and biological substances; Z79.899 Other long term (current) drug therapy
CPT/HCPCS: 96365; 96366; P9047

== ENCOUNTER → 2017-04-24 | Outpatient (CLI) | payer BC ==
[~2017-04-24] MED LIST changes: +ALLO10TA PO; +DARB10SYRN SC; +DIGO0.25 PO; +ZOSY2INJ2 IV; +[UNRECOGNIZED DRUG - CODE] IV
[2017-04-24 13:00] LABS: MEAN CORPUSCULAR HEMOGLOBIN 34.6 pg (27.0-33.0); MEAN CORPUSCULAR HGB CONC 32.1 g/dl (32.0-36.5); MEAN CORPUSCULAR VOLUME 107.6 fl (80.0-96.0)
[2017-04-24 13:06] LABS: INR 2.52
[2017-04-24 13:39] LABS: ALBUMIN 3.2 GM/DL (3.2-5.2); ALBUMIN/GLOBULIN RATIO 0.89 (1.00-1.93); BILIRUBIN,TOTAL 8.3 MG/DL (0.2-1.0); CALCIUM LEVEL 9.1 MG/DL (8.8-10.2); CREATININE FOR GFR 1.53 MG/DL (0.70-1.30); GLOMERULAR FILTRATION RATE 49.5 (>49); POTASSIUM SERUM 4.4 MEQ/L (3.5-5.1); TOTAL PROTEIN 6.8 GM/DL (6.4-8.2)
== END ==
LOC: M SMT 08:51
PROVIDERS: ATTEND Nurse Practitioner Family
DX: K74.60 Unspecified cirrhosis of liver (principal)

== ENCOUNTER 2017-04-27 12:47 | Inpatient (IN) | payer BC ==
[~2017-04-27] VITALS: Ht 180.3 cm; Wt 93.2 kg
[~2017-04-27 12:47] MED LIST changes: -ALLO10TA PO; -DARB10SYRN SC; -DIGO0.25 PO; -ZOSY2INJ2 IV; -[UNRECOGNIZED DRUG - CODE] IV
[2017-04-27] MEDS ORDERED: ALLO10TA PO (13:09)
[2017-04-27] MEDS ORDERED: PROP10TA56 PO (13:09)
[2017-04-27] MEDS ORDERED: [UNRECOGNIZED DRUG - CODE] IV (13:09)
[2017-04-27 13:44] LABS: INR 2.33
[2017-04-27 13:56] LABS: BASO % 0.4 % (0.0-1.0); EOS # 0.4 K/mm3 (0.0-0.50); EOS % 4.6 % (0.0-3.0); LARGE UNSTAINED CELL # 0.1 K/mm3 (0.0-0.4); LARGE UNSTAINED CELL % 0.9 % (0.0-4.0); LYMPH # 0.8 K/mm3 (1.5-4.5); LYMPH % 7.5 % (24.0-44.0); MEAN CORPUSCULAR HEMOGLOBIN 34.7 pg (27.0-33.0); MEAN CORPUSCULAR HGB CONC 32.3 g/dl (32.0-36.5); MEAN CORPUSCULAR VOLUME 107.5 fl (80.0-96.0); MONO # 0.4 K/mm3 (0.0-0.8); MONO % 4.4 % (0.0-5.0); NEUTROPHILS # 7.3 K/mm3 (1.8-7.7); NEUTROPHILS % 82.2 % (36.0-66.0); PLATELET COUNT, AUTOMATED 119 k/mm3 (150-450); RED CELL DISTRIBUTION WIDTH 19.6 % (11.5-14.5); WHITE BLOOD COUNT 8.9 K/mm3 (4.0-10.0)
--- NOTE | 2017-04-27 13:59 | REP ---
PORTABLE CHEST: AP portable view of the chest is performed. COMPARISON: 11/15/2016 There appears to be consolidation representing infiltrate or atelectasis in the left retrocardiac region. There are probably small effusions. There are fibroatelectatic changes in the right lung base with elevation of the right hemidiaphragm. The cardiomediastinal silhouette is unchanged. IMPRESSION: Consolidative infiltrate or atelectasis, left retrocardiac region. Probable small effusions. Signed by Asif Georges MD 04/27/2017 05:13 P
[2017-04-27 14:00] LABS: ALBUMIN 3.3 GM/DL (3.2-5.2); ALBUMIN/GLOBULIN RATIO 0.77 (1.00-1.93); ALKALINE PHOSPHATASE 151 U/L (45-117); ALT/SGPT 52 U/L (12-78); ANION GAP 6 MEQ/L (8-16); BILIRUBIN,TOTAL 8.5 MG/DL (0.2-1.0); BLOOD UREA NITROGEN 39 MG/DL (7-18); CALCIUM LEVEL 9.1 MG/DL (8.8-10.2); CARBON DIOXIDE LEVEL 31 MEQ/L (21-32); CHLORIDE LEVEL 102 MEQ/L (98-107); CREATININE FOR GFR 1.63 MG/DL (0.70-1.30); GLUCOSE, FASTING 114 MG/DL (80-110); POTASSIUM SERUM 4.2 MEQ/L (3.5-5.1); SODIUM LEVEL 139 MEQ/L (136-145); TOTAL PROTEIN 7.6 GM/DL (6.4-8.2)
[2017-04-27 14:06] LABS: AST/SGOT 89 U/L (15-37)
[2017-04-27] MEDS ORDERED: MIDO5TA PO (14:56)
[2017-04-27] MEDS ORDERED: FURO40TA2 PO (14:57)
--- NOTE | 2017-04-27 17:12 | HPEPDOC ---
General Date of Admission 04/27/17 Primary Care Physician: John Martinez Other Providers All care done at [facility] mainly. Attending Physician: LULU LUNA Chief Complaint The patient is a 61-year-old male admitted with a reason for visit of Short Of Breath. Source: Patient, Family Exam Limitations: No limitations History of Present Illness PRIMARY CARE PROVIDER: John Martinez CHIEF COMPLAINT: "can't breathe" HISTORY OF PRESENT ILLNESS: 61 yo M with PMH of alcoholic cirrhosis with recurrent ascites requiring paracentesis usually once weekly, spontaneous bacterial peritonitis, stage 3 CKD , hepatorenal syndrome with acute renal failure, anemia requiring transfusions, thrombocytopenia, and hypotension, GERD, presents to [facility] ED today for progressively worsening SOB that began 1 week ago. SOB was constant and getting worse--had gotten "too much." states [facility] was called by Dr. Gutierrez as patient is on liver transplant list there, and therefore, communication needs to be made about any updates with the patient, and any treatments rendered. Patient arrived to ED in the afternoon hoping to get a paracentesis in the ED, and then go home. Usually receives paracenteses as an outpatient here at [facility] weekly. However recently, he had an episode of spontaneous bacterial peritonitis about 1 month ago and has not had a paracentesis since that infection under the advice of the doctors at [facility]. Normally, he used to receive paracentesis weekly except for the last 1 month. Also has abdominal distension that has been constant and progressively getting worse also. Getting SOB and more distended over the past week. Reports increased leg swelling, mild nausea. SOB worse with lying flat. Better with sitting up. Admits to rigors and subjective fever when initially came into the ED. Admits to chills. Denies chest pain/pressure, headache, dizziness, vomiting , diarrhea, constipation, urinary symptoms. Denies sore throat, runny nose, cough, sputum production. Admits to decreased appetite and weakness. In addition, patient states last EtOH drink was in October 2016 and he has not ever drank alcohol since then. Of note, patient states he was diagnosed with liver failure 10/21/16. Patient is on liver transplant list in [place]. ALLERGIES: Aspirin Omeprazole PAST MEDICAL HISTORY: Alcoholic cirrhosis with recurrent ascites requiring paracentesis usually once weekly Spontaneous bacterial peritonitis Stage 3 CKD at baseline Hx Hepatorenal syndrome with recurrent renal failure Hx Anemia requiring transfusions: received 2 PRBCs at last admission ~1 month ago Hx Thrombocytopenia Hx Chronic Hypotension GERD High Uric Acid Levels EGD Findings of Mild to Moderate Portal Hypertensive Gastropathy, Grade I Esophageal Varices, Nonbleeding Esophageal Ulcer at [place] Echocardiogram 03/07/17 Findings: L Ventricular Diastolic Dysfunction Grade 1, Trace Mitral Regurgitation, Mild Tricuspid Regurgitation with Pulmonary HTN PAST SURGICAL HISTORY/PROCEDURES: Multiple Paracentesis Procedures Colonoscopy 02/13/17 Upper GI Endoscopy 12/29/16 and 02/13/17 SOCIAL HISTORY: for 7 years and lives with . Has been with same partner for 27 years total. In the past few years, patient drank EtOH socially on weekends. Last drink was October 2016. Has been EtOH free for over 1 year now. Used to be a heavy drinker in the far past. Denies tobacco use ever. Denies illicit drug use. No recent sick contacts. No recent travel. Colonoscopy done 02/13/17 Immunizations UTD Has not had any Prostate Screening FAMILY HISTORY: Father: [place] Brother: NC Mother: from Breast Ca No other Fam Hx of CHF, liver or kidney disease CODE STATUS: FULL CODE REVIEW OF SYSTEMS: All ROS are negative except for those as stated in HPI above. PHYSICAL EXAMINATION: Please see below. General: Awake, alert, oriented x 3. In mild distress and discomfort. Lying in gurney. HEENT: Head: normocephalic, atraumatic. Eyes: Sclera with icterus bilaterally. Nose: No external lesions Throat: no pharyngeal erythema or exudates, moist buccal mucosa Neck: Supple. Noted use of accessory muscles in cervical region bilaterally. Respiratory: +crackles in lung bases bilaterally with diminished breath sounds. Upper and middle cortes clear. Chest: Symmetric chest rise bilaterally Cardiovascular: tachycardic rate, regular rhythm, with no murmurs, rubs or gallops. Abdomen: nontender, diffusely distended tense abdomen, no hepatosplenomegaly appreciable as difficult to palpate due to abdominal swelling. Could not appreciate any bowel sounds. +Dullness to percussion in all 4 quadrants. Mild fluid wave appreciable. Extremities: +4 pitting edema in lower extremities bilaterally from thighs down to ankles/feet Neurological: no focal neurologic deficits appreciated bilaterally Integumentary: Some bruising noticeable on extremities and "skin peeling" on L forearm ( states from tape being taken off skin, patient's skin reported to be very sensitive) Vascular: +2 radial and dorsalis pedis pulses bilaterally LABORATORY DATA: Please see below. MICROBIOLOGY: Blood Cx x 2 Pending ELECTROCARDIOGRAM: Sinus Tachycardia with ventricular rate: 117 bpm Probable Old Inferior NC (q waves appreciated in Lead III especially) Abnormal EKG PA int: 170 ms QRS dur: 93 ms QTc: 386 ms RADIOLOGY: CXR: There appears to be consolidation representing infiltrate or atelectasis in the left retrocardiac region. There are probably small effusions. There are fibroatelectatic changes in the right lung base with elevation of the right hemidiaphragm. The cardiomediastinal silhouette is unchanged. IMPRESSION: Consolidative infiltrate or atelectasis, left retrocardiac region. Probable small effusions. ASSESSMENT: This is a 61-year-old male who is presenting for recurrent ascites from alcoholic cirrhosis and possible healthcare acquired pneumonia in the L retrocardiac region. Patient presented to [facility] ED for paracentesis initially. Was also possibly found to have possible consolidative infiltrate or atelectasis in the L retrocardiac region possibly representing a healthcare acquired pneumonia. PLAN: Recurrent Ascites from Alcoholic Cirrhosis: Consult Interventional Radiology for paracentesis as soon as possible. Since INR is elevated at 2.33, will give oral vitamin K 5 mg and recheck INR tomorrow. Paracentesis not possible until INR < or equal to 2 due to bleeding risk. Abdomen nontender and low risk for SBP at this point. Will obtain lactate level and repeat in [address] on no Na diet and 1.5 liter fluid restriction. Hold off on IV albumin infusion for now. Will obtain ammonia and lipase levels. Possible Healthcare Acquired Pneumonia: Will obtain CT Chest Without Contrast to rule out Retrocardioac Infiltrate vs. Atelectasis. Will obtain sputum cx. Will place on empiric tx of IV vancomycin 1g q24h, levaquin 750 mg qdaily, and zosyn 3.375 g q6h. Will follow up results when available. Stage 3 CKD at baseline: continue to monitor daily BMPs. Hx Hepatorenal syndrome with recurrent renal failure: continue to monitor BMPs. Patient on list for liver transplant at [facility]. Macrocytic Anemia: Continue to monitor CBCs. Transfuse if necessary. Can check vitamin B12 and folate levels. Thrombocytopenia: Most likely 2/2 to cirrhosis. Platelets low at 119. Continue to monitor CBCs and for easy bruising/bleeding. Chronic Hypotension: Continue midodrine. GERD and Nonbleeding Esophageal Ulcer at [place]: Will start pepcid. High Uric Acid Levels: Continue allopurinol. Mild to Moderate Portal Hypertensive Gastropathy and Grade I Esophageal Varices : continue propanolol. L Ventricular Diastolic Dysfunction Grade 1, Trace Mitral Regurgitation, Mild Tricuspid Regurgitation with Pulmonary HTN: continue spironolactone, propanolol , and furosemide. Monitor daily BMPs, Mg, and K. Replete electrolytes as necessary. Lower Extremity Edema 2/2 Cirrhosis: continue spironolactone. Replete K as necessary. Will continue home medications except for prophylactic ciprofloxacin since we are covering for HCAP with empiric antibiotics for now. DVT ppx: TEDs and SCDs only. No pharmacologic ppx due to elevated INR 2.33. Need INR <2 for paracentesis procedure. FULL CODE STATUS. Immunizations as per protocol. My preceptor for this patient encounter was Dr. Lulu Luna, and was physically present in the building during the encounter and was fully available. As needed, all aspects of the patient interview, examination, medical decision making process, and medical care plan development were reviewed and approved by the preceptor. Preceptor is aware and concurs with the plan as stated in the body of this note and will attest to such by his/her cosignature. Home Medications Scheduled (Zosyn 2-0.25 gm) 1 Inj Inj, 1 INJ IV Q6H Albumin Human (Albumin Human) 25 % Inj, 50 GRAM IV 1XWK, (Reported) Allopurinol (Allopurinol) 100 Mg Tab, 100 MG PO DAILY, (Reported) TAKES AT NOON Ciprofloxacin HCl (Ciprofloxacin HCl) 250 Mg Tab, 250 MG PO DAILY, (Reported) TAKES AT NOON Darbepoetin (Aranesp Albumin Free) 100 Mcg/0.5 Ml Inj, 100 MCG SC Fr@09 Digoxin (Digoxin) 0.25 Mg Tab, 0.25 MG PO DAILY Furosemide (Furosemide) 40 Mg Tab, 40 MG PO DAILY, (Reported) Lactobacillus Acidophilus (Bacid) 1 Tab Tab, 1 TAB PO DAILY, (Reported) TAKES AT NOON Midodrine HCl (Midodrine HCl) 5 Mg Tab, 10 MG PO 08,12,16 Propranolol HCl (Propranolol HCl) 10 Mg Tab, 10 MG PO BID, (Reported) Ranitidine HCl (Ranitidine [address]) 150 Mg Tab, 1 TAB PO BID, (Reported) TAKES AT NOON AND BEDTIME Rifaximin (Xifaxan) 550 Mg Tab, 550 MG PO BID, (Reported) Spironolactone (Spironolactone) 25 Mg Tab, 25 MG PO DAILY, (Reported) Vitamin E (Vitamin E) 400 Unit Cap, 400 UNIT PO BID, (Reported) TAKES AT NOON AND BEDTIME Allergies Coded Allergies: Aspirin (Verified Adverse Reaction, Mild, rectal bleeding, 03/04/17) Omeprazole (Verified Adverse Reaction, Mild, stomach pain, 03/04/17) Vital Signs Vital Signs Date Time Temp Pulse Resp B/P (MAP) Pulse Ox O2 Delivery O2 Flow Rate FiO2 04/27/17 15:28 124/79 (94) 04/27/17 15:17 113 96 04/27/17 12:48 100.1 16 Room Air Laboratory Data Labs 24H Laboratory Tests 2 04/27/17 13:13: White Blood Count 8.9, Red Blood Count 3.25L, Hemoglobin 11.3L, Hematocrit 35.0L , Mean Corpuscular Volume 107.5H, Mean Corpuscular Hemoglobin 34.7H, Mean Corpuscular Hemoglobin Concent 32.3, Red Cell Distribution Width 19.6H, Platelet Count 119L, Neutrophils (%) (Auto) 82.2H, Lymphocytes (%) (Auto) 7.5L, Monocytes (%) (Auto) 4.4, Eosinophils (%) (Auto) 4.6H, Basophils (%) (Auto) 0.4 , Neutrophils # (Auto) 7.3, Lymphocytes # (Auto) 0.8L, Monocytes # (Auto) 0.4, Eosinophils # (Auto) 0.4, Basophils # (Auto) 0.0, Large Unclassified Cells % 0.9 , Large Unclassified Cells # 0.1, Prothrombin Time 25.6H, Prothromb Time International Ratio 2.33, Anion Gap 6L, Glomerular Filtration Rate 46.0L, Calcium Level 9.1, Aspartate Amino Transf (AST/SGOT) 89H, Alanine Aminotransferase (ALT/SGPT) 52, Alkaline Phosphatase 151H, Total Bilirubin 8.5H , Direct Bilirubin 3.0H, Ammonia < 10, Total Creatine Kinase 50, Creatine Kinase MB 1.0, Creatine Kinase MB Relative Index 2.00, Troponin I < 0.02, B- Type Natriuretic Peptide 183H, Total Protein 7.6, Albumin 3.3, Albumin/Globulin Ratio 0.77L, Lipase 360, Thyroid Stimulating Hormone (TSH) 2.790 CBC/BMP Laboratory Tests 04/27/17 13:13 Red Blood Count 3.25 L, Mean Corpuscular Volume 107.5 H, Mean Corpuscular Hemoglobin 34.7 H, Mean Corpuscular Hemoglobin Concent 32.3, Red Cell Distribution Width 19.6 H, Neutrophils (%) (Auto) 82.2 H, Lymphocytes (%) (Auto ) 7.5 L, Monocytes (%) (Auto) 4.4, Eosinophils (%) (Auto) 4.6 H, Basophils (%) ( Auto) 0.4, Neutrophils # (Auto) 7.3, Lymphocytes # (Auto) 0.8 L, Monocytes # ( Auto) 0.4, Eosinophils # (Auto) 0.4, Basophils # (Auto) 0.0 Microbiology Microbiology 04/27/17 Blood Culture, Received Pending 04/27/17 Blood Culture, Received Pending Plan / VTE VTE Prophylaxis Ordered?: Yes (TEDs and SCDs) Attending Note Attending Note I have seen and examined the above patient and agree with the plan as documented above. MOMO VASQUES OGME-1 Apr 27, 2017 17:12 LULU LUNA May 07, 2017 10:32
[2017-04-27] MEDS ORDERED: LevoFLOXacin IV 750 MG in APPROPRIATE DILUENT 1 EA IV SCH ×4 (18:00)
[2017-04-27] MEDS ORDERED: PHYTONADIONE 5 MG TAB PO ONE (18:15)
--- NOTE | 2017-04-27 18:19 | ECGEPIP ---
Stationary ECG Study [facility] - ED Test Date: 2017-04-27 Pat Name: MARY MCPHERSON Department: Room: - Gender: M Hospice Superintendent: : [id number] Requested By: Jackie Grullon Order Number: [id number] Reading MD: Mike Betts Measurements Intervals Simon Rate: 108 P: -7 MN: 157 QRS: 5 QRSD: 73 T: 21 QT: 324 QTc: 436 Interpretive Statements SINUS TACHYCARDIA LEFT ATRIAL ENLARGEMENT PRWP WANDERING BASELINE Electronically Signed On 04-27-2017 18:18:52 EDT by Mike Betts
--- NOTE | 2017-04-27 19:20 | REPUSA ---
CT of the chest without contrast Clinical statement: Shortness of breath. Technique: Multiple axial CT images were obtained with 5 mm cuts through the chest without administra tion of contrast. Comparison: 03/05/2017. Findings: There is no thoracic lymphadenopathy. The visualized portions of the thyroid gland is unrem arkable. There is a moderate left-sided pleural effusion, which has increased in size since the prior study. Bilateral perihilar infiltrates are noted. There is also bilateral lower lobe atelectasis. Li mited imaging of the upper abdomen demonstrates a large amount of ascites. There are no suspicious os seous lesions. Impression: 1. Moderate left-sided pleural effusion which has increased since the prior study. 2. Worsening bilateral lower lobe infiltrate/atelectasis. 3. New bilateral perihilar infiltrates. 4. Stable large amount of abdominal ascites.
[2017-04-27 20:21] VITALS: BP 92/52
[2017-04-27] MEDS: rifAXIMin 550 MG TAB (XIFAXAN) PO SCH (20:56)
[2017-04-27] MEDS: VITAMIN E 400 INTERNATIONAL UNITS CAP PO SCH (20:56)
[2017-04-27] MEDS: FAMOTIDINE 20 MG TAB PO SCH (20:57)
[2017-04-27] MEDS ORDERED: PROPRANOLOL 10 MG TAB PO SCH (21:00)
[2017-04-27] MEDS ORDERED: VANCOMYCIN HCL 1,000 MG, VIAL MATE ADAPTER 1 EACH in D5W 250 ML IV SCH (21:00)
--- NOTE | 2017-04-27 22:47 | PHACANCOPD ---
PHARMACY VANCOMYCIN DOSING Pt Demographics Demographics Patient Age:61 , Weight:97.600 , Gender: male Events Past 24 Hours Events Past 24 Hours: NO: Dialysis, Diuretic Therapy, Change in CrCl, Fever, Elevation in WBC, Pending Diagnostics, Pending Procedures, Other Vancomycin Vancomycin Target Ranges: 15-20 mcg/ml Vancomycin Load Y/N: No Load Dose Date Time Vancomycin Load Dose: Date: Time: Vancomycin Dose Date: 04/27/17. Current Vancomycin Dose: [VANCO 1GM IV Q12H starting at 21:00] Intermittent Dosing?: No Labs Labs Laboratory Tests 04/27/17 13:13 Red Blood Count 3.25 L, Mean Corpuscular Volume 107.5 H, Mean Corpuscular Hemoglobin 34.7 H, Mean Corpuscular Hemoglobin Concent 32.3, Red Cell Distribution Width 19.6 H, Neutrophils (%) (Auto) 82.2 H, Lymphocytes (%) (Auto ) 7.5 L, Monocytes (%) (Auto) 4.4, Eosinophils (%) (Auto) 4.6 H, Basophils (%) ( Auto) 0.4, Neutrophils # (Auto) 7.3, Lymphocytes # (Auto) 0.8 L, Monocytes # ( Auto) 0.4, Eosinophils # (Auto) 0.4, Basophils # (Auto) 0.0 Micro Microbiology 04/27/17 Blood Culture, Received Pending 04/27/17 Blood Culture, Received Pending Creatinine Clearance Date:04/27/17. Creatinine Clearance: [<60 ml/min]. Assessment and Plan Maintaining Current Dose?: Yes Reason for dose change: No Dose Change Pharmacist Note Pharmacist Note Date: 04/27/17. Pharm.D. note: 61YO MALE, 71" in HEIGHT, 97.6 KG in WEIGHT. ADMITTED WITH PNEUMONIA AND NOTED CLF. SCR 1.63, CRCL <60 ml/min. ABX Tx INCLUDES: LEVAQUIN 750MG IV Q24H 18:00 AND ZOSYN 3.375GM IV Q6H (10PM) WE ARE ASKED TO DOSE VANCO. HE WAS INITIATED ON VANCO 1GM IV Q12H STARTING AT 21:00 THIS EVENING. WE WILL DRAW AN VANCO TROUGH ONCE AT [facility]ADY STATE. BR[facility] Apr 27, 2017 22:47
[2017-04-28] VITALS (31 sets, daily range): BP systolic 80–144; BP diastolic 46–83
[2017-04-28] MEDS ORDERED: NS 1,000 ML IV ONE (01:00)
[2017-04-28] MEDS: PIPERACILLIN/TAZOBACTAM SOD 3.375 GM in D5W MINI-BAG PLUS 50 ML IV SCH ×6 (03:29→21:29)
[2017-04-28 04:33] LABS: ADD MORPHOLOGY? YES; BASO % 0.2 % (0.0-1.0); EOS % 0.1 % (0.0-3.0); LARGE UNSTAINED CELL # 0.1 K/mm3 (0.0-0.4); LARGE UNSTAINED CELL % 1.2 % (0.0-4.0); LYMPH # 0.6 K/mm3 (1.5-4.5); LYMPH % 4.8 % (24.0-44.0); MEAN CORPUSCULAR HEMOGLOBIN 35.4 pg (27.0-33.0); MEAN CORPUSCULAR HGB CONC 32.2 g/dl (32.0-36.5); MEAN CORPUSCULAR VOLUME 109.8 fl (80.0-96.0); MONO # 0.6 K/mm3 (0.0-0.8); MONO % 5.4 % (0.0-5.0); NEUTROPHILS # 10.4 K/mm3 (1.8-7.7); NEUTROPHILS % 88.4 % (36.0-66.0); RED CELL DISTRIBUTION WIDTH 19.1 % (11.5-14.5); WHITE BLOOD COUNT 11.7 K/mm3 (4.0-10.0)
[2017-04-28 04:37] LABS: ALBUMIN 2.6 GM/DL (3.2-5.2); ALBUMIN/GLOBULIN RATIO 0.9 (1.00-1.93); BILIRUBIN,TOTAL 10.2 MG/DL (0.2-1.0); CALCIUM LEVEL 8.2 MG/DL (8.8-10.2); INR 3.24; MAGNESIUM LEVEL 1.7 MG/DL (1.8-2.4); POTASSIUM SERUM 4.9 MEQ/L (3.5-5.1); TOTAL PROTEIN 5.5 GM/DL (6.4-8.2)
[2017-04-28 04:51] LABS: GLOMERULAR FILTRATION RATE 28.8 (>49)
[2017-04-28 04:54] LABS: CREATININE FOR GFR 2.45 MG/DL (0.70-1.30)
[2017-04-28] MEDS ORDERED: PHYTONADIONE 5 MG TAB PO ONE (05:00)
[2017-04-28 05:22] LABS: PLATELET COUNT, AUTOMATED 65 k/mm3 (150-450)
[2017-04-28 05:23] LABS: ANISOCYTOSIS 2+
[2017-04-28 05:24] LABS: BURR CELLS 1+
[2017-04-28] MEDS ORDERED: MIDODRINE 5 MG TAB PO SCH (08:00)
[2017-04-28] MEDS ORDERED: MAG SULF 1GM/100ML (MAG RUN) 1 GM in APPROPRIATE DILUENT 1 EA IV ONE (08:15)
[2017-04-28] MEDS: rifAXIMin 550 MG TAB (XIFAXAN) PO SCH ×2 (08:48→20:04)
[2017-04-28] MEDS ORDERED: FUROSEMIDE 40 MG TAB PO SCH (09:00)
[2017-04-28] MEDS ORDERED: SPIRONOLACTONE 25 MG TAB PO SCH (09:00)
[2017-04-28] MEDS ORDERED: VANCOMYCIN HCL 1,000 MG, VIAL MATE ADAPTER 1 EACH in D5W 250 ML IV SCH (09:00)
[2017-04-28] MEDS ORDERED: MIDODRINE 5 MG TAB PO ONE (11:00)
--- NOTE | 2017-04-28 11:15 | PHACANCOPD ---
PHARMACY VANCOMYCIN DOSING Pt Demographics Demographics Patient Age:61 , Weight:98.600 , Gender: male Events Past 24 Hours Events Past 24 Hours: YES: Change in CrCl, NO: Dialysis, Diuretic Therapy, Fever, Elevation in WBC, Pending Diagnostics , Pending Procedures, Other Vancomycin Vancomycin indication: PNEUMONIA Vancomycin Target Ranges: 15-20 mcg/ml Vancomycin Load Y/N: No Load Dose Date Time Vancomycin Load Dose: Date: Time: Vancomycin Dose 04/28/17: Held AM Vanco dose, restart VANCO 1G IV Q24H@2100 Date: 04/27/17. Current Vancomycin Dose: [VANCO 1GM IV Q12H starting at 21:00] Intermittent Dosing?: No Labs Labs Vital Signs Label Value Date Time Patient Temperature 98.0 degrees F 04/28/17814 Temperature Source Temporal 04/28/17814 Patient Temperature 99.2 degrees F 04/27/172020 Temperature Source Temporal 04/27/172020 Item Value Date Time White Blood Count 8.9 K/mm3 04/27/17 1313 White Blood Count 11.7 K/mm3 H 04/28/17 0355 Creatinine 2.45 MG/DL H # 04/28/17 0355 Creatinine 1.63 MG/DL H 04/27/17 1313 Micro Microbiology 04/27/17 Blood Culture - Preliminary, Resulted 04/27/17 Blood Culture, Received Pending Creatinine Clearance Date:04/27/17. Creatinine Clearance: [<60 ml/min]. Assessment and Plan Maintaining Current Dose?: No Reason for dose change: Change in serum Cr Pharmacist Note Pharmacist Note 04/28/17: After 1st dose of Vanco, Scr jumped from 1.63 to 2.45. I held AM dose and will restart VANCO IV 1G Q24H @2100. We will continue to monitor Scr and dose and make adjustments as needed. Date: 04/27/17. Pharm.D. note: 61YO MALE, 71" in HEIGHT, 97.6 KG in WEIGHT. ADMITTED WITH PNEUMONIA AND NOTED CLF. SCR 1.63, CRCL <60 ml/min. ABX Tx INCLUDES: LEVAQUIN 750MG IV Q24H 18:00 AND ZOSYN 3.375GM IV Q6H (10PM) WE ARE ASKED TO DOSE VANCO. HE WAS INITIATED ON VANCO 1GM IV Q12H STARTING AT 21:00 THIS EVENING. WE WILL DRAW AN VANCO TROUGH ONCE AT [facility]ADY STATE. KENNEDI [facility] Apr 28, 2017 11:11
[2017-04-28] MEDS: LACTOBACILLUS ACIDOPHILUS CAP (BACID) PO SCH (11:30)
[2017-04-28] MEDS: ALLOPURINOL 100 MG TAB PO SCH (11:31)
[2017-04-28] MEDS: FAMOTIDINE 20 MG TAB PO SCH ×2 (11:31→20:03)
[2017-04-28] MEDS: VITAMIN E 400 INTERNATIONAL UNITS CAP PO SCH ×2 (11:34→20:03)
--- NOTE | 2017-04-28 11:49 | IPNPDOC ---
Text Note Date of Service The patient was seen on 04/28/17. NOTE Subjective: Patient seen and examined at bedside. Patient still complains of some shortness of breath that is worse when lying flat and with exertion, it is unchanged or slightly better since yesterday. He has an appetite but is reluctant to eat because he doesn't want to aggravate the fullness he feels in his abdomen. Reports some diminished urine output but no blood. No fever, chills, swallowing difficulties, nausea, vomiting, diarrhea, constipation, hematochezia, melena, chest pain, abdominal pain, headache or dizziness. Of note, patient clarified today that he usually receives weekly paracenteses at [facility] as an outpatient. He sees specialists and is on the liver transplant list at [place]. He was not transferred here from [place], he was a walk-in to the [facility] ED and only called [place] and coordinated care with his specialists. Objective: Vitals: T 98.0F, BP 83/47, RR 20, P 85, Satting 97% on RA. General: Awake, alert, oriented x 3. Sitting on side of bed. No acute distress. HEENT: Head: normocephalic, atraumatic. Eyes: +sceral icterus bilaterally. Nose: No external lesions Neck: Supple. Noted use of accessory muscles in cervical region bilaterally. Respiratory: clear to auscultation but slightly diminished bilaterally. No wheezes, rales, rhonchi. Chest: Symmetric chest rise bilaterally Cardiovascular: RRR with no murmurs, rubs or gallops. Abdomen: nontender, diffusely distended tense abdomen, no hepatosplenomegaly appreciable as difficult to palpate due to abdominal swelling. Could not appreciate any bowel sounds. +Dullness to percussion in all 4 quadrants. Extremities: +4 pitting edema in lower extremities bilaterally from thighs down to ankles/feet Neurological: no focal neurologic deficits appreciated bilaterally Integumentary: Some bruising noticeable on extremities and "skin peeling" on L forearm ( states from tape being taken off skin, patient's skin reported to be very sensitive) Vascular: +2 radial and dorsalis pedis pulses bilaterally Laboratory data: Please see below. WBC 11.7 from 8.9 RBC 2.6 from 3.25 Hgb 9.2 from 11.3 Hct 28.5 from 35.0 plt 65 from 119 PT 33.1 from 25.6 INR 3.24 from 2.33 Lactate 6.2 Microbiology: Preliminary Blood Cx positive for gram positive cocci in chains Second Blood Cx pending Imaging: CT Chest: 1. Moderate left-sided pleural effusion which has increased since the prior study. 2. Worsening bilateral lower lobe infiltrate/atelectasis. 3. New bilateral perihilar infiltrates. 4. Stable large amount of abdominal ascites. Assessment/Plan: Recurrent Ascites from Alcoholic Cirrhosis: In increased from 2.33 to 3.24 despite oral vitamin K 5 mg. Given 2 units FFP today and will recheck INR and consult interventional radiology for paracentesis procedure to be performed when INR less than or equal to 2. Abdomen still nontender and low risk for SBP at this point. Will obtain lactate level and repeat in 6 hours. Continue no Na diet and changing 1.5 liter fluid restriction to 2 liters as per patient request. IV albumin infusion therapy as per Nephrology. Possible Healthcare Acquired Pneumonia: CT of the chest showed: Moderate left- sided pleural effusion which has increased since the prior study. Worsening bilateral lower lobe infiltrate/atelectasis. New bilateral perihilar infiltrates. Stable large amount of abdominal ascites. Will obtain sputum cx. Continue empiric tx of IV vancomycin 1g q24h, levaquin 750 mg qdaily, and zosyn 3.375 g q6h. Stage 3 CKD at baseline: continue to monitor daily BMPs. Creatinine improved from yesterday. BUN went up. Consulted Nephrology. Follow recommendations. Hx Hepatorenal syndrome with recurrent renal failure: continue to monitor BMPs. Patient on list for liver transplant at [place]. Nephrology consulted for further management. Atrial Fibrillation Hx: heart sounded regular today. On propanolol and rate looks to be controlled. Macrocytic Anemia: Hgb dropped to 9.2 from 11.3. Continue to monitor CBCs. Transfuse if necessary. Can check vitamin B12 and folate levels. Thrombocytopenia: Most likely 2/2 to cirrhosis. Platelets dropped to 69 from 119. Continue to monitor CBCs and for easy bruising/bleeding. Transfuse if necessary. Chronic Hypotension: Continue midodrine. GERD and Nonbleeding Esophageal Ulcer at [place]: Will start pepcid. High Uric Acid Levels: Continue allopurinol. Mild to Moderate Portal Hypertensive Gastropathy and Grade I Esophageal Varices : continue propanolol. L Ventricular Diastolic Dysfunction Grade 1, Trace Mitral Regurgitation, Mild Tricuspid Regurgitation with Pulmonary HTN: continue spironolactone, propanolol , and furosemide. Monitor daily BMPs, Mg, and K. Replete electrolytes as necessary. Lower Extremity Edema 2/2 Cirrhosis: continue spironolactone. Replete K as necessary. Will continue home medications except for prophylactic ciprofloxacin since we are covering for HCAP with empiric antibiotics for now. DVT ppx: TEDs and SCDs only. No pharmacologic ppx due to elevated INR 2.33. Need INR <2 for paracentesis procedure. FULL CODE STATUS. Immunizations as per protocol. My preceptor for this patient encounter was Dr. Mary Mak, and was physically present in the building during the encounter and was fully available. As needed , all aspects of the patient interview, examination, medical decision making process, and medical care plan development were reviewed and approved by the preceptor. Preceptor is aware and concurs with the plan as stated in the body of this note and will attest to such by his/her cosignature. VS,Fishbone, I+O VS, Fishbone, I+O Laboratory Tests 04/27/17 13:13 Red Blood Count 3.25 L, Mean Corpuscular Volume 107.5 H, Mean Corpuscular Hemoglobin 34.7 H, Mean Corpuscular Hemoglobin Concent 32.3, Red Cell Distribution Width 19.6 H, Neutrophils (%) (Auto) 82.2 H, Lymphocytes (%) (Auto ) 7.5 L, Monocytes (%) (Auto) 4.4, Eosinophils (%) (Auto) 4.6 H, Basophils (%) ( Auto) 0.4, Neutrophils # (Auto) 7.3, Lymphocytes # (Auto) 0.8 L, Monocytes # ( Auto) 0.4, Eosinophils # (Auto) 0.4, Basophils # (Auto) 0.0 04/28/17 03:55 Red Blood Count 2.60 L, Mean Corpuscular Volume 109.8 H, Mean Corpuscular Hemoglobin 35.4 H, Mean Corpuscular Hemoglobin Concent 32.2, Red Cell Distribution Width 19.1 H, Neutrophils (%) (Auto) 88.4 H, Lymphocytes (%) (Auto ) 4.8 L, Monocytes (%) (Auto) 5.4 H, Eosinophils (%) (Auto) 0.1, Basophils (%) ( Auto) 0.2, Neutrophils # (Auto) 10.4 H, Lymphocytes # (Auto) 0.6 L, Monocytes # (Auto) 0.6, Eosinophils # (Auto) 0.0, Basophils # (Auto) 0.0, Calcium Level 8.2 L, Aspartate Amino Transf (AST/SGOT) 64 H, Alanine Aminotransferase (ALT/SGPT) 38, Alkaline Phosphatase 83, Total Bilirubin 10.2 H, Total Protein 5.5 #L, Albumin 2.6 #L Vital Signs Date Time Temp Pulse Resp B/P (MAP) Pulse Ox O2 Delivery O2 Flow Rate FiO2 04/28/17 08:15 98.0 87 18 87/47 (60) 98 Room Air I&O- Last 24 Hours up to 6 AM 04/28/17 06:00 Intake Total 2310 ml Output Total 50 ml Balance 2260 ml MOMO VASQUES OGME-1 Apr 28, 2017 11:30
[2017-04-28] MEDS: OCTREOTIDE ACETATE 1,200 MCG in NS 238.8 ML IV SCH (13:20)
[2017-04-28 14:42] LABS: INR 2.33
[2017-04-28 14:42] LABS: ADD MORPHOLOGY? YES; BASO % 0.1 % (0.0-1.0); EOS % 0.2 % (0.0-3.0); LARGE UNSTAINED CELL # 0.2 K/mm3 (0.0-0.4); LARGE UNSTAINED CELL % 1.8 % (0.0-4.0); LYMPH # 0.8 K/mm3 (1.5-4.5); LYMPH % 4.9 % (24.0-44.0); MEAN CORPUSCULAR HEMOGLOBIN 35.3 pg (27.0-33.0); MEAN CORPUSCULAR HGB CONC 32.4 g/dl (32.0-36.5); MEAN CORPUSCULAR VOLUME 108.9 fl (80.0-96.0); MONO % 8.2 % (0.0-5.0); NEUTROPHILS # 10.3 K/mm3 (1.8-7.7); NEUTROPHILS % 84.8 % (36.0-66.0); WHITE BLOOD COUNT 12.2 K/mm3 (4.0-10.0)
[2017-04-28 15:06] LABS: CALCIUM LEVEL 8.7 MG/DL (8.8-10.2); CREATININE FOR GFR 2.55 MG/DL (0.70-1.30); GLOMERULAR FILTRATION RATE 27.5 (>49); POTASSIUM SERUM 4.8 MEQ/L (3.5-5.1)
[2017-04-28 15:07] LABS: ALBUMIN 3.2 GM/DL (3.2-5.2); ALBUMIN/GLOBULIN RATIO 1.03 (1.00-1.93); TOTAL PROTEIN 6.3 GM/DL (6.4-8.2)
[2017-04-28 15:30] LABS: MAGNESIUM LEVEL 2.2 MG/DL (1.8-2.4)
[2017-04-28 15:35] LABS: PLATELET COUNT, AUTOMATED 60 k/mm3 (150-450)
[2017-04-28 15:36] LABS: ANISOCYTOSIS 2+; HYPOCHROMASIA 2+; POIKILOCYTOSIS 1+
--- NOTE | 2017-04-28 15:53 | REP ---
PORTABLE CHEST: Two AP portable views of the chest are performed during central line placement. There is a left subclavian central venous catheter with the tip in the superior vena cava. There is no pneumothorax. Bibasilar infiltrates and effusions are again noted. IMPRESSION: No pneumothorax. Status post left central line placement, with subclavian central venous catheter seen, the tip is in the superior vena cava. Signed by Asif Georges MD 04/29/2017 07:38 P
[2017-04-28] MEDS: MIDODRINE 5 MG TAB PO SCH (16:07)
[2017-04-28] MEDS ORDERED: SODIUM CHLORIDE 0.9% INJ 10 ML SYR IV PRN (17:30)
--- NOTE | 2017-04-28 19:47 | CR ---
DATE OF CONSULTATION: 04/28/2017 REQUESTING PHYSICIAN: Dr. Mary Mak CONSULTING PHYSICIAN: Dr. Pfeiffer REASON FOR CONSULTATION: Management of acute kidney injury in this patient with decompensated cirrhosis. CHIEF COMPLAINT: Patient was admitted to the hospital overnight because of worsening shortness of breath. HISTORY OF PRESENT ILLNESS: Mr. Kory Mosley is a 61-year-old male who is well known to me from outpatient clinic and from previous admissions to this hospital. He has baseline creatinine of around 1.2. He has chronic kidney disease (CKD), stage III. Patient has decompensated liver cirrhosis with recurrent ascites and history of spontaneous bacterial peritonitis (SBP) in the past. Patient also follows up with liver clinic at [place], and he is listed for liver transplant. Patient has a history of portal hypertension and anemia secondary to portal hypertensive induced gastropathy and ulcerations. Patient was recently admitted to [facility] with hepatorenal syndrome. He was subsequently transferred to [place], but he was stabilized, and patient followed up with me in the clinic on 04/15/2017. At that time his creatinine was 1.2. Patient told me that he was asked to decrease the frequency of the ascitic taps, and he was instead asked to get albumin infusion, 50 gram intravenous (IV) once a week; however, because of missing paracentesis, patient gradually developed tense ascites. He presented to the hospital yesterday because of inability to breathe, abdominal distention, along with fevers and chills at home. Patient was found to have a creatinine of 1.6 on admission, which rapidly progressed to 2.4 this morning. Patient has a lactate of 6.4, and he is oliguric at this time. Initially evaluation on admission, including the blood culture, showed that he was growing gram-positive cocci in chains. Patient was started on IV antibiotics. He was given 1 liter IV fluid bolus, but his renal function has not improved. Nephrology service was called for further help in the management of this patient. PAST MEDICAL HISTORY: 1. Patient has a past medical history of alcoholic cirrhosis, which was decompensated, with recurrent ascites, requiring ascitic taps, and recent history of SPB as well. 2. Patient has CKD, stage III, with a baseline creatinine of around 1.2. 3. Recent history of hepatorenal syndrome. 4. Anemia, requiring blood transfusions. 5. History of cirrhotic gastropathy and ulcerations. 6. History of hyperuricemia. PAST SURGICAL HISTORY: 1. Status post colonoscopy in January 2017. 2. History of upper gastrointestinal (GI) endoscopy in December and January 2017, showing portal hypertensive gastropathy. 3. History of multiple paracentesis in the past. ALLERGIES: Patient is allergic to ASPIRIN and OMEPRAZOLE. FAMILY HISTORY: No significant family history of end-stage renal disease requiring hemodialysis. SOCIAL HISTORY: Patient is . Lives with his . 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 Patient reports that he was laid off from job at [employer] as well. Patient reports that he quit drinking since October 2016. He denies any illicit drug abuse. He denies smoking. REVIEW OF SYSTEMS: CONSTITUTIONAL: Patient reports weakness, lethargy, and chills. EYES: He denies any blurry vision or double vision. ENT: He denies any dysphagia, odynophagia, or ear discharge. CARDIOVASCULAR: Patient reports lower extremity edema. Otherwise he denies chest pain. RESPIRATORY: Patient reports progressive shortness of breath and orthopnea. GASTROINTESTINAL: Patient reports cirrhosis, recurrent ascites, abdominal distention, and jaundice. GENITOURINARY: Patient reports decreased urine output and dark discoloration of the urine. MUSCULOSKELETAL: He denies any muscle aches and pains. CENTRAL NERVOUS SYSTEM: Patient reports history of encephalopathy in the past, but he denies any seizures or strokes. PSYCHIATRIC: Patient denies depression or anxiety. SKIN: Patient reports multiple bruising because of low platelet count. Otherwise , he denies any rashes. ENDOCRINE: Patient denies any history of thyroid disease or diabetes. HEMATOLOGICAL/ONCOLOGICAL: Patient reports history of anemia and thrombocytopenia. All other review of systems is negative. PHYSICAL EXAMINATION: GENERAL: Patient is awake, alert, oriented times three, but he is very weak and lethargic at this time. VITAL SIGNS: When I examined the patient, his vital signs were temperature 98 degrees Fahrenheit, blood pressure 87/47, pulse 87, respiratory rate of 18, saturating 98% on room air. Intake and output: Urine output so far recorded since overnight is 175 mL only. HEAD AND NECK: Patient has temporal wasting. Scleral icterus. Mucous membranes are moist. Neck is supple. There is no jugular venous distention (JVD). CARDIOVASCULAR: S1, S2, regular rate. No murmur, rub, or gallop. RESPIRATORY: Decreased breath sounds at the bases. Positive crepitations on deep inspiration at the bases. ABDOMEN: Abdomen is soft, distended. Large amount of ascites. Nontender. No organomegaly appreciated at this time. EXTREMITIES: No clubbing or cyanosis. Patient has 2+ pitting edema of the bilateral lower extremities. SKIN: Patient has multiple petechiae and purpura all over the skin. CENTRAL NERVOUS SYSTEM: No asterixis. No focal neurological deficit. Power is 5/ 5 in bilateral upper extremities. Patient is able to communicate well. PSYCHIATRIC: Depressed mood. LYMPH NODES: No significant cervical, axillary, or inguinal lymphadenopathy. LABORATORY REVIEW: CBC showed a WBC of 12.2, hemoglobin is 8.2, platelets are 60. INR is 2.33. BMP showed sodium of 135, potassium 4.8, chloride 99, bicarbonate 25, BUN is 53, creatinine is 2.5, lactate is 5.3, calcium is 8.7. Total bilirubin is 11, AST 53 , ALT 36, alkaline phosphatase is 72, albumin is 2.6. Microbiology: Blood culture preliminary is showing gram-positive cocci in chains. IMAGING: Chest x-ray done in the afternoon showed atelectasis in the left retrocardiac region and small effusions. CT scan of the chest showed moderate left-sided pleural effusion, worsening bilateral lower lobe infiltrate versus atelectasis, large amount of abdominal ascites. CURRENT INPATIENT MEDICATIONS: Patient's medications were all reviewed by me. He is currently on: - Levaquin 750 mg IV every 48 hours - He was given magnesium sulfate 1 gram IV times one dose. - Patient was give a normal saline bolus overnight. - He is on Zosyn 3.375 gram IV every 6 hours. - I started the patient on octreotide infusion at 50 mcg per hour. - Patient was given vancomycin 1 gram IV every 24 hours. - He is allopurinol 100 mg by mouth daily - Pepcid 20 mg by mouth twice a day - He is Lactobacillus by mouth daily. - I have increased patient's midodrine to 10 mg by mouth every 8 hours. - Patient was given vitamin K 10 mg by mouth one dose. - His diuretics and beta isabella have been held. - Patient is on rifaximine 550 mg by mouth twice a day - He is on vitamin D 400 units by mouth twice a day. ASSESSMENT: A 61-year-old male with a history of alcohol cirrhosis, which is decompensated, with worsening ascites and acute kidney injury, superimposed on chronic kidney disease, stage III, along with bacteremia and lactic acidosis. PLAN: 1. Central nervous system (DIRECTOR PERIOPERATIVE). Patient has no signs of encephalopathy at this time; however, I will continue the home dose of rifaximin 550 mg by mouth twice a day for prevention of hepatic encephalopathy. 2. Cardiovascular. Patient is hypotensive at this time with lactic acidosis secondary to infection and shock. I have started the patient on midodrine 10 mg by mouth three times a day. If patient remains hypotensive, then patient would need to start Levophed infusion. I have also started the patient on albumin 25%, 25 gram IV every 6 hours. 3. Respiratory. Patient has bilateral atelectasis and possible infiltrate on chest x-ray. He also has gram-positive cocci in chains. He is being empirically covered for healthcare-associated pneumonia. Continue vancomycin, Levaquin, and Zosyn at this time. Doses are adequate for his renal failure at this time. 4. Gastrointestinal (GI). Patient has decompensated cirrhosis and ascites. His INR is high. He has a high model for end-stage liver disease (MELD) score. Patient was listed at [facility] for liver transplant. We are trying to transfer the patient to [facility] whenever the bed is available, but in the meantime we shall try to get the ascitic tap as soon as possible once the INR is less than 2. I believe that the large amount of ascites is causing abdominal compartment syndrome, which is affecting the renal function and renal perfusion as well. Patient's ascitic fluid will also be sent for Gram statin, cell count, and cultures. 5. Renal. Patient is in acute renal failure superimposed on chronic kidney disease, stage III. Baseline creatinine is 1.2. Renal failure possibly can be secondary to a combination of abdominal compartment syndrome, shock, along with bacteremia. I am going to empirically treat the patient as hepatorenal syndrome. Continue the IV antibiotics. Continue albumin 25%, 25 gram IV every 6 hours. Continue midodrine 10 mg by mouth three times a day. Continue octreotide infusion at 50 mcg per hour and ascitic tap as soon as possible to relieve the intra-abdominal pressure. If blood pressure drops, then patient will be started on IV Levophed. Patient is being transferred to intensive care unit (ICU) for higher level of care, and patient will need a central line for labs and medications in the ICU as well. 6. Portal hypertensive gastropathy. Patient could not tolerate omeprazole in the past. Continue the Pepcid at this time. Propranolol is on hold because of hypotension and acute renal failure. 7. Infectious disease. Patient is having gram-positive cocci in chains in blood culture. Continue the current antibiotics. Followup the cultures. 8. Hematological/oncological: Patient's hemoglobin is 8.2, which is acceptable at this time. Transfuse as needed for hemoglobin drop below 8. Thrombocytopenia sec to splenic sequestration. 10. Lactic acidosis. Lactic acidosis is secondary to a combination of infection , abdominal compartment syndrome, and inability of the liver to metabolize the lactate. Continue the aggressive management with albumin. Avoid normal saline infusion, because that is going to make abdominal ascites worse. Continue antibiotics and continue the midodrine at this time. 11. Hyponatremia. Hyponatremia is secondary to hypervolemia. It is expected to improve with ascitic tap and administration of albumin. 12. Endocrine. No endocrine issues at this time. Thank you for involving us in the care of this patient. We shall be happy to follow the patient along with you in the ICU. Patient was transferred to ICU. Plan of care was discussed with the patient, the patient's family members, and with the medical team, Dr. Mary Mak. I spent more than an hour in coordinating the care of this patient today in the progressive care unit and in the ICU. That does not include any procedures. MTDD
[2017-04-28] MEDS: VANCOMYCIN HCL 1,000 MG, VIAL MATE ADAPTER 1 EACH in D5W 250 ML IV SCH (20:04)
[2017-04-28] MEDS: SODIUM CHLORIDE 0.9% INJ 10 ML SYR IV SCH (21:29)
--- NOTE | 2017-04-28 21:49 | IPNPDOC ---
Text Note Date of Service The patient was seen on 04/28/17. VS,Fishbone, I+O VS, Fishbone, I+O Laboratory Tests 04/28/17 03:55 Red Blood Count 2.60 L, Mean Corpuscular Volume 109.8 H, Mean Corpuscular Hemoglobin 35.4 H, Mean Corpuscular Hemoglobin Concent 32.2, Red Cell Distribution Width 19.1 H, Neutrophils (%) (Auto) 88.4 H, Lymphocytes (%) (Auto ) 4.8 L, Monocytes (%) (Auto) 5.4 H, Eosinophils (%) (Auto) 0.1, Basophils (%) ( Auto) 0.2, Neutrophils # (Auto) 10.4 H, Lymphocytes # (Auto) 0.6 L, Monocytes # (Auto) 0.6, Eosinophils # (Auto) 0.0, Basophils # (Auto) 0.0, Calcium Level 8.2 L, Aspartate Amino Transf (AST/SGOT) 64 H, Alanine Aminotransferase (ALT/SGPT) 38, Total Creatine Kinase 45, Alkaline Phosphatase 83, Total Bilirubin 10.2 H, Total Protein 5.5 #L, Albumin 2.6 #L 04/28/17 14:14 Red Blood Count 2.34 L, Mean Corpuscular Volume 108.9 H, Mean Corpuscular Hemoglobin 35.3 H, Mean Corpuscular Hemoglobin Concent 32.4, Red Cell Distribution Width 19.0 H, Neutrophils (%) (Auto) 84.8 H, Lymphocytes (%) (Auto ) 4.9 L, Monocytes (%) (Auto) 8.2 H, Eosinophils (%) (Auto) 0.2, Basophils (%) ( Auto) 0.1, Neutrophils # (Auto) 10.3 H, Lymphocytes # (Auto) 0.8 L, Monocytes # (Auto) 1.0 H, Eosinophils # (Auto) 0.0, Basophils # (Auto) 0.0, Calcium Level 8.7 L, Aspartate Amino Transf (AST/SGOT) 53 H, Alanine Aminotransferase (ALT/ SGPT) 36, Alkaline Phosphatase 72, Total Bilirubin 11.0 H, Total Protein 6.3 L, Albumin 3.2 # Vital Signs Date Time Temp Pulse Resp B/P (MAP) Pulse Ox O2 Delivery O2 Flow Rate FiO2 04/28/17 17:30 93 20 127/80 (96) 97 Room Air 04/28/17 16:00 98.1 04/28/17 12:48 2.0 I&O- Last 24 Hours up to 6 AM 04/28/17 06:00 Intake Total 2310 ml Output Total 50 ml Balance 2260 ml MOMO VASQUES OGME-1 Apr 28, 2017 21:49
[2017-04-29] VITALS (15 sets, daily range): BP systolic 107–146; BP diastolic 58–89
[2017-04-29] MEDS: PIPERACILLIN/TAZOBACTAM SOD 3.375 GM in D5W MINI-BAG PLUS 50 ML IV SCH ×4 (05:06→21:56)
[2017-04-29] MEDS: SODIUM CHLORIDE 0.9% INJ 10 ML SYR IV SCH ×2 (06:10→12:14)
[2017-04-29 06:29] LABS: BASO % 0.1 % (0.0-1.0); EOS # 0.1 K/mm3 (0.0-0.50); EOS % 0.6 % (0.0-3.0); LARGE UNSTAINED CELL # 0.2 K/mm3 (0.0-0.4); LARGE UNSTAINED CELL % 1.6 % (0.0-4.0); LYMPH # 0.7 K/mm3 (1.5-4.5); LYMPH % 4.6 % (24.0-44.0); MEAN CORPUSCULAR HEMOGLOBIN 35.4 pg (27.0-33.0); MEAN CORPUSCULAR HGB CONC 32.5 g/dl (32.0-36.5); MEAN CORPUSCULAR VOLUME 108.8 fl (80.0-96.0); MONO # 0.8 K/mm3 (0.0-0.8); MONO % 6.6 % (0.0-5.0); NEUTROPHILS # 10.3 K/mm3 (1.8-7.7); NEUTROPHILS % 86.4 % (36.0-66.0); RED CELL DISTRIBUTION WIDTH 19.2 % (11.5-14.5); WHITE BLOOD COUNT 11.9 K/mm3 (4.0-10.0)
[2017-04-29 06:31] LABS: PLATELET COUNT, AUTOMATED 67 k/mm3 (150-450)
--- NOTE | 2017-04-29 06:31 | RO ---
DATE OF PROCEDURE: 04/28/2017 PREPROCEDURE DIAGNOSIS: Hypertension, need for antibiotics, need for vascular access. POSTPROCEDURE DIAGNOSIS: Hypertension, need for antibiotics, need for vascular access. PROCEDURE: Insertion of left subclavian central line. SURGEON: Dr. Jean Pedraza ACTIVITY DIRECTOR: ANESTHESIA: ESTIMATED BLOOD LOSS: PROCEDURE: The patient's left infraclavicular fossa was prepped and draped in usual sterile fashion. It was then infiltrated with 1% Xylocaine. It was notable that after infiltrated with 1% Xylocaine, it swelled up more than usual. His INR is noted to be 3.7. The vein was found on the second pass and a wire was placed without difficulty. Upon finding the vein with the needle, the blood was a bit more red than usual and while not actively pulsatile, it was under some pressure. I therefore interrupted the procedure and called for x-ray to make sure that the wire was indeed in the right place. The wire was in the right atrium. I proceeded to dilate the tract and pass the triple lumen catheter by Seldinger technique. Ports were aspirated and flushed without difficulty and the catheter was secured to the chest wall with two #3-0 silk sutures. He tolerated the procedure well. Followup chest is still pending.
[2017-04-29 06:36] LABS: INR 2.76
[2017-04-29 06:53] LABS: ALBUMIN 3.4 GM/DL (3.2-5.2); ALBUMIN/GLOBULIN RATIO 1.13 (1.00-1.93); BILIRUBIN,TOTAL 10.5 MG/DL (0.2-1.0); CALCIUM LEVEL 8.6 MG/DL (8.8-10.2); CREATININE FOR GFR 2.4 MG/DL (0.70-1.30); GLOMERULAR FILTRATION RATE 29.4 (>49); MAGNESIUM LEVEL 2.2 MG/DL (1.8-2.4); POTASSIUM SERUM 4.4 MEQ/L (3.5-5.1); TOTAL PROTEIN 6.4 GM/DL (6.4-8.2)
[2017-04-29] MEDS: rifAXIMin 550 MG TAB (XIFAXAN) PO SCH ×2 (08:15→21:55)
[2017-04-29] MEDS: MIDODRINE 5 MG TAB PO SCH ×3 (08:15→16:28)
--- NOTE | 2017-04-29 11:36 | DS.PDOC ---
Discharge Summary General Date of Admission Apr 27, 2017 at 17:31 Date of Discharge 04/29/17 Discharge Summary PROCEDURES PERFORMED DURING STAY: Paracentesis draining cc of fluid. Central line placed in left subclavian vein. ADMITTING DIAGNOSES: 1. ascites secondary to acute on chronic liver failure. 2. sepsis. 3. healthcare acquired pneumonia. 4. Acute kidney injury superimposed on stage III chronic renal failure DISCHARGE DIAGNOSES: 1. decompensated alcoholic liver cirrhosis with massive ascites, coagulopathy, thrombocytopenia, hepatorenal syndrome with MELD of 37 2. Sepsis 3. Acute kidney injury on chronic kidney disease 3 due to abdominal compartment syndrome vs hepatorenal syndrome 4. Chronic hypotension due to cirrhosis 5. Atrial fibrillation 6. Chronic anemia 7. Hyponatremia. COMPLICATIONS/CHIEF COMPLAINT: Shortness of breath from abdominal swelling. HOSPITAL COURSE: 61 yo M with PMH of alcoholic cirrhosis with recurrent ascites requiring paracentesis usually once weekly, spontaneous bacterial peritonitis, stage 3 CKD , hepatorenal syndrome with acute renal failure, anemia requiring transfusions, thrombocytopenia, and hypotension, GERD, presents to [facility] ED today for progressively worsening SOB that began 1 week ago. SOB was constant and getting worse--had gotten "too much." states [facility]– [place] was called by Dr. Gutierrez as patient is on liver transplant list there, and therefore, communication needs to be made about any updates with the patient, and any treatments rendered. Patient arrived to ED in the afternoon hoping to get a paracentesis in the ED, and then go home. Usually receives paracenteses as an outpatient here at [facility] weekly. However recently, he had an episode of spontaneous bacterial peritonitis about 1 month ago and has not had a paracentesis since that infection under the advice of the doctors at [place]. Normally, he used to receive paracentesis weekly except for the last 1 month. Also has abdominal distension that has been constant and progressively getting worse also. Getting SOB and more distended over the past week. Reports increased leg swelling, mild nausea. SOB worse with lying flat. Better with sitting up. Admits to rigors and subjective fever when initially came into the ED. Admits to chills. Denies chest pain/pressure, headache, dizziness, vomiting , diarrhea, constipation, urinary symptoms. Denies sore throat, runny nose, cough, sputum production. Admits to decreased appetite and weakness. In addition, patient states last EtOH drink was in October 2016 and he has not ever drank alcohol since then. Of note, patient states he was diagnosed with liver failure 10/21/16. Patient is on liver transplant list in [place]. The initial plan was to perform the paracentesis in the ED however patient's initial INR was too high at 2.33 to safely remove the fluid. It was decided to wait until 04/28/17 when his INR was lowered after vitamin K and FFP. He received 3 units of FFP on 04/28/17 which did not lower his INR below 2, and another 3 units on 04/29/17 until his INR reached . A paracentesis was performed by interventional radiology where cc of fluid were removed and sent to the lab for culture. During his workup in the ED, a retrocardiac infiltrate was discovered and treated as a healthcare acquired pneumonia. He was given Levofloxacin and Vancomycin. His cough has remained unchanged and reports mild sputum production on 04/29/17. Piperacillin/tazobactam was used for SBP prophylaxis. He was also treated with 6 units of albumin and octreotide IV for possible hepatorenal syndrome. Patient has a history of hypotension and was treated with his home medication Midodrine 10mg PO. Serial cardiac markers remained unremarkable throughout his stay. An ECG was performed in the ED and negative for any acute ischemia. He remained without chest pain, headache, dizziness, abdominal pain, nausea or vomiting during the hospitalization here. DISCHARGE MEDICATIONS: Please see below. ALLERGIES: Please see below. PHYSICAL EXAMINATION ON DISCHARGE: Vitals: T 98.1F, BP 109/74, RR 24, P 85, Satting 96% on RA. General: Awake, alert, oriented x 3. Lying on side in bed. No acute distress. HEENT: Head: normocephalic, atraumatic. Eyes: +sceral icterus bilaterally. Nose: No external lesions Neck: Supple. Noted use of accessory muscles in cervical region bilaterally. Respiratory: +crackles in lung bases bilaterally with diminished breath sounds. Upper and middle cortes clear. Chest: Symmetric chest rise bilaterally Cardiovascular: Tachycardic with no murmurs, rubs or gallops. Abdomen: nontender, diffusely distended tense abdomen, no hepatosplenomegaly appreciable as difficult to palpate due to abdominal swelling. Could not appreciate any bowel sounds. +Dullness to percussion in all 4 quadrants. Mild fluid wave appreciable. Extremities: +4 pitting edema in lower extremities bilaterally from thighs down to ankles/feet Neurological: no focal neurologic deficits appreciated bilaterally Integumentary: Some bruising noticeable on extremities and "skin peeling" on L forearm ( states from tape being taken off skin, patient's skin reported to be very sensitive) Vascular: +2 radial and dorsalis pedis pulses bilaterally LABORATORY DATA: Please see below. preliminary blood culture positive for gram positive cocci in chains second tube negative for growth third tube drawn and pending IMAGING: CXR: Consolidative infiltrate or atelectasis, left retrocardiac region. Probable small effusions. CT Chest: 1. Moderate left-sided pleural effusion which has increased since the prior study. 2. Worsening bilateral lower lobe infiltrate/atelectasis. 3. New bilateral perihilar infiltrates. 4. Stable large amount of abdominal ascites. PROGNOSIS: Guarded. ACTIVITY: As tolerated. DIET: 2 gram Na diet and 2 Liter Fluid Restriction DISCHARGE PLAN: Transfer to [facility] DISPOSITION: Transfer to [place] for continuation of care under transplant specialists. DISCHARGE INSTRUCTIONS: 1. Patient to adhere to medication regimen at discharge. DISCHARGE CONDITION: Improved. Hemodynamically stable. TIME SPENT ON DISCHARGE: Greater than 35 minutes. Vital Signs/I&Os Vital Signs Date Time Temp Pulse Resp B/P (MAP) Pulse Ox O2 Delivery O2 Flow Rate FiO2 04/29/17 10:15 98.3 97 22 117/70 (86) 95 Room Air 04/28/17 12:48 2.0 I&O- Last 24 Hours up to 6 AM 04/29/17 05:59 Intake Total 2385 ml Output Total 490 ml Balance 1895 ml Laboratory Data Labs 24H Laboratory Tests 2 04/28/17 14:13: Prothrombin Time 25.6H, Prothromb Time International Ratio 2.33, Activated Partial Thromboplast Time 42.1H 04/28/17 14:14: White Blood Count 12.2H, Red Blood Count 2.34L, Hemoglobin 8.2L, Hematocrit 25.4L, Mean Corpuscular Volume 108.9H, Mean Corpuscular Hemoglobin 35.3H, Mean Corpuscular Hemoglobin Concent 32.4, Red Cell Distribution Width 19.0H, Platelet Count 60L, Neutrophils (%) (Auto) 84.8H, Lymphocytes (%) (Auto) 4.9L, Monocytes (%) (Auto) 8.2H, Eosinophils (%) (Auto) 0.2, Basophils (%) (Auto) 0.1 , Neutrophils # (Auto) 10.3H, Lymphocytes # (Auto) 0.8L, Monocytes # (Auto) 1.0H , Eosinophils # (Auto) 0.0, Basophils # (Auto) 0.0, Large Unclassified Cells % 1.8, Large Unclassified Cells # 0.2, Platelet Estimate MARKED DECREASE, Hypochromasia 2+, Poikilocytosis 1+, Anisocytosis 2+, Microcytosis , Macrocytosis 2+, Anion Gap 11, Glomerular Filtration Rate 27.5L, Lactic Acid Level 5.3*H, Blood Urea Nitrogen 53H, Creatinine 2.55H, Sodium Level 135L, Potassium Level 4.8, Chloride Level 99, Carbon Dioxide Level 25, Calcium Level 8.7L, Aspartate Amino Transf (AST/SGOT) 53H, Alanine Aminotransferase (ALT/SGPT ) 36, Alkaline Phosphatase 72, Total Bilirubin 11.0H, Total Protein 6.3L, Albumin 3.2#, Magnesium Level 2.2, Albumin/Globulin Ratio 1.03 04/28/17 18:03: Total Creatine Kinase 44, Creatine Kinase MB 1.0, Creatine Kinase MB Relative Index 2.27, Troponin I 0.02 04/28/17 18:51: Lactic Acid Followup at 4 Hours 5.4*H 04/29/17 06:11: White Blood Count 11.9H, Red Blood Count 2.31L, Hemoglobin 8.2L, Hematocrit 25.2L, Mean Corpuscular Volume 108.8H, Mean Corpuscular Hemoglobin 35.4H, Mean Corpuscular Hemoglobin Concent 32.5, Red Cell Distribution Width 19.2H, Platelet Count 67L, Neutrophils (%) (Auto) 86.4H, Lymphocytes (%) (Auto) 4.6L, Monocytes (%) (Auto) 6.6H, Eosinophils (%) (Auto) 0.6, Basophils (%) (Auto) 0.1 , Neutrophils # (Auto) 10.3H, Lymphocytes # (Auto) 0.7L, Monocytes # (Auto) 0.8 , Eosinophils # (Auto) 0.1, Basophils # (Auto) 0.0, Large Unclassified Cells % 1.6, Large Unclassified Cells # 0.2, Prothrombin Time 29.2H, Prothromb Time International Ratio 2.76, Anion Gap 7L, Glomerular Filtration Rate 29.4L, Blood Urea Nitrogen 60H, Creatinine 2.40H, Sodium Level 130L, Potassium Level 4.4, Chloride Level 97L, Carbon Dioxide Level 26, Calcium Level 8.6L, Aspartate Amino Transf (AST/SGOT) 44H, Alanine Aminotransferase (ALT/SGPT) 32, Alkaline Phosphatase 58, Total Bilirubin 10.5H, Total Protein 6.4, Albumin 3.4, Magnesium Level 2.2, Albumin/Globulin Ratio 1.13 CBC/BMP Laboratory Tests 04/28/17 14:14 Red Blood Count 2.34 L, Mean Corpuscular Volume 108.9 H, Mean Corpuscular Hemoglobin 35.3 H, Mean Corpuscular Hemoglobin Concent 32.4, Red Cell Distribution Width 19.0 H, Neutrophils (%) (Auto) 84.8 H, Lymphocytes (%) (Auto ) 4.9 L, Monocytes (%) (Auto) 8.2 H, Eosinophils (%) (Auto) 0.2, Basophils (%) ( Auto) 0.1, Neutrophils # (Auto) 10.3 H, Lymphocytes # (Auto) 0.8 L, Monocytes # (Auto) 1.0 H, Eosinophils # (Auto) 0.0, Basophils # (Auto) 0.0, Calcium Level 8.7 L, Aspartate Amino Transf (AST/SGOT) 53 H, Alanine Aminotransferase (ALT/ SGPT) 36, Alkaline Phosphatase 72, Total Bilirubin 11.0 H, Total Protein 6.3 L, Albumin 3.2 # 04/29/17 06:11 Red Blood Count 2.31 L, Mean Corpuscular Volume 108.8 H, Mean Corpuscular Hemoglobin 35.4 H, Mean Corpuscular Hemoglobin Concent 32.5, Red Cell Distribution Width 19.2 H, Neutrophils (%) (Auto) 86.4 H, Lymphocytes (%) (Auto ) 4.6 L, Monocytes (%) (Auto) 6.6 H, Eosinophils (%) (Auto) 0.6, Basophils (%) ( Auto) 0.1, Neutrophils # (Auto) 10.3 H, Lymphocytes # (Auto) 0.7 L, Monocytes # (Auto) 0.8, Eosinophils # (Auto) 0.1, Basophils # (Auto) 0.0, Calcium Level 8.6 L, Aspartate Amino Transf (AST/SGOT) 44 H, Alanine Aminotransferase (ALT/SGPT) 32, Alkaline Phosphatase 58, Total Bilirubin 10.5 H, Total Protein 6.4, Albumin 3.4 Microbiology Microbiology 04/28/17 Blood Culture, Received Pending 04/27/17 Blood Culture - Preliminary, Resulted 04/27/17 Blood Culture - Preliminary, Resulted No growth after 24 hours . All specim... Discharge Medications Scheduled Albumin Human (Albumin Human) 25 % Inj, 50 GRAM IV 1XWK, (Reported) Allopurinol (Allopurinol) 100 Mg Tab, 100 MG PO DAILY, (Reported) TAKES AT NOON Ciprofloxacin HCl (Ciprofloxacin HCl) 250 Mg Tab, 250 MG PO DAILY, (Reported) TAKES AT NOON Furosemide (Furosemide) 40 Mg Tab, 40 MG PO DAILY, (Reported) Lactobacillus Acidophilus (Bacid) 1 Tab Tab, 1 TAB PO DAILY, (Reported) TAKES AT NOON Midodrine HCl (Midodrine HCl) 5 Mg Tab, 5 MG PO BID, (Reported) Propranolol HCl (Propranolol HCl) 10 Mg Tab, 10 MG PO BID, (Reported) Ranitidine HCl (Ranitidine [address]) 150 Mg Tab, 1 TAB PO BID, (Reported) TAKES AT NOON AND BEDTIME Rifaximin (Xifaxan) 550 Mg Tab, 550 MG PO BID, (Reported) Spironolactone (Spironolactone) 25 Mg Tab, 25 MG PO DAILY, (Reported) Vitamin E (Vitamin E) 400 Unit Cap, 400 UNIT PO BID, (Reported) TAKES AT NOON AND BEDTIME Allergies Coded Allergies: Aspirin (Verified Adverse Reaction, Mild, rectal bleeding, 03/04/17) Omeprazole (Verified Adverse Reaction, Mild, stomach pain, 03/04/17) MOMO VASQUES OGME-1 Apr 29, 2017 11:00 RANJIT LOPEZ MD Apr 29, 2017 13:05
[2017-04-29] MEDS: VITAMIN E 400 INTERNATIONAL UNITS CAP PO SCH ×2 (12:13→21:55)
[2017-04-29] MEDS: FAMOTIDINE 20 MG TAB PO SCH ×2 (12:13→21:55)
[2017-04-29] MEDS: ALLOPURINOL 100 MG TAB PO SCH (12:13)
[2017-04-29] MEDS: OCTREOTIDE ACETATE 1,200 MCG in NS 238.8 ML IV SCH (12:13)
[2017-04-29] MEDS: LACTOBACILLUS ACIDOPHILUS CAP (BACID) PO SCH (12:13)
[2017-04-29 12:18] LABS: INR 2.11
[2017-04-29 15:03] LABS: RBC PERITONEAL FLUID 10 (<10mm3 cells/uL); TNC PERITONEAL FLUID 3478 cells/uL (0-20)
[2017-04-29 15:05] LABS: BF DIFF IF INDICATED? YES (NO); PERITONEAL FL COLOR YELLOW (COLORLESS)
[2017-04-29 15:14] LABS: CC BF DIFF EXAM CYTOCENTRIFUGE
[2017-04-29] MEDS ORDERED: LevoFLOXacin IV 750 MG in APPROPRIATE DILUENT 1 EA IV SCH (18:00)
--- NOTE | 2017-04-29 21:32 | PHACANCOPD ---
PHARMACY VANCOMYCIN DOSING Pt Demographics Demographics Patient Age:61 , Weight:100.300 , Gender: male Events Past 24 Hours Events Past 24 Hours: NO: Dialysis, Diuretic Therapy, Change in CrCl, Fever, Elevation in WBC, Pending Diagnostics, Pending Procedures, Other Vancomycin Vancomycin indication: PNEUMONIA Vancomycin Target Ranges: 15-20 mcg/ml Vancomycin Load Y/N: No Load Dose Date Time Vancomycin Load Dose: Date: Time: Vancomycin Dose 04/29/17: VANCO 1GM Intermittent Dosing?: No Labs Labs Laboratory Tests Test 04/29/17 20:20 Vancomycin Level Trough 11.2 UG/ML (10.0-20.0) Laboratory Tests 04/29/17 06:11 Red Blood Count 2.31, Mean Corpuscular Volume 108.8, Mean Corpuscular Hemoglobin 35.4, Mean Corpuscular Hemoglobin Concent 32.5, Red Cell Distribution Width 19.2, Neutrophils (%) (Auto) 86.4, Lymphocytes (%) (Auto) 4.6 , Monocytes (%) (Auto) 6.6, Eosinophils (%) (Auto) 0.6, Basophils (%) (Auto) 0.1 , Neutrophils # (Auto) 10.3, Lymphocytes # (Auto) 0.7, Monocytes # (Auto) 0.8, Eosinophils # (Auto) 0.1, Basophils # (Auto) 0.0, Calcium Level 8.6, Aspartate Amino Transf (AST/SGOT) 44, Alanine Aminotransferase (ALT/SGPT) 32, Alkaline Phosphatase 58, Total Bilirubin 10.5, Total Protein 6.4, Albumin 3.4 Micro Microbiology 04/28/17 Blood Culture - Preliminary, Resulted No growth after 24 hours . All specim... 04/27/17 Blood Culture - Preliminary, Resulted: GRAM + COCCI in CHAINS 04/27/17 Blood Culture - Preliminary, Resulted No Growth after 48 hours. All Specime... Creatinine Clearance Date:04/29/17. Creatinine Clearance: [<50 ml/min]. Assessment and Plan Maintaining Current Dose?: Yes Reason for dose change: Change in serum Cr Pharmacist Note Pharmacist Note Date: 04/29/17. Pharm.D. note: 61YO MALE, 71" in HEIGHT, 100.3 KG in WEIGHT. ADMITTED WITH PNEUMONIA AND NOTED CLF. SCR UP TO 2.4 TODAY CRCL <50 ml/min. ABX Tx INCLUDES: LEVAQUIN 750MG IV Q48H 18:00 04/29/17 AND ZOSYN 3.375GM IV Q6H ( 10PM) HIS VANCO HAVING BEEN REDUCED TO 1GM IV Q24H DUE TO AN INCREASE IN HIS SCR RESULTED IN A VANCO TR = 11.2 mcg/ml THIS EVENING. AT THIS POINT, DUE TO THIS INCREASE IN HIS SCR, WE WILL CONTINUE WITH VANCO 1GM IV Q24H (21:00) AND OBSERVE HIS SCR TREND IN THE MORNING. [facility] Apr 29, 2017 21:32
[2017-04-29] MEDS: VANCOMYCIN HCL 1,000 MG, VIAL MATE ADAPTER 1 EACH in D5W 250 ML IV SCH (21:55)
[2017-04-30] VITALS (23 sets, daily range): BP systolic 84–131; BP diastolic 51–73
[2017-04-30] MEDS ORDERED: DIGOXIN INJ 0.5 MG/2 ML AMP (J1160) IV STA ×2 (00:19→07:45)
[2017-04-30] MEDS: SODIUM CHLORIDE 0.9% INJ 10 ML SYR IV SCH ×4 (00:31→20:47)
[2017-04-30] MEDS ORDERED: METOPROLOL 5 MG/5 ML VIAL IV STA (00:53)
[2017-04-30] MEDS: PROPRANOLOL 10 MG TAB PO SCH ×3 (01:00→20:45)
[2017-04-30] MEDS: PIPERACILLIN/TAZOBACTAM SOD 3.375 GM in D5W MINI-BAG PLUS 50 ML IV SCH ×2 (03:42→11:00)
[2017-04-30] MEDS ORDERED: DIGOXIN INJ 0.5 MG/2 ML AMP (J1160) IV ONE (06:00)
[2017-04-30 06:52] LABS: INR 2.43
[2017-04-30 06:58] LABS: T UPTAKE 43 % (33-40)
[2017-04-30 06:59] LABS: BASO % 0.1 % (0.0-1.0); EOS # 0.1 K/mm3 (0.0-0.50); EOS % 1.1 % (0.0-3.0); LARGE UNSTAINED CELL # 0.2 K/mm3 (0.0-0.4); LARGE UNSTAINED CELL % 1.7 % (0.0-4.0); LYMPH # 0.7 K/mm3 (1.5-4.5); LYMPH % 5.2 % (24.0-44.0); MEAN CORPUSCULAR HEMOGLOBIN 35.6 pg (27.0-33.0); MEAN CORPUSCULAR HGB CONC 33.5 g/dl (32.0-36.5); MEAN CORPUSCULAR VOLUME 106.2 fl (80.0-96.0); MONO # 0.8 K/mm3 (0.0-0.8); MONO % 8.5 % (0.0-5.0); NEUTROPHILS # 8.2 K/mm3 (1.8-7.7); NEUTROPHILS % 83.4 % (36.0-66.0); RED CELL DISTRIBUTION WIDTH 18.8 % (11.5-14.5); WHITE BLOOD COUNT 9.9 K/mm3 (4.0-10.0)
[2017-04-30 07:01] LABS: PLATELET COUNT, AUTOMATED 65 k/mm3 (150-450)
[2017-04-30] MEDS: MIDODRINE 5 MG TAB PO SCH ×3 (08:52→16:13)
[2017-04-30] MEDS: rifAXIMin 550 MG TAB (XIFAXAN) PO SCH ×2 (08:53→20:45)
[2017-04-30] MEDS: VITAMIN E 400 INTERNATIONAL UNITS CAP PO SCH ×2 (11:00→20:45)
[2017-04-30] MEDS: FAMOTIDINE 20 MG TAB PO SCH ×2 (11:00→20:46)
[2017-04-30] MEDS: ALLOPURINOL 100 MG TAB PO SCH (11:00)
[2017-04-30] MEDS: LACTOBACILLUS ACIDOPHILUS CAP (BACID) PO SCH (11:00)
[2017-04-30] MEDS: OCTREOTIDE ACETATE 1,200 MCG in NS 238.8 ML IV SCH (11:00)
[2017-04-30 11:02] LABS: ALBUMIN 3.3 GM/DL (3.2-5.2); ALBUMIN/GLOBULIN RATIO 1.38 (1.00-1.93); BILIRUBIN,TOTAL 7.7 MG/DL (0.2-1.0); CALCIUM LEVEL 8.3 MG/DL (8.8-10.2); CREATININE FOR GFR 1.99 MG/DL (0.70-1.30); GLOMERULAR FILTRATION RATE 36.6 (>49); MAGNESIUM LEVEL 2.4 MG/DL (1.8-2.4); TOTAL PROTEIN 5.7 GM/DL (6.4-8.2)
--- NOTE | 2017-04-30 12:48 | REP ---
ULTRASOUND GUIDED PARACENTESIS: The procedure was performed under the direct supervision of Dr. Georges. The risks and benefits of the procedure were explained to the patient and informed consent was obtained. The largest pocket of fluid was localized in the left flank using ultrasound guidance. The skin was prepped and draped in a sterile fashion. 1% lidocaine was used as a local anesthetic. An 8-Bengali [id number] catheter was inserted using trocar technique. 10,000 mL of chivo colored fluid was withdrawn with a sample sent to the lab for analysis. The patient tolerated the procedure well and there were no immediate complications. Reviewed by DIPTI Franco 04/30/2017 03:21 PEdited and Signed by Asif Georges MD 04/30/2017 04:33 P
--- NOTE | 2017-04-30 14:47 | IPN ---
DATE: 04/29/2017 SUBJECTIVE: Patient was seen and examined at the bedside today morning in the ICU. The patient was sitting on the sofa today. Patient has not received his ascitic tap so far because of a high INR. Last 24 hour events were noted. The patient is hemodynamically stable at this time. His blood pressures are better, however the patient continues to be oliguric at this time. His creatinine is slightly better today as compared with yesterday. His lactate level is trending down. REVIEW OF SYSTEMS: Patient denies any fevers, chills, rigors, headache, nausea, vomiting or chest pain. He does report shortness of breath because of abdominal distention and fluid overload. The patient also reports abdominal distention and dense ascites. He reports decreased appetite and he reports lower extremity edema and decreased urine output as well. The rest of review of systems is negative. OBJECTIVE: VITAL SIGNS: Temperature is 99.5 degrees Fahrenheit, blood pressure is 139/81, pulse 103, respiratory rate of 27, saturating 96% on room air. INTAKE AND OUTPUT: Urine output recorded as 370 mL yesterday, 410 mL so far today since overnight. Weight on the bed scale is 100.3 kg. PHYSICAL EXAMINATION: GENERAL: Patient is awake, alert and oriented times three, sitting on the sofa. Mild respiratory distress at this time. HEAD AND NECK: Patient has temporal wasting. Scleral icterus. Mucous membranes are moist. Neck is supple. Slightly elevated jugular venous distention (JVD). CARDIOVASCULAR: S1, S2, tachycardia. No murmur, rub, or gallop. RESPIRATORY: Decreased breath sounds at the bases. Positive crepitations at the bases on deep inspiration. ABDOMEN: Abdomen is distended with large tense ascites. Nontender. No organomegaly was appreciated because of ascites. EXTREMITIES: No clubbing or cyanosis. Pulses are 2+. He has 2+ pitting edema of the bilateral lower extremities. SKIN: Patient has jaundice and he has multiple petechiae and purpura all over the skin. CENTRAL NERVOUS SYSTEM: No asterixis. No focal deficit at this time. Power is 5/5 in bilateral upper extremities. PSYCHIATRIC: Normal mood and affect. LYMPH NODES: No significant cervical, axillary, or inguinal lymphadenopathy. LABORATORY REVIEW: CBC showed a WBC of 11.9, hemoglobin is 8.2, platelets are 67. INR is 2.1. BMP done today morning showed sodium of 130, potassium 4.4, chloride 97, bicarbonate 26, BUN is 60, creatinine is 2.4, lactate is down to 2.6, calcium is 8.6. Total bilirubin is 10.5, AST 44, albumin 3.4. Microbiology: A repeat blood culture is pending. Initial blood cultures 1 out of 2 is growing gram-positive cocci in chains. CURRENT INPATIENT MEDICATIONS: Patient's medications were all reviewed by me. He continues to be on Levaquin 750 mg IV every 48 hours, Zosyn 3.375 gram IV every 6 hours, and he continues to be on octreotide drip at 50 mcg per hour. He is on vancomycin 1 gram IV every 24 hours and the patient continues to receive albumin 25% 25 grams IV every 6 hours, ASSESSMENT: 61-year-old male with a history of alcohol cirrhosis, decompensated by worsening ascites, requiring ascitic taps, history of hepatorenal syndrome, admitted this time because of tense ascites, and acute kidney injury superimposed on chronic kidney disease, stage 3, along with lactic acidosis and bacteremia. PLAN: 1. Central nervous system (BLOCK BREAKER). Patient has no signs of encephalopathy. He is able to communicate; however, continue rifaximin 550 mg by mouth twice a day for prevention of hepatic encephalopathy. 2. Cardiovascular. Patient was hypotensive yesterday. He also had lactic acidosis. Lactate is improving after starting the patient on midodrine 10 mg by mouth three times a day. He is not requiring any pressors, but he is on octreotide 50 mcg an hour. Continue albumin 25%, 25 gram, but I am going to decrease the frequency to every 8 hours. 3. Respiratory. Patient is short of breath and has bilateral lower lobe atelectasis because of large ascites. He is also being empirically covered with vancomycin, Levaquin, and Zosyn for healthcare associated pneumonia. Continue the antibiotics at this time. Patient is comfortable at room air. Shortness of breath is expected to improve after ascitic tap. 4. Gastrointestinal (GI). Patient has decompensated cirrhosis and ascites. He has a model for end-stage liver disease (MELD) score. INR is high. Patient is listed at [facility] for liver transplant. We are in touch with them. Whenever there is a bed available, patient will be transferred to [facility]; however, because of the large and tense ascites, we shall try to do an ascitic tap and try to remove at least 8-10 liters of fluid. The patient's INR is high because of decompensated cirrhosis so when we do the tap we will do it with running FFP. Ascitic fluid will be sent for cell count, gram stain and culture as well. Patient also has a history of portal hypertensive gastropathy. He could not tolerate omeprazole in the past. Continue Pepcid. Propranolol is on hold because of hypotension and acute renal failure. 5. Renal. Patient is in acute oliguric renal failure superimposed on chronic kidney disease, stage 3. Baseline creatinine is around 1.2. Renal failure secondary to a combination of abdominal compartment syndrome and hypotension. Continue midodrine 10 mg three times a day. Continue octreotide infusion at 50 mcg per hour and continue albumin 25%, 25 grams, change the frequency to every 8 hours. Patient is going to get ascitic tap today by interventional radiology, which will help reduce the intra-abdominal pressure and improve renal perfusion. 6. Infectious disease. 1 out of 2 blood cultures is growing gram-positive cocci in chains. Patient is already on empiric antibiotics. 7. Hematological/oncological. Leukocytosis is improving. Patient has a hemoglobin of 8.2, which is acceptable at this time. If hemoglobin drops below 8 he will be given a blood transfusion. Patient has thrombocytopenia because of splenomegaly in the setting of cirrhosis and splenic sequestration. No need of platelet transfusion at this time. 8. Lactic acidosis. It is secondary to a combination of infection, abdominal compartment syndrome, hypotension on arrival and inability of the liver to metabolize the lactate; however lactic acid is improving after initial resuscitation yesterday. Continue the antibiotics and albumin along with midodrine, and ascitic tap as mentioned above. 9. Electrolytes. The patient has hyponatremia which is secondary to acute renal failure and hypervolemic hyponatremia. Sodium level is expected to improve after ascitic tap. 10. Endocrine. No issues at this time. 11. Social issues. The patient is listed for a liver transplant at [facility]. We are in touch with them. As soon as there is a bed available, the patient will be transferred to [facility] for his liver failure and renal failure. The plan of care was discussed with the patient, his daughter at the bedside, and with the patient's RN. I also discussed the patient with interventional radiology to do his ascitic tap with running FFP because the patient's INR would not normalize because of renal failure. I spent a total of 45 minutes in coordinating the care of this patient in the critical care unit.
[2017-04-30] MEDS: PIPERACILLIN/TAZOBACTAM SOD 2.25 GM in D5W MINI-BAG PLUS 50 ML IV SCH ×2 (16:23→23:01)
--- NOTE | 2017-04-30 16:46 | IPNPDOC ---
Text Note Date of Service The patient was seen on 04/30/17. NOTE Subjective: Patient seen and examined at bedside status post 6 units of FFP and 10 units of albumin transfused. Patient feeling much improved after having 10L of fluid removed by paracentesis yesterday. He states he is still mildly short of breath but not anything more than usual. He is able to eat and drink more food/fluids and his urine output has increased. Still complains of swelling in both of his legs and several episodes of non-bloody diarrhea. He still denies any chest pain or pressure, even after a run of a-fib with RVR yesterday in the ICU. Denies any fever, chills, headache, abdominal pain, nausea, vomiting, blood in the stool/urine, numbness, weakness or syncope. Objective: Vitals: T 98.5F, BP 102/53, RR 29, P 137, Satting 97% on RA. General: Awake, alert, oriented x 3. Sitting in chair. No acute distress. HEENT: Head: normocephalic, atraumatic. Eyes: +sceral icterus bilaterally. Nose: No external lesions Neck: Supple. Noted use of accessory muscles in cervical region bilaterally. Respiratory: Mild crackles at the bases. Dullness to percussion at the bases with E to A flattening on egophony. Chest: Symmetric chest rise bilaterally Cardiovascular: tachycardic with no murmurs, rubs or gallops. Abdomen: nontender, no hepatosplenomegaly appreciable as difficult to palpate due to abdominal swelling. Could not appreciate any bowel sounds. +Dullness to percussion in all 4 quadrants. +palpable fluid in abdomen, still distended but much decreased since yesterday Extremities: +4 pitting edema in lower extremities bilaterally from thighs down to ankles/feet Neurological: no focal neurologic deficits appreciated bilaterally Integumentary: Some bruising noticeable on extremities and "skin peeling" on L forearm ( states from tape being taken off skin, patient's skin reported to be very sensitive) Vascular: +2 radial and dorsalis pedis pulses bilaterally Laboratory data: Please see below. WBC 9.9 from 11.9 Hgb 8.3 from 8.2 Hct 24.7 from 25.2 Plt 65 from 67 neut 83.4 from 86.4 lymph 5.2 from 4.6 lactate 3.0 from 2.6 peritoneal fluid shows 3478 total nucleated cells Microbiology: Preliminary Blood Cx positive for gram positive cocci in chains Second Blood Cx negative Peritoneal fluid negative gram stain, culture pending Imaging: CT Chest: 1. Moderate left-sided pleural effusion which has increased since the prior study. 2. Worsening bilateral lower lobe infiltrate/atelectasis. 3. New bilateral perihilar infiltrates. 4. Stable large amount of abdominal ascites. Assessment/Plan: Recurrent Ascites from Alcoholic Cirrhosis: In increased from 2.33 to 3.24 despite oral vitamin K 5 mg. Given 2 units FFP today and will recheck INR and consult interventional radiology for paracentesis procedure to be performed when INR less than or equal to 2. Abdomen still nontender and low risk for SBP at this point. Will obtain lactate level and repeat in 6 hours. Continue no Na diet and changing 1.5 liter fluid restriction to 2 liters as per patient request. IV albumin infusion therapy as per Nephrology. Possible Healthcare Acquired Pneumonia: CT of the chest showed: Moderate left- sided pleural effusion which has increased since the prior study. Worsening bilateral lower lobe infiltrate/atelectasis. New bilateral perihilar infiltrates. Stable large amount of abdominal ascites. Will obtain sputum cx. Continue empiric tx of IV vancomycin 1g q24h, levaquin 750 mg qdaily, and zosyn 3.375 g q6h. Spontaneous bacterial peritonitis: Stage 3 CKD at baseline: continue to monitor daily BMPs. Creatinine improved from yesterday. BUN went up. Consulted Nephrology. Follow recommendations. Hx Hepatorenal syndrome with recurrent renal failure: continue to monitor BMPs. Patient on list for liver transplant at [facility]. Nephrology consulted for further management. Atrial Fibrillation Hx: heart sounded regular today. On propanolol and rate looks to be controlled. Macrocytic Anemia: Hgb dropped to 9.2 from 11.3. Continue to monitor CBCs. Transfuse if necessary. Can check vitamin B12 and folate levels. Thrombocytopenia: Most likely 2/2 to cirrhosis. Platelets dropped to 69 from 119. Continue to monitor CBCs and for easy bruising/bleeding. Transfuse if necessary. Chronic Hypotension: Continue midodrine. GERD and Nonbleeding Esophageal Ulcer at [place]: Will start pepcid. High Uric Acid Levels: Continue allopurinol. Mild to Moderate Portal Hypertensive Gastropathy and Grade I Esophageal Varices : continue propanolol. L Ventricular Diastolic Dysfunction Grade 1, Trace Mitral Regurgitation, Mild Tricuspid Regurgitation with Pulmonary HTN: continue spironolactone, propanolol , and furosemide. Monitor daily BMPs, Mg, and K. Replete electrolytes as necessary. Lower Extremity Edema 2/2 Cirrhosis: continue spironolactone. Replete K as necessary. Will continue home medications except for prophylactic ciprofloxacin since we are covering for HCAP with empiric antibiotics for now. DVT ppx: TEDs and SCDs only. No pharmacologic ppx due to elevated INR 2.33. Need INR <2 for paracentesis procedure. FULL CODE STATUS. Immunizations as per protocol. My preceptor for this patient encounter was Dr. Mary Mak, and was physically present in the building during the encounter and was fully available. As needed , all aspects of the patient interview, examination, medical decision making process, and medical care plan development were reviewed and approved by the preceptor. Preceptor is aware and concurs with the plan as stated in the body of this note and will attest to such by his/her cosignature. VS,Fishbone, I+O VS, Fishbone, I+O Laboratory Tests 04/30/17 06:15 Red Blood Count 2.33 L, Mean Corpuscular Volume 106.2 H, Mean Corpuscular Hemoglobin 35.6 H, Mean Corpuscular Hemoglobin Concent 33.5, Red Cell Distribution Width 18.8 H, Neutrophils (%) (Auto) 83.4 H, Lymphocytes (%) (Auto ) 5.2 L, Monocytes (%) (Auto) 8.5 H, Eosinophils (%) (Auto) 1.1, Basophils (%) ( Auto) 0.1, Neutrophils # (Auto) 8.2 H, Lymphocytes # (Auto) 0.7 L, Monocytes # ( Auto) 0.8, Eosinophils # (Auto) 0.1, Basophils # (Auto) 0.0 04/30/17 10:29 Calcium Level 8.3 L, Aspartate Amino Transf (AST/SGOT) 34, Alanine Aminotransferase (ALT/SGPT) 25, Alkaline Phosphatase 82, Total Bilirubin 7.7 H, Total Protein 5.7 L, Albumin 3.3 Vital Signs Date Time Temp Pulse Resp B/P (MAP) Pulse Ox O2 Delivery O2 Flow Rate FiO2 04/30/17 13:23 98.7 92 31 127/66 (86) 97 Room Air 04/28/17 12:48 2.0 I&O- Last 24 Hours up to 6 AM 04/30/17 06:00 Intake Total 2560 ml Output Total 11448 ml Balance -9650 ml MOMO VASQUES OGME-1 Apr 30, 2017 14:02
[2017-04-30] MEDS: VANCOMYCIN HCL 1,000 MG, VIAL MATE ADAPTER 1 EACH in D5W 250 ML IV SCH (20:45)
[2017-05-01] VITALS (7 sets, daily range): BP systolic 113–129; BP diastolic 61–66
[2017-05-01] MEDS: PIPERACILLIN/TAZOBACTAM SOD 2.25 GM in D5W MINI-BAG PLUS 50 ML IV SCH ×3 (05:26→16:38)
[2017-05-01] MEDS: SODIUM CHLORIDE 0.9% INJ 10 ML SYR IV SCH ×2 (05:26→11:55)
[2017-05-01 05:56] LABS: INR 3.29
[2017-05-01 06:06] LABS: ADD MORPHOLOGY? YES; BASO % 0.1 % (0.0-1.0); EOS # 0.2 K/mm3 (0.0-0.50); EOS % 4.7 % (0.0-3.0); LARGE UNSTAINED CELL # 0.1 K/mm3 (0.0-0.4); LARGE UNSTAINED CELL % 1.8 % (0.0-4.0); LYMPH # 0.6 K/mm3 (1.5-4.5); LYMPH % 10.2 % (24.0-44.0); MEAN CORPUSCULAR HEMOGLOBIN 35.6 pg (27.0-33.0); MEAN CORPUSCULAR HGB CONC 33.6 g/dl (32.0-36.5); MEAN CORPUSCULAR VOLUME 106.2 fl (80.0-96.0); MONO # 0.6 K/mm3 (0.0-0.8); MONO % 11.2 % (0.0-5.0); NEUTROPHILS # 3.7 K/mm3 (1.8-7.7); NEUTROPHILS % 71.9 % (36.0-66.0); RED CELL DISTRIBUTION WIDTH 18.7 % (11.5-14.5); WHITE BLOOD COUNT 5.2 K/mm3 (4.0-10.0)
[2017-05-01 06:18] LABS: ALBUMIN 3.4 GM/DL (3.2-5.2); ALBUMIN/GLOBULIN RATIO 1.55 (1.00-1.93); BILIRUBIN,TOTAL 7.7 MG/DL (0.2-1.0); CALCIUM LEVEL 8.2 MG/DL (8.8-10.2); CREATININE FOR GFR 1.8 MG/DL (0.70-1.30); MAGNESIUM LEVEL 2.3 MG/DL (1.8-2.4); POTASSIUM SERUM 3.8 MEQ/L (3.5-5.1); TOTAL PROTEIN 5.6 GM/DL (6.4-8.2)
[2017-05-01 06:19] LABS: PLATELET COUNT, AUTOMATED 52 k/mm3 (150-450)
--- NOTE | 2017-05-01 07:29 | CCN ---
DATE: 04/30/2017 SUBJECTIVE: The patient was seen and examined at the bedside today morning in the intensive care unit (ICU). The patient was sitting on the sofa. He is feeling better today. Last 24 hour events were noted. The patient got the ascitic tap done yesterday. Ten liters of fluid were removed. The patient also had atrial fibrillation with rapid ventricular rate overnight which caused hypotension. The patient required intravenous (IV) digoxin. Heart rate is controlled at this time. He has been restarted on propranolol 10 mg by mouth twice a day. The patient's urine output significantly improved since yesterday. He made almost two liters of urine and his creatinine is also getting better as compared with yesterday. The patient's ascitic tap fluid analysis showed more than 3000 nucleated cells which is diagnostic of spontaneous bacterial peritonitis (SBP) because there are 70% neutrophils in the ascitic fluid. Cultures still pending. REVIEW OF SYSTEMS: The patient denies any fevers, chills, rigors, headaches, nausea, vomiting, chest pain. He does report that his shortness of breath is getting better after the ascitic tap. He reports that he feels significantly better after his ascitic tap. Almost 10 liters of fluid were removed, but he reports that his abdomen is still distended and looks like he still has a little bit of fluid in the abdomen. He reports decreased appetite, and he also complains of lower extremity edema. Rest of review of systems is negative. OBJECTIVE: VITAL SIGNS: Temperature is 98.6 degrees Fahrenheit, blood pressure is 126/67, pulse is 92, respiratory rate of 23, saturating 97% on room air. INTAKE AND OUTPUT: Urine output recorded as 1.9 liters yesterday. Ascitic tap was 10 liters, and urine output so far today since overnight is 1100 mL. PHYSICAL EXAMINATION: GENERAL: The patient is awake, alert, and oriented times three, sitting in the sofa, no apparent distress at this time. HEAD/NECK: The patient has temporal wasting, scleral icterus. Mucous membranes are moist. Neck is supple. There is no jugular venous distention (JVD). CARDIOVASCULAR: S1, S2. Regular rate. No murmur, rub, or gallop. RESPIRATORY: Decreased breath sounds at the bases. Decreased vocal resonance at the bases with mild crepitations on deep inspiration at bases. ABDOMEN: Slightly softer today. Still has moderate amount of ascites. Nontender. No organomegaly at this time. EXTREMITIES: No clubbing or cyanosis. Pulses are 2+. He has 2+ pitting edema of the bilateral lower extremities. SKIN: The patient has jaundice and multiple petechiae and purpura all over the skin. 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 No focal neurological deficit. Power is 5/5 in all extremities. PSYCHIATRIC: Normal mood and affect. LABORATORY DATA: CBC showed a WBC of 9, hemoglobin 8.3, platelets of 65. INR is 2.4. Ascitic fluid total nucleated cells were 3478. Neutrophils are 70%. It was cloudy in appearance. CMP done today showed sodium 132, potassium is 4, chloride 98, bicarbonate 26, BUN 59, creatinine is 1.99. It was 2.4 yesterday. Glucose is 168. Calcium 8.3. Magnesium is 2.4. Total bilirubin 7.7. Albumin is 3.3. MICROBIOLOGY: Repeat blood cultures sent on 04/28 are negative so far, and culture of the ascitic fluid is pending. CURRENT INPATIENT MEDICATIONS: The patient's medications were all reviewed by me. He continues to be on IV Levaquin. His Zosyn dose has been changed to 2.25 grams IV every six hours. He continues to be on IV octreotide infusion and albumin as well. The patient was started on propranolol 10 mg by mouth twice a day. The patient required IV Lopressor and IV digoxin overnight because of atrial fibrillation. There is no other change in the medication today as compared with yesterday. ASSESSMENT: 61-year-old male with history of alcoholic cirrhosis, decompensated by worsening ascites requiring ascitic taps, history of hepatorenal syndrome and spontaneous bacterial peritonitis (SBP) in the past, admitted this time because of tense ascites and acute kidney injury superimposed on chronic kidney disease stage III , along with lactic acidosis, bacteremia, and now he was found out to have spontaneous bacterial peritonitis as well. PLAN: 1. NAPPING MACHINE OPERATOR: No signs of encephalopathy but he has a history of encephalopathy in the past. Continue the rifaximin at this time. 2. Cardiovascular: The patient was hypotensive on admission, along with lactic acidosis. Continue midodrine 10 mg by mouth three times a day. Continue octreotide infusion and albumin 25% 25 grams every eight hours for now for one more day. 3. The patient developed atrial fibrillation overnight. He required digoxin and IV metoprolol. He has been started in Inderal. Continue the Inderal for now. 4. Respiratory: The patient had small bilateral pleural effusions and shortness of breath because of fluid overload and ascites. He is also being empirically covered with vancomycin, Levaquin and Zosyn for healthcare-associated pneumonia. Continue the antibiotics at this time. 5. Gastrointestinal (GI): The patient has decompensated cirrhosis along with the ascites with high model for end-stage liver disease (MELD) score and high INR. The patient is listed at [facility] for liver transplant. Whenever the bed is available, the patient will be transferred to [place] for higher level of care. We did the ascitic tap yesterday. 10 liters of fluid were removed. Fluid is positive for SBP. The patient is already empirically on vancomycin, Levaquin and Zosyn, which will cover SBP as well. We will follow the culture and change antibiotics as needed. 6. The patient also has a history of portal hypertensive gastropathy. Continue Pepcid. Inderal has been restarted which will help the portal hypertension as well. The patient could not tolerate omeprazole in the past. 7. Renal: The patient had acute oliguric renal failure superimposed on CKD stage III. Because of abdominal compartment syndrome and SBP, baseline creatinine is 1.2. Creatinine significantly improved after ascitic tap yesterday. It is down to 1.9 now. Renal function is significantly better. Continue octreotide and albumin for one more day. Continue Midodrine 10 mg by mouth three times a day. 8. Infectious disease: The patient's one out of two blood cultures is positive for gram-positive cocci, and ascitic tap done yesterday is diagnostic of SBP. Continue the current IV antibiotics. Antibiotics will be changed once the cultures final results come back. 9. Hematologic/oncologic: The patient's leukocytosis is significantly better today to 9.9. Hemoglobin is 8.3 which is acceptable at this time. Will transfuse the patient only if hemoglobin drops below 8. I am going to give the patient a dose of Aranesp as well. Thrombocytopenia is secondary to splenomegaly and splenic sequestration of platelets. 10. Lactic acidosis: This is secondary to combination of SBP, hypotension, abdominal compartment syndrome. Continue the albumin and antibiotics at this time. 11. Electrolytes: The patient has hyponatremia which is secondary to hypervolemia. Sodium is improving after improvement of the renal function and ascitic tap. 12. Social issues: The patient follows up at the liver clinic at [place], where he was actively listed. We are in touch with the liver center at [place]. The patient will be transferred when the bed is available. The plan of care was discussed with the patient, with the primary medical team, with the patient's registered nurse (RN), and with the patient's daughter at the bedside. Total critical care time spent in the intensive care unit (ICU) today was 45 minutes. MARIANNE
[2017-05-01 07:31] LABS: ANISOCYTOSIS 2+
[2017-05-01] MEDS ORDERED: FUROSEMIDE 40 MG TAB PO SCH (09:00)
[2017-05-01] MEDS ORDERED: SPIRONOLACTONE 25 MG TAB PO SCH (09:00)
[2017-05-01] MEDS ORDERED: DARBEPOETIN 100 MCG/0.5 ML *NON-DIALYSIS* SYRINGE (J0881) SC SCH (09:00)
[2017-05-01] MEDS ORDERED: DIGOXIN 0.25 MG TAB PO SCH (09:00)
[2017-05-01] MEDS: PROPRANOLOL 10 MG TAB PO SCH (09:18)
[2017-05-01] MEDS: MIDODRINE 5 MG TAB PO SCH ×3 (09:18→16:38)
[2017-05-01] MEDS: rifAXIMin 550 MG TAB (XIFAXAN) PO SCH (09:19)
[2017-05-01] MEDS: FAMOTIDINE 20 MG TAB PO SCH (11:53)
[2017-05-01] MEDS: LACTOBACILLUS ACIDOPHILUS CAP (BACID) PO SCH (11:54)
[2017-05-01] MEDS: ALLOPURINOL 100 MG TAB PO SCH (11:54)
[2017-05-01] MEDS: VITAMIN E 400 INTERNATIONAL UNITS CAP PO SCH (11:54)
[2017-05-01] MEDS ORDERED: ZOSY2INJ2 IV (16:35)
[2017-05-01] MEDS ORDERED: DIGO0.25 PO (16:35)
[2017-05-01] MEDS ORDERED: DARB10SYRN SC (16:35)
[2017-05-01] MEDS ORDERED: MIDO5TA PO (16:35)
--- NOTE | 2017-05-01 19:19 | IPN ---
DATE: 05/01/2017 SUBJECTIVE: Patient was seen and examined at the bedside today morning. Patient reports that he is feeling better. His renal function continues to improve. Creatinine is down to 1.8 today. Patient has good urine output. REVIEW OF SYSTEMS: Patient denies any fevers, chills, rigors, headache, nausea, vomiting, chest pain. He does report some shortness of breath. Patient still reports some weakness and fatigue and decreased appetite. Patient reports that his abdomen is still distended, however it is better than before, and patient also reports swelling of the bilateral lower extremities. Rest of review of systems is negative. OBJECTIVE: VITAL SIGNS: Temperature is 97.1 degrees Fahrenheit, blood pressure is 114/61, pulse 79, respiratory rate of 18, saturating 97% on room air. INTAKE AND OUTPUT: Urine output recorded is 1500 mL yesterday, 725 mL so far today since overnight. PHYSICAL EXAMINATION: GENERAL: Patient is awake, alert and oriented times three, laying in bed. No apparent distress. HEAD and NECK EXAM: Patient has temporal wasting, scleral icterus. Mucous membranes are moist. Neck is supple, there is no jugular venous distention (JVD). CARDIOVASCULAR: S1, S2, regular rate. No murmur, rub, or gallop. RESPIRATORY: Decreased breath sounds at the bases. Decreased vocal resonance at the bases. Mild crepitations on deep inspiration at bases. ABDOMEN: Distended, has moderate amount of ascites, otherwise nontender. No organomegaly. EXTREMITIES: No clubbing or cyanosis. Pulses are 2+. He has 2+ pitting edema of the bilateral lower extremities up to knees. SKIN: Patient has jaundice and multiple petechiae and purpura all over the skin. CENTRAL NERVOUS SYSTEM (APPRAISER IRRIGATION TAX): No asterixis. No focal neurological deficit. Power is 5/5 in all extremities. PSYCHIATRIC: Normal mood and affect. LABORATORY REVIEW: CBC showed a WBC of 5.2, hemoglobin 7.4, platelets are 52. BMP showed sodium 134, potassium 3.8, chloride 100, bicarbonate 27, BUN 56, creatinine is 1.8, it was 1.9 yesterday, calcium 8.2, total bilirubin 7.7, albumin 3.3. INR is 3.29. Microbiology: Blood cultures sent on 04/27/2017, is growing Staphylococcus Viridans. CURRENT INPATIENT MEDICATIONS: Patient's medications were all reviewed by me. I have stopped the Sandostatin drip. Vancomycin has been stopped. Levaquin has been stopped. Patient continues to be on Zosyn 2.25 grams IV every 6 hours. I have started the patient on spironolactone 25 mg by mouth daily and Lasix 40 mg by mouth daily. There is no other change in the medications today. ASSESSMENT: 61-year-old male with past medical history of alcohol cirrhosis, decompensated by worsening ascites, requiring ascitic taps, history of hepatorenal syndrome and spontaneous bacterial peritonitis (SBP) in the last few months, admitted this time again because of tense ascites, acute kidney injury superimposed on chronic kidney disease stage III, lactic acidosis, bacteremia, and spontaneous bacterial peritonitis. PLAN: 1. Acute renal failure superimposed in chronic kidney disease stage III. Patient's renal function is improving after administration of almbuin, midodrine, and octeotride. Creatinine is down to 1.8. His best baseline creatinine is 1.2. Because of the edema, I am starting the patient on his home dose of Lasix 40 daily mg and spironolactone 25 mg by mouth daily. Serum albumin level is 3.4 now. I am stopping the IV albumin and octreotide infusion has also been stopped. Continue the midodrine at this time. 2. Atrial fibrillation. Patient had episode of atrial fibrillation during this admission. Heart rate is controlled at this time. He is not a candidate for anticoagulation because of end-stage cirrohsis. Continue propranolol 10 mg by mouth twice a day for now. 3. Spontaneous bacterial peritonitis. Patient is currently on Zosyn which covers his spontaneous bacterial peritonitis (SBP). When patient is discharged, he should be discharged on prophylaxis dose of ciprofloxacin. 4. Portal hypertensive gastropathy. Continue Pepcid. Continue Inderal. Patient could not tolerate omeprazole in the past. 5. Anemia. Patient has history of iron overload which has been checked in the past. Hemoglobin is down to 7.4. I have given the patient a dose of Aranesp 100 mcg subcutaneous one dose. If hemoglobin drops further, to below 8, he would need a blood transfusion. 6. Hyponatremia. Hyponatremia is secondary to decompensated cirrhosis and fluid overload. Sodium is 134, which is acceptable at this time. Continue the diuretics for now. 7. Social issues. Patient was listed for liver transplant at [place] before getting sick. Whenever bed is available he can be transferred to [place] if needed. 8. Discharge planning. Patient is clinically improving. I am hopeful that we should be able to discharge the patient within the next 1-2 days. Plan of care was discussed with the hospitalist, Dr. Mary Mak.
--- NOTE | 2017-05-01 21:41 | DS.PDOC ---
Discharge Summary General Date of Admission Apr 27, 2017 at 17:31 Discharge Summary Consults: Discharge diagnosis: Secondary diagnosis: Hospital course: Progress note on date of discharge: Subjective: Objective: Vitals: Gen.: [Patient awake, alert and oriented, verbal and able to answer questions appropriately. He does not appear to be in any acute distress] Heart: [Regular rate and rhythm, normal S1-S2. No murmurs, rubs, clicks or gallops] Lungs: [Clear to auscultation bilaterally. No wheezes, rales or rhonchi] Abdomen: [Active bowel sounds, soft, nontender, no masses to palpation] Labs: Assessment: Disposition: Follow-up: Activity: Diet: Medications on discharge: Cc: Time spent on discharge: Vital Signs/I&Os Vital Signs Date Time Temp Pulse Resp B/P (MAP) Pulse Ox O2 Delivery O2 Flow Rate FiO2 05/01/17 16:00 99.9 82 18 127/63 (84) 100 Room Air 04/28/17 12:48 2.0 I&O- Last 24 Hours up to 6 AM 05/01/17 06:00 Intake Total 1590 ml Output Total 1425 ml Balance 165 ml Laboratory Data Labs 24H Laboratory Tests 2 05/01/17 05:31: White Blood Count 5.2, Red Blood Count 2.08L, Hemoglobin 7.4L, Hematocrit 22.1L , Mean Corpuscular Volume 106.2H, Mean Corpuscular Hemoglobin 35.6H, Mean Corpuscular Hemoglobin Concent 33.6, Red Cell Distribution Width 18.7H, Platelet Count 52L, Neutrophils (%) (Auto) 71.9H, Lymphocytes (%) (Auto) 10.2L, Monocytes (%) (Auto) 11.2H, Eosinophils (%) (Auto) 4.7H, Basophils (%) (Auto) 0.1, Neutrophils # (Auto) 3.7, Lymphocytes # (Auto) 0.6L, Monocytes # (Auto) 0.6 , Eosinophils # (Auto) 0.2, Basophils # (Auto) 0.0, Large Unclassified Cells % 1.8, Large Unclassified Cells # 0.1, Platelet Estimate DECREASED, Anisocytosis 2 +, Macrocytosis 3+, Prothrombin Time 33.5H, Prothromb Time International Ratio 3.29, Anion Gap 7L, Glomerular Filtration Rate 41.0L, Blood Urea Nitrogen 56H, Creatinine 1.80H, Sodium Level 134L, Potassium Level 3.8, Chloride Level 100, Carbon Dioxide Level 27, Calcium Level 8.2L, Aspartate Amino Transf (AST/SGOT) 34, Alanine Aminotransferase (ALT/SGPT) 22, Alkaline Phosphatase 68, Total Bilirubin 7.7H, Total Protein 5.6L, Albumin 3.4, Magnesium Level 2.3, Albumin/ Globulin Ratio 1.55 CBC/BMP Laboratory Tests 05/01/17 05:31 Red Blood Count 2.08 L, Mean Corpuscular Volume 106.2 H, Mean Corpuscular Hemoglobin 35.6 H, Mean Corpuscular Hemoglobin Concent 33.6, Red Cell Distribution Width 18.7 H, Neutrophils (%) (Auto) 71.9 H, Lymphocytes (%) (Auto ) 10.2 L, Monocytes (%) (Auto) 11.2 H, Eosinophils (%) (Auto) 4.7 H, Basophils ( %) (Auto) 0.1, Neutrophils # (Auto) 3.7, Lymphocytes # (Auto) 0.6 L, Monocytes # (Auto) 0.6, Eosinophils # (Auto) 0.2, Basophils # (Auto) 0.0, Calcium Level 8.2 L, Aspartate Amino Transf (AST/SGOT) 34, Alanine Aminotransferase (ALT/SGPT ) 22, Alkaline Phosphatase 68, Total Bilirubin 7.7 H, Total Protein 5.6 L, Albumin 3.4 Microbiology Microbiology 04/28/17 Blood Culture - Preliminary, Resulted No Growth after 72 hours. All specime... 04/27/17 Blood Culture - Final, Complete Streptococcus Viridans Group 04/27/17 Blood Culture - Preliminary, Resulted No Growth after 72 hours. All specime... 04/29/17 Gram Stain - Final, Complete 04/29/17 Body Fluid Culture - Final, Complete Discharge Medications Scheduled (Zosyn 2-0.25 gm) 1 Inj Inj, 1 INJ IV Q6H Albumin Human (Albumin Human) 25 % Inj, 50 GRAM IV 1XWK, (Reported) Allopurinol (Allopurinol) 100 Mg Tab, 100 MG PO DAILY, (Reported) TAKES AT NOON Ciprofloxacin HCl (Ciprofloxacin HCl) 250 Mg Tab, 250 MG PO DAILY, (Reported) TAKES AT NOON Darbepoetin (Aranesp Albumin Free) 100 Mcg/0.5 Ml Inj, 100 MCG SC Fr@09 Digoxin (Digoxin) 0.25 Mg Tab, 0.25 MG PO DAILY Furosemide (Furosemide) 40 Mg Tab, 40 MG PO DAILY, (Reported) Lactobacillus Acidophilus (Bacid) 1 Tab Tab, 1 TAB PO DAILY, (Reported) TAKES AT NOON Midodrine HCl (Midodrine HCl) 5 Mg Tab, 10 MG PO 08,12,16 Propranolol HCl (Propranolol HCl) 10 Mg Tab, 10 MG PO BID, (Reported) Ranitidine HCl (Ranitidine [address]) 150 Mg Tab, 1 TAB PO BID, (Reported) TAKES AT NOON AND BEDTIME Rifaximin (Xifaxan) 550 Mg Tab, 550 MG PO BID, (Reported) Spironolactone (Spironolactone) 25 Mg Tab, 25 MG PO DAILY, (Reported) Vitamin E (Vitamin E) 400 Unit Cap, 400 UNIT PO BID, (Reported) TAKES AT NOON AND BEDTIME Allergies Coded Allergies: Aspirin (Verified Adverse Reaction, Mild, rectal bleeding, 03/04/17) Omeprazole (Verified Adverse Reaction, Mild, stomach pain, 03/04/17) MOMO VASQUES OGME-1 May 01, 2017 21:41
== END 2017-05-01 18:24 | disposition short-term general hospital (02) | DRG 720 ==
LOC: M ED 14:01 → M ED INP 17:31 → M PCU 20:06 → M ICU 04-28 11:13 → M PCU 04-30 22:30
PROVIDERS: ADMIT Hospitalist; ATTEND Internal Medicine Nephrology
PROC: 30233N1 Transfusion of Nonautologous Red Blood Cells into Peripheral Vein, Percutaneous Approach (ICD-10-PCS; principal; 2017-04-28)
PROC: 05H633Z Insertion of Infusion Device into Left Subclavian Vein, Percutaneous Approach (ICD-10-PCS; 2017-04-28)
PROC: 0W9J3ZZ Drainage of Pelvic Cavity, Percutaneous Approach (ICD-10-PCS; 2017-04-29)
DX: A41.9 Sepsis, unspecified organism (principal); K76.7 Hepatorenal syndrome; E87.2 Acidosis; J18.9 Pneumonia, unspecified organism; D69.6 Thrombocytopenia, unspecified; K65.2 Spontaneous bacterial peritonitis; N17.9 Acute kidney failure, unspecified; K70.31 Alcoholic cirrhosis of liver with ascites; I95.9 Hypotension, unspecified; M79.A3 Nontraumatic compartment syndrome of abdomen; E87.1 Hypo-osmolality and hyponatremia; I48.91 Unspecified atrial fibrillation; N18.3 Chronic kidney disease, stage 3 (moderate); D53.9 Nutritional anemia, unspecified; K21.9 Gastro-esophageal reflux disease without esophagitis; Z79.899 Other long term (current) drug therapy; Z88.8 Allergy status to other drugs, medicaments and biological substances; K31.89 Other diseases of stomach and duodenum

== ENCOUNTER → 2017-05-11 | Outpatient (CLI) | payer OTHER, BC ==
[~2017-05-11] MED LIST changes: +ALLO10TA PO; +DARB10SYRN SC; +DIGO0.25 PO; +ZOSY2INJ2 IV; +[UNRECOGNIZED DRUG - CODE] IV
[2017-05-11 18:39] LABS: ADD MORPHOLOGY? YES; BASO % 0.2 % (0.0-1.0); EOS # 0.1 K/mm3 (0.0-0.50); EOS % 1.3 % (0.0-3.0); LARGE UNSTAINED CELL # 0.1 K/mm3 (0.0-0.4); LARGE UNSTAINED CELL % 0.7 % (0.0-4.0); LYMPH # 0.6 K/mm3 (1.5-4.5); LYMPH % 5.7 % (24.0-44.0); MEAN CORPUSCULAR HGB CONC 32.7 g/dl (32.0-36.5); MEAN CORPUSCULAR VOLUME 113.2 fl (80.0-96.0); MONO # 0.7 K/mm3 (0.0-0.8); MONO % 7.2 % (0.0-5.0); NEUTROPHILS # 7.7 K/mm3 (1.8-7.7); NEUTROPHILS % 84.8 % (36.0-66.0); RED CELL DISTRIBUTION WIDTH 16.8 % (11.5-14.5); WHITE BLOOD COUNT 9.1 K/mm3 (4.0-10.0)
[2017-05-11 18:40] LABS: PLATELET COUNT, AUTOMATED 95 k/mm3 (150-450)
[2017-05-11 18:52] LABS: INR 2.6
[2017-05-11 19:03] LABS: ALBUMIN 3.2 GM/DL (3.2-5.2); ALBUMIN/GLOBULIN RATIO 0.89 (1.00-1.93); CREATININE FOR GFR 1.49 MG/DL (0.70-1.30); POTASSIUM SERUM 4.6 MEQ/L (3.5-5.1); TOTAL PROTEIN 6.8 GM/DL (6.4-8.2)
[2017-05-11 22:28] LABS: HYPOCHROMASIA 1+
[2017-05-11 22:29] LABS: ANISOCYTOSIS 1+
== END ==
LOC: M SMT 13:26
PROVIDERS: ATTEND Internal Medicine Gastroenterology
DX: R78.81 Bacteremia (principal)

== ENCOUNTER 2017-05-14 06:46 | Outpatient (CLI) | payer BC, OTHER | END 2017-05-14 10:00 | disposition home or self-care (01) | LOC: M INFU 06:46 | PROVIDERS: ATTEND Internal Medicine Gastroenterology | DX: K74.60 Unspecified cirrhosis of liver (principal); R18.8 Other ascites; Z88.8 Allergy status to other drugs, medicaments and biological substances; Z79.899 Other long term (current) drug therapy | CPT/HCPCS: 96365; 96366; P9047 ==

== ENCOUNTER → 2017-05-14 | Outpatient (CLI) | payer BC ==
[~2017-05-14] MED LIST changes: +BACITAB PO; -BACITAB3 PO; -VITA400C2 PO; +VITA400C7 PO
--- NOTE | 2017-05-14 15:53 | REP ---
Ultrasound-guided paracentesis The procedure was performed under the direct supervision of Dr. Chung. The risks and benefits of the procedure were explained to the patient and informed consent was obtained. The largest pocket of fluid was localized in the right upper quadrant using ultrasound guidance. The skin was prepped and draped in a sterile fashion. 1% lidocaine was used as a local anesthetic. An 8-Bahamian multi side-hole catheter was inserted using trocar technique. 6,500 ml of red colored fluid was withdrawn and discarded. The patient tolerated the procedure well and there were no immediate complications. After the appropriate amount of monitored convalescence the patient was discharged from the department. Reviewed by DIPTI Franco 05/14/2017 02:46 PSigned by Adams Chung MD 05/14/2017 03:40 P
== END ==
LOC: M RADPRO 06:50
PROVIDERS: ATTEND Internal Medicine Nephrology
DX: K70.31 Alcoholic cirrhosis of liver with ascites (principal); K76.6 Portal hypertension; N18.3 Chronic kidney disease, stage 3 (moderate); F10.21 Alcohol dependence, in remission; Z88.8 Allergy status to other drugs, medicaments and biological substances; Z79.899 Other long term (current) drug therapy

== ENCOUNTER 2017-05-20 06:47 | Outpatient (CLI) | payer BC, OTHER | END 2017-05-20 12:10 | disposition home or self-care (01) | LOC: M INFU 06:47 | PROVIDERS: ATTEND Internal Medicine Gastroenterology | DX: K74.60 Unspecified cirrhosis of liver (principal); R18.8 Other ascites; Z88.8 Allergy status to other drugs, medicaments and biological substances; Z79.899 Other long term (current) drug therapy | CPT/HCPCS: 96365; 96366; P9047 ==

== ENCOUNTER → 2017-05-20 | Outpatient (CLI) | payer OTHER, BC ==
[2017-05-20 17:00] LABS: ALBUMIN 4.1 GM/DL (3.2-5.2); ALBUMIN/GLOBULIN RATIO 1.37 (1.00-1.93); BILIRUBIN,TOTAL 7.7 MG/DL (0.2-1.0); CALCIUM LEVEL 8.9 MG/DL (8.8-10.2); CREATININE FOR GFR 2.13 MG/DL (0.70-1.30); GLOMERULAR FILTRATION RATE 33.8 (>49); TOTAL PROTEIN 7.1 GM/DL (6.4-8.2)
[2017-05-20 17:04] LABS: INR 3.23
[2017-05-20 17:07] LABS: DIFF SLIDE NUMBER 265; MEAN CORPUSCULAR HEMOGLOBIN 37.1 pg (27.0-33.0); MEAN CORPUSCULAR HGB CONC 32.6 g/dl (32.0-36.5); MEAN CORPUSCULAR VOLUME 113.8 fl (80.0-96.0); PLATELET COUNT, AUTOMATED 60 k/mm3 (150-450); RED CELL DISTRIBUTION WIDTH 15.3 % (11.5-14.5); WHITE BLOOD COUNT 5.8 K/mm3 (4.0-10.0)
[2017-05-20 17:08] LABS: ADD MORPHOLOGY? YES; BASO % 0.3 % (0.0-1.0); EOS % 1.7 % (0.0-3.0); LARGE UNSTAINED CELL % 1.9 % (0.0-4.0); LYMPH # 0.4 K/mm3 (1.5-4.5); LYMPH % 6.9 % (24.0-44.0); MONO # 0.7 K/mm3 (0.0-0.8); MONO % 11.2 % (0.0-5.0); NEUTROPHILS # 4.5 K/mm3 (1.8-7.7); NEUTROPHILS % 77.9 % (36.0-66.0)
[2017-05-20 17:09] LABS: EOS # 0.1 K/mm3 (0.0-0.50); LARGE UNSTAINED CELL # 0.1 K/mm3 (0.0-0.4)
[2017-05-20 17:30] LABS: ACANTHOCYTES 1+; HYPOCHROMASIA 1+; SCHISTOCYTES 1+
[2017-05-20 17:31] LABS: BURR CELLS 1+
[2017-05-20 17:32] LABS: ANISOCYTOSIS 1+; POLYCHROMASIA 1+
== END ==
LOC: M SMT 13:16
PROVIDERS: ATTEND Internal Medicine Gastroenterology
DX: R78.81 Bacteremia (principal)

== ENCOUNTER 2017-05-27 06:58 | Outpatient (CLI) | payer BC, OTHER | END 2017-05-27 12:00 | disposition home or self-care (01) | LOC: M INFU 06:58 | PROVIDERS: ATTEND Internal Medicine Gastroenterology | DX: R18.8 Other ascites (principal); K74.60 Unspecified cirrhosis of liver; Z88.8 Allergy status to other drugs, medicaments and biological substances; Z79.899 Other long term (current) drug therapy | CPT/HCPCS: 96365; 96366; P9047 ==

== ENCOUNTER → 2017-05-28 | Outpatient (CLI) | payer BC ==
--- NOTE | 2017-05-28 15:04 | REP ---
ULTRASOUND GUIDED PARACENTESIS: The procedure was performed under the direct supervision of Dr. Geroges. The risks and benefits of the procedure were explained to the patient and informed consent was obtained. The largest pocket of fluid was localized in the right flank using ultrasound guidance. The skin was prepped and draped in a sterile fashion. 1% lidocaine was used as a local anesthetic. An 8-Belarusian yhpdr-xobu-caou catheter was inserted using trocar technique. 8700 mL of chivo colored fluid was withdrawn and discarded. The patient tolerated the procedure well and there were no immediate complications. After the appropriate amount of monitored convalescence the patient was discharged from the department. Reviewed by DIPTI Franco 05/28/2017 03:23 PEdited and Signed by Asif Georges MD 05/28/2017 03:55 P
== END ==
LOC: M RADPRO 10:10
PROVIDERS: ATTEND Internal Medicine Nephrology
DX: K70.31 Alcoholic cirrhosis of liver with ascites (principal); N18.3 Chronic kidney disease, stage 3 (moderate); K76.6 Portal hypertension; Z79.899 Other long term (current) drug therapy; Z88.8 Allergy status to other drugs, medicaments and biological substances

== ENCOUNTER → 2017-05-28 | Outpatient (CLI) | payer OTHER, BC ==
[2017-05-28 13:36] LABS: INR 3.22
[2017-05-28 13:38] LABS: ALBUMIN 3.5 GM/DL (3.2-5.2); ALBUMIN/GLOBULIN RATIO 1.17 (1.00-1.93); BILIRUBIN,TOTAL 9.1 MG/DL (0.2-1.0); CALCIUM LEVEL 8.4 MG/DL (8.8-10.2); CREATININE FOR GFR 2.22 MG/DL (0.70-1.30); GLOMERULAR FILTRATION RATE 32.2 (>49); POTASSIUM SERUM 4.5 MEQ/L (3.5-5.1); TOTAL PROTEIN 6.5 GM/DL (6.4-8.2)
[2017-05-28 13:45] LABS: ADD MANUAL DIFFER YES; DIFF SLIDE NUMBER 153; MEAN CORPUSCULAR HEMOGLOBIN 36.6 pg (27.0-33.0); MEAN CORPUSCULAR HGB CONC 32.1 g/dl (32.0-36.5); MEAN CORPUSCULAR VOLUME 114.1 fl (80.0-96.0)
[2017-05-28 14:07] LABS: PLATELET COUNT, AUTOMATED 71 k/mm3 (150-450)
[2017-05-28 14:12] LABS: BASOPHILS 1 % (0-4); EOSINOPHILS 2 % (0-5)
== END ==
LOC: M SMT 09:07
PROVIDERS: ATTEND Internal Medicine Gastroenterology
DX: K76.6 Portal hypertension (principal); R18.8 Other ascites

== ENCOUNTER → 2017-06-01 | Outpatient (CLI) | payer BC ==
[2017-06-01 19:17] LABS: ALBUMIN 3.5 GM/DL (3.2-5.2); ALBUMIN/GLOBULIN RATIO 1.09 (1.00-1.93); BILIRUBIN,TOTAL 12.1 MG/DL (0.2-1.0); CREATININE FOR GFR 2.75 MG/DL (0.70-1.30); GLOMERULAR FILTRATION RATE 25.2 (>49); POTASSIUM SERUM 4.9 MEQ/L (3.5-5.1); TOTAL PROTEIN 6.7 GM/DL (6.4-8.2)
[2017-06-01 19:38] LABS: INR 2.79
[2017-06-01 20:24] LABS: ADD MORPHOLOGY? YES; BASO % 0.2 % (0.0-1.0); EOS # 0.1 K/mm3 (0.0-0.50); EOS % 1.4 % (0.0-3.0); LARGE UNSTAINED CELL # 0.1 K/mm3 (0.0-0.4); LARGE UNSTAINED CELL % 1.5 % (0.0-4.0); LYMPH # 0.6 K/mm3 (1.5-4.5); MEAN CORPUSCULAR HEMOGLOBIN 36.5 pg (27.0-33.0); MEAN CORPUSCULAR HGB CONC 32.2 g/dl (32.0-36.5); MEAN CORPUSCULAR VOLUME 113.6 fl (80.0-96.0); MONO # 0.6 K/mm3 (0.0-0.8); MONO % 9.3 % (0.0-5.0); NEUTROPHILS # 5.5 K/mm3 (1.8-7.7); NEUTROPHILS % 80.6 % (36.0-66.0); RED CELL DISTRIBUTION WIDTH 15.9 % (11.5-14.5); WHITE BLOOD COUNT 6.8 K/mm3 (4.0-10.0)
[2017-06-01 20:27] LABS: PLATELET COUNT, AUTOMATED 62 k/mm3 (150-450)
[2017-06-01 22:27] LABS: ANISOCYTOSIS 2+; HYPOCHROMASIA 2+
== END ==
LOC: M SMT 10:36
PROVIDERS: ATTEND Internal Medicine Gastroenterology
DX: R78.81 Bacteremia (principal)

== ENCOUNTER 2017-06-03 06:44 | Outpatient (CLI) | payer BC, OTHER | END 2017-06-03 12:00 | disposition home or self-care (01) | LOC: M INFU 06:44 | PROVIDERS: ATTEND Internal Medicine Gastroenterology | DX: K74.60 Unspecified cirrhosis of liver (principal); R18.8 Other ascites; Z79.899 Other long term (current) drug therapy; Z88.8 Allergy status to other drugs, medicaments and biological substances | CPT/HCPCS: 96365; 96366; P9047 ==

== ENCOUNTER → 2017-06-04 | Outpatient (CLI) | payer BC ==
--- NOTE | 2017-06-04 13:59 | REP ---
ULTRASOUND GUIDED PARACENTESIS: The procedure was performed under the direct supervision of Dr. Chung. The risks and benefits of the procedure were explained to the patient and informed consent was obtained. The largest pocket of fluid was localized in the left flank using ultrasound guidance. The skin was prepped and draped in a sterile fashion. 1% lidocaine was used as a local anesthetic. An #8-Spanish mibik-rpzu-jvki catheter was inserted using trocar technique. 7400 mL of low viscosity red-colored fluid was withdrawn and discarded. The patient tolerated the procedure well and there were no immediate complications. After the appropriate amount of monitored convalescence, the patient was discharged from the department. Reviewed by DIPTI Franco 06/04/2017 04:25 PEdited and Signed by Adams Chung MD 06/04/2017 04:42 P
== END ==
LOC: M RADPRO 09:37
PROVIDERS: ATTEND Internal Medicine Nephrology
DX: K70.31 Alcoholic cirrhosis of liver with ascites (principal); K76.6 Portal hypertension; N18.3 Chronic kidney disease, stage 3 (moderate); F10.21 Alcohol dependence, in remission; Z88.8 Allergy status to other drugs, medicaments and biological substances; Z79.899 Other long term (current) drug therapy

== ENCOUNTER → 2017-06-08 | Outpatient (CLI) | payer BC ==
[2017-06-08 18:53] LABS: ADD MORPHOLOGY? YES; BASO % 0.2 % (0.0-1.0); EOS # 0.2 K/mm3 (0.0-0.50); EOS % 2.8 % (0.0-3.0); LARGE UNSTAINED CELL # 0.2 K/mm3 (0.0-0.4); LYMPH # 0.6 K/mm3 (1.5-4.5); LYMPH % 5.5 % (24.0-44.0); MEAN CORPUSCULAR HEMOGLOBIN 36.5 pg (27.0-33.0); MEAN CORPUSCULAR HGB CONC 32.4 g/dl (32.0-36.5); MEAN CORPUSCULAR VOLUME 112.6 fl (80.0-96.0); MONO # 0.8 K/mm3 (0.0-0.8); MONO % 10.3 % (0.0-5.0); NEUTROPHILS # 6.1 K/mm3 (1.8-7.7); NEUTROPHILS % 79.1 % (36.0-66.0); RED CELL DISTRIBUTION WIDTH 16.4 % (11.5-14.5); WHITE BLOOD COUNT 7.7 K/mm3 (4.0-10.0)
[2017-06-08 18:57] LABS: PLATELET COUNT, AUTOMATED 60 k/mm3 (150-450)
[2017-06-08 18:58] LABS: ALBUMIN 3.3 GM/DL (3.2-5.2); BILIRUBIN,TOTAL 11.8 MG/DL (0.2-1.0); CREATININE FOR GFR 2.43 MG/DL (0.70-1.30); POTASSIUM SERUM 4.5 MEQ/L (3.5-5.1); TOTAL PROTEIN 6.6 GM/DL (6.4-8.2)
[2017-06-08 18:59] LABS: INR 2.83
[2017-06-08 20:29] LABS: BURR CELLS 1+
[2017-06-08 20:30] LABS: POIKILOCYTOSIS 1+
== END ==
LOC: M SMT 13:19
PROVIDERS: ATTEND Obstetrics & Gynecology
DX: R78.81 Bacteremia (principal)

== ENCOUNTER 2017-06-10 06:38 | Outpatient (CLI) | payer BC, OTHER | END 2017-06-10 11:30 | disposition home or self-care (01) | LOC: M INFU 06:38 | PROVIDERS: ATTEND Internal Medicine Gastroenterology | DX: R18.8 Other ascites (principal); K74.60 Unspecified cirrhosis of liver; Z88.8 Allergy status to other drugs, medicaments and biological substances; Z79.899 Other long term (current) drug therapy | CPT/HCPCS: 96365; 96366; P9047 ==

== ENCOUNTER → 2017-06-11 | Outpatient (CLI) | payer BC ==
--- NOTE | 2017-06-11 14:54 | REP ---
ULTRASOUND GUIDED PARACENTESIS: The procedure was performed under the direct supervision of Dr. Georges. The risks and benefits of the procedure were explained to the patient and informed consent was obtained. The largest pocket of fluid was localized in the right flank using ultrasound guidance. The skin was prepped and draped in a sterile fashion. 1% lidocaine was used as a local anesthetic. An 8-Kinyarwanda umizy-dhma-udoc catheter was inserted using trocar technique. 5200 mL of red tinged fluid was withdrawn and discarded. The patient tolerated the procedure well and there were no immediate complications. After the appropriate amount of monitored convalescence the patient was discharged from the department. Reviewed by DIPTI Franco 06/11/2017 04:05 PEdited and Signed by Asif Georges MD 06/11/2017 05:42 P
== END ==
LOC: M RADPRO 09:37
PROVIDERS: ATTEND Internal Medicine Nephrology
DX: K74.69 Other cirrhosis of liver (principal); R18.8 Other ascites; K76.6 Portal hypertension; N18.2 Chronic kidney disease, stage 2 (mild); Z88.8 Allergy status to other drugs, medicaments and biological substances; Z79.899 Other long term (current) drug therapy

== ENCOUNTER → 2017-07-03 | Outpatient (CLI) | payer BC ==
[2017-07-03 11:03] LABS: ADD MORPHOLOGY? YES; BASO % 0.7 % (0.0-1.0); EOS # 0.2 K/mm3 (0.0-0.50); LARGE UNSTAINED CELL # 0.1 K/mm3 (0.0-0.4); LARGE UNSTAINED CELL % 2.2 % (0.0-4.0); LYMPH # 0.4 K/mm3 (1.5-4.5); LYMPH % 6.9 % (24.0-44.0); MEAN CORPUSCULAR HGB CONC 31.9 g/dl (32.0-36.5); MEAN CORPUSCULAR VOLUME 94.2 fl (80.0-96.0); MONO # 0.5 K/mm3 (0.0-0.8); NEUTROPHILS % 78.3 % (36.0-66.0); PLATELET COUNT, AUTOMATED 421 k/mm3 (150-450); RED CELL DISTRIBUTION WIDTH 18.6 % (11.5-14.5); WHITE BLOOD COUNT 5.2 K/mm3 (4.0-10.0)
[2017-07-03 11:06] LABS: ALBUMIN 1.9 GM/DL (3.2-5.2); ALBUMIN/GLOBULIN RATIO 0.61 (1.00-1.93); ALKALINE PHOSPHATASE 120 U/L (45-117); ALT/SGPT 14 U/L (12-78); ANION GAP 5 MEQ/L (8-16); AST/SGOT 13 U/L (15-37); BILIRUBIN,TOTAL 0.9 MG/DL (0.2-1.0); BLOOD UREA NITROGEN 33 MG/DL (7-18); CALCIUM LEVEL 8.5 MG/DL (8.8-10.2); CARBON DIOXIDE LEVEL 34 MEQ/L (21-32); CHLORIDE LEVEL 99 MEQ/L (98-107); CREATININE FOR GFR 0.89 MG/DL (0.70-1.30); GLOMERULAR FILTRATION RATE > 60.0 (>49); GLUCOSE, FASTING 113 MG/DL (80-110); POTASSIUM SERUM 4.7 MEQ/L (3.5-5.1); SODIUM LEVEL 138 MEQ/L (136-145)
[2017-07-03 11:42] LABS: HYPOCHROMASIA 1+; POLYCHROMASIA 1+
[2017-07-03 11:44] LABS: POIKILOCYTOSIS 1+
== END ==
LOC: M SMT 07:59
PROVIDERS: ATTEND Transplant Surgery
DX: K70.31 Alcoholic cirrhosis of liver with ascites (principal)

== ENCOUNTER → 2017-07-09 | Outpatient (CLI) | payer BC ==
[2017-07-09 13:36] LABS: ALBUMIN 2.5 GM/DL (3.2-5.2); ALBUMIN/GLOBULIN RATIO 0.83 (1.00-1.93); ALKALINE PHOSPHATASE 119 U/L (45-117); ALT/SGPT 13 U/L (12-78); ANION GAP 3 MEQ/L (8-16); AST/SGOT 15 U/L (15-37); BILIRUBIN,TOTAL 0.8 MG/DL (0.2-1.0); BLOOD UREA NITROGEN 17 MG/DL (7-18); CALCIUM LEVEL 9.1 MG/DL (8.8-10.2); CARBON DIOXIDE LEVEL 35 MEQ/L (21-32); CHLORIDE LEVEL 101 MEQ/L (98-107); CREATININE FOR GFR 0.86 MG/DL (0.70-1.30); GLOMERULAR FILTRATION RATE > 60.0 (>49); GLUCOSE, FASTING 110 MG/DL (80-110); POTASSIUM SERUM 4.7 MEQ/L (3.5-5.1); SODIUM LEVEL 139 MEQ/L (136-145); TOTAL PROTEIN 5.5 GM/DL (6.4-8.2)
[2017-07-09 13:37] LABS: ADD MORPHOLOGY? YES; BASO # 0.1 K/mm3 (0.0-0.2); BASO % 1.2 % (0.0-1.0); EOS # 0.3 K/mm3 (0.0-0.50); EOS % 3.7 % (0.0-3.0); LARGE UNSTAINED CELL # 0.1 K/mm3 (0.0-0.4); LARGE UNSTAINED CELL % 1.2 % (0.0-4.0); LYMPH # 0.8 K/mm3 (1.5-4.5); LYMPH % 10.3 % (24.0-44.0); MEAN CORPUSCULAR HEMOGLOBIN 29.7 pg (27.0-33.0); MEAN CORPUSCULAR HGB CONC 31.7 g/dl (32.0-36.5); MEAN CORPUSCULAR VOLUME 93.5 fl (80.0-96.0); MONO # 0.5 K/mm3 (0.0-0.8); MONO % 7.2 % (0.0-5.0); NEUTROPHILS # 5.8 K/mm3 (1.8-7.7); NEUTROPHILS % 76.4 % (36.0-66.0); PLATELET COUNT, AUTOMATED 682 k/mm3 (150-450); RED CELL DISTRIBUTION WIDTH 19.5 % (11.5-14.5); WHITE BLOOD COUNT 7.6 K/mm3 (4.0-10.0)
[2017-07-09 13:55] LABS: ANISOCYTOSIS 2+; HYPOCHROMASIA 2+
[2017-07-09 13:56] LABS: POLYCHROMASIA 1+
== END ==
LOC: M SMT 08:10
PROVIDERS: ATTEND Transplant Surgery
DX: K70.31 Alcoholic cirrhosis of liver with ascites (principal)

== ENCOUNTER → 2017-07-16 | Outpatient (CLI) | payer BC ==
[2017-07-16 11:33] LABS: ADD MORPHOLOGY? YES; BASO % 0.6 % (0.0-1.0); EOS # 0.2 K/mm3 (0.0-0.50); EOS % 2.6 % (0.0-3.0); LARGE UNSTAINED CELL # 0.1 K/mm3 (0.0-0.4); LARGE UNSTAINED CELL % 1.2 % (0.0-4.0); LYMPH # 0.8 K/mm3 (1.5-4.5); LYMPH % 8.7 % (24.0-44.0); MEAN CORPUSCULAR HEMOGLOBIN 29.9 pg (27.0-33.0); MEAN CORPUSCULAR HGB CONC 31.9 g/dl (32.0-36.5); MONO # 0.6 K/mm3 (0.0-0.8); MONO % 6.4 % (0.0-5.0); NEUTROPHILS # 7.1 K/mm3 (1.8-7.7); NEUTROPHILS % 80.5 % (36.0-66.0); PLATELET COUNT, AUTOMATED 329 k/mm3 (150-450); RED CELL DISTRIBUTION WIDTH 19.4 % (11.5-14.5); WHITE BLOOD COUNT 8.8 K/mm3 (4.0-10.0)
[2017-07-16 11:55] LABS: ALBUMIN 2.6 GM/DL (3.2-5.2); ALBUMIN/GLOBULIN RATIO 0.79 (1.00-1.93); ALKALINE PHOSPHATASE 92 U/L (45-117); ALT/SGPT 13 U/L (12-78); ANION GAP 9 MEQ/L (8-16); AST/SGOT 10 U/L (15-37); BILIRUBIN,TOTAL 0.7 MG/DL (0.2-1.0); BLOOD UREA NITROGEN 14 MG/DL (7-18); CALCIUM LEVEL 8.8 MG/DL (8.8-10.2); CARBON DIOXIDE LEVEL 32 MEQ/L (21-32); CHLORIDE LEVEL 103 MEQ/L (98-107); CREATININE FOR GFR 0.82 MG/DL (0.70-1.30); GLOMERULAR FILTRATION RATE > 60.0 (>49); GLUCOSE, FASTING 103 MG/DL (80-110); POTASSIUM SERUM 4.7 MEQ/L (3.5-5.1); SODIUM LEVEL 144 MEQ/L (136-145); TOTAL PROTEIN 5.9 GM/DL (6.4-8.2)
[2017-07-16 13:25] LABS: ANISOCYTOSIS 2+; HYPOCHROMASIA 1+
== END ==
LOC: M SMT 08:08
PROVIDERS: ATTEND Transplant Surgery
DX: K70.31 Alcoholic cirrhosis of liver with ascites (principal)

== ENCOUNTER → 2017-07-23 | Outpatient (CLI) | payer BC ==
[2017-07-23 13:32] LABS: ADD MORPHOLOGY? YES; BASO % 0.6 % (0.0-1.0); EOS # 0.2 K/mm3 (0.0-0.50); EOS % 2.5 % (0.0-3.0); LARGE UNSTAINED CELL # 0.1 K/mm3 (0.0-0.4); LARGE UNSTAINED CELL % 1.2 % (0.0-4.0); LYMPH # 0.8 K/mm3 (1.5-4.5); LYMPH % 11.1 % (24.0-44.0); MEAN CORPUSCULAR HEMOGLOBIN 29.8 pg (27.0-33.0); MEAN CORPUSCULAR HGB CONC 31.7 g/dl (32.0-36.5); MEAN CORPUSCULAR VOLUME 94.2 fl (80.0-96.0); MONO # 0.4 K/mm3 (0.0-0.8); MONO % 6.1 % (0.0-5.0); NEUTROPHILS # 5.6 K/mm3 (1.8-7.7); NEUTROPHILS % 78.5 % (36.0-66.0); PLATELET COUNT, AUTOMATED 283 k/mm3 (150-450); WHITE BLOOD COUNT 7.2 K/mm3 (4.0-10.0)
[2017-07-23 13:40] LABS: ALKALINE PHOSPHATASE 81 U/L (45-117); ALT/SGPT 12 U/L (12-78); ANION GAP 10 MEQ/L (8-16); AST/SGOT 8 U/L (15-37); BILIRUBIN,TOTAL 0.6 MG/DL (0.2-1.0); BLOOD UREA NITROGEN 16 MG/DL (7-18); CALCIUM LEVEL 8.6 MG/DL (8.8-10.2); CARBON DIOXIDE LEVEL 29 MEQ/L (21-32); CHLORIDE LEVEL 104 MEQ/L (98-107); CREATININE FOR GFR 0.87 MG/DL (0.70-1.30); GLOMERULAR FILTRATION RATE > 60.0 (>49); GLUCOSE, FASTING 150 MG/DL (80-110); POTASSIUM SERUM 4.3 MEQ/L (3.5-5.1); SODIUM LEVEL 143 MEQ/L (136-145)
[2017-07-23 21:38] LABS: ANISOCYTOSIS 2+; HYPOCHROMASIA 2+
[2017-07-23 21:39] LABS: SPHEROCYTES 1+
== END ==
LOC: M SMT 08:22
PROVIDERS: ATTEND Transplant Surgery
DX: K70.31 Alcoholic cirrhosis of liver with ascites (principal)

== ENCOUNTER → 2017-07-27 | Outpatient (CLI) | payer BC ==
[2017-07-27 13:34] LABS: ADD MORPHOLOGY? YES; BASO % 0.5 % (0.0-1.0); EOS # 0.2 K/mm3 (0.0-0.50); EOS % 2.8 % (0.0-3.0); LARGE UNSTAINED CELL # 0.1 K/mm3 (0.0-0.4); LARGE UNSTAINED CELL % 1.4 % (0.0-4.0); LYMPH % 12.8 % (24.0-44.0); MEAN CORPUSCULAR HEMOGLOBIN 29.7 pg (27.0-33.0); MEAN CORPUSCULAR HGB CONC 31.7 g/dl (32.0-36.5); MEAN CORPUSCULAR VOLUME 93.8 fl (80.0-96.0); MONO # 0.4 K/mm3 (0.0-0.8); MONO % 5.3 % (0.0-5.0); NEUTROPHILS % 77.1 % (36.0-66.0); PLATELET COUNT, AUTOMATED 305 k/mm3 (150-450); RED CELL DISTRIBUTION WIDTH 18.6 % (11.5-14.5); WHITE BLOOD COUNT 7.8 K/mm3 (4.0-10.0)
[2017-07-27 14:17] LABS: ANISOCYTOSIS 2+
[2017-07-27 14:50] LABS: ALBUMIN 3.6 GM/DL (3.2-5.2); ALBUMIN/GLOBULIN RATIO 1.13 (1.00-1.93); ALKALINE PHOSPHATASE 81 U/L (45-117); ALT/SGPT 14 U/L (12-78); ANION GAP 8 MEQ/L (8-16); AST/SGOT 10 U/L (15-37); BILIRUBIN,TOTAL 0.7 MG/DL (0.2-1.0); BLOOD UREA NITROGEN 19 MG/DL (7-18); CARBON DIOXIDE LEVEL 31 MEQ/L (21-32); CHLORIDE LEVEL 104 MEQ/L (98-107); CREATININE FOR GFR 0.92 MG/DL (0.70-1.30); GLOMERULAR FILTRATION RATE > 60.0 (>49); GLUCOSE, FASTING 104 MG/DL (80-110); SODIUM LEVEL 143 MEQ/L (136-145); TOTAL PROTEIN 6.8 GM/DL (6.4-8.2)
== END ==
LOC: M SMT 08:15
PROVIDERS: ATTEND Transplant Surgery
DX: K70.31 Alcoholic cirrhosis of liver with ascites (principal)

== ENCOUNTER → 2017-07-30 | Outpatient (CLI) | payer BC ==
[2017-07-30 12:33] LABS: BASO % 0.6 % (0.0-1.0); EOS # 0.2 K/mm3 (0.0-0.50); EOS % 3.2 % (0.0-3.0); LARGE UNSTAINED CELL # 0.1 K/mm3 (0.0-0.4); LARGE UNSTAINED CELL % 1.3 % (0.0-4.0); LYMPH # 1.2 K/mm3 (1.5-4.5); LYMPH % 17.4 % (24.0-44.0); MEAN CORPUSCULAR HGB CONC 31.9 g/dl (32.0-36.5); MEAN CORPUSCULAR VOLUME 94.1 fl (80.0-96.0); MONO # 0.5 K/mm3 (0.0-0.8); NEUTROPHILS # 4.9 K/mm3 (1.8-7.7); NEUTROPHILS % 70.5 % (36.0-66.0); PLATELET COUNT, AUTOMATED 282 k/mm3 (150-450); RED CELL DISTRIBUTION WIDTH 18.2 % (11.5-14.5)
[2017-07-30 12:49] LABS: ALBUMIN 3.6 GM/DL (3.2-5.2); ALBUMIN/GLOBULIN RATIO 1.16 (1.00-1.93); ALKALINE PHOSPHATASE 77 U/L (45-117); ALT/SGPT 13 U/L (12-78); ANION GAP 7 MEQ/L (8-16); AST/SGOT 12 U/L (15-37); BILIRUBIN,TOTAL 0.7 MG/DL (0.2-1.0); BLOOD UREA NITROGEN 21 MG/DL (7-18); CALCIUM LEVEL 9.5 MG/DL (8.8-10.2); CARBON DIOXIDE LEVEL 32 MEQ/L (21-32); CHLORIDE LEVEL 102 MEQ/L (98-107); CREATININE FOR GFR 0.92 MG/DL (0.70-1.30); GLOMERULAR FILTRATION RATE > 60.0 (>49); GLUCOSE, FASTING 115 MG/DL (80-110); POTASSIUM SERUM 4.8 MEQ/L (3.5-5.1); SODIUM LEVEL 141 MEQ/L (136-145); TOTAL PROTEIN 6.7 GM/DL (6.4-8.2)
== END ==
LOC: M SMT 08:05
PROVIDERS: ATTEND Transplant Surgery
DX: K70.31 Alcoholic cirrhosis of liver with ascites (principal)

== ENCOUNTER → 2017-08-03 | Outpatient (CLI) | payer BC ==
[2017-08-03 13:09] LABS: BASO % 0.7 % (0.0-1.0); EOS # 0.2 K/mm3 (0.0-0.50); EOS % 3.7 % (0.0-3.0); LARGE UNSTAINED CELL # 0.1 K/mm3 (0.0-0.4); LARGE UNSTAINED CELL % 1.6 % (0.0-4.0); LYMPH # 1.1 K/mm3 (1.5-4.5); LYMPH % 17.4 % (24.0-44.0); MEAN CORPUSCULAR HEMOGLOBIN 30.2 pg (27.0-33.0); MEAN CORPUSCULAR HGB CONC 32.8 g/dl (32.0-36.5); MEAN CORPUSCULAR VOLUME 92.2 fl (80.0-96.0); MONO # 0.5 K/mm3 (0.0-0.8); MONO % 7.5 % (0.0-5.0); NEUTROPHILS # 4.2 K/mm3 (1.8-7.7); PLATELET COUNT, AUTOMATED 275 k/mm3 (150-450); RED CELL DISTRIBUTION WIDTH 17.5 % (11.5-14.5); WHITE BLOOD COUNT 6.1 K/mm3 (4.0-10.0)
[2017-08-03 13:33] LABS: ALBUMIN 3.9 GM/DL (3.2-5.2); ALBUMIN/GLOBULIN RATIO 1.22 (1.00-1.93); ALKALINE PHOSPHATASE 75 U/L (45-117); ALT/SGPT 15 U/L (12-78); ANION GAP 6 MEQ/L (8-16); AST/SGOT 10 U/L (15-37); BILIRUBIN,TOTAL 0.7 MG/DL (0.2-1.0); BLOOD UREA NITROGEN 24 MG/DL (7-18); CARBON DIOXIDE LEVEL 32 MEQ/L (21-32); CHLORIDE LEVEL 102 MEQ/L (98-107); CREATININE FOR GFR 1.02 MG/DL (0.70-1.30); GLOMERULAR FILTRATION RATE > 60.0 (>49); GLUCOSE, FASTING 144 MG/DL (80-110); SODIUM LEVEL 140 MEQ/L (136-145); TOTAL PROTEIN 7.1 GM/DL (6.4-8.2)
[2017-08-03 13:39] LABS: POTASSIUM SERUM 5.3 MEQ/L (3.5-5.1)
== END ==
LOC: M SMT 08:08
PROVIDERS: ATTEND Transplant Surgery
DX: K70.31 Alcoholic cirrhosis of liver with ascites (principal)

== ENCOUNTER → 2017-08-06 | Outpatient (REF) | payer BC ==
[2017-08-06 18:58] LABS: ALBUMIN/GLOBULIN RATIO 1.29 (1.00-1.93); ALKALINE PHOSPHATASE 73 U/L (45-117); ALT/SGPT 16 U/L (12-78); ANION GAP 7 MEQ/L (8-16); AST/SGOT 9 U/L (15-37); BILIRUBIN,TOTAL 0.6 MG/DL (0.2-1.0); BLOOD UREA NITROGEN 28 MG/DL (7-18); CALCIUM LEVEL 9.7 MG/DL (8.8-10.2); CARBON DIOXIDE LEVEL 31 MEQ/L (21-32); CHLORIDE LEVEL 104 MEQ/L (98-107); CREATININE FOR GFR 1.06 MG/DL (0.70-1.30); GLOMERULAR FILTRATION RATE > 60.0 (>49); GLUCOSE, FASTING 142 MG/DL (80-110); SODIUM LEVEL 142 MEQ/L (136-145); TOTAL PROTEIN 7.1 GM/DL (6.4-8.2)
[2017-08-06 20:36] LABS: BASO % 0.6 % (0.0-1.0); EOS # 0.2 K/mm3 (0.0-0.50); LARGE UNSTAINED CELL # 0.1 K/mm3 (0.0-0.4); LARGE UNSTAINED CELL % 1.8 % (0.0-4.0); LYMPH % 15.9 % (24.0-44.0); MEAN CORPUSCULAR HGB CONC 31.6 g/dl (32.0-36.5); MONO # 0.5 K/mm3 (0.0-0.8); MONO % 7.9 % (0.0-5.0); NEUTROPHILS # 4.3 K/mm3 (1.8-7.7); NEUTROPHILS % 70.8 % (36.0-66.0); PLATELET COUNT, AUTOMATED 258 k/mm3 (150-450); RED CELL DISTRIBUTION WIDTH 17.2 % (11.5-14.5); WHITE BLOOD COUNT 6.1 K/mm3 (4.0-10.0)
== END ==
LOC: M LAB REF 17:01
PROVIDERS: ATTEND Transplant Surgery
DX: K70.31 Alcoholic cirrhosis of liver with ascites (principal)

== ENCOUNTER → 2017-08-10 | Outpatient (CLI) | payer BC ==
[2017-08-10 13:50] LABS: BASO # 0.1 10^3/uL (0.0-0.2); BASO % 0.7 % (0.0-1.0); EOS # 0.2 10^3/uL (0.0-0.50); EOS % 2.3 % (0.0-3.0); LYMPH # 1.4 10^3/uL (1.5-4.5); LYMPH % 18.5 % (24.0-44.0); MEAN CORPUSCULAR HEMOGLOBIN 29.8 pg (27.0-33.0); MEAN CORPUSCULAR VOLUME 93.1 fl (80.0-96.0); MONO # 0.6 10^3/uL (0.0-0.8); MONO % 7.5 % (0.0-5.0); NEUTROPHILS # 5.2 10^3/uL (1.8-7.7); PLATELET COUNT, AUTOMATED 217 10^3/uL (150-450); RED CELL DISTRIBUTION WIDTH 16.5 % (11.5-14.5); WHITE BLOOD COUNT 7.4 10^3/uL (4.0-10.0)
[2017-08-10 14:57] LABS: ANION GAP 9 MEQ/L (8-16); AST/SGOT 14 U/L (15-37); BLOOD UREA NITROGEN 27 MG/DL (7-18); CALCIUM LEVEL 9.6 MG/DL (8.8-10.2); CARBON DIOXIDE LEVEL 28 MEQ/L (21-32); CHLORIDE LEVEL 103 MEQ/L (98-107); CREATININE FOR GFR 0.94 MG/DL (0.70-1.30); GLOMERULAR FILTRATION RATE > 60.0 (>49); GLUCOSE, FASTING 160 MG/DL (80-110); POTASSIUM SERUM 4.7 MEQ/L (3.5-5.1); SODIUM LEVEL 140 MEQ/L (136-145)
[2017-08-10 14:58] LABS: ALBUMIN 3.9 GM/DL (3.2-5.2); ALBUMIN/GLOBULIN RATIO 1.22 (1.00-1.93); ALKALINE PHOSPHATASE 68 U/L (45-117); ALT/SGPT 19 U/L (12-78); BILIRUBIN,TOTAL 0.5 MG/DL (0.2-1.0); TOTAL PROTEIN 7.1 GM/DL (6.4-8.2)
== END ==
LOC: M SMT 08:16
PROVIDERS: ATTEND Transplant Surgery
DX: K70.31 Alcoholic cirrhosis of liver with ascites (principal)

== ENCOUNTER → 2017-08-17 | Outpatient (CLI) | payer BC ==
[2017-08-17 13:35] LABS: BASO % 0.5 % (0.0-1.0); EOS # 0.2 10^3/uL (0.0-0.50); IMMATURE GRANULOCYTE % 1.7 % (0-0); LYMPH # 1.4 10^3/uL (1.5-4.5); LYMPH % 22.5 % (24.0-44.0); MEAN CORPUSCULAR HEMOGLOBIN 29.6 pg (27.0-33.0); MEAN CORPUSCULAR HGB CONC 31.8 g/dl (32.0-36.5); MEAN CORPUSCULAR VOLUME 93.2 fl (80.0-96.0); MONO # 0.5 10^3/uL (0.0-0.8); MONO % 7.8 % (0.0-5.0); NEUTROPHILS # 3.9 10^3/uL (1.8-7.7); NEUTROPHILS % 64.5 % (36.0-66.0); PLATELET COUNT, AUTOMATED 206 10^3/uL (150-450)
[2017-08-17 13:36] LABS: ADD MANUAL DIFFER NO; DIFF SLIDE NUMBER 122
[2017-08-17 14:31] LABS: BLOOD UREA NITROGEN 33 MG/DL (7-18); CHLORIDE LEVEL 106 MEQ/L (98-107); POTASSIUM SERUM 5.1 MEQ/L (3.5-5.1); SODIUM LEVEL 142 MEQ/L (136-145)
[2017-08-17 15:06] LABS: ALBUMIN 4.3 GM/DL (3.2-5.2); ALBUMIN/GLOBULIN RATIO 1.54 (1.00-1.93); ALKALINE PHOSPHATASE 64 U/L (45-117); ALT/SGPT 19 U/L (12-78); ANION GAP 9 MEQ/L (8-16); AST/SGOT 12 U/L (15-37); BILIRUBIN,TOTAL 0.5 MG/DL (0.2-1.0); CALCIUM LEVEL 9.7 MG/DL (8.8-10.2); CARBON DIOXIDE LEVEL 27 MEQ/L (21-32); CREATININE FOR GFR 1.11 MG/DL (0.70-1.30); GLOMERULAR FILTRATION RATE > 60.0 (>49); GLUCOSE, FASTING 171 MG/DL (80-110); MAGNESIUM LEVEL 1.7 MG/DL (1.8-2.4); TOTAL PROTEIN 7.1 GM/DL (6.4-8.2)
== END ==
LOC: M SMT 08:26
PROVIDERS: ATTEND Transplant Surgery
DX: Z94.4 Liver transplant status (principal)

== ENCOUNTER → 2017-08-24 | Outpatient (CLI) | payer BC ==
[2017-08-24 11:33] LABS: BASO % 0.5 % (0.0-1.0); EOS # 0.2 10^3/uL (0.0-0.50); IMMATURE GRANULOCYTE % 2.5 % (0-0); LYMPH % 14.1 % (24.0-44.0); MEAN CORPUSCULAR HEMOGLOBIN 29.7 pg (27.0-33.0); MEAN CORPUSCULAR HGB CONC 32.5 g/dl (32.0-36.5); MEAN CORPUSCULAR VOLUME 91.4 fl (80.0-96.0); MONO # 0.7 10^3/uL (0.0-0.8); MONO % 8.9 % (0.0-5.0); NEUTROPHILS # 5.2 10^3/uL (1.8-7.7); PLATELET COUNT, AUTOMATED 192 10^3/uL (150-450); RED CELL DISTRIBUTION WIDTH 15.8 % (11.5-14.5); WHITE BLOOD COUNT 7.3 10^3/uL (4.0-10.0)
[2017-08-24 11:43] LABS: ALBUMIN 4.2 GM/DL (3.2-5.2); ALKALINE PHOSPHATASE 65 U/L (45-117); ALT/SGPT 19 U/L (12-78); ANION GAP 7 MEQ/L (8-16); AST/SGOT 11 U/L (15-37); BILIRUBIN,TOTAL 0.5 MG/DL (0.2-1.0); BLOOD UREA NITROGEN 32 MG/DL (7-18); CALCIUM LEVEL 9.7 MG/DL (8.8-10.2); CARBON DIOXIDE LEVEL 28 MEQ/L (21-32); CHLORIDE LEVEL 106 MEQ/L (98-107); CREATININE FOR GFR 0.99 MG/DL (0.70-1.30); GLOMERULAR FILTRATION RATE > 60.0 (>49); GLUCOSE, FASTING 129 MG/DL (80-110); MAGNESIUM LEVEL 1.6 MG/DL (1.8-2.4); POTASSIUM SERUM 4.9 MEQ/L (3.5-5.1); SODIUM LEVEL 141 MEQ/L (136-145); TOTAL PROTEIN 7.2 GM/DL (6.4-8.2)
[2017-08-24 11:48] LABS: ADD MANUAL DIFFER NO; DIFF SLIDE NUMBER 127
== END ==
LOC: M SMT 08:32
PROVIDERS: ATTEND Nurse Practitioner Adult Health
DX: Z94.4 Liver transplant status (principal)

== ENCOUNTER → 2017-08-31 | Outpatient (CLI) | payer BC ==
[2017-08-31 13:24] LABS: ALBUMIN 4.2 GM/DL (3.2-5.2); ALBUMIN/GLOBULIN RATIO 1.27 (1.00-1.93); ALKALINE PHOSPHATASE 66 U/L (45-117); ALT/SGPT 21 U/L (12-78); ANION GAP 6 MEQ/L (8-16); AST/SGOT 14 U/L (15-37); BILIRUBIN,TOTAL 0.4 MG/DL (0.2-1.0); BLOOD UREA NITROGEN 28 MG/DL (7-18); CALCIUM LEVEL 9.4 MG/DL (8.8-10.2); CARBON DIOXIDE LEVEL 30 MEQ/L (21-32); CHLORIDE LEVEL 106 MEQ/L (98-107); CREATININE FOR GFR 1.24 MG/DL (0.70-1.30); GLOMERULAR FILTRATION RATE > 60.0 (>49); GLUCOSE, FASTING 114 MG/DL (80-110); MAGNESIUM LEVEL 1.9 MG/DL (1.8-2.4); POTASSIUM SERUM 4.9 MEQ/L (3.5-5.1); SODIUM LEVEL 142 MEQ/L (136-145); TOTAL PROTEIN 7.5 GM/DL (6.4-8.2)
[2017-08-31 13:25] LABS: BASO % 0.8 % (0.0-1.0); EOS # 0.2 10^3/uL (0.0-0.50); EOS % 3.2 % (0.0-3.0); IMMATURE GRANULOCYTE % 2.1 % (0-0); LYMPH # 1.3 10^3/uL (1.5-4.5); LYMPH % 24.2 % (24.0-44.0); MEAN CORPUSCULAR HEMOGLOBIN 29.8 pg (27.0-33.0); MEAN CORPUSCULAR HGB CONC 32.5 g/dl (32.0-36.5); MEAN CORPUSCULAR VOLUME 91.9 fl (80.0-96.0); MONO # 0.6 10^3/uL (0.0-0.8); NEUTROPHILS # 3.1 10^3/uL (1.8-7.7); NEUTROPHILS % 58.7 % (36.0-66.0); PLATELET COUNT, AUTOMATED 202 10^3/uL (150-450); RED CELL DISTRIBUTION WIDTH 15.4 % (11.5-14.5); WHITE BLOOD COUNT 5.3 10^3/uL (4.0-10.0)
== END ==
LOC: M SMT 08:16
PROVIDERS: ATTEND Nurse Practitioner Adult Health
DX: Z94.4 Liver transplant status (principal)

== ENCOUNTER → 2017-09-03 | Outpatient (CLI) | payer BC | LOC: M OUTALCOH 14:48 | PROVIDERS: ATTEND Psychiatry & Neurology Psychiatry | DX: F10.10 Alcohol abuse, uncomplicated (principal) ==

== ENCOUNTER → 2017-09-28 | Outpatient (CLI) | payer BC ==
[2017-09-28 14:12] LABS: BASO % 0.7 % (0.0-1.0); EOS # 0.2 10^3/uL (0.0-0.50); EOS % 5.6 % (0.0-3.0); IMMATURE GRANULOCYTE % 4.4 % (0-0); LYMPH # 0.8 10^3/uL (1.5-4.5); LYMPH % 18.8 % (24.0-44.0); MEAN CORPUSCULAR HEMOGLOBIN 29.4 pg (27.0-33.0); MONO # 0.5 10^3/uL (0.0-0.8); MONO % 11.2 % (0.0-5.0); NEUTROPHILS # 2.4 10^3/uL (1.8-7.7); NEUTROPHILS % 59.3 % (36.0-66.0); PLATELET COUNT, AUTOMATED 192 10^3/uL (150-450); RED CELL DISTRIBUTION WIDTH 14.7 % (11.5-14.5); WHITE BLOOD COUNT 4.1 10^3/uL (4.0-10.0)
[2017-09-28 14:25] LABS: ALBUMIN/GLOBULIN RATIO 1.74 (1.00-1.93); ALKALINE PHOSPHATASE 54 U/L (45-117); ALT/SGPT 24 U/L (12-78); ANION GAP 6 MEQ/L (8-16); AST/SGOT 18 U/L (7-37); BILIRUBIN,TOTAL 0.6 MG/DL (0.2-1.0); BLOOD UREA NITROGEN 25 MG/DL (7-18); CALCIUM LEVEL 9.3 MG/DL (8.8-10.2); CARBON DIOXIDE LEVEL 30 MEQ/L (21-32); CHLORIDE LEVEL 105 MEQ/L (98-107); CREATININE FOR GFR 0.97 MG/DL (0.70-1.30); FERRITIN 176 NG/ML (26-388); GLOMERULAR FILTRATION RATE > 60.0 (>49); GLUCOSE, FASTING 108 MG/DL (80-110); MAGNESIUM LEVEL 1.8 MG/DL (1.8-2.4); PERCENT SATURATION 45.4 % (19.7-50.0); POTASSIUM SERUM 4.7 MEQ/L (3.5-5.1); SODIUM LEVEL 141 MEQ/L (136-145); TOTAL IRON BINDING CAPACITY 269 UG/DL (250-450); TOTAL PROTEIN 6.3 GM/DL (6.4-8.2)
== END ==
LOC: M SMT 08:06
PROVIDERS: ATTEND Nurse Practitioner Adult Health
DX: Z94.4 Liver transplant status (principal)

== ENCOUNTER → 2017-10-05 | Outpatient (CLI) | payer BC ==
[2017-10-05 14:16] LABS: BASO # 0.1 10^3/uL (0.0-0.2); EOS # 0.3 10^3/uL (0.0-0.50); EOS % 6.3 % (0.0-3.0); LYMPH # 0.9 10^3/uL (1.5-4.5); LYMPH % 19.2 % (24.0-44.0); MEAN CORPUSCULAR HEMOGLOBIN 29.3 pg (27.0-33.0); MEAN CORPUSCULAR VOLUME 91.6 fl (80.0-96.0); MONO # 0.6 10^3/uL (0.0-0.8); MONO % 12.1 % (0.0-5.0); NEUTROPHILS # 2.7 10^3/uL (1.8-7.7); NEUTROPHILS % 56.4 % (36.0-66.0); PLATELET COUNT, AUTOMATED 202 10^3/uL (150-450); RED CELL DISTRIBUTION WIDTH 14.5 % (11.5-14.5); WHITE BLOOD COUNT 4.8 10^3/uL (4.0-10.0)
[2017-10-05 14:36] LABS: ALBUMIN 4.1 GM/DL (3.2-5.2); ALBUMIN/GLOBULIN RATIO 1.64 (1.00-1.93); ALKALINE PHOSPHATASE 57 U/L (45-117); ALT/SGPT 21 U/L (12-78); ANION GAP 6 MEQ/L (8-16); AST/SGOT 14 U/L (7-37); BILIRUBIN,TOTAL 0.6 MG/DL (0.2-1.0); BLOOD UREA NITROGEN 30 MG/DL (7-18); CALCIUM LEVEL 9.5 MG/DL (8.8-10.2); CARBON DIOXIDE LEVEL 28 MEQ/L (21-32); CHLORIDE LEVEL 109 MEQ/L (98-107); CREATININE FOR GFR 1.12 MG/DL (0.70-1.30); FERRITIN 172 NG/ML (26-388); GLOMERULAR FILTRATION RATE > 60.0 (>49); GLUCOSE, FASTING 105 MG/DL (80-110); MAGNESIUM LEVEL 1.9 MG/DL (1.8-2.4); PERCENT SATURATION 36.3 % (19.7-50.0); SODIUM LEVEL 143 MEQ/L (136-145); TOTAL IRON BINDING CAPACITY 284 UG/DL (250-450); TOTAL PROTEIN 6.6 GM/DL (6.4-8.2)
[2017-10-05 14:54] LABS: POTASSIUM SERUM 5.2 MEQ/L (3.5-5.1)
== END ==
LOC: M SMT 08:07
PROVIDERS: ATTEND Nurse Practitioner Adult Health
DX: Z94.4 Liver transplant status (principal)

== ENCOUNTER → 2017-10-12 | Outpatient (CLI) | payer BC ==
[2017-10-12 15:31] LABS: ALBUMIN 4.2 GM/DL (3.2-5.2); ALBUMIN/GLOBULIN RATIO 1.45 (1.00-1.93); ALKALINE PHOSPHATASE 59 U/L (45-117); ALT/SGPT 21 U/L (12-78); ANION GAP 8 MEQ/L (8-16); AST/SGOT 13 U/L (7-37); BILIRUBIN,TOTAL 0.8 MG/DL (0.2-1.0); BLOOD UREA NITROGEN 27 MG/DL (7-18); CALCIUM LEVEL 9.4 MG/DL (8.8-10.2); CARBON DIOXIDE LEVEL 31 MEQ/L (21-32); CHLORIDE LEVEL 104 MEQ/L (98-107); CREATININE FOR GFR 1.14 MG/DL (0.70-1.30); FERRITIN 174 NG/ML (26-388); GLOMERULAR FILTRATION RATE > 60.0 (>49); GLUCOSE, FASTING 103 MG/DL (80-110); MAGNESIUM LEVEL 2.2 MG/DL (1.8-2.4); PERCENT SATURATION 34.1 % (19.7-50.0); POTASSIUM SERUM 4.4 MEQ/L (3.5-5.1); SODIUM LEVEL 143 MEQ/L (136-145); TOTAL IRON BINDING CAPACITY 308 UG/DL (250-450); TOTAL PROTEIN 7.1 GM/DL (6.4-8.2)
[2017-10-12 15:46] LABS: BASO % 0.8 % (0.0-1.0); EOS # 0.3 10^3/uL (0.0-0.50); EOS % 5.6 % (0.0-3.0); IMMATURE GRANULOCYTE % 3.9 % (0-0); LYMPH # 0.8 10^3/uL (1.5-4.5); LYMPH % 15.9 % (24.0-44.0); MEAN CORPUSCULAR HEMOGLOBIN 29.4 pg (27.0-33.0); MEAN CORPUSCULAR HGB CONC 31.9 g/dl (32.0-36.5); MONO # 0.6 10^3/uL (0.0-0.8); MONO % 10.9 % (0.0-5.0); NEUTROPHILS # 3.3 10^3/uL (1.8-7.7); NEUTROPHILS % 62.9 % (36.0-66.0); PLATELET COUNT, AUTOMATED 215 10^3/uL (150-450); RED CELL DISTRIBUTION WIDTH 14.3 % (11.5-14.5); WHITE BLOOD COUNT 5.2 10^3/uL (4.0-10.0)
== END ==
LOC: M SMT 07:59
PROVIDERS: ATTEND Nurse Practitioner Adult Health
DX: Z94.4 Liver transplant status (principal)

== ENCOUNTER → 2017-10-15 | Outpatient (RCR) | payer BC | LOC: M OUTALCOH 09-17 10:00 | PROVIDERS: ATTEND Psychiatry & Neurology Psychiatry | DX: F10.10 Alcohol abuse, uncomplicated (principal) ==

== ENCOUNTER 2017-10-19 14:33 | Outpatient (RCR) | payer BC | END 2017-11-15 | LOC: M OUTALCOH 14:33 | DX: F10.10 Alcohol abuse, uncomplicated (principal) ==

== ENCOUNTER → 2017-10-19 | Outpatient (CLI) | payer BC ==
[2017-10-19 14:17] LABS: BASO % 0.8 % (0.0-1.0); EOS # 0.3 10^3/uL (0.0-0.50); EOS % 6.8 % (0.0-3.0); IMMATURE GRANULOCYTE % 1.2 % (0-0); LYMPH # 0.8 10^3/uL (1.5-4.5); LYMPH % 15.8 % (24.0-44.0); MEAN CORPUSCULAR HEMOGLOBIN 28.6 pg (27.0-33.0); MEAN CORPUSCULAR HGB CONC 31.4 g/dl (32.0-36.5); MEAN CORPUSCULAR VOLUME 90.9 fl (80.0-96.0); MONO # 0.5 10^3/uL (0.0-0.8); MONO % 11.1 % (0.0-5.0); NEUTROPHILS # 3.1 10^3/uL (1.8-7.7); NEUTROPHILS % 64.3 % (36.0-66.0); PLATELET COUNT, AUTOMATED 198 10^3/uL (150-450); WHITE BLOOD COUNT 4.9 10^3/uL (4.0-10.0)
[2017-10-19 14:30] LABS: ALBUMIN 4.1 GM/DL (3.2-5.2); ALBUMIN/GLOBULIN RATIO 1.52 (1.00-1.93); ALKALINE PHOSPHATASE 61 U/L (45-117); ALT/SGPT 22 U/L (12-78); ANION GAP 7 MEQ/L (8-16); AST/SGOT 16 U/L (7-37); BLOOD UREA NITROGEN 27 MG/DL (7-18); CALCIUM LEVEL 9.2 MG/DL (8.8-10.2); CARBON DIOXIDE LEVEL 28 MEQ/L (21-32); CHLORIDE LEVEL 107 MEQ/L (98-107); CREATININE FOR GFR 1.11 MG/DL (0.70-1.30); FERRITIN 174 NG/ML (26-388); GLOMERULAR FILTRATION RATE > 60.0 (>49); GLUCOSE, FASTING 109 MG/DL (80-110); MAGNESIUM LEVEL 1.9 MG/DL (1.8-2.4); POTASSIUM SERUM 4.9 MEQ/L (3.5-5.1); SODIUM LEVEL 142 MEQ/L (136-145); TOTAL IRON BINDING CAPACITY 276 UG/DL (250-450); TOTAL PROTEIN 6.8 GM/DL (6.4-8.2)
== END ==
LOC: M SMT 08:01
PROVIDERS: ATTEND Nurse Practitioner Adult Health
DX: Z94.4 Liver transplant status (principal)

== ENCOUNTER → 2017-11-02 | Outpatient (REF) | payer BC ==
[2017-11-02 12:02] LABS: BASO % 1.1 % (0.0-1.0); EOS # 0.3 10^3/uL (0.0-0.50); EOS % 9.1 % (0.0-3.0); IMMATURE GRANULOCYTE % 1.1 % (0-0); LYMPH # 0.6 10^3/uL (1.5-4.5); LYMPH % 22.8 % (24.0-44.0); MEAN CORPUSCULAR HEMOGLOBIN 29.4 pg (27.0-33.0); MEAN CORPUSCULAR HGB CONC 33.2 g/dl (32.0-36.5); MEAN CORPUSCULAR VOLUME 88.5 fl (80.0-96.0); MONO # 0.4 10^3/uL (0.0-0.8); MONO % 15.6 % (0.0-5.0); NEUTROPHILS # 1.4 10^3/uL (1.8-7.7); NEUTROPHILS % 50.3 % (36.0-66.0); PLATELET COUNT, AUTOMATED 201 10^3/uL (150-450); RED CELL DISTRIBUTION WIDTH 13.8 % (11.5-14.5); WHITE BLOOD COUNT 2.8 10^3/uL (4.0-10.0)
[2017-11-02 13:07] LABS: ALBUMIN/GLOBULIN RATIO 1.43 (1.00-1.93); ALKALINE PHOSPHATASE 62 U/L (45-117); ALT/SGPT 21 U/L (12-78); ANION GAP 9 MEQ/L (8-16); AST/SGOT 17 U/L (7-37); BILIRUBIN,TOTAL 0.8 MG/DL (0.2-1.0); BLOOD UREA NITROGEN 29 MG/DL (7-18); CALCIUM LEVEL 9.3 MG/DL (8.8-10.2); CARBON DIOXIDE LEVEL 26 MEQ/L (21-32); CHLORIDE LEVEL 107 MEQ/L (98-107); FERRITIN 173 NG/ML (26-388); GLOMERULAR FILTRATION RATE > 60.0 (>49); GLUCOSE, FASTING 101 MG/DL (80-110); PERCENT SATURATION 40.4 % (19.7-50.0); POTASSIUM SERUM 4.8 MEQ/L (3.5-5.1); SODIUM LEVEL 142 MEQ/L (136-145); TOTAL IRON BINDING CAPACITY 312 UG/DL (250-450); TOTAL PROTEIN 6.8 GM/DL (6.4-8.2)
== END ==
LOC: M LAB REF 11:18
PROVIDERS: ATTEND Nurse Practitioner Adult Health
DX: Z94.4 Liver transplant status (principal)

== ENCOUNTER → 2017-11-10 | Outpatient (CLI) | payer BC ==
[2017-11-10 12:50] LABS: BASO # 0.1 10^3/uL (0.0-0.2); EOS # 0.3 10^3/uL (0.0-0.50); EOS % 11.2 % (0.0-3.0); IMMATURE GRANULOCYTE % 0.4 % (0-0); LYMPH # 0.8 10^3/uL (1.5-4.5); LYMPH % 32.5 % (24.0-44.0); MEAN CORPUSCULAR HEMOGLOBIN 29.2 pg (27.0-33.0); MEAN CORPUSCULAR HGB CONC 33.3 g/dl (32.0-36.5); MEAN CORPUSCULAR VOLUME 87.7 fl (80.0-96.0); MONO # 0.5 10^3/uL (0.0-0.8); MONO % 20.5 % (0.0-5.0); NEUTROPHILS % 33.4 % (36.0-66.0); PLATELET COUNT, AUTOMATED 225 10^3/uL (150-450); RED CELL DISTRIBUTION WIDTH 13.6 % (11.5-14.5); WHITE BLOOD COUNT 2.5 10^3/uL (4.0-10.0)
[2017-11-10 13:18] LABS: NEUTROPHILS # 0.8 10^3/uL (1.8-7.7); POSITIVE DIFF POS FLAG
[2017-11-10 13:29] LABS: ALBUMIN 4.2 GM/DL (3.2-5.2); ALBUMIN/GLOBULIN RATIO 1.45 (1.00-1.93); ALKALINE PHOSPHATASE 68 U/L (45-117); ALT/SGPT 23 U/L (12-78); ANION GAP 6 MEQ/L (8-16); AST/SGOT 19 U/L (7-37); BILIRUBIN,TOTAL 0.8 MG/DL (0.2-1.0); BLOOD UREA NITROGEN 29 MG/DL (7-18); CALCIUM LEVEL 9.1 MG/DL (8.8-10.2); CARBON DIOXIDE LEVEL 28 MEQ/L (21-32); CHLORIDE LEVEL 106 MEQ/L (98-107); CREATININE FOR GFR 1.13 MG/DL (0.70-1.30); FERRITIN 142 NG/ML (26-388); GLOMERULAR FILTRATION RATE > 60.0 (>49); GLUCOSE, FASTING 109 MG/DL (80-110); MAGNESIUM LEVEL 2.1 MG/DL (1.8-2.4); PERCENT SATURATION 25.6 % (19.7-50.0); POTASSIUM SERUM 4.5 MEQ/L (3.5-5.1); SODIUM LEVEL 140 MEQ/L (136-145); TOTAL IRON BINDING CAPACITY 308 UG/DL (250-450); TOTAL PROTEIN 7.1 GM/DL (6.4-8.2)
[2017-11-14 08:07] LABS: FK 506 (TACROLIMUS) LABCORP 4.7 ng/mL (2.0-20.0)
== END ==
LOC: M SMT 08:06
DX: Z94.4 Liver transplant status (principal)
CPT/HCPCS: 83735

== ENCOUNTER → 2017-11-10 | Outpatient (CLI) | payer BC | LOC: M SMT 08:03 | PROVIDERS: ATTEND Nurse Practitioner Family | DX: Z94.4 Liver transplant status (principal) ==

== ENCOUNTER → 2017-11-17 | Outpatient (CLI) | payer BC ==
[2017-11-17 13:44] LABS: ALBUMIN 4.4 GM/DL (3.2-5.2); ALBUMIN/GLOBULIN RATIO 1.63 (1.00-1.93); ALKALINE PHOSPHATASE 70 U/L (45-117); ALT/SGPT 27 U/L (12-78); ANION GAP 7 MEQ/L (8-16); AST/SGOT 22 U/L (7-37); BILIRUBIN,TOTAL 0.6 MG/DL (0.2-1.0); BLOOD UREA NITROGEN 32 MG/DL (7-18); CALCIUM LEVEL 8.9 MG/DL (8.8-10.2); CARBON DIOXIDE LEVEL 27 MEQ/L (21-32); CHLORIDE LEVEL 109 MEQ/L (98-107); CREATININE FOR GFR 1.26 MG/DL (0.70-1.30); FERRITIN 113 NG/ML (26-388); GLOMERULAR FILTRATION RATE > 60.0 (>49); GLUCOSE, FASTING 111 MG/DL (80-110); IRON (FE) 99 UG/DL (65-175); MAGNESIUM LEVEL 2.1 MG/DL (1.8-2.4); PERCENT SATURATION 31.9 % (19.7-50.0); POTASSIUM SERUM 4.9 MEQ/L (3.5-5.1); SODIUM LEVEL 143 MEQ/L (136-145); TOTAL IRON BINDING CAPACITY 310 UG/DL (250-450); TOTAL PROTEIN 7.1 GM/DL (6.4-8.2)
[2017-11-17 15:04] LABS: BASO # 0.1 10^3/uL (0.0-0.2); BASO % 1.6 % (0.0-1.0); EOS # 0.3 10^3/uL (0.0-0.50); EOS % 9.7 % (0.0-3.0); HEMATOCRIT 37.9 % (42.0-52.0); HEMOGLOBIN 12.2 g/dl (14.0-18.0); LYMPH # 0.8 10^3/uL (1.5-4.5); LYMPH % 24.9 % (24.0-44.0); MEAN CORPUSCULAR HEMOGLOBIN 28.6 pg (27.0-33.0); MEAN CORPUSCULAR HGB CONC 32.2 g/dl (32.0-36.5); MEAN CORPUSCULAR VOLUME 88.8 fl (80.0-96.0); MONO # 0.5 10^3/uL (0.0-0.8); MONO % 16.2 % (0.0-5.0); NEUTROPHILS # 1.4 10^3/uL (1.8-7.7); NEUTROPHILS % 46.6 % (36.0-66.0); PLATELET COUNT, AUTOMATED 217 10^3/uL (150-450); RED BLOOD COUNT 4.27 10^6/uL (4.30-6.10); RED CELL DISTRIBUTION WIDTH 13.8 % (11.5-14.5); WHITE BLOOD COUNT 3.1 10^3/uL (4.0-10.0)
[2017-11-20 00:07] LABS: CMV QUANT DNA PCR (PLASMA) Negative (Negative); TRANSFERRIN 250 mg/dL (200-370)
== END ==
LOC: M SMT 08:04
DX: Z94.4 Liver transplant status (principal)
CPT/HCPCS: 83550

== ENCOUNTER → 2017-11-23 | Outpatient (CLI) | payer BC ==
[2017-11-23 12:50] LABS: ALBUMIN 4.3 GM/DL (3.2-5.2); ALBUMIN/GLOBULIN RATIO 1.54 (1.00-1.93); ALKALINE PHOSPHATASE 67 U/L (45-117); ALT/SGPT 27 U/L (12-78); ANION GAP 5 MEQ/L (8-16); AST/SGOT 26 U/L (7-37); BILIRUBIN,TOTAL 0.8 MG/DL (0.2-1.0); BLOOD UREA NITROGEN 29 MG/DL (7-18); CARBON DIOXIDE LEVEL 29 MEQ/L (21-32); CHLORIDE LEVEL 109 MEQ/L (98-107); CREATININE FOR GFR 1.11 MG/DL (0.70-1.30); FERRITIN 128 NG/ML (26-388); GLOMERULAR FILTRATION RATE > 60.0 (>49); GLUCOSE, FASTING 108 MG/DL (80-110); IRON (FE) 108 UG/DL (65-175); MAGNESIUM LEVEL 2.1 MG/DL (1.8-2.4); PERCENT SATURATION 32.3 % (19.7-50.0); SODIUM LEVEL 143 MEQ/L (136-145); TOTAL IRON BINDING CAPACITY 334 UG/DL (250-450); TOTAL PROTEIN 7.1 GM/DL (6.4-8.2)
[2017-11-23 12:52] LABS: BASO # 0.1 10^3/uL (0.0-0.2); BASO % 1.6 % (0.0-1.0); EOS # 0.3 10^3/uL (0.0-0.50); EOS % 6.8 % (0.0-3.0); HEMATOCRIT 37.8 % (42.0-52.0); HEMOGLOBIN 12.3 g/dl (14.0-18.0); IMMATURE GRANULOCYTE # 0.1 10^3/uL (0-0); IMMATURE GRANULOCYTE % 1.6 % (0-0); LYMPH # 0.8 10^3/uL (1.5-4.5); LYMPH % 21.4 % (24.0-44.0); MEAN CORPUSCULAR HEMOGLOBIN 28.3 pg (27.0-33.0); MEAN CORPUSCULAR HGB CONC 32.5 g/dl (32.0-36.5); MEAN CORPUSCULAR VOLUME 86.9 fl (80.0-96.0); MONO # 0.5 10^3/uL (0.0-0.8); MONO % 14.1 % (0.0-5.0); NEUTROPHILS % 54.5 % (36.0-66.0); PLATELET COUNT, AUTOMATED 183 10^3/uL (150-450); RED BLOOD COUNT 4.35 10^6/uL (4.30-6.10); RED CELL DISTRIBUTION WIDTH 13.3 % (11.5-14.5); WHITE BLOOD COUNT 3.7 10^3/uL (4.0-10.0)
[2017-11-23 12:54] LABS: POTASSIUM SERUM 5.2 MEQ/L (3.5-5.1)
[2017-11-26 00:06] LABS: CMV QUANT DNA PCR (PLASMA) Negative (Negative); FK 506 (TACROLIMUS) LABCORP 3.6 ng/mL (2.0-20.0); TRANSFERRIN 255 mg/dL (200-370)
== END ==
LOC: M SMT 08:01
DX: Z94.4 Liver transplant status (principal)
CPT/HCPCS: 83550

== ENCOUNTER 2017-11-27 10:46 | Outpatient (RCR) | payer BC | END 2017-12-16 | LOC: M OUTALCOH 10:46 | DX: F10.10 Alcohol abuse, uncomplicated (principal) ==

== ENCOUNTER → 2017-11-30 | Outpatient (CLI) | payer BC ==
[2017-11-30 13:53] LABS: BASO % 0.8 % (0.0-1.0); EOS # 0.2 10^3/uL (0.0-0.50); EOS % 7.7 % (0.0-3.0); HEMATOCRIT 35.5 % (42.0-52.0); HEMOGLOBIN 11.9 g/dl (14.0-18.0); LYMPH # 1.2 10^3/uL (1.5-4.5); LYMPH % 49.2 % (24.0-44.0); MEAN CORPUSCULAR HEMOGLOBIN 29.2 pg (27.0-33.0); MEAN CORPUSCULAR HGB CONC 33.5 g/dl (32.0-36.5); MONO # 0.5 10^3/uL (0.0-0.8); MONO % 20.6 % (0.0-5.0); NEUTROPHILS % 21.7 % (36.0-66.0); PLATELET COUNT, AUTOMATED 142 10^3/uL (150-450); RED BLOOD COUNT 4.08 10^6/uL (4.30-6.10); RED CELL DISTRIBUTION WIDTH 13.2 % (11.5-14.5); WHITE BLOOD COUNT 2.5 10^3/uL (4.0-10.0)
[2017-11-30 14:17] LABS: NEUTROPHILS # 0.5 10^3/uL (1.8-7.7); POSITIVE DIFF POS FLAG
[2017-11-30 14:20] LABS: ALBUMIN 4.2 GM/DL (3.2-5.2); ALBUMIN/GLOBULIN RATIO 1.56 (1.00-1.93); ALKALINE PHOSPHATASE 79 U/L (45-117); ALT/SGPT 37 U/L (12-78); ANION GAP 7 MEQ/L (8-16); AST/SGOT 32 U/L (7-37); BILIRUBIN,TOTAL 0.8 MG/DL (0.2-1.0); BLOOD UREA NITROGEN 31 MG/DL (7-18); CALCIUM LEVEL 8.9 MG/DL (8.8-10.2); CARBON DIOXIDE LEVEL 27 MEQ/L (21-32); CHLORIDE LEVEL 110 MEQ/L (98-107); FERRITIN 165 NG/ML (26-388); GLOMERULAR FILTRATION RATE > 60.0 (>49); GLUCOSE, FASTING 118 MG/DL (80-110); IRON (FE) 106 UG/DL (65-175); MAGNESIUM LEVEL 1.8 MG/DL (1.8-2.4); PERCENT SATURATION 36.4 % (19.7-50.0); SODIUM LEVEL 144 MEQ/L (136-145); TOTAL IRON BINDING CAPACITY 291 UG/DL (250-450); TOTAL PROTEIN 6.9 GM/DL (6.4-8.2)
[2017-11-30 14:21] LABS: POTASSIUM SERUM 5.3 MEQ/L (3.5-5.1)
[2017-12-05 00:07] LABS: CMV QUANT DNA PCR (PLASMA) Negative (Negative); FK 506 (TACROLIMUS) LABCORP 4.9 ng/mL (2.0-20.0); TRANSFERRIN 239 mg/dL (200-370)
== END ==
LOC: M SMT 08:06
DX: Z94.4 Liver transplant status (principal)
CPT/HCPCS: 83735

== ENCOUNTER → 2017-12-07 | Outpatient (CLI) | payer BC ==
[2017-12-07 10:56] LABS: BASO # 0.1 10^3/uL (0.0-0.2); BASO % 1.4 % (0.0-1.0); EOS # 0.3 10^3/uL (0.0-0.50); EOS % 7.5 % (0.0-3.0); HEMATOCRIT 38.6 % (42.0-52.0); HEMOGLOBIN 12.9 g/dl (14.0-18.0); IMMATURE GRANULOCYTE % 0.3 % (0-0); LYMPH # 1.6 10^3/uL (1.5-4.5); LYMPH % 42.8 % (24.0-44.0); MEAN CORPUSCULAR HEMOGLOBIN 28.5 pg (27.0-33.0); MEAN CORPUSCULAR HGB CONC 33.4 g/dl (32.0-36.5); MEAN CORPUSCULAR VOLUME 85.4 fl (80.0-96.0); MONO # 0.3 10^3/uL (0.0-0.8); MONO % 9.4 % (0.0-5.0); NEUTROPHILS # 1.4 10^3/uL (1.8-7.7); NEUTROPHILS % 38.6 % (36.0-66.0); PLATELET COUNT, AUTOMATED 210 10^3/uL (150-450); RED BLOOD COUNT 4.52 10^6/uL (4.30-6.10); RED CELL DISTRIBUTION WIDTH 13.3 % (11.5-14.5); WHITE BLOOD COUNT 3.6 10^3/uL (4.0-10.0)
[2017-12-07 11:11] LABS: ALBUMIN 4.3 GM/DL (3.2-5.2); ALKALINE PHOSPHATASE 86 U/L (45-117); ALT/SGPT 41 U/L (12-78); ANION GAP 5 MEQ/L (8-16); AST/SGOT 31 U/L (7-37); BILIRUBIN,TOTAL 0.6 MG/DL (0.2-1.0); BLOOD UREA NITROGEN 26 MG/DL (7-18); CALCIUM LEVEL 9.3 MG/DL (8.8-10.2); CARBON DIOXIDE LEVEL 30 MEQ/L (21-32); CHLORIDE LEVEL 107 MEQ/L (98-107); CREATININE FOR GFR 1.03 MG/DL (0.70-1.30); FERRITIN 138 NG/ML (26-388); GLOMERULAR FILTRATION RATE > 60.0 (>49); GLUCOSE, FASTING 100 MG/DL (80-110); IRON (FE) 86 UG/DL (65-175); MAGNESIUM LEVEL 1.7 MG/DL (1.8-2.4); PERCENT SATURATION 26.1 % (19.7-50.0); POTASSIUM SERUM 4.7 MEQ/L (3.5-5.1); SODIUM LEVEL 142 MEQ/L (136-145); TOTAL IRON BINDING CAPACITY 329 UG/DL (250-450); TOTAL PROTEIN 7.6 GM/DL (6.4-8.2)
[2017-12-10 00:06] LABS: CMV QUANT DNA PCR (PLASMA) Negative (Negative); FK 506 (TACROLIMUS) LABCORP 4.5 ng/mL (2.0-20.0); TRANSFERRIN 244 mg/dL (200-370)
[2017-12-12 15:11] LABS: EBV PCR QUANTITATIVE Negative copies/mL (Negative); PARVOVIRUS B19 QUANT PCR Negative copies/mL (Negative)
== END ==
LOC: M SMT 08:16
DX: Z94.4 Liver transplant status (principal)
CPT/HCPCS: 83735

== ENCOUNTER → 2017-12-14 | Outpatient (CLI) | payer BC ==
[2017-12-14 13:57] LABS: BASO % 0.8 % (0.0-1.0); EOS # 0.3 10^3/uL (0.0-0.50); HEMATOCRIT 41.4 % (42.0-52.0); HEMOGLOBIN 13.8 g/dl (14.0-18.0); IMMATURE GRANULOCYTE % 0.2 % (0-0); LYMPH # 1.2 10^3/uL (1.5-4.5); LYMPH % 24.8 % (24.0-44.0); MEAN CORPUSCULAR HEMOGLOBIN 28.8 pg (27.0-33.0); MEAN CORPUSCULAR HGB CONC 33.3 g/dl (32.0-36.5); MEAN CORPUSCULAR VOLUME 86.3 fl (80.0-96.0); MONO # 0.4 10^3/uL (0.0-0.8); MONO % 7.7 % (0.0-5.0); NEUTROPHILS % 60.5 % (36.0-66.0); PLATELET COUNT, AUTOMATED 187 10^3/uL (150-450); RED CELL DISTRIBUTION WIDTH 13.3 % (11.5-14.5)
[2017-12-14 14:13] LABS: ALBUMIN 4.6 GM/DL (3.2-5.2); ALBUMIN/GLOBULIN RATIO 1.44 (1.00-1.93); ALKALINE PHOSPHATASE 83 U/L (45-117); ALT/SGPT 50 U/L (12-78); ANION GAP 6 MEQ/L (8-16); AST/SGOT 42 U/L (7-37); BILIRUBIN,TOTAL 0.8 MG/DL (0.2-1.0); BLOOD UREA NITROGEN 26 MG/DL (7-18); CALCIUM LEVEL 9.6 MG/DL (8.8-10.2); CARBON DIOXIDE LEVEL 29 MEQ/L (21-32); CHLORIDE LEVEL 107 MEQ/L (98-107); CREATININE FOR GFR 1.03 MG/DL (0.70-1.30); FERRITIN 142 NG/ML (26-388); GLOMERULAR FILTRATION RATE > 60.0 (>49); GLUCOSE, FASTING 108 MG/DL (70-100); IRON (FE) 128 UG/DL (65-175); MAGNESIUM LEVEL 1.9 MG/DL (1.8-2.4); PERCENT SATURATION 38.9 % (19.7-50.0); POTASSIUM SERUM 5.1 MEQ/L (3.5-5.1); SODIUM LEVEL 142 MEQ/L (136-145); TOTAL IRON BINDING CAPACITY 329 UG/DL (250-450); TOTAL PROTEIN 7.8 GM/DL (6.4-8.2)
[2017-12-17 00:07] LABS: CMV QUANT DNA PCR (PLASMA) Negative (Negative); FK 506 (TACROLIMUS) LABCORP 5.2 ng/mL (2.0-20.0); TRANSFERRIN 248 mg/dL (200-370)
== END ==
LOC: M SMT 07:58
DX: Z94.4 Liver transplant status (principal); Z79.899 Other long term (current) drug therapy
CPT/HCPCS: 83735

== ENCOUNTER → 2017-12-21 | Outpatient (CLI) | payer BC ==
[2017-12-21 13:38] LABS: BASO % 0.9 % (0.0-1.0); EOS # 0.3 10^3/uL (0.0-0.50); EOS % 6.3 % (0.0-3.0); HEMATOCRIT 38.9 % (42.0-52.0); HEMOGLOBIN 12.8 g/dl (14.0-18.0); IMMATURE GRANULOCYTE % 0.2 % (0-0); LYMPH # 1.5 10^3/uL (1.5-4.5); LYMPH % 32.1 % (24.0-44.0); MEAN CORPUSCULAR HEMOGLOBIN 28.2 pg (27.0-33.0); MEAN CORPUSCULAR HGB CONC 32.9 g/dl (32.0-36.5); MEAN CORPUSCULAR VOLUME 85.7 fl (80.0-96.0); MONO # 0.5 10^3/uL (0.0-0.8); MONO % 9.8 % (0.0-5.0); NEUTROPHILS # 2.3 10^3/uL (1.8-7.7); NEUTROPHILS % 50.7 % (36.0-66.0); PLATELET COUNT, AUTOMATED 165 10^3/uL (150-450); RED BLOOD COUNT 4.54 10^6/uL (4.30-6.10); RED CELL DISTRIBUTION WIDTH 13.1 % (11.5-14.5); WHITE BLOOD COUNT 4.6 10^3/uL (4.0-10.0)
[2017-12-21 13:55] LABS: ALBUMIN 4.4 GM/DL (3.2-5.2); ALBUMIN/GLOBULIN RATIO 1.42 (1.00-1.93); ALKALINE PHOSPHATASE 85 U/L (45-117); ALT/SGPT 62 U/L (12-78); ANION GAP 7 MEQ/L (8-16); AST/SGOT 46 U/L (7-37); BILIRUBIN,TOTAL 0.7 MG/DL (0.2-1.0); BLOOD UREA NITROGEN 30 MG/DL (7-18); CALCIUM LEVEL 9.4 MG/DL (8.8-10.2); CARBON DIOXIDE LEVEL 27 MEQ/L (21-32); CHLORIDE LEVEL 108 MEQ/L (98-107); CREATININE FOR GFR 1.26 MG/DL (0.70-1.30); GLOMERULAR FILTRATION RATE > 60.0 (>49); GLUCOSE, FASTING 110 MG/DL (70-100); IRON (FE) 111 UG/DL (65-175); PERCENT SATURATION 35.9 % (19.7-50.0); SODIUM LEVEL 142 MEQ/L (136-145); TOTAL IRON BINDING CAPACITY 309 UG/DL (250-450); TOTAL PROTEIN 7.5 GM/DL (6.4-8.2)
[2017-12-21 13:56] LABS: FERRITIN 148 NG/ML (26-388)
[2017-12-21 13:58] LABS: POTASSIUM SERUM 5.2 MEQ/L (3.5-5.1)
[2017-12-24 14:11] LABS: CMV QUANT DNA PCR (PLASMA) Negative (Negative); FK 506 (TACROLIMUS) LABCORP 5.7 ng/mL (2.0-20.0); TRANSFERRIN 244 mg/dL (200-370)
== END ==
LOC: M SMT 08:05
DX: Z94.4 Liver transplant status (principal)
CPT/HCPCS: 83735

== ENCOUNTER → 2017-12-28 | Outpatient (CLI) | payer BC ==
[2017-12-28 14:39] LABS: BASO % 0.7 % (0.0-1.0); EOS # 0.4 10^3/uL (0.0-0.50); EOS % 8.4 % (0.0-3.0); HEMATOCRIT 37.7 % (42.0-52.0); HEMOGLOBIN 12.7 g/dl (14.0-18.0); IMMATURE GRANULOCYTE % 0.2 % (0-3.0); LYMPH # 1.3 10^3/uL (1.5-4.5); LYMPH % 28.3 % (24.0-44.0); MEAN CORPUSCULAR HEMOGLOBIN 28.9 pg (27.0-33.0); MEAN CORPUSCULAR HGB CONC 33.7 g/dl (32.0-36.5); MEAN CORPUSCULAR VOLUME 85.9 fl (80.0-96.0); MONO # 0.4 10^3/uL (0.0-0.8); MONO % 8.6 % (0.0-5.0); NEUTROPHILS # 2.4 10^3/uL (1.8-7.7); NEUTROPHILS % 53.8 % (36.0-66.0); PLATELET COUNT, AUTOMATED 149 10^3/uL (150-450); RED BLOOD COUNT 4.39 10^6/uL (4.30-6.10); RED CELL DISTRIBUTION WIDTH 13.2 % (11.5-14.5); WHITE BLOOD COUNT 4.5 10^3/uL (4.0-10.0)
[2017-12-28 15:35] LABS: ALBUMIN 4.3 GM/DL (3.2-5.2); ALBUMIN/GLOBULIN RATIO 1.48 (1.00-1.93); ALKALINE PHOSPHATASE 82 U/L (45-117); ALT/SGPT 59 U/L (12-78); ANION GAP 8 MEQ/L (8-16); AST/SGOT 44 U/L (7-37); BILIRUBIN,TOTAL 0.7 MG/DL (0.2-1.0); BLOOD UREA NITROGEN 24 MG/DL (7-18); CALCIUM LEVEL 9.5 MG/DL (8.8-10.2); CARBON DIOXIDE LEVEL 27 MEQ/L (21-32); CHLORIDE LEVEL 108 MEQ/L (98-107); CREATININE FOR GFR 1.05 MG/DL (0.70-1.30); FERRITIN 141 NG/ML (26-388); GLOMERULAR FILTRATION RATE > 60.0 (>49); GLUCOSE, FASTING 110 MG/DL (70-100); IRON (FE) 105 UG/DL (65-175); MAGNESIUM LEVEL 1.9 MG/DL (1.8-2.4); PERCENT SATURATION 34.4 % (19.7-50.0); POTASSIUM SERUM 4.9 MEQ/L (3.5-5.1); SODIUM LEVEL 143 MEQ/L (136-145); TOTAL IRON BINDING CAPACITY 305 UG/DL (250-450); TOTAL PROTEIN 7.2 GM/DL (6.4-8.2)
[2017-12-31 10:13] LABS: CMV QUANT DNA PCR (PLASMA) Negative (Negative); FK 506 (TACROLIMUS) LABCORP 4.6 ng/mL (2.0-20.0); TRANSFERRIN 244 mg/dL (200-370)
== END ==
LOC: M SMT 08:09
DX: Z94.4 Liver transplant status (principal)

== ENCOUNTER → 2018-01-05 | Outpatient (CLI) | payer BC ==
[2018-01-05 14:30] LABS: ALBUMIN 4.5 GM/DL (3.2-5.2); ALBUMIN/GLOBULIN RATIO 1.45 (1.00-1.93); ALKALINE PHOSPHATASE 77 U/L (45-117); ALT/SGPT 51 U/L (12-78); ANION GAP 5 MEQ/L (8-16); AST/SGOT 35 U/L (7-37); BILIRUBIN,TOTAL 0.9 MG/DL (0.2-1.0); BLOOD UREA NITROGEN 29 MG/DL (7-18); CALCIUM LEVEL 9.5 MG/DL (8.8-10.2); CARBON DIOXIDE LEVEL 29 MEQ/L (21-32); CHLORIDE LEVEL 108 MEQ/L (98-107); CREATININE FOR GFR 1.22 MG/DL (0.70-1.30); GAMMA GLUTAMYLTRANSPEPTIDASE 31 U/L (15-85); GLOMERULAR FILTRATION RATE > 60.0 (>49); GLUCOSE, FASTING 114 MG/DL (70-100); POTASSIUM SERUM 5.1 MEQ/L (3.5-5.1); SODIUM LEVEL 142 MEQ/L (136-145); TOTAL PROTEIN 7.6 GM/DL (6.4-8.2)
[2018-01-05 14:33] LABS: HEMATOCRIT 38.8 % (42.0-52.0); HEMOGLOBIN 13.2 g/dl (14.0-18.0); MEAN CORPUSCULAR HEMOGLOBIN 28.9 pg (27.0-33.0); MEAN CORPUSCULAR VOLUME 84.9 fl (80.0-96.0); PLATELET COUNT, AUTOMATED 172 10^3/uL (150-450); RED BLOOD COUNT 4.57 10^6/uL (4.30-6.10); RED CELL DISTRIBUTION WIDTH 13.5 % (11.5-14.5); WHITE BLOOD COUNT 5.3 10^3/uL (4.0-10.0)
[2018-01-07 14:12] LABS: FK 506 (TACROLIMUS) LABCORP 6.6 ng/mL (2.0-20.0)
== END ==
LOC: M SMT 08:10
DX: Z79.899 Other long term (current) drug therapy (principal); Z41.8 Encounter for other procedures for purposes other than remedying health state; Z94.4 Liver transplant status
CPT/HCPCS: 82977

== ENCOUNTER → 2018-01-11 | Outpatient (CLI) | payer BC ==
[2018-01-11 13:07] LABS: HEMOGLOBIN 12.8 g/dl (14.0-18.0); MEAN CORPUSCULAR HEMOGLOBIN 28.4 pg (27.0-33.0); MEAN CORPUSCULAR HGB CONC 33.7 g/dl (32.0-36.5); MEAN CORPUSCULAR VOLUME 84.4 fl (80.0-96.0); PLATELET COUNT, AUTOMATED 198 10^3/uL (150-450); RED CELL DISTRIBUTION WIDTH 13.6 % (11.5-14.5); WHITE BLOOD COUNT 4.8 10^3/uL (4.0-10.0)
[2018-01-11 13:20] LABS: BLOOD UREA NITROGEN 28 MG/DL (7-18); GLUCOSE, FASTING 113 MG/DL (70-100)
[2018-01-11 13:21] LABS: ALBUMIN 4.4 GM/DL (3.2-5.2); ALBUMIN/GLOBULIN RATIO 1.57 (1.00-1.93); ALKALINE PHOSPHATASE 82 U/L (45-117); ALT/SGPT 39 U/L (12-78); ANION GAP 7 MEQ/L (8-16); AST/SGOT 26 U/L (7-37); BILIRUBIN,TOTAL 0.7 MG/DL (0.2-1.0); CALCIUM LEVEL 9.2 MG/DL (8.8-10.2); CARBON DIOXIDE LEVEL 27 MEQ/L (21-32); CHLORIDE LEVEL 108 MEQ/L (98-107); GAMMA GLUTAMYLTRANSPEPTIDASE 29 U/L (15-85); GLOMERULAR FILTRATION RATE > 60.0 (>49); MAGNESIUM LEVEL 2.1 MG/DL (1.8-2.4); SODIUM LEVEL 142 MEQ/L (136-145); TOTAL PROTEIN 7.2 GM/DL (6.4-8.2)
[2018-01-11 13:22] LABS: POTASSIUM SERUM 5.3 MEQ/L (3.5-5.1)
[2018-01-13 14:13] LABS: FK 506 (TACROLIMUS) LABCORP 6.3 ng/mL (2.0-20.0)
== END ==
LOC: M SMT 08:06
DX: Z79.899 Other long term (current) drug therapy (principal); Z94.4 Liver transplant status
CPT/HCPCS: 82977

== ENCOUNTER → 2018-01-18 | Outpatient (CLI) | payer BC ==
[2018-01-18 14:02] LABS: HEMATOCRIT 37.9 % (42.0-52.0); HEMOGLOBIN 12.8 g/dl (14.0-18.0); MEAN CORPUSCULAR HEMOGLOBIN 28.6 pg (27.0-33.0); MEAN CORPUSCULAR HGB CONC 33.8 g/dl (32.0-36.5); MEAN CORPUSCULAR VOLUME 84.6 fl (80.0-96.0); PLATELET COUNT, AUTOMATED 152 10^3/uL (150-450); RED BLOOD COUNT 4.48 10^6/uL (4.30-6.10); RED CELL DISTRIBUTION WIDTH 13.6 % (11.5-14.5); WHITE BLOOD COUNT 4.9 10^3/uL (4.0-10.0)
[2018-01-18 14:18] LABS: ALBUMIN 4.2 GM/DL (3.2-5.2); ALKALINE PHOSPHATASE 82 U/L (45-117); ALT/SGPT 35 U/L (12-78); ANION GAP 6 MEQ/L (8-16); AST/SGOT 27 U/L (7-37); BILIRUBIN,TOTAL 0.8 MG/DL (0.2-1.0); BLOOD UREA NITROGEN 29 MG/DL (7-18); CALCIUM LEVEL 9.3 MG/DL (8.8-10.2); CARBON DIOXIDE LEVEL 27 MEQ/L (21-32); CHLORIDE LEVEL 108 MEQ/L (98-107); CREATININE FOR GFR 1.09 MG/DL (0.70-1.30); GAMMA GLUTAMYLTRANSPEPTIDASE 29 U/L (15-85); GLOMERULAR FILTRATION RATE > 60.0 (>49); GLUCOSE, FASTING 114 MG/DL (70-100); MAGNESIUM LEVEL 1.9 MG/DL (1.8-2.4); SODIUM LEVEL 141 MEQ/L (136-145)
[2018-01-18 14:22] LABS: POTASSIUM SERUM 5.2 MEQ/L (3.5-5.1)
[2018-01-20 00:06] LABS: FK 506 (TACROLIMUS) LABCORP 4.7 ng/mL (2.0-20.0)
== END ==
LOC: M SMT 07:58
DX: Z94.4 Liver transplant status (principal); Z41.8 Encounter for other procedures for purposes other than remedying health state; Z79.899 Other long term (current) drug therapy
CPT/HCPCS: 82977

== ENCOUNTER → 2018-01-25 | Outpatient (CLI) | payer BC ==
[2018-01-25 14:16] LABS: HEMATOCRIT 35.8 % (42.0-52.0); MEAN CORPUSCULAR HEMOGLOBIN 28.7 pg (27.0-33.0); MEAN CORPUSCULAR HGB CONC 33.5 g/dl (32.0-36.5); MEAN CORPUSCULAR VOLUME 85.6 fl (80.0-96.0); PLATELET COUNT, AUTOMATED 196 10^3/uL (150-450); RED BLOOD COUNT 4.18 10^6/uL (4.30-6.10); RED CELL DISTRIBUTION WIDTH 13.8 % (11.5-14.5); WHITE BLOOD COUNT 8.7 10^3/uL (4.0-10.0)
[2018-01-25 14:29] LABS: ALBUMIN 4.1 GM/DL (3.2-5.2); ALBUMIN/GLOBULIN RATIO 1.37 (1.00-1.93); ALKALINE PHOSPHATASE 80 U/L (45-117); ALT/SGPT 22 U/L (12-78); ANION GAP 7 MEQ/L (8-16); AST/SGOT 12 U/L (7-37); BILIRUBIN,TOTAL 0.8 MG/DL (0.2-1.0); BLOOD UREA NITROGEN 22 MG/DL (7-18); CALCIUM LEVEL 9.4 MG/DL (8.8-10.2); CARBON DIOXIDE LEVEL 28 MEQ/L (21-32); CHLORIDE LEVEL 106 MEQ/L (98-107); CREATININE FOR GFR 1.08 MG/DL (0.70-1.30); GAMMA GLUTAMYLTRANSPEPTIDASE 36 U/L (15-85); GLOMERULAR FILTRATION RATE > 60.0 (>49); GLUCOSE, FASTING 130 MG/DL (70-100); MAGNESIUM LEVEL 1.9 MG/DL (1.8-2.4); POTASSIUM SERUM 4.5 MEQ/L (3.5-5.1); SODIUM LEVEL 141 MEQ/L (136-145); TOTAL PROTEIN 7.1 GM/DL (6.4-8.2)
[2018-01-27 14:16] LABS: FK 506 (TACROLIMUS) LABCORP 5.5 ng/mL (2.0-20.0)
== END ==
LOC: M SMT 08:16
DX: Z94.4 Liver transplant status (principal); Z41.8 Encounter for other procedures for purposes other than remedying health state; Z79.899 Other long term (current) drug therapy
CPT/HCPCS: 82977

== ENCOUNTER → 2018-02-08 | Outpatient (CLI) | payer BC ==
[2018-02-08 10:52] LABS: HEMATOCRIT 36.9 % (42.0-52.0); MEAN CORPUSCULAR HEMOGLOBIN 27.5 pg (27.0-33.0); MEAN CORPUSCULAR HGB CONC 32.5 g/dl (32.0-36.5); MEAN CORPUSCULAR VOLUME 84.4 fl (80.0-96.0); PLATELET COUNT, AUTOMATED 313 10^3/uL (150-450); RED BLOOD COUNT 4.37 10^6/uL (4.30-6.10); RED CELL DISTRIBUTION WIDTH 13.3 % (11.5-14.5); WHITE BLOOD COUNT 6.7 10^3/uL (4.0-10.0)
[2018-02-08 10:55] LABS: ALBUMIN 4.1 GM/DL (3.2-5.2); ALBUMIN/GLOBULIN RATIO 1.24 (1.00-1.93); ALKALINE PHOSPHATASE 91 U/L (45-117); ALT/SGPT 21 U/L (12-78); ANION GAP 5 MEQ/L (8-16); AST/SGOT 15 U/L (7-37); BILIRUBIN,TOTAL 0.5 MG/DL (0.2-1.0); BLOOD UREA NITROGEN 22 MG/DL (7-18); CALCIUM LEVEL 9.7 MG/DL (8.8-10.2); CARBON DIOXIDE LEVEL 30 MEQ/L (21-32); CHLORIDE LEVEL 109 MEQ/L (98-107); CREATININE FOR GFR 1.14 MG/DL (0.70-1.30); GAMMA GLUTAMYLTRANSPEPTIDASE 31 U/L (15-85); GLOMERULAR FILTRATION RATE > 60.0 (>49); GLUCOSE, FASTING 113 MG/DL (70-100); SODIUM LEVEL 144 MEQ/L (136-145); TOTAL PROTEIN 7.4 GM/DL (6.4-8.2)
[2018-02-08 10:57] LABS: POTASSIUM SERUM 5.3 MEQ/L (3.5-5.1)
[2018-02-10 08:07] LABS: FK 506 (TACROLIMUS) LABCORP 5.5 ng/mL (2.0-20.0)
== END ==
LOC: M SMT 07:59
DX: Z94.4 Liver transplant status (principal); Z41.8 Encounter for other procedures for purposes other than remedying health state; Z79.899 Other long term (current) drug therapy
CPT/HCPCS: 82977

== ENCOUNTER → 2018-03-08 | Outpatient (CLI) | payer BC ==
[2018-03-08 13:15] LABS: HEMATOCRIT 37.5 % (42.0-52.0); HEMOGLOBIN 12.2 g/dl (13.5-17.5); MEAN CORPUSCULAR HEMOGLOBIN 28.1 pg (27.0-33.0); MEAN CORPUSCULAR HGB CONC 32.5 g/dl (32.0-36.5); MEAN CORPUSCULAR VOLUME 86.4 fl (80.0-96.0); PLATELET COUNT, AUTOMATED 181 10^3/uL (150-450); RED BLOOD COUNT 4.34 10^6/uL (4.30-6.10); RED CELL DISTRIBUTION WIDTH 14.2 % (11.5-14.5); WHITE BLOOD COUNT 6.1 10^3/uL (4.0-10.0)
[2018-03-08 14:28] LABS: ALBUMIN 4.2 GM/DL (3.2-5.2); ALBUMIN/GLOBULIN RATIO 1.35 (1.00-1.93); ALKALINE PHOSPHATASE 100 U/L (45-117); ALT/SGPT 24 U/L (12-78); ANION GAP 4 MEQ/L (8-16); AST/SGOT 16 U/L (7-37); BILIRUBIN,TOTAL 0.7 MG/DL (0.2-1.0); BLOOD UREA NITROGEN 27 MG/DL (7-18); CALCIUM LEVEL 9.4 MG/DL (8.8-10.2); CARBON DIOXIDE LEVEL 28 MEQ/L (21-32); CHLORIDE LEVEL 111 MEQ/L (98-107); CREATININE FOR GFR 1.22 MG/DL (0.70-1.30); GAMMA GLUTAMYLTRANSPEPTIDASE 35 U/L (15-85); GLOMERULAR FILTRATION RATE > 60.0 (>49); GLUCOSE, FASTING 114 MG/DL (70-100); MAGNESIUM LEVEL 1.9 MG/DL (1.8-2.4); SODIUM LEVEL 143 MEQ/L (136-145); TOTAL PROTEIN 7.3 GM/DL (6.4-8.2)
[2018-03-08 14:29] LABS: POTASSIUM SERUM 5.6 MEQ/L (3.5-5.1)
[2018-03-10 08:06] LABS: FK 506 (TACROLIMUS) LABCORP 6.9 ng/mL (2.0-20.0)
== END ==
LOC: M SMT 07:54
DX: Z94.4 Liver transplant status (principal); Z41.8 Encounter for other procedures for purposes other than remedying health state; Z79.899 Other long term (current) drug therapy
CPT/HCPCS: 82977

== ENCOUNTER → 2018-03-11 | Outpatient (CLI) | payer BC ==
[2018-03-11 10:34] LABS: ALBUMIN 4.4 GM/DL (3.2-5.2); ALBUMIN/GLOBULIN RATIO 1.26 (1.00-1.93); ALKALINE PHOSPHATASE 94 U/L (45-117); ALT/SGPT 24 U/L (12-78); ANION GAP 8 MEQ/L (8-16); AST/SGOT 17 U/L (7-37); BLOOD UREA NITROGEN 24 MG/DL (7-18); CALCIUM LEVEL 9.6 MG/DL (8.8-10.2); CARBON DIOXIDE LEVEL 27 MEQ/L (21-32); CHLORIDE LEVEL 107 MEQ/L (98-107); CREATININE FOR GFR 1.29 MG/DL (0.70-1.30); GAMMA GLUTAMYLTRANSPEPTIDASE 25 U/L (15-85); GLOMERULAR FILTRATION RATE > 60.0 (>49); GLUCOSE, FASTING 124 MG/DL (70-100); SODIUM LEVEL 142 MEQ/L (136-145); TOTAL PROTEIN 7.9 GM/DL (6.4-8.2)
[2018-03-11 10:36] LABS: HEMATOCRIT 37.8 % (42.0-52.0); HEMOGLOBIN 12.8 g/dl (13.5-17.5); MEAN CORPUSCULAR HEMOGLOBIN 29.2 pg (27.0-33.0); MEAN CORPUSCULAR HGB CONC 33.9 g/dl (32.0-36.5); MEAN CORPUSCULAR VOLUME 86.1 fl (80.0-96.0); PLATELET COUNT, AUTOMATED 209 10^3/uL (150-450); RED BLOOD COUNT 4.39 10^6/uL (4.30-6.10); RED CELL DISTRIBUTION WIDTH 14.1 % (11.5-14.5); WHITE BLOOD COUNT 6.3 10^3/uL (4.0-10.0)
[2018-03-13 08:06] LABS: FK 506 (TACROLIMUS) LABCORP 6.9 ng/mL (2.0-20.0)
== END ==
LOC: M SMT 07:50
DX: Z94.4 Liver transplant status (principal); Z41.8 Encounter for other procedures for purposes other than remedying health state; Z79.899 Other long term (current) drug therapy

== ENCOUNTER → 2018-03-11 | Outpatient (CLI) | payer BC ==
[2018-03-12 14:16] LABS: PSA TOTAL 1.1 ng/mL (0.0-4.0)
== END ==
LOC: M SMT 07:54
DX: Z12.5 Encounter for screening for malignant neoplasm of prostate (principal)
CPT/HCPCS: 84154

== ENCOUNTER → 2018-03-22 | Outpatient (CLI) | payer BC ==
[2018-03-22 14:06] LABS: HEMATOCRIT 36.8 % (42.0-52.0); HEMOGLOBIN 12.4 g/dl (13.5-17.5); MEAN CORPUSCULAR HEMOGLOBIN 29.4 pg (27.0-33.0); MEAN CORPUSCULAR HGB CONC 33.7 g/dl (32.0-36.5); MEAN CORPUSCULAR VOLUME 87.2 fl (80.0-96.0); PLATELET COUNT, AUTOMATED 217 10^3/uL (150-450); RED BLOOD COUNT 4.22 10^6/uL (4.30-6.10); RED CELL DISTRIBUTION WIDTH 14.2 % (11.5-14.5); WHITE BLOOD COUNT 5.1 10^3/uL (4.0-10.0)
[2018-03-22 14:20] LABS: ALBUMIN 4.3 GM/DL (3.2-5.2); ALBUMIN/GLOBULIN RATIO 1.43 (1.00-1.93); ALKALINE PHOSPHATASE 84 U/L (45-117); ALT/SGPT 19 U/L (12-78); ANION GAP 5 MEQ/L (8-16); AST/SGOT 15 U/L (7-37); BILIRUBIN,TOTAL 0.8 MG/DL (0.2-1.0); BLOOD UREA NITROGEN 21 MG/DL (7-18); CALCIUM LEVEL 9.4 MG/DL (8.8-10.2); CARBON DIOXIDE LEVEL 28 MEQ/L (21-32); CHLORIDE LEVEL 108 MEQ/L (98-107); CREATININE FOR GFR 1.14 MG/DL (0.70-1.30); GAMMA GLUTAMYLTRANSPEPTIDASE 21 U/L (15-85); GLOMERULAR FILTRATION RATE > 60.0 (>49); GLUCOSE, FASTING 112 MG/DL (70-100); SODIUM LEVEL 141 MEQ/L (136-145); TOTAL PROTEIN 7.3 GM/DL (6.4-8.2)
[2018-03-22 14:23] LABS: POTASSIUM SERUM 5.2 MEQ/L (3.5-5.1)
[2018-03-26 00:09] LABS: FK 506 (TACROLIMUS) LABCORP 5.5 ng/mL (2.0-20.0)
== END ==
LOC: M SMT 08:03
DX: Z94.4 Liver transplant status (principal); Z41.8 Encounter for other procedures for purposes other than remedying health state; Z79.899 Other long term (current) drug therapy
CPT/HCPCS: 82977

== ENCOUNTER → 2018-04-05 | Outpatient (CLI) | payer BC ==
[2018-04-05 09:56] LABS: HEMATOCRIT 36.1 % (42.0-52.0); HEMOGLOBIN 12.1 g/dl (13.5-17.5); MEAN CORPUSCULAR HEMOGLOBIN 29.2 pg (27.0-33.0); MEAN CORPUSCULAR HGB CONC 33.5 g/dl (32.0-36.5); MEAN CORPUSCULAR VOLUME 87.2 fl (80.0-96.0); PLATELET COUNT, AUTOMATED 177 10^3/uL (150-450); RED BLOOD COUNT 4.14 10^6/uL (4.30-6.10); RED CELL DISTRIBUTION WIDTH 13.9 % (11.5-14.5); WHITE BLOOD COUNT 4.8 10^3/uL (4.0-10.0)
[2018-04-05 10:06] LABS: ALBUMIN 4.3 GM/DL (3.2-5.2); ALBUMIN/GLOBULIN RATIO 1.34 (1.00-1.93); ALKALINE PHOSPHATASE 78 U/L (45-117); ALT/SGPT 21 U/L (12-78); ANION GAP 5 MEQ/L (8-16); AST/SGOT 19 U/L (7-37); BILIRUBIN,TOTAL 0.8 MG/DL (0.2-1.0); BLOOD UREA NITROGEN 19 MG/DL (7-18); CALCIUM LEVEL 9.4 MG/DL (8.8-10.2); CARBON DIOXIDE LEVEL 28 MEQ/L (21-32); CHLORIDE LEVEL 109 MEQ/L (98-107); GAMMA GLUTAMYLTRANSPEPTIDASE 18 U/L (15-85); GLOMERULAR FILTRATION RATE > 60.0 (>49); GLUCOSE, FASTING 118 MG/DL (70-100); MAGNESIUM LEVEL 2.1 MG/DL (1.8-2.4); POTASSIUM SERUM 5.1 MEQ/L (3.5-5.1); SODIUM LEVEL 142 MEQ/L (136-145); TOTAL PROTEIN 7.5 GM/DL (6.4-8.2)
[2018-04-07 08:06] LABS: FK 506 (TACROLIMUS) LABCORP 4.9 ng/mL (2.0-20.0)
== END ==
LOC: M SMT 07:57
DX: Z94.4 Liver transplant status (principal)
CPT/HCPCS: 82977

== ENCOUNTER → 2018-04-29 | Outpatient (CLI) | payer BC ==
[2018-04-29 13:50] LABS: HEMATOCRIT 39.6 % (42.0-52.0); HEMOGLOBIN 13.1 g/dl (13.5-17.5); MEAN CORPUSCULAR HEMOGLOBIN 29.2 pg (27.0-33.0); MEAN CORPUSCULAR HGB CONC 33.1 g/dl (32.0-36.5); MEAN CORPUSCULAR VOLUME 88.4 fl (80.0-96.0); PLATELET COUNT, AUTOMATED 203 10^3/uL (150-450); RED BLOOD COUNT 4.48 10^6/uL (4.30-6.10); RED CELL DISTRIBUTION WIDTH 13.9 % (11.5-14.5); WHITE BLOOD COUNT 5.8 10^3/uL (4.0-10.0)
[2018-04-29 14:02] LABS: ALBUMIN 4.4 GM/DL (3.2-5.2); ALBUMIN/GLOBULIN RATIO 1.52 (1.00-1.93); ALKALINE PHOSPHATASE 79 U/L (45-117); ALT/SGPT 23 U/L (12-78); ANION GAP 5 MEQ/L (8-16); AST/SGOT 16 U/L (7-37); BILIRUBIN,TOTAL 0.8 MG/DL (0.2-1.0); BLOOD UREA NITROGEN 24 MG/DL (7-18); CALCIUM LEVEL 9.5 MG/DL (8.8-10.2); CARBON DIOXIDE LEVEL 31 MEQ/L (21-32); CHLORIDE LEVEL 107 MEQ/L (98-107); CREATININE FOR GFR 1.18 MG/DL (0.70-1.30); GAMMA GLUTAMYLTRANSPEPTIDASE 18 U/L (15-85); GLOMERULAR FILTRATION RATE > 60.0 (>49); GLUCOSE, FASTING 118 MG/DL (70-100); MAGNESIUM LEVEL 1.9 MG/DL (1.8-2.4); POTASSIUM SERUM 5.1 MEQ/L (3.5-5.1); SODIUM LEVEL 143 MEQ/L (136-145); TOTAL PROTEIN 7.3 GM/DL (6.4-8.2)
[2018-05-03 00:09] LABS: FK 506 (TACROLIMUS) LABCORP 7.6 ng/mL (2.0-20.0)
== END ==
LOC: M SMT 07:55
DX: Z79.899 Other long term (current) drug therapy (principal); Z94.4 Liver transplant status; Z41.8 Encounter for other procedures for purposes other than remedying health state

== ENCOUNTER → 2018-05-18 | Outpatient (CLI) | payer BC ==
[2018-05-18 13:32] LABS: HEMATOCRIT 38.2 % (42.0-52.0); HEMOGLOBIN 12.9 g/dl (13.5-17.5); MEAN CORPUSCULAR HEMOGLOBIN 29.4 pg (27.0-33.0); MEAN CORPUSCULAR HGB CONC 33.8 g/dl (32.0-36.5); PLATELET COUNT, AUTOMATED 175 10^3/uL (150-450); RED BLOOD COUNT 4.39 10^6/uL (4.30-6.10); RED CELL DISTRIBUTION WIDTH 13.7 % (11.5-14.5); WHITE BLOOD COUNT 5.6 10^3/uL (4.0-10.0)
[2018-05-18 13:33] LABS: ALBUMIN 4.3 GM/DL (3.2-5.2); ALBUMIN/GLOBULIN RATIO 1.43 (1.00-1.93); ALKALINE PHOSPHATASE 84 U/L (45-117); ALT/SGPT 28 U/L (12-78); ANION GAP 8 MEQ/L (8-16); AST/SGOT 20 U/L (7-37); BLOOD UREA NITROGEN 29 MG/DL (7-18); CALCIUM LEVEL 9.2 MG/DL (8.8-10.2); CARBON DIOXIDE LEVEL 28 MEQ/L (21-32); CHLORIDE LEVEL 108 MEQ/L (98-107); CREATININE FOR GFR 1.21 MG/DL (0.70-1.30); GAMMA GLUTAMYLTRANSPEPTIDASE 21 U/L (15-85); GLOMERULAR FILTRATION RATE > 60.0 (>49); GLUCOSE, FASTING 111 MG/DL (70-100); MAGNESIUM LEVEL 2.2 MG/DL (1.8-2.4); SODIUM LEVEL 144 MEQ/L (136-145); TOTAL PROTEIN 7.3 GM/DL (6.4-8.2)
[2018-05-18 13:34] LABS: POTASSIUM SERUM 5.3 MEQ/L (3.5-5.1)
[2018-05-21 14:18] LABS: FK 506 (TACROLIMUS) LABCORP 6.2 ng/mL (2.0-20.0)
== END ==
LOC: M SMT 07:59
DX: Z51.81 Encounter for therapeutic drug level monitoring (principal); Z94.4 Liver transplant status; Z79.899 Other long term (current) drug therapy
CPT/HCPCS: 82977

== ENCOUNTER → 2018-06-22 | Outpatient (CLI) | payer BC ==
[2018-06-22 12:21] LABS: HEMATOCRIT 38.4 % (42.0-52.0); HEMOGLOBIN 12.8 g/dl (13.5-17.5); MEAN CORPUSCULAR HEMOGLOBIN 29.7 pg (27.0-33.0); MEAN CORPUSCULAR HGB CONC 33.3 g/dl (32.0-36.5); MEAN CORPUSCULAR VOLUME 89.1 fl (80.0-96.0); PLATELET COUNT, AUTOMATED 178 10^3/uL (150-450); RED BLOOD COUNT 4.31 10^6/uL (4.30-6.10); RED CELL DISTRIBUTION WIDTH 13.3 % (11.5-14.5); WHITE BLOOD COUNT 5.6 10^3/uL (4.0-10.0)
[2018-06-22 12:38] LABS: ALBUMIN 4.2 GM/DL (3.2-5.2); ALKALINE PHOSPHATASE 81 U/L (45-117); ALT/SGPT 28 U/L (12-78); ANION GAP 6 MEQ/L (8-16); AST/SGOT 18 U/L (7-37); BILIRUBIN,TOTAL 0.8 MG/DL (0.2-1.0); BLOOD UREA NITROGEN 26 MG/DL (7-18); CALCIUM LEVEL 9.1 MG/DL (8.8-10.2); CARBON DIOXIDE LEVEL 29 MEQ/L (21-32); CHLORIDE LEVEL 108 MEQ/L (98-107); CREATININE FOR GFR 1.13 MG/DL (0.70-1.30); GAMMA GLUTAMYLTRANSPEPTIDASE 19 U/L (15-85); GLOMERULAR FILTRATION RATE > 60.0 (>49); GLUCOSE, FASTING 119 MG/DL (70-100); POTASSIUM SERUM 4.8 MEQ/L (3.5-5.1); SODIUM LEVEL 143 MEQ/L (136-145)
[2018-06-25 00:08] LABS: FK 506 (TACROLIMUS) LABCORP 3.9 ng/mL (2.0-20.0)
== END ==
LOC: M SMT 08:01
DX: Z51.81 Encounter for therapeutic drug level monitoring (principal); Z41.8 Encounter for other procedures for purposes other than remedying health state; Z79.899 Other long term (current) drug therapy; Z94.4 Liver transplant status
CPT/HCPCS: 82977

== ENCOUNTER → 2018-07-21 | Outpatient (CLI) | payer BC ==
[2018-07-21 13:17] LABS: HEMATOCRIT 39.5 % (42.0-52.0); HEMOGLOBIN 13.3 g/dl (13.5-17.5); MEAN CORPUSCULAR HEMOGLOBIN 29.8 pg (27.0-33.0); MEAN CORPUSCULAR HGB CONC 33.7 g/dl (32.0-36.5); MEAN CORPUSCULAR VOLUME 88.6 fl (80.0-96.0); PLATELET COUNT, AUTOMATED 171 10^3/uL (150-450); RED BLOOD COUNT 4.46 10^6/uL (4.30-6.10); WHITE BLOOD COUNT 5.4 10^3/uL (4.0-10.0)
[2018-07-21 14:08] LABS: ALBUMIN 4.6 GM/DL (3.2-5.2); ALBUMIN/GLOBULIN RATIO 1.64 (1.00-1.93); ALKALINE PHOSPHATASE 73 U/L (45-117); ALT/SGPT 26 U/L (12-78); ANION GAP 9 MEQ/L (8-16); AST/SGOT 17 U/L (7-37); BILIRUBIN,TOTAL 1.2 MG/DL (0.2-1.0); BLOOD UREA NITROGEN 26 MG/DL (7-18); CALCIUM LEVEL 9.5 MG/DL (8.8-10.2); CARBON DIOXIDE LEVEL 27 MEQ/L (21-32); CHLORIDE LEVEL 107 MEQ/L (98-107); CREATININE FOR GFR 1.19 MG/DL (0.70-1.30); GAMMA GLUTAMYLTRANSPEPTIDASE 16 U/L (15-85); GLOMERULAR FILTRATION RATE > 60.0 (>49); GLUCOSE, FASTING 99 MG/DL (70-100); MAGNESIUM LEVEL 2.3 MG/DL (1.8-2.4); SODIUM LEVEL 143 MEQ/L (136-145); TOTAL PROTEIN 7.4 GM/DL (6.4-8.2)
[2018-07-21 14:11] LABS: POTASSIUM SERUM 5.3 MEQ/L (3.5-5.1)
[2018-07-24 08:29] LABS: FK 506 (TACROLIMUS) LABCORP 4.4 ng/mL (2.0-20.0)
== END ==
LOC: M SMT 08:00
DX: Z94.4 Liver transplant status (principal); Z79.899 Other long term (current) drug therapy
CPT/HCPCS: 82977

== ENCOUNTER → 2018-08-17 | Outpatient (CLI) | payer BC ==
[2018-08-17 13:56] LABS: HEMATOCRIT 41.2 % (42.0-52.0); HEMOGLOBIN 13.7 g/dl (13.5-17.5); MEAN CORPUSCULAR HEMOGLOBIN 29.5 pg (27.0-33.0); MEAN CORPUSCULAR HGB CONC 33.3 g/dl (32.0-36.5); MEAN CORPUSCULAR VOLUME 88.6 fl (80.0-96.0); PLATELET COUNT, AUTOMATED 183 10^3/uL (150-450); RED BLOOD COUNT 4.65 10^6/uL (4.30-6.10); RED CELL DISTRIBUTION WIDTH 13.2 % (11.5-14.5); WHITE BLOOD COUNT 5.6 10^3/uL (4.0-10.0)
[2018-08-17 14:22] LABS: ALBUMIN 4.3 GM/DL (3.2-5.2); ALBUMIN/GLOBULIN RATIO 1.39 (1.00-1.93); ALKALINE PHOSPHATASE 82 U/L (45-117); ALT/SGPT 29 U/L (12-78); ANION GAP 7 MEQ/L (8-16); AST/SGOT 22 U/L (7-37); BILIRUBIN,TOTAL 0.9 MG/DL (0.2-1.0); BLOOD UREA NITROGEN 27 MG/DL (7-18); CARBON DIOXIDE LEVEL 28 MEQ/L (21-32); CHLORIDE LEVEL 108 MEQ/L (98-107); CREATININE FOR GFR 1.21 MG/DL (0.70-1.30); GAMMA GLUTAMYLTRANSPEPTIDASE 20 U/L (15-85); GLOMERULAR FILTRATION RATE > 60.0 (>49); GLUCOSE, FASTING 103 MG/DL (70-100); MAGNESIUM LEVEL 1.9 MG/DL (1.8-2.4); POTASSIUM SERUM 4.9 MEQ/L (3.5-5.1); SODIUM LEVEL 143 MEQ/L (136-145); TOTAL PROTEIN 7.4 GM/DL (6.4-8.2)
[2018-08-19 14:39] LABS: FK 506 (TACROLIMUS) LABCORP 7.9 ng/mL (2.0-20.0)
== END ==
LOC: M SMT 08:01
DX: Z51.81 Encounter for therapeutic drug level monitoring (principal); Z79.899 Other long term (current) drug therapy; Z94.0 Kidney transplant status
CPT/HCPCS: 82977

== ENCOUNTER → 2018-09-21 | Outpatient (CLI) | payer BC ==
[2018-09-21 13:52] LABS: CHOLESTEROL LEVEL 205 MG/DL (<200); CHOLESTEROL RISK RATIO 6.406 (<5); HDL CHOLESTEROL 32 MG/DL (>40); LDL CHOLESTEROL 128 MG/DL (<100); NON-HDL-C 173 MG/DL; TRIGLYCERIDES LEVEL 227 MG/DL (<150)
== END ==
LOC: M SMT 08:04
DX: E78.49 Other hyperlipidemia (principal)
CPT/HCPCS: 80061

== ENCOUNTER → 2018-09-21 | Outpatient (CLI) | payer BC ==
[2018-09-21 13:40] LABS: HEMATOCRIT 42.3 % (42.0-52.0); HEMOGLOBIN 14.2 g/dl (13.5-17.5); MEAN CORPUSCULAR HEMOGLOBIN 29.5 pg (27.0-33.0); MEAN CORPUSCULAR HGB CONC 33.6 g/dl (32.0-36.5); MEAN CORPUSCULAR VOLUME 87.8 fl (80.0-96.0); PLATELET COUNT, AUTOMATED 189 10^3/uL (150-450); RED BLOOD COUNT 4.82 10^6/uL (4.30-6.10); RED CELL DISTRIBUTION WIDTH 13.1 % (11.5-14.5); WHITE BLOOD COUNT 5.8 10^3/uL (4.0-10.0)
[2018-09-21 13:50] LABS: ALBUMIN 4.7 GM/DL (3.2-5.2); ALBUMIN/GLOBULIN RATIO 1.96 (1.00-1.93); ALKALINE PHOSPHATASE 80 U/L (45-117); ALT/SGPT 31 U/L (12-78); ANION GAP 6 MEQ/L (8-16); AST/SGOT 21 U/L (7-37); BILIRUBIN,TOTAL 0.9 MG/DL (0.2-1.0); BLOOD UREA NITROGEN 27 MG/DL (7-18); CALCIUM LEVEL 9.8 MG/DL (8.8-10.2); CARBON DIOXIDE LEVEL 29 MEQ/L (21-32); CHLORIDE LEVEL 104 MEQ/L (98-107); CREATININE FOR GFR 1.19 MG/DL (0.70-1.30); GAMMA GLUTAMYLTRANSPEPTIDASE 22 U/L (15-85); GLOMERULAR FILTRATION RATE > 60.0 (>49); GLUCOSE, FASTING 123 MG/DL (70-100); POTASSIUM SERUM 5.3 MEQ/L (3.5-5.1); SODIUM LEVEL 139 MEQ/L (136-145); TOTAL PROTEIN 7.1 GM/DL (6.4-8.2)
[2018-09-24 00:08] LABS: FK 506 (TACROLIMUS) LABCORP 5.2 ng/mL (2.0-20.0)
== END ==
LOC: M SMT 08:00
DX: Z51.81 Encounter for therapeutic drug level monitoring (principal); Z79.899 Other long term (current) drug therapy; Z94.4 Liver transplant status
CPT/HCPCS: 82977

== ENCOUNTER → 2018-10-20 | Outpatient (CLI) | payer BC ==
[2018-10-20 13:39] LABS: HEMATOCRIT 43.1 % (42.0-52.0); HEMOGLOBIN 14.1 g/dl (13.5-17.5); MEAN CORPUSCULAR HEMOGLOBIN 29.9 pg (27.0-33.0); MEAN CORPUSCULAR HGB CONC 32.7 g/dl (32.0-36.5); MEAN CORPUSCULAR VOLUME 91.5 fl (80.0-96.0); PLATELET COUNT, AUTOMATED 183 10^3/uL (150-450); RED BLOOD COUNT 4.71 10^6/uL (4.30-6.10); WHITE BLOOD COUNT 5.8 10^3/uL (4.0-10.0)
[2018-10-20 13:57] LABS: ALBUMIN 4.4 GM/DL (3.2-5.2); ALBUMIN/GLOBULIN RATIO 1.57 (1.00-1.93); ALKALINE PHOSPHATASE 71 U/L (45-117); ALT/SGPT 27 U/L (12-78); ANION GAP 8 MEQ/L (8-16); AST/SGOT 21 U/L (7-37); BLOOD UREA NITROGEN 25 MG/DL (7-18); CARBON DIOXIDE LEVEL 29 MEQ/L (21-32); CHLORIDE LEVEL 106 MEQ/L (98-107); CREATININE FOR GFR 1.16 MG/DL (0.70-1.30); GAMMA GLUTAMYLTRANSPEPTIDASE 23 U/L (15-85); GLOMERULAR FILTRATION RATE > 60.0 (>49); GLUCOSE, FASTING 105 MG/DL (70-100); MAGNESIUM LEVEL 2.1 MG/DL (1.8-2.4); SODIUM LEVEL 143 MEQ/L (136-145); TOTAL PROTEIN 7.2 GM/DL (6.4-8.2)
[2018-10-25 14:10] LABS: FK 506 (TACROLIMUS) LABCORP 3.3 ng/mL (2.0-20.0)
== END ==
LOC: M SMT 08:00
DX: Z94.4 Liver transplant status (principal)
CPT/HCPCS: 82977

== ENCOUNTER → 2018-11-23 | Outpatient (CLI) | payer BC ==
[~2018-11-23] MED LIST changes: -LASI40TA PO; +LASI40TA9 PO; +SPIR-10 PO; -SPIR100T PO; +SPIR100T3 PO; -SPIR25TA2 PO; -SPIR50TA2 PO; +SPIR50TA4 PO
[2018-11-23 09:49] LABS: HEMATOCRIT 43.8 % (42.0-52.0); HEMOGLOBIN 14.3 g/dl (13.5-17.5); MEAN CORPUSCULAR HEMOGLOBIN 29.2 pg (27.0-33.0); MEAN CORPUSCULAR HGB CONC 32.6 g/dl (32.0-36.5); MEAN CORPUSCULAR VOLUME 89.6 fl (80.0-96.0); PLATELET COUNT, AUTOMATED 182 10^3/uL (150-450); RED BLOOD COUNT 4.89 10^6/uL (4.30-6.10); WHITE BLOOD COUNT 6.1 10^3/uL (4.0-10.0)
[2018-11-23 09:57] LABS: ALBUMIN 4.6 GM/DL (3.2-5.2); BILIRUBIN,TOTAL 0.8 MG/DL (0.2-1.0); CALCIUM LEVEL 9.7 MG/DL (8.8-10.2); CREATININE FOR GFR 1.31 MG/DL (0.70-1.30); GLOMERULAR FILTRATION RATE 58.8 (>49); MAGNESIUM LEVEL 2.1 MG/DL (1.8-2.4); POTASSIUM SERUM 5.3 MEQ/L (3.5-5.1); TOTAL PROTEIN 7.3 GM/DL (6.4-8.2)
== END ==
LOC: M SMT 07:56
PROVIDERS: ATTEND Nurse Practitioner Adult Health
DX: Z94.4 Liver transplant status (principal); Z79.899 Other long term (current) drug therapy

== ENCOUNTER → 2018-12-21 | Outpatient (CLI) | payer BC ==
[2018-12-21 10:16] LABS: HEMATOCRIT 42.4 % (42.0-52.0); HEMOGLOBIN 14.3 g/dl (13.5-17.5); MEAN CORPUSCULAR HEMOGLOBIN 29.7 pg (27.0-33.0); MEAN CORPUSCULAR HGB CONC 33.7 g/dl (32.0-36.5); PLATELET COUNT, AUTOMATED 187 10^3/uL (150-450); RED BLOOD COUNT 4.82 10^6/uL (4.30-6.10); WHITE BLOOD COUNT 5.4 10^3/uL (4.0-10.0)
[2018-12-21 10:22] LABS: ALBUMIN 4.5 GM/DL (3.2-5.2); ALT/SGPT 27 U/L (12-78); BILIRUBIN,TOTAL 0.7 MG/DL (0.2-1.0); BLOOD UREA NITROGEN 27 MG/DL (7-18); CALCIUM LEVEL 9.6 MG/DL (8.8-10.2); CARBON DIOXIDE LEVEL 29 MEQ/L (21-32); CHLORIDE LEVEL 106 MEQ/L (98-107); CREATININE FOR GFR 1.27 MG/DL (0.70-1.30); GAMMA GLUTAMYLTRANSPEPTIDASE 23 U/L (15-85); GLOMERULAR FILTRATION RATE > 60.0 (>49); GLUCOSE, FASTING 117 MG/DL (70-100); MAGNESIUM LEVEL 1.9 MG/DL (1.8-2.4); POTASSIUM SERUM 5.2 MEQ/L (3.5-5.1); SODIUM LEVEL 142 MEQ/L (136-145)
== END ==
LOC: M SMT 07:59
PROVIDERS: ATTEND Nurse Practitioner Adult Health
DX: Z94.4 Liver transplant status (principal); Z79.899 Other long term (current) drug therapy

== ENCOUNTER → 2019-01-18 | Outpatient (CLI) | payer BC ==
[2019-01-18 10:44] LABS: HEMATOCRIT 42.1 % (42.0-52.0); HEMOGLOBIN 13.9 g/dl (13.5-17.5); MEAN CORPUSCULAR HEMOGLOBIN 29.4 pg (27.0-33.0); MEAN CORPUSCULAR VOLUME 89.2 fl (80.0-96.0); PLATELET COUNT, AUTOMATED 182 10^3/uL (150-450); RED BLOOD COUNT 4.72 10^6/uL (4.30-6.10); WHITE BLOOD COUNT 5.4 10^3/uL (4.0-10.0)
[2019-01-18 11:43] LABS: ALBUMIN 4.4 GM/DL (3.2-5.2); ALT/SGPT 33 U/L (12-78); BILIRUBIN,TOTAL 0.9 MG/DL (0.2-1.0); BLOOD UREA NITROGEN 23 MG/DL (7-18); CALCIUM LEVEL 9.3 MG/DL (8.8-10.2); CARBON DIOXIDE LEVEL 23 MEQ/L (21-32); CHLORIDE LEVEL 105 MEQ/L (98-107); CREATININE FOR GFR 1.16 MG/DL (0.70-1.30); GAMMA GLUTAMYLTRANSPEPTIDASE 22 U/L (15-85); GLOMERULAR FILTRATION RATE > 60.0 (>49); GLUCOSE, FASTING 100 MG/DL (70-100); POTASSIUM SERUM 4.7 MEQ/L (3.5-5.1); SODIUM LEVEL 141 MEQ/L (136-145)
== END ==
LOC: M SMT 07:56
PROVIDERS: ATTEND Nurse Practitioner Adult Health
DX: Z94.4 Liver transplant status (principal); Z79.899 Other long term (current) drug therapy

== ENCOUNTER → 2019-02-22 | Outpatient (CLI) | payer BC ==
[~2019-02-22] MED LIST changes: -MULT1CHW39 PO; +MULT200T7 PO; +VITA500T17 PO; -VITA500T53 PO
[2019-02-22 10:32] LABS: HEMATOCRIT 40.7 % (42.0-52.0); HEMOGLOBIN 13.4 g/dl (13.5-17.5); MEAN CORPUSCULAR HEMOGLOBIN 29.8 pg (27.0-33.0); MEAN CORPUSCULAR HGB CONC 32.9 g/dl (32.0-36.5); MEAN CORPUSCULAR VOLUME 90.4 fl (80.0-96.0); PLATELET COUNT, AUTOMATED 161 10^3/uL (150-450); WHITE BLOOD COUNT 5.4 10^3/uL (4.0-10.0)
[2019-02-22 10:39] LABS: ALBUMIN 4.3 GM/DL (3.2-5.2); ALT/SGPT 30 U/L (12-78); BILIRUBIN,TOTAL 0.9 MG/DL (0.2-1.0); BLOOD UREA NITROGEN 23 MG/DL (7-18); CALCIUM LEVEL 9.3 MG/DL (8.8-10.2); CARBON DIOXIDE LEVEL 29 MEQ/L (21-32); CHLORIDE LEVEL 106 MEQ/L (98-107); CREATININE FOR GFR 1.24 MG/DL (0.70-1.30); GAMMA GLUTAMYLTRANSPEPTIDASE 22 U/L (15-85); GLOMERULAR FILTRATION RATE > 60.0 (>49); GLUCOSE, FASTING 115 MG/DL (70-100); MAGNESIUM LEVEL 1.9 MG/DL (1.8-2.4); POTASSIUM SERUM 4.9 MEQ/L (3.5-5.1); SODIUM LEVEL 140 MEQ/L (136-145); TOTAL PROTEIN 6.7 GM/DL (6.4-8.2)
== END ==
LOC: M SMT 08:03
PROVIDERS: ATTEND Nurse Practitioner Adult Health
DX: Z79.899 Other long term (current) drug therapy (principal)

== ENCOUNTER → 2019-03-22 | Outpatient (CLI) | payer BC ==
[2019-03-22 10:25] LABS: ALBUMIN 4.3 GM/DL (3.2-5.2); BILIRUBIN,TOTAL 1.2 MG/DL (0.2-1.0); CREATININE FOR GFR 1.33 MG/DL (0.70-1.30); GLOMERULAR FILTRATION RATE 57.8 (>49); POTASSIUM SERUM 4.7 MEQ/L (3.5-5.1); TOTAL PROTEIN 7.4 GM/DL (6.4-8.2)
[2019-03-22 10:54] LABS: HEMATOCRIT 41.1 % (42.0-52.0); HEMOGLOBIN 13.8 g/dl (13.5-17.5); MEAN CORPUSCULAR HEMOGLOBIN 29.7 pg (27.0-33.0); MEAN CORPUSCULAR HGB CONC 33.6 g/dl (32.0-36.5); MEAN CORPUSCULAR VOLUME 88.6 fl (80.0-96.0); PLATELET COUNT, AUTOMATED 175 10^3/uL (150-450); RED BLOOD COUNT 4.64 10^6/uL (4.30-6.10); WHITE BLOOD COUNT 5.6 10^3/uL (4.0-10.0)
== END ==
LOC: M SMT 08:04
PROVIDERS: ATTEND Nurse Practitioner Adult Health
DX: Z79.899 Other long term (current) drug therapy (principal); Z94.4 Liver transplant status

== ENCOUNTER → 2019-03-22 | Outpatient (CLI) | payer BC ==
[2019-03-22 10:21] LABS: CHOLESTEROL RISK RATIO 4.842 (<5)
[2019-03-23 14:11] LABS: PSA TOTAL 0.9 ng/mL (0.0-4.0)
== END ==
LOC: M SMT 08:00
PROVIDERS: ATTEND Nurse Practitioner Family
DX: Z12.5 Encounter for screening for malignant neoplasm of prostate (principal); E78.5 Hyperlipidemia, unspecified

== ENCOUNTER → 2019-03-25 | Outpatient (REF) | payer BC ==
[2019-03-25 14:08] LABS: PERCENT SATURATION 43.3 % (19.7-50.0)
== END ==
LOC: M LAB REF 13:21
PROVIDERS: ATTEND Internal Medicine Nephrology
DX: D64.9 Anemia, unspecified (principal)

== ENCOUNTER → 2019-04-21 | Outpatient (CLI) | payer BC ==
[2019-04-21 14:01] LABS: HEMATOCRIT 42.9 % (42.0-52.0); HEMOGLOBIN 14.2 g/dl (13.5-17.5); MEAN CORPUSCULAR HEMOGLOBIN 30.5 pg (27.0-33.0); MEAN CORPUSCULAR HGB CONC 33.1 g/dl (32.0-36.5); MEAN CORPUSCULAR VOLUME 92.1 fl (80.0-96.0); PLATELET COUNT, AUTOMATED 178 10^3/uL (150-450); RED BLOOD COUNT 4.66 10^6/uL (4.30-6.10); WHITE BLOOD COUNT 5.8 10^3/uL (4.0-10.0)
[2019-04-21 14:09] LABS: ALBUMIN 4.3 GM/DL (3.2-5.2); ALT/SGPT 31 U/L (12-78); BILIRUBIN,TOTAL 0.7 MG/DL (0.2-1.0); BLOOD UREA NITROGEN 26 MG/DL (7-18); CARBON DIOXIDE LEVEL 28 MEQ/L (21-32); CHLORIDE LEVEL 110 MEQ/L (98-107); GAMMA GLUTAMYLTRANSPEPTIDASE 23 U/L (15-85); GLOMERULAR FILTRATION RATE > 60.0 (>49); GLUCOSE, FASTING 113 MG/DL (70-100); MAGNESIUM LEVEL 2.1 MG/DL (1.8-2.4); POTASSIUM SERUM 5.3 MEQ/L (3.5-5.1); SODIUM LEVEL 144 MEQ/L (136-145); TOTAL PROTEIN 7.2 GM/DL (6.4-8.2)
== END ==
LOC: M SMT 08:48
PROVIDERS: ATTEND Nurse Practitioner Adult Health
DX: Z94.4 Liver transplant status (principal); Z79.899 Other long term (current) drug therapy

== ENCOUNTER → 2019-05-12 | Outpatient (CLI) | payer BC ==
[2019-05-12 09:49] LABS: HEMATOCRIT 41.9 % (42.0-52.0); HEMOGLOBIN 14.2 g/dl (13.5-17.5); MEAN CORPUSCULAR HEMOGLOBIN 30.7 pg (27.0-33.0); MEAN CORPUSCULAR HGB CONC 33.9 g/dl (32.0-36.5); MEAN CORPUSCULAR VOLUME 90.5 fl (80.0-96.0); PLATELET COUNT, AUTOMATED 189 10^3/uL (150-450); RED BLOOD COUNT 4.63 10^6/uL (4.30-6.10); WHITE BLOOD COUNT 5.4 10^3/uL (4.0-10.0)
[2019-05-12 10:21] LABS: ALBUMIN 4.3 GM/DL (3.2-5.2); ALT/SGPT 35 U/L (12-78); BILIRUBIN,TOTAL 0.7 MG/DL (0.2-1.0); BLOOD UREA NITROGEN 27 MG/DL (7-18); CALCIUM LEVEL 9.4 MG/DL (8.8-10.2); CARBON DIOXIDE LEVEL 29 MEQ/L (21-32); CHLORIDE LEVEL 106 MEQ/L (98-107); CREATININE FOR GFR 1.14 MG/DL (0.70-1.30); GAMMA GLUTAMYLTRANSPEPTIDASE 29 U/L (15-85); GLOMERULAR FILTRATION RATE > 60.0 (>49); GLUCOSE, FASTING 113 MG/DL (70-100); MAGNESIUM LEVEL 2.2 MG/DL (1.8-2.4); POTASSIUM SERUM 4.9 MEQ/L (3.5-5.1); SODIUM LEVEL 140 MEQ/L (136-145); TOTAL PROTEIN 7.2 GM/DL (6.4-8.2)
== END ==
LOC: M SMT 07:51
PROVIDERS: ATTEND Nurse Practitioner Adult Health
DX: Z94.4 Liver transplant status (principal); Z79.899 Other long term (current) drug therapy

== ENCOUNTER → 2019-06-16 | Outpatient (CLI) | payer BC ==
[~2019-06-16] MED LIST changes: +CYAN500T8 PO; +PENT400T23 PO; -PENT40TASA PO; -VITA500T3 PO
[2019-06-16 13:42] LABS: HEMATOCRIT 41.1 % (42.0-52.0); HEMOGLOBIN 13.6 g/dl (13.5-17.5); MEAN CORPUSCULAR HEMOGLOBIN 29.4 pg (27.0-33.0); MEAN CORPUSCULAR HGB CONC 33.1 g/dl (32.0-36.5); PLATELET COUNT, AUTOMATED 158 10^3/uL (150-450); RED BLOOD COUNT 4.62 10^6/uL (4.30-6.10); WHITE BLOOD COUNT 4.8 10^3/uL (4.0-10.0)
[2019-06-16 14:16] LABS: ALBUMIN 4.4 GM/DL (3.2-5.2); ALT/SGPT 30 U/L (12-78); BILIRUBIN,TOTAL 0.6 MG/DL (0.2-1.0); BLOOD UREA NITROGEN 22 MG/DL (7-18); CALCIUM LEVEL 9.2 MG/DL (8.8-10.2); CARBON DIOXIDE LEVEL 27 MEQ/L (21-32); CHLORIDE LEVEL 108 MEQ/L (98-107); CREATININE FOR GFR 1.22 MG/DL (0.70-1.30); GAMMA GLUTAMYLTRANSPEPTIDASE 23 U/L (15-85); GLOMERULAR FILTRATION RATE > 60.0 (>49); GLUCOSE, FASTING 119 MG/DL (70-100); MAGNESIUM LEVEL 2.1 MG/DL (1.8-2.4); POTASSIUM SERUM 4.6 MEQ/L (3.5-5.1); SODIUM LEVEL 144 MEQ/L (136-145); TOTAL PROTEIN 7.4 GM/DL (6.4-8.2)
== END ==
LOC: M SMT 08:05
PROVIDERS: ATTEND Nurse Practitioner Adult Health
DX: Z94.0 Kidney transplant status (principal)

== ENCOUNTER → 2019-07-07 | Outpatient (CLI) | payer BC ==
[~2019-07-07] MED LIST changes: +RANI-397 PO; -RANI1TAB6 PO
[2019-07-07 10:04] LABS: HEMATOCRIT 40.6 % (42.0-52.0); MEAN CORPUSCULAR HGB CONC 34.5 g/dl (32.0-36.5); MEAN CORPUSCULAR VOLUME 89.8 fl (80.0-96.0); PLATELET COUNT, AUTOMATED 178 10^3/uL (150-450); RED BLOOD COUNT 4.52 10^6/uL (4.30-6.10); WHITE BLOOD COUNT 5.6 10^3/uL (4.0-10.0)
[2019-07-07 10:16] LABS: ALBUMIN 4.3 GM/DL (3.2-5.2); ALT/SGPT 29 U/L (12-78); BLOOD UREA NITROGEN 25 MG/DL (7-18); CALCIUM LEVEL 9.4 MG/DL (8.8-10.2); CARBON DIOXIDE LEVEL 29 MEQ/L (21-32); CHLORIDE LEVEL 107 MEQ/L (98-107); CREATININE FOR GFR 1.19 MG/DL (0.70-1.30); GLOMERULAR FILTRATION RATE > 60.0 (>49); GLUCOSE, FASTING 106 MG/DL (70-100); MAGNESIUM LEVEL 2.1 MG/DL (1.8-2.4); POTASSIUM SERUM 4.4 MEQ/L (3.5-5.1); SODIUM LEVEL 141 MEQ/L (136-145); TOTAL PROTEIN 7.2 GM/DL (6.4-8.2)
== END ==
LOC: M SMT 07:52
PROVIDERS: ATTEND Nurse Practitioner Adult Health
DX: Z94.4 Liver transplant status (principal); Z79.899 Other long term (current) drug therapy

== ENCOUNTER → 2019-08-12 | Outpatient (CLI) | payer BC ==
[~2019-08-12] MED LIST changes: +RANI-356 PO; -RANI-397 PO
[2019-08-12 15:39] LABS: HEMATOCRIT 39.8 % (42.0-52.0); HEMOGLOBIN 13.2 g/dl (13.5-17.5); MEAN CORPUSCULAR HGB CONC 33.2 g/dl (32.0-36.5); MEAN CORPUSCULAR VOLUME 90.5 fl (80.0-96.0); PLATELET COUNT, AUTOMATED 175 10^3/uL (150-450); WHITE BLOOD COUNT 5.6 10^3/uL (4.0-10.0)
[2019-08-12 16:39] LABS: ALBUMIN 4.1 GM/DL (3.2-5.2); ALT/SGPT 22 U/L (12-78); BILIRUBIN,TOTAL 1.2 MG/DL (0.2-1.0); BLOOD UREA NITROGEN 24 MG/DL (7-18); CALCIUM LEVEL 9.3 MG/DL (8.8-10.2); CARBON DIOXIDE LEVEL 27 MEQ/L (21-32); CHLORIDE LEVEL 107 MEQ/L (98-107); CREATININE FOR GFR 1.18 MG/DL (0.70-1.30); GAMMA GLUTAMYLTRANSPEPTIDASE 20 U/L (15-85); GLOMERULAR FILTRATION RATE > 60.0 (>49); GLUCOSE, FASTING 102 MG/DL (70-100); POTASSIUM SERUM 5.1 MEQ/L (3.5-5.1); SODIUM LEVEL 142 MEQ/L (136-145); TOTAL PROTEIN 6.9 GM/DL (6.4-8.2)
== END ==
LOC: M SMT 08:08
PROVIDERS: ATTEND Nurse Practitioner Adult Health
DX: Z94.4 Liver transplant status (principal); Z79.899 Other long term (current) drug therapy

== ENCOUNTER → 2019-09-14 | Outpatient (CLI) | payer BC ==
[2019-09-14 11:02] LABS: ALBUMIN 4.2 GM/DL (3.2-5.2); ALT/SGPT 34 U/L (12-78); BILIRUBIN,TOTAL 0.9 MG/DL (0.2-1.0); BLOOD UREA NITROGEN 26 MG/DL (7-18); CALCIUM LEVEL 9.2 MG/DL (8.8-10.2); CARBON DIOXIDE LEVEL 29 MEQ/L (21-32); CHLORIDE LEVEL 108 MEQ/L (98-107); CREATININE FOR GFR 1.22 MG/DL (0.70-1.30); GLOMERULAR FILTRATION RATE > 60.0 (>49); GLUCOSE, FASTING 107 MG/DL (70-100); POTASSIUM SERUM 4.7 MEQ/L (3.5-5.1); SODIUM LEVEL 140 MEQ/L (136-145); TOTAL PROTEIN 7.3 GM/DL (6.4-8.2)
[2019-09-14 11:15] LABS: HEMATOCRIT 40.2 % (42.0-52.0); HEMOGLOBIN 13.6 g/dl (13.5-17.5); MEAN CORPUSCULAR HEMOGLOBIN 30.2 pg (27.0-33.0); MEAN CORPUSCULAR HGB CONC 33.8 g/dl (32.0-36.5); MEAN CORPUSCULAR VOLUME 89.3 fl (80.0-96.0); PLATELET COUNT, AUTOMATED 168 10^3/uL (150-450)
== END ==
LOC: M SMT 07:59
PROVIDERS: ATTEND Nurse Practitioner Adult Health
DX: Z94.4 Liver transplant status (principal); Z79.899 Other long term (current) drug therapy

== ENCOUNTER → 2019-10-12 | Outpatient (CLI) | payer BC ==
[2019-10-12 11:29] LABS: HEMATOCRIT 42.5 % (42.0-52.0); HEMOGLOBIN 13.8 g/dl (13.5-17.5); MEAN CORPUSCULAR HEMOGLOBIN 29.8 pg (27.0-33.0); MEAN CORPUSCULAR HGB CONC 32.5 g/dl (32.0-36.5); MEAN CORPUSCULAR VOLUME 91.8 fl (80.0-96.0); PLATELET COUNT, AUTOMATED 209 10^3/uL (150-450); RED BLOOD COUNT 4.63 10^6/uL (4.30-6.10)
[2019-10-12 12:08] LABS: ALBUMIN 4.1 GM/DL (3.2-5.2); ALT/SGPT 29 U/L (12-78); BILIRUBIN,TOTAL 0.9 MG/DL (0.2-1.0); BLOOD UREA NITROGEN 23 MG/DL (7-18); CALCIUM LEVEL 8.9 MG/DL (8.8-10.2); CARBON DIOXIDE LEVEL 27 MEQ/L (21-32); CHLORIDE LEVEL 106 MEQ/L (98-107); GLOMERULAR FILTRATION RATE > 60.0 (>49); GLUCOSE, FASTING 105 MG/DL (70-100); POTASSIUM SERUM 5.3 MEQ/L (3.5-5.1); SODIUM LEVEL 140 MEQ/L (136-145); TOTAL PROTEIN 7.1 GM/DL (6.4-8.2)
== END ==
LOC: M PLALAB 08:08
PROVIDERS: ATTEND Nurse Practitioner Adult Health
DX: Z94.4 Liver transplant status (principal); Z79.899 Other long term (current) drug therapy

== ENCOUNTER → 2019-11-11 | Outpatient (CLI) | payer BC ==
[~2019-11-11] MED LIST changes: -RANI-356 PO; +RANI-397 PO
[2019-11-11 13:23] LABS: HEMATOCRIT 43.1 % (42.0-52.0); MEAN CORPUSCULAR HEMOGLOBIN 29.7 pg (27.0-33.0); MEAN CORPUSCULAR HGB CONC 32.5 g/dl (32.0-36.5); MEAN CORPUSCULAR VOLUME 91.5 fl (80.0-96.0); PLATELET COUNT, AUTOMATED 192 10^3/uL (150-450); RED BLOOD COUNT 4.71 10^6/uL (4.30-6.10); WHITE BLOOD COUNT 6.3 10^3/uL (4.0-10.0)
[2019-11-11 13:32] LABS: ALBUMIN 4.2 GM/DL (3.2-5.2); ALT/SGPT 32 U/L (12-78); BILIRUBIN,TOTAL 0.7 MG/DL (0.2-1.0); BLOOD UREA NITROGEN 25 MG/DL (7-18); CALCIUM LEVEL 9.3 MG/DL (8.8-10.2); CARBON DIOXIDE LEVEL 27 MEQ/L (21-32); CHLORIDE LEVEL 108 MEQ/L (98-107); CREATININE FOR GFR 1.16 MG/DL (0.70-1.30); GLOMERULAR FILTRATION RATE > 60.0 (>49); GLUCOSE, FASTING 108 MG/DL (70-100); POTASSIUM SERUM 4.5 MEQ/L (3.5-5.1); SODIUM LEVEL 140 MEQ/L (136-145)
== END ==
LOC: M PLALAB 08:00
PROVIDERS: ATTEND Nurse Practitioner Adult Health
DX: Z94.4 Liver transplant status (principal); Z79.899 Other long term (current) drug therapy

== ENCOUNTER → 2019-12-11 | Outpatient (CLI) | payer BC ==
--- NOTE | 2019-12-12 08:22 | REP ---
RIGHT ANKLE COMPLETE: 12/11/2019. Clinical history: Lateral foot and ankle pain after falling down steps. Findings: Four views provided. No prior ankle study. There is an oblique nondisplaced fracture of the distal fibula. The patient has degenerative changes of the distal medial and lateral malleoli. Mortise joint is preserved. I do not see a definite talar dome osteochondral defect or subtalar joint degenerative changes. There is an Achilles insertion spur and calcification in the Achilles tendon distally. Soft tissue calcifications near the calcaneal body neck junction and in the superficial soft tissues plantar region abutting the aponeurosis. Spurring at the dorsal aspect of the tarsal navicular joints, tarsal hind foot joints. Prominent soft tissue swelling about the lateral malleolus. No other acute finding. Impression: 1. A distal fibular fracture without displacement. 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 No other significant or acute finding. Electronically Signed by Manish Banks MD 12/12/2019 09:49 A
--- NOTE | 2019-12-12 08:27 | REP ---
RIGHT FOOT COMPLETE: 12/11/2019 CLINICAL HISTORY: Lateral foot and ankle pain after falling down steps. FINDINGS: No prior pertinent studies. Prior osteotomy and K-wires in the distal 1st metatarsal. This is a healed postsurgical change. There is marked narrowing of the 1st MTP joint with prominent medial and lateral osteophytes. Spurring at the Achilles insertion and calcification of the distal tendon is well. Soft tissue calcifications in the plantar aspect of the foot near the calcaneus and its soft tissues superficial to the plantar aponeurosis at the junction of the hind foot and midfoot. There are degenerative changes of the tarsal bones. Subtalar joints show degenerative change but no fracture. There has also been osteotomy of the distal 5th metatarsal with only minimal degenerative change 1st MTP joint and IP joints show degenerative changes but there is no evidence of acute fracture. IMPRESSION: 1. 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 No evidence of an acute fracture or avulsion. Electronically Signed by Manish Banks MD 12/12/2019 09:49 A
== END ==
LOC: M WUC 16:12
PROVIDERS: ATTEND Physician Assistant
DX: S82.431A Displaced oblique fracture of shaft of right fibula, initial encounter for closed fracture (principal); M19.071 Primary osteoarthritis, right ankle and foot; S93.401A Sprain of unspecified ligament of right ankle, initial encounter; S93.601A Unspecified sprain of right foot, initial encounter; X58.XXXA Exposure to other specified factors, initial encounter

== ENCOUNTER → 2019-12-17 | Outpatient (CLI) | payer BC ==
[2019-12-17 12:30] LABS: HEMATOCRIT 39.8 % (42.0-52.0); HEMOGLOBIN 13.1 g/dl (13.5-17.5); MEAN CORPUSCULAR HEMOGLOBIN 30.2 pg (27.0-33.0); MEAN CORPUSCULAR HGB CONC 32.9 g/dl (32.0-36.5); MEAN CORPUSCULAR VOLUME 91.7 fl (80.0-96.0); PLATELET COUNT, AUTOMATED 201 10^3/uL (150-450); RED BLOOD COUNT 4.34 10^6/uL (4.30-6.10); WHITE BLOOD COUNT 5.8 10^3/uL (4.0-10.0)
[2019-12-17 12:34] LABS: ALBUMIN 4.4 GM/DL (3.2-5.2); ALT/SGPT 18 U/L (12-78); BLOOD UREA NITROGEN 25 MG/DL (7-18); CALCIUM LEVEL 9.4 MG/DL (8.8-10.2); CARBON DIOXIDE LEVEL 29 MEQ/L (21-32); CHLORIDE LEVEL 109 MEQ/L (98-107); CREATININE FOR GFR 1.25 MG/DL (0.70-1.30); GLOMERULAR FILTRATION RATE > 60.0 (>49); GLUCOSE, FASTING 119 MG/DL (70-100); POTASSIUM SERUM 4.8 MEQ/L (3.5-5.1); SODIUM LEVEL 143 MEQ/L (136-145); TOTAL PROTEIN 7.1 GM/DL (6.4-8.2)
== END ==
LOC: M WUC 08:09
PROVIDERS: ATTEND Nurse Practitioner Adult Health
DX: Z94.4 Liver transplant status (principal); Z79.899 Other long term (current) drug therapy

== ENCOUNTER → 2020-01-14 | Outpatient (CLI) | payer BC ==
[2020-01-14 14:32] LABS: HEMOGLOBIN 14.1 g/dl (13.5-17.5); MEAN CORPUSCULAR HEMOGLOBIN 30.3 pg (27.0-33.0); MEAN CORPUSCULAR HGB CONC 32.8 g/dl (32.0-36.5); MEAN CORPUSCULAR VOLUME 92.3 fl (80.0-96.0); PLATELET COUNT, AUTOMATED 192 10^3/uL (150-450); RED BLOOD COUNT 4.66 10^6/uL (4.30-6.10); WHITE BLOOD COUNT 5.2 10^3/uL (4.0-10.0)
[2020-01-14 14:41] LABS: ALBUMIN 4.6 GM/DL (3.2-5.2); ALT/SGPT 21 U/L (12-78); BILIRUBIN,TOTAL 0.9 MG/DL (0.2-1.0); BLOOD UREA NITROGEN 21 MG/DL (7-18); CALCIUM LEVEL 9.8 MG/DL (8.8-10.2); CARBON DIOXIDE LEVEL 31 MEQ/L (21-32); CHLORIDE LEVEL 107 MEQ/L (98-107); CREATININE FOR GFR 1.18 MG/DL (0.70-1.30); GLOMERULAR FILTRATION RATE > 60.0 (>49); GLUCOSE, FASTING 107 MG/DL (70-100); POTASSIUM SERUM 4.9 MEQ/L (3.5-5.1); SODIUM LEVEL 141 MEQ/L (136-145); TOTAL PROTEIN 7.3 GM/DL (6.4-8.2)
== END ==
LOC: M WUC 08:07
PROVIDERS: ATTEND Nurse Practitioner Adult Health
DX: Z79.899 Other long term (current) drug therapy (principal); Z94.4 Liver transplant status

== ENCOUNTER → 2020-01-29 | Outpatient (CLI) | payer MEDICARE ==
[2020-01-29 14:35] LABS: HEMATOCRIT 41.9 % (42.0-52.0); HEMOGLOBIN 13.9 g/dl (13.5-17.5); MEAN CORPUSCULAR HEMOGLOBIN 30.3 pg (27.0-33.0); MEAN CORPUSCULAR HGB CONC 33.2 g/dl (32.0-36.5); MEAN CORPUSCULAR VOLUME 91.3 fl (80.0-96.0); PLATELET COUNT, AUTOMATED 169 10^3/uL (150-450); RED BLOOD COUNT 4.59 10^6/uL (4.30-6.10); WHITE BLOOD COUNT 5.3 10^3/uL (4.0-10.0)
[2020-01-29 14:58] LABS: ALBUMIN 4.4 GM/DL (3.2-5.2); ALT/SGPT 25 U/L (12-78); BLOOD UREA NITROGEN 15 MG/DL (7-18); CALCIUM LEVEL 9.3 MG/DL (8.8-10.2); CARBON DIOXIDE LEVEL 27 MEQ/L (21-32); CHLORIDE LEVEL 108 MEQ/L (98-107); CREATININE FOR GFR 1.08 MG/DL (0.70-1.30); GLOMERULAR FILTRATION RATE > 60.0 (>49); GLUCOSE, FASTING 104 MG/DL (70-100); POTASSIUM SERUM 4.9 MEQ/L (3.5-5.1); SODIUM LEVEL 141 MEQ/L (136-145); TOTAL PROTEIN 7.2 GM/DL (6.4-8.2)
== END ==
LOC: M WUC 08:07
PROVIDERS: ATTEND Nurse Practitioner Adult Health
DX: Z94.4 Liver transplant status (principal)

== ENCOUNTER → 2020-03-03 | Outpatient (CLI) | payer MEDICARE ==
[2020-03-03 12:12] LABS: HEMATOCRIT 44.6 % (42.0-52.0); HEMOGLOBIN 14.5 g/dl (13.5-17.5); MEAN CORPUSCULAR HEMOGLOBIN 30.3 pg (27.0-33.0); MEAN CORPUSCULAR HGB CONC 32.5 g/dl (32.0-36.5); MEAN CORPUSCULAR VOLUME 93.3 fl (80.0-96.0); PLATELET COUNT, AUTOMATED 188 10^3/uL (150-450); RED BLOOD COUNT 4.78 10^6/uL (4.30-6.10); WHITE BLOOD COUNT 5.9 10^3/uL (4.0-10.0)
[2020-03-03 12:20] LABS: ALBUMIN 4.7 GM/DL (3.2-5.2); BILIRUBIN,TOTAL 0.9 MG/DL (0.2-1.0); CALCIUM LEVEL 9.2 MG/DL (8.8-10.2); CREATININE FOR GFR 1.3 MG/DL (0.70-1.30); GLOMERULAR FILTRATION RATE 59.2 (>49); TOTAL PROTEIN 7.9 GM/DL (6.4-8.2)
== END ==
LOC: M WUC 08:09
PROVIDERS: ATTEND Nurse Practitioner Adult Health
DX: Z79.899 Other long term (current) drug therapy (principal); Z94.4 Liver transplant status

== ENCOUNTER → 2020-05-05 | Outpatient (CLI) | payer MEDICARE ==
[~2020-05-05] MED LIST changes: -LACT10SO29 PO; +LACT20EL PO
[2020-05-05 14:05] LABS: HEMATOCRIT 40.9 % (42.0-52.0); HEMOGLOBIN 13.8 g/dl (13.5-17.5); MEAN CORPUSCULAR HEMOGLOBIN 31.7 pg (27.0-33.0); MEAN CORPUSCULAR HGB CONC 33.7 g/dl (32.0-36.5); MEAN CORPUSCULAR VOLUME 93.8 fl (80.0-96.0); PLATELET COUNT, AUTOMATED 170 10^3/uL (150-450); RED BLOOD COUNT 4.36 10^6/uL (4.30-6.10); WHITE BLOOD COUNT 5.3 10^3/uL (4.0-10.0)
[2020-05-05 14:18] LABS: ALBUMIN 4.2 GM/DL (3.2-5.2); ALT/SGPT 37 U/L (12-78); BILIRUBIN,TOTAL 0.9 MG/DL (0.2-1.0); BLOOD UREA NITROGEN 21 MG/DL (7-18); CALCIUM LEVEL 9.3 MG/DL (8.8-10.2); CARBON DIOXIDE LEVEL 27 MEQ/L (21-32); CHLORIDE LEVEL 108 MEQ/L (98-107); CREATININE FOR GFR 1.12 MG/DL (0.70-1.30); GLOMERULAR FILTRATION RATE > 60.0 (>49); GLUCOSE, FASTING 107 MG/DL (70-100); POTASSIUM SERUM 4.4 MEQ/L (3.5-5.1); SODIUM LEVEL 143 MEQ/L (136-145)
== END ==
LOC: M WUC 08:19
PROVIDERS: ATTEND Nurse Practitioner Adult Health
DX: Z79.899 Other long term (current) drug therapy (principal); Z94.4 Liver transplant status

== ENCOUNTER → 2020-08-31 | Outpatient (CLI) | payer MEDICARE ==
[2020-08-31 09:55] LABS: HEMATOCRIT 45.9 % (42.0-52.0); HEMOGLOBIN 15.2 g/dl (13.5-17.5); MEAN CORPUSCULAR HEMOGLOBIN 31.4 pg (27.0-33.0); MEAN CORPUSCULAR HGB CONC 33.1 g/dl (32.0-36.5); MEAN CORPUSCULAR VOLUME 94.8 fl (80.0-96.0); PLATELET COUNT, AUTOMATED 183 10^3/uL (150-450); RED BLOOD COUNT 4.84 10^6/uL (4.30-6.10); WHITE BLOOD COUNT 7.1 10^3/uL (4.0-10.0)
[2020-08-31 10:15] LABS: ALBUMIN 4.3 GM/DL (3.2-5.2); ALT/SGPT 44 U/L (12-78); BILIRUBIN,TOTAL 0.9 MG/DL (0.2-1.0); BLOOD UREA NITROGEN 26 MG/DL (7-18); CALCIUM LEVEL 9.5 MG/DL (8.8-10.2); CARBON DIOXIDE LEVEL 28 MEQ/L (21-32); CHLORIDE LEVEL 108 MEQ/L (98-107); CREATININE FOR GFR 1.21 MG/DL (0.70-1.30); GLOMERULAR FILTRATION RATE > 60.0 (>49); GLUCOSE, FASTING 106 MG/DL (70-100); POTASSIUM SERUM 5.1 MEQ/L (3.5-5.1); SODIUM LEVEL 141 MEQ/L (136-145); TOTAL PROTEIN 7.2 GM/DL (6.4-8.2)
== END ==
LOC: M WUC 08:06
PROVIDERS: ATTEND Nurse Practitioner Adult Health
DX: Z51.81 Encounter for therapeutic drug level monitoring (principal); Z79.899 Other long term (current) drug therapy; Z94.4 Liver transplant status

== ENCOUNTER → 2020-11-04 | Outpatient (CLI) | payer MEDICARE ==
[~2020-11-04] MED LIST changes: +CYAN500T14 PO; -CYAN500T8 PO
[2020-11-04 15:21] LABS: HEMATOCRIT 43.9 % (42.0-52.0); HEMOGLOBIN 14.1 g/dl (13.5-17.5); MEAN CORPUSCULAR HEMOGLOBIN 30.7 pg (27.0-33.0); MEAN CORPUSCULAR HGB CONC 32.1 g/dl (32.0-36.5); MEAN CORPUSCULAR VOLUME 95.4 fl (80.0-96.0); PLATELET COUNT, AUTOMATED 181 10^3/uL (150-450); WHITE BLOOD COUNT 5.7 10^3/uL (4.0-10.0)
[2020-11-04 15:46] LABS: ALBUMIN 4.4 GM/DL (3.2-5.2); CALCIUM LEVEL 9.7 MG/DL (8.8-10.2); CREATININE FOR GFR 1.28 MG/DL (0.70-1.30); POTASSIUM SERUM 5.1 MEQ/L (3.5-5.1); TOTAL PROTEIN 7.1 GM/DL (6.4-8.2)
== END ==
LOC: M WUC 08:06
PROVIDERS: ATTEND Nurse Practitioner Adult Health
DX: Z94.4 Liver transplant status (principal)

== ENCOUNTER → 2021-01-02 | Outpatient (CLI) | payer MEDICARE ==
[~2021-01-02] MED LIST changes: +IBUP1TAB5 PO; -IBUP40TA PO
[2021-01-02 09:46] LABS: HEMATOCRIT 42.2 % (42.0-52.0); HEMOGLOBIN 14.1 g/dl (13.5-17.5); MEAN CORPUSCULAR HEMOGLOBIN 31.5 pg (27.0-33.0); MEAN CORPUSCULAR HGB CONC 33.4 g/dl (32.0-36.5); MEAN CORPUSCULAR VOLUME 94.2 fl (80.0-96.0); PLATELET COUNT, AUTOMATED 180 10^3/uL (150-450); RED BLOOD COUNT 4.48 10^6/uL (4.30-6.10); WHITE BLOOD COUNT 5.5 10^3/uL (4.0-10.0)
[2021-01-02 10:12] LABS: ALBUMIN 4.5 GM/DL (3.2-5.2); ALT/SGPT 45 U/L (12-78); BILIRUBIN,TOTAL 0.9 MG/DL (0.2-1.0); BLOOD UREA NITROGEN 28 MG/DL (7-18); CALCIUM LEVEL 9.1 MG/DL (8.8-10.2); CARBON DIOXIDE LEVEL 27 MEQ/L (21-32); CHLORIDE LEVEL 110 MEQ/L (98-107); CREATININE FOR GFR 1.24 MG/DL (0.70-1.30); GLOMERULAR FILTRATION RATE > 60.0 (>49); GLUCOSE, FASTING 106 MG/DL (70-100); POTASSIUM SERUM 4.8 MEQ/L (3.5-5.1); SODIUM LEVEL 143 MEQ/L (136-145); TOTAL PROTEIN 7.2 GM/DL (6.4-8.2)
== END ==
LOC: M WUC 08:05
PROVIDERS: ATTEND Nurse Practitioner Adult Health
DX: Z94.4 Liver transplant status (principal)

== ENCOUNTER → 2021-02-25 | Outpatient (CLI) | payer MEDICARE ==
[2021-02-25 09:45] LABS: HEMATOCRIT 43.3 % (42.0-52.0); HEMOGLOBIN 14.6 g/dl (13.5-17.5); MEAN CORPUSCULAR HEMOGLOBIN 31.6 pg (27.0-33.0); MEAN CORPUSCULAR HGB CONC 33.7 g/dl (32.0-36.5); MEAN CORPUSCULAR VOLUME 93.7 fl (80.0-96.0); PLATELET COUNT, AUTOMATED 191 10^3/uL (150-450); RED BLOOD COUNT 4.62 10^6/uL (4.30-6.10); WHITE BLOOD COUNT 5.7 10^3/uL (4.0-10.0)
[2021-02-25 10:18] LABS: ALBUMIN 4.5 GM/DL (3.2-5.2); ALT/SGPT 27 U/L (12-78); BLOOD UREA NITROGEN 20 MG/DL (7-18); CALCIUM LEVEL 9.9 MG/DL (8.8-10.2); CARBON DIOXIDE LEVEL 28 MEQ/L (21-32); CHLORIDE LEVEL 108 MEQ/L (98-107); CREATININE FOR GFR 1.16 MG/DL (0.70-1.30); GLOMERULAR FILTRATION RATE > 60.0 (>49); GLUCOSE, FASTING 107 MG/DL (70-100); POTASSIUM SERUM 5.1 MEQ/L (3.5-5.1); SODIUM LEVEL 141 MEQ/L (136-145); TOTAL PROTEIN 7.3 GM/DL (6.4-8.2)
== END ==
LOC: M WUC 08:04
PROVIDERS: ATTEND Nurse Practitioner Adult Health
DX: Z94.4 Liver transplant status (principal)

== ENCOUNTER → 2021-05-01 | Outpatient (CLI) | payer MEDICARE ==
[2021-05-01 11:03] LABS: HEMATOCRIT 40.4 % (42.0-52.0); HEMOGLOBIN 13.4 g/dl (13.5-17.5); MEAN CORPUSCULAR HEMOGLOBIN 31.2 pg (27.0-33.0); MEAN CORPUSCULAR HGB CONC 33.2 g/dl (32.0-36.5); PLATELET COUNT, AUTOMATED 185 10^3/uL (150-450); WHITE BLOOD COUNT 5.8 10^3/uL (4.0-10.0)
[2021-05-01 11:32] LABS: ALBUMIN 4.2 GM/DL (3.2-5.2); ALT/SGPT 29 U/L (12-78); BILIRUBIN,TOTAL 0.7 MG/DL (0.2-1.0); BLOOD UREA NITROGEN 23 MG/DL (7-18); CALCIUM LEVEL 9.5 MG/DL (8.8-10.2); CARBON DIOXIDE LEVEL 28 MEQ/L (21-32); CHLORIDE LEVEL 111 MEQ/L (98-107); CREATININE FOR GFR 1.05 MG/DL (0.70-1.30); GLOMERULAR FILTRATION RATE > 60.0 (>49); GLUCOSE, FASTING 104 MG/DL (70-100); SODIUM LEVEL 142 MEQ/L (136-145); TOTAL PROTEIN 6.7 GM/DL (6.4-8.2)
== END ==
LOC: M WUC 08:13
PROVIDERS: ATTEND Nurse Practitioner Adult Health
DX: Z94.4 Liver transplant status (principal)

== ENCOUNTER → 2021-07-02 | Outpatient (CLI) | payer MEDICARE ==
[2021-07-02 09:56] LABS: HEMATOCRIT 43.7 % (42.0-52.0); HEMOGLOBIN 14.6 g/dl (13.5-17.5); MEAN CORPUSCULAR HEMOGLOBIN 31.8 pg (27.0-33.0); MEAN CORPUSCULAR HGB CONC 33.4 g/dl (32.0-36.5); MEAN CORPUSCULAR VOLUME 95.2 fl (80.0-96.0); PLATELET COUNT, AUTOMATED 193 10^3/uL (150-450); RED BLOOD COUNT 4.59 10^6/uL (4.30-6.10); WHITE BLOOD COUNT 6.7 10^3/uL (4.0-10.0)
[2021-07-02 10:25] LABS: ALBUMIN 4.4 GM/DL (3.2-5.2); ALT/SGPT 40 U/L (12-78); BILIRUBIN,TOTAL 0.8 MG/DL (0.2-1.0); BLOOD UREA NITROGEN 30 MG/DL (7-18); CALCIUM LEVEL 9.3 MG/DL (8.8-10.2); CARBON DIOXIDE LEVEL 31 MEQ/L (21-32); CHLORIDE LEVEL 111 MEQ/L (98-107); GLOMERULAR FILTRATION RATE > 60.0 (>49); GLUCOSE, FASTING 115 MG/DL (70-100); POTASSIUM SERUM 5.3 MEQ/L (3.5-5.1); SODIUM LEVEL 144 MEQ/L (136-145); TOTAL PROTEIN 7.2 GM/DL (6.4-8.2)
== END ==
LOC: M WUC 08:15
PROVIDERS: ATTEND Nurse Practitioner Adult Health
DX: Z48.298 Encounter for aftercare following other organ transplant (principal); Z79.899 Other long term (current) drug therapy

== ENCOUNTER → 2021-07-31 | Outpatient (CLI) | payer MEDICARE ==
[2021-07-31 11:00] LABS: HEMOGLOBIN 14.1 g/dl (13.5-17.5); MEAN CORPUSCULAR HEMOGLOBIN 31.6 pg (27.0-33.0); MEAN CORPUSCULAR HGB CONC 33.6 g/dl (32.0-36.5); MEAN CORPUSCULAR VOLUME 94.2 fl (80.0-96.0); PLATELET COUNT, AUTOMATED 194 10^3/uL (150-450); RED BLOOD COUNT 4.46 10^6/uL (4.30-6.10); WHITE BLOOD COUNT 5.6 10^3/uL (4.0-10.0)
[2021-07-31 11:18] LABS: ALBUMIN 3.9 GM/DL (3.2-5.2); ALT/SGPT 42 U/L (12-78); BILIRUBIN,TOTAL 0.7 MG/DL (0.2-1.0); BLOOD UREA NITROGEN 25 MG/DL (7-18); CALCIUM LEVEL 9.5 MG/DL (8.8-10.2); CARBON DIOXIDE LEVEL 29 MEQ/L (21-32); CHLORIDE LEVEL 109 MEQ/L (98-107); CREATININE FOR GFR 1.09 MG/DL (0.70-1.30); GLOMERULAR FILTRATION RATE > 60.0 (>49); GLUCOSE, FASTING 100 MG/DL (70-100); POTASSIUM SERUM 5.2 MEQ/L (3.5-5.1); SODIUM LEVEL 141 MEQ/L (136-145)
== END ==
LOC: M WUC 08:13
PROVIDERS: ATTEND Nurse Practitioner Adult Health
DX: Z94.4 Liver transplant status (principal); Z79.899 Other long term (current) drug therapy

== ENCOUNTER → 2021-09-13 | Outpatient (REF) | payer MEDICARE | LOC: M LAB REF 16:52 | PROVIDERS: ATTEND Nurse Practitioner Family | DX: E83.42 Hypomagnesemia (principal) ==

== ENCOUNTER → 2021-09-23 | Outpatient (CLI) | payer MEDICARE ==
[2021-09-23 11:28] LABS: HEMATOCRIT 42.4 % (42.0-52.0); MEAN CORPUSCULAR HEMOGLOBIN 31.3 pg (27.0-33.0); MEAN CORPUSCULAR VOLUME 94.9 fl (80.0-96.0); PLATELET COUNT, AUTOMATED 199 10^3/uL (150-450); RED BLOOD COUNT 4.47 10^6/uL (4.30-6.10); WHITE BLOOD COUNT 5.5 10^3/uL (4.0-10.0)
[2021-09-23 11:44] LABS: ALT/SGPT 33 U/L (12-78); BILIRUBIN,TOTAL 0.6 MG/DL (0.2-1.0); BLOOD UREA NITROGEN 19 MG/DL (7-18); CALCIUM LEVEL 9.7 MG/DL (8.8-10.2); CARBON DIOXIDE LEVEL 29 MEQ/L (21-32); CHLORIDE LEVEL 109 MEQ/L (98-107); CREATININE FOR GFR 1.12 MG/DL (0.70-1.30); GLOMERULAR FILTRATION RATE > 60.0 (>49); GLUCOSE, FASTING 107 MG/DL (70-100); POTASSIUM SERUM 5.2 MEQ/L (3.5-5.1); SODIUM LEVEL 140 MEQ/L (136-145); TOTAL PROTEIN 6.8 GM/DL (6.4-8.2)
== END ==
LOC: M WUC 08:05
PROVIDERS: ATTEND Nurse Practitioner Adult Health
DX: Z94.4 Liver transplant status (principal); Z79.899 Other long term (current) drug therapy

== ENCOUNTER → 2021-09-23 | Outpatient (CLI) | payer MEDICARE ==
[2021-09-23 11:52] LABS: CHOLESTEROL RISK RATIO 5.085 (<5)
== END ==
LOC: M WUC 08:08
PROVIDERS: ATTEND Family Medicine
DX: E78.5 Hyperlipidemia, unspecified (principal)

== ENCOUNTER → 2021-12-02 | Outpatient (CLI) | payer MEDICARE ==
[2021-12-02 09:44] LABS: HEMATOCRIT 42.4 % (42.0-52.0); HEMOGLOBIN 14.1 g/dl (13.5-17.5); MEAN CORPUSCULAR HEMOGLOBIN 31.5 pg (27.0-33.0); MEAN CORPUSCULAR HGB CONC 33.3 g/dl (32.0-36.5); MEAN CORPUSCULAR VOLUME 94.9 fl (80.0-96.0); PLATELET COUNT, AUTOMATED 195 10^3/uL (150-450); RED BLOOD COUNT 4.47 10^6/uL (4.30-6.10); WHITE BLOOD COUNT 5.6 10^3/uL (4.0-10.0)
[2021-12-02 10:09] LABS: ALT/SGPT 32 U/L (12-78); BILIRUBIN,TOTAL 0.7 MG/DL (0.2-1.0); BLOOD UREA NITROGEN 17 MG/DL (7-18); CALCIUM LEVEL 9.1 MG/DL (8.8-10.2); CARBON DIOXIDE LEVEL 29 MEQ/L (21-32); CHLORIDE LEVEL 111 MEQ/L (98-107); CREATININE FOR GFR 1.18 MG/DL (0.70-1.30); GLOMERULAR FILTRATION RATE > 60.0 (>49); GLUCOSE, FASTING 114 MG/DL (70-100); POTASSIUM SERUM 4.7 MEQ/L (3.5-5.1); SODIUM LEVEL 142 MEQ/L (136-145); TOTAL PROTEIN 6.8 GM/DL (6.4-8.2)
== END ==
LOC: M WUC 08:02
PROVIDERS: ATTEND Nurse Practitioner Family
DX: Z94.4 Liver transplant status (principal); Z79.899 Other long term (current) drug therapy

== ENCOUNTER → 2021-12-27 | Outpatient (CLI) | payer MEDICARE ==
[2021-12-27 10:07] LABS: HEMATOCRIT 42.2 % (42.0-52.0); HEMOGLOBIN 14.2 g/dl (13.5-17.5); MEAN CORPUSCULAR HEMOGLOBIN 31.3 pg (27.0-33.0); MEAN CORPUSCULAR HGB CONC 33.6 g/dl (32.0-36.5); MEAN CORPUSCULAR VOLUME 93.2 fl (80.0-96.0); PLATELET COUNT, AUTOMATED 190 10^3/uL (150-450); RED BLOOD COUNT 4.53 10^6/uL (4.30-6.10); WHITE BLOOD COUNT 5.1 10^3/uL (4.0-10.0)
[2021-12-27 10:33] LABS: ALBUMIN 4.4 GM/DL (3.2-5.2); CALCIUM LEVEL 9.6 MG/DL (8.8-10.2); CREATININE FOR GFR 1.28 MG/DL (0.70-1.30); GLOMERULAR FILTRATION RATE 59.9 (>49); POTASSIUM SERUM 5.3 MEQ/L (3.5-5.1); TOTAL PROTEIN 7.5 GM/DL (6.4-8.2)
== END ==
LOC: M WUC 08:00
PROVIDERS: ATTEND Nurse Practitioner Family
DX: Z79.899 Other long term (current) drug therapy (principal); Z94.4 Liver transplant status

== ENCOUNTER → 2022-01-24 | Outpatient (CLI) | payer MEDICARE ==
[2022-01-24 11:29] LABS: HEMATOCRIT 42.4 % (42.0-52.0); HEMOGLOBIN 14.3 g/dl (13.5-17.5); MEAN CORPUSCULAR HEMOGLOBIN 31.4 pg (27.0-33.0); MEAN CORPUSCULAR HGB CONC 33.7 g/dl (32.0-36.5); MEAN CORPUSCULAR VOLUME 93.2 fl (80.0-96.0); PLATELET COUNT, AUTOMATED 198 10^3/uL (150-450); RED BLOOD COUNT 4.55 10^6/uL (4.30-6.10); WHITE BLOOD COUNT 5.5 10^3/uL (4.0-10.0)
[2022-01-24 12:04] LABS: ALBUMIN 4.4 GM/DL (3.2-5.2); ALT/SGPT 33 U/L (12-78); BILIRUBIN,TOTAL 1.1 MG/DL (0.2-1.0); BLOOD UREA NITROGEN 27 MG/DL (7-18); CALCIUM LEVEL 9.5 MG/DL (8.8-10.2); CARBON DIOXIDE LEVEL 27 MEQ/L (21-32); CHLORIDE LEVEL 109 MEQ/L (98-107); CREATININE FOR GFR 1.24 MG/DL (0.70-1.30); GLOMERULAR FILTRATION RATE > 60.0 (>49); GLUCOSE, FASTING 96 MG/DL (70-100); SODIUM LEVEL 140 MEQ/L (136-145); TOTAL PROTEIN 7.1 GM/DL (6.4-8.2)
== END ==
LOC: M WUC 07:57
PROVIDERS: ATTEND Nurse Practitioner Family
DX: Z94.4 Liver transplant status (principal); Z79.899 Other long term (current) drug therapy

== ENCOUNTER → 2022-04-01 | Outpatient (CLI) | payer MEDICARE ==
[2022-04-01 11:28] LABS: HEMATOCRIT 40.7 % (42.0-52.0); HEMOGLOBIN 13.6 g/dl (13.5-17.5); MEAN CORPUSCULAR HEMOGLOBIN 31.7 pg (27.0-33.0); MEAN CORPUSCULAR HGB CONC 33.4 g/dl (32.0-36.5); MEAN CORPUSCULAR VOLUME 94.9 fl (80.0-96.0); PLATELET COUNT, AUTOMATED 191 10^3/uL (150-450); RED BLOOD COUNT 4.29 10^6/uL (4.30-6.10); WHITE BLOOD COUNT 7.1 10^3/uL (4.0-10.0)
[2022-04-01 11:53] LABS: ALT/SGPT 26 U/L (12-78); BILIRUBIN,TOTAL 0.7 MG/DL (0.2-1.0); BLOOD UREA NITROGEN 25 MG/DL (7-18); CALCIUM LEVEL 9.3 MG/DL (8.8-10.2); CARBON DIOXIDE LEVEL 27 MEQ/L (21-32); CHLORIDE LEVEL 113 MEQ/L (98-107); CREATININE FOR GFR 1.08 MG/DL (0.70-1.30); GLOMERULAR FILTRATION RATE > 60.0 (>49); GLUCOSE, FASTING 101 MG/DL (70-100); POTASSIUM SERUM 4.9 MEQ/L (3.5-5.1); SODIUM LEVEL 145 MEQ/L (136-145)
== END ==
LOC: M WUC 08:09
PROVIDERS: ATTEND Nurse Practitioner Family
DX: Z94.4 Liver transplant status (principal); Z79.899 Other long term (current) drug therapy

== ENCOUNTER → 2022-04-01 | Outpatient (CLI) | payer MEDICARE ==
[2022-04-01 11:58] LABS: PROSTATIC SPECIFIC AG MONITOR 1.11 NG/ML (< 4.00)
[2022-04-01 12:01] LABS: TOTAL 25(OH) VITAMIN D 78.2 NG/ML (30.0-100.0)
== END ==
LOC: M WUC 08:06
PROVIDERS: ATTEND Family Medicine
DX: E55.9 Vitamin D deficiency, unspecified (principal); Z12.5 Encounter for screening for malignant neoplasm of prostate; Z79.899 Other long term (current) drug therapy; R97.20 Elevated prostate specific antigen [PSA]

== ENCOUNTER → 2022-06-04 | Outpatient (CLI) | payer MEDICARE ==
[2022-06-04 10:01] LABS: HEMATOCRIT 42.3 % (42.0-52.0); HEMOGLOBIN 14.5 g/dl (13.5-17.5); MEAN CORPUSCULAR HEMOGLOBIN 32.3 pg (27.0-33.0); MEAN CORPUSCULAR HGB CONC 34.3 g/dl (32.0-36.5); MEAN CORPUSCULAR VOLUME 94.2 fl (80.0-96.0); PLATELET COUNT, AUTOMATED 199 10^3/uL (150-450); RED BLOOD COUNT 4.49 10^6/uL (4.30-6.10)
[2022-06-04 10:31] LABS: ALBUMIN 4.3 GM/DL (3.2-5.2); BILIRUBIN,TOTAL 1.1 MG/DL (0.2-1.0); CALCIUM LEVEL 9.6 MG/DL (8.8-10.2); CREATININE FOR GFR 1.33 MG/DL (0.70-1.30); GLOMERULAR FILTRATION RATE 57.3 (>49); TOTAL PROTEIN 7.3 GM/DL (6.4-8.2)
== END ==
LOC: M WUC 08:01
PROVIDERS: ATTEND Nurse Practitioner Family
DX: D84.9 Immunodeficiency, unspecified (principal); Z94.4 Liver transplant status

== ENCOUNTER → 2022-07-30 | Outpatient (CLI) | payer MEDICARE ==
[2022-07-30 09:46] LABS: HEMATOCRIT 41.7 % (42.0-52.0); HEMOGLOBIN 13.9 g/dl (13.5-17.5); MEAN CORPUSCULAR HEMOGLOBIN 31.5 pg (27.0-33.0); MEAN CORPUSCULAR HGB CONC 33.3 g/dl (32.0-36.5); MEAN CORPUSCULAR VOLUME 94.6 fl (80.0-96.0); PLATELET COUNT, AUTOMATED 190 10^3/uL (150-450); RED BLOOD COUNT 4.41 10^6/uL (4.30-6.10); WHITE BLOOD COUNT 6.7 10^3/uL (4.0-10.0)
[2022-07-30 10:11] LABS: ALBUMIN 4.2 GM/DL (3.2-5.2); ALT/SGPT 30 U/L (12-78); BILIRUBIN,TOTAL 0.9 MG/DL (0.2-1.0); BLOOD UREA NITROGEN 25 MG/DL (7-18); CALCIUM LEVEL 9.2 MG/DL (8.8-10.2); CARBON DIOXIDE LEVEL 27 MEQ/L (21-32); CHLORIDE LEVEL 110 MEQ/L (98-107); GLOMERULAR FILTRATION RATE > 60.0 (>49); GLUCOSE, FASTING 103 MG/DL (70-100); POTASSIUM SERUM 4.7 MEQ/L (3.5-5.1); SODIUM LEVEL 140 MEQ/L (136-145)
== END ==
LOC: M WUC 08:04
PROVIDERS: ATTEND Nurse Practitioner Family
DX: D84.9 Immunodeficiency, unspecified (principal); Z94.4 Liver transplant status

== ENCOUNTER → 2022-09-22 | Outpatient (CLI) | payer MEDICARE ==
[~2022-09-22] MED LIST changes: +AMLO1TAB25 PO; +CALC1CAP31 PO; +CELL250C PO; +ECOT81TA5 PO; +ERGO500029 PO; +HYDR10TAB PO; +MAGN400T2 PO; +METO1TAB32 PO; +TACR0.5C3 PO; +TACR1CAP3 PO; +TORS10TA3 PO
== END ==
LOC: M LABSMTC 09:58
PROVIDERS: ATTEND Anesthesiology
DX: Z01.812 Encounter for preprocedural laboratory examination (principal); Z11.52 Encounter for screening for COVID-19

== ENCOUNTER 2022-09-26 06:40 | Day surgery (SDC) | payer MEDICARE ==
[~2022-09-26] VITALS: Ht 180.3 cm; Wt 102.5 kg
[~2022-09-26 06:40] MED LIST changes: +NS 1,000 ML IV ONE
[2022-09-26] MEDS ORDERED: LIDOCAINE 2% 100MG/5ML SDV (FOR ANES.) As Ordered ONE (06:58)
[2022-09-26] MEDS ORDERED: propofoL 200 MG/20 ML VIAL As Ordered ONE (06:58)
[2022-09-26 08:19] VITALS: BP 134/82
== END 2022-09-26 08:18 | disposition home or self-care (01) ==
LOC: M OPP 06:40
PROVIDERS: ATTEND Internal Medicine Gastroenterology
DX: Z86.010 Personal history of colon polyps (principal); K57.30 Diverticulosis of large intestine without perforation or abscess without bleeding; K64.8 Other hemorrhoids; Z79.82 Long term (current) use of aspirin; Z79.899 Other long term (current) drug therapy; Z88.8 Allergy status to other drugs, medicaments and biological substances; I10 Essential (primary) hypertension; Z94.4 Liver transplant status

== ENCOUNTER → 2022-09-30 | Outpatient (CLI) | payer MEDICARE ==
[~2022-09-30] MED LIST changes: -NS 1,000 ML IV ONE
[2022-09-30 18:10] LABS: CHOLESTEROL RISK RATIO 5.01 (<5); HDL CHOLESTEROL 36.3 MG/DL (>40); LDL CHOLESTEROL 111.3 MG/DL (<100)
== END ==
LOC: M WUC 08:07
PROVIDERS: ATTEND Family Medicine
DX: Z94.4 Liver transplant status (principal)

== ENCOUNTER → 2022-09-30 | Outpatient (CLI) | payer MEDICARE ==
[2022-09-30 12:47] LABS: HEMATOCRIT 44.2 % (42.0-52.0); HEMOGLOBIN 14.4 g/dl (13.5-17.5); MEAN CORPUSCULAR HEMOGLOBIN 31.2 pg (27.0-33.0); MEAN CORPUSCULAR HGB CONC 32.6 g/dl (32.0-36.5); MEAN CORPUSCULAR VOLUME 95.9 fl (80.0-96.0); PLATELET COUNT, AUTOMATED 198 10^3/uL (150-450); RED BLOOD COUNT 4.61 10^6/uL (4.30-6.10); WHITE BLOOD COUNT 5.5 10^3/uL (4.0-10.0)
[2022-09-30 15:30] LABS: ALBUMIN 4.6 G/DL (3.2-5.2); ALT/SGPT 28 U/L (7.0-40); BILIRUBIN,TOTAL 1.2 MG/DL (0.3-1.2); BLOOD UREA NITROGEN 24 MG/DL (9-23); CALCIUM LEVEL 9.6 MG/DL (8.3-10.6); CARBON DIOXIDE LEVEL 28 MMOL/L (20-31); CHLORIDE LEVEL 104 MMOL/L (98-107); CREATININE FOR GFR 1.22 MG/DL (0.70-1.30); GLOMERULAR FILTRATION RATE > 60.0 (>49); GLUCOSE, FASTING 99 MG/DL (74-106); POTASSIUM SERUM 4.7 MMOL/L (3.5-5.1); SODIUM LEVEL 140 MMOL/L (136-145); TOTAL PROTEIN 7.2 G/DL
== END ==
LOC: M WUC 08:05
PROVIDERS: ATTEND Nurse Practitioner Family
DX: Z94.4 Liver transplant status (principal); D84.9 Immunodeficiency, unspecified

== ENCOUNTER → 2022-11-05 | Outpatient (CLI) | payer MEDICARE | LOC: M RAD 09:57 | PROVIDERS: ATTEND Nurse Practitioner Family | DX: N18.31 Chronic kidney disease, stage 3a (principal) ==

== ENCOUNTER → 2022-12-03 | Outpatient (CLI) | payer MEDICARE ==
[2022-12-03 10:17] LABS: HEMATOCRIT 43.8 % (42.0-52.0); HEMOGLOBIN 14.7 g/dl (13.5-17.5); MEAN CORPUSCULAR HEMOGLOBIN 31.4 pg (27.0-33.0); MEAN CORPUSCULAR HGB CONC 33.6 g/dl (32.0-36.5); MEAN CORPUSCULAR VOLUME 93.6 fl (80.0-96.0); PLATELET COUNT, AUTOMATED 200 10^3/uL (150-450); RED BLOOD COUNT 4.68 10^6/uL (4.30-6.10); WHITE BLOOD COUNT 5.7 10^3/uL (4.0-10.0)
[2022-12-03 10:48] LABS: ALBUMIN 4.4 G/DL (3.2-5.2); ALKALINE PHOSPHATASE 67 U/L (46-116); ALT/SGPT 24 U/L (7.0-40); AST/SGOT 26 U/L (<34); BILIRUBIN,TOTAL 0.9 MG/DL (0.3-1.2); BLOOD UREA NITROGEN 28 MG/DL (9-23); CALCIUM LEVEL 9.5 MG/DL (8.3-10.6); CARBON DIOXIDE LEVEL 29 MMOL/L (20-31); CHLORIDE LEVEL 104 MMOL/L (98-107); CREATININE FOR GFR 1.23 MG/DL (0.70-1.30); GLOMERULAR FILTRATION RATE > 60.0 (>49); GLUCOSE, FASTING 93 MG/DL (74-106); POTASSIUM SERUM 4.9 MMOL/L (3.5-5.1); SODIUM LEVEL 141 MMOL/L (136-145); TOTAL PROTEIN 7.4 G/DL (5.7-8.2)
== END ==
LOC: M WUC 08:09
PROVIDERS: ATTEND Nurse Practitioner Family
DX: D84.9 Immunodeficiency, unspecified (principal)

== ENCOUNTER → 2023-01-27 | Outpatient (CLI) | payer MEDICARE ==
[2023-01-27 09:48] LABS: HEMATOCRIT 42.3 % (42.0-52.0); HEMOGLOBIN 14.3 g/dl (13.5-17.5); MEAN CORPUSCULAR HEMOGLOBIN 31.4 pg (27.0-33.0); MEAN CORPUSCULAR HGB CONC 33.8 g/dl (32.0-36.5); PLATELET COUNT, AUTOMATED 186 10^3/uL (150-450); RED BLOOD COUNT 4.55 10^6/uL (4.30-6.10); WHITE BLOOD COUNT 6.3 10^3/uL (4.0-10.0)
[2023-01-27 10:44] LABS: ALBUMIN 4.4 G/DL (3.2-5.2); ALKALINE PHOSPHATASE 64 U/L (46-116); ALT/SGPT 20 U/L (7.0-40); AST/SGOT 24 U/L (<34); BILIRUBIN,TOTAL 1.4 MG/DL (0.3-1.2); BLOOD UREA NITROGEN 26 MG/DL (9-23); CALCIUM LEVEL 9.5 MG/DL (8.3-10.6); CARBON DIOXIDE LEVEL 27 MMOL/L (20-31); CHLORIDE LEVEL 107 MMOL/L (98-107); CREATININE FOR GFR 1.27 MG/DL (0.70-1.30); GLOMERULAR FILTRATION RATE > 60.0 (>49); GLUCOSE, FASTING 111 MG/DL (74-106); POTASSIUM SERUM 4.8 MMOL/L (3.5-5.1); SODIUM LEVEL 141 MMOL/L (136-145)
[2023-01-27 12:42] LABS: TOTAL PROTEIN 6.9 G/DL (5.7-8.2)
== END ==
LOC: M WUC 08:00
PROVIDERS: ATTEND Nurse Practitioner Family
DX: Z94.4 Liver transplant status (principal); D84.9 Immunodeficiency, unspecified

== ENCOUNTER → 2023-04-01 | Outpatient (CLI) | payer MEDICARE | LOC: M WUC 08:02 | PROVIDERS: ATTEND Family Medicine | DX: Z12.5 Encounter for screening for malignant neoplasm of prostate (principal) ==

== ENCOUNTER → 2023-04-01 | Outpatient (CLI) | payer MEDICARE ==
[2023-04-01 09:59] LABS: HEMATOCRIT 42.5 % (42.0-52.0); HEMOGLOBIN 14.4 g/dl (13.5-17.5); MEAN CORPUSCULAR HEMOGLOBIN 31.6 pg (27.0-33.0); MEAN CORPUSCULAR HGB CONC 33.9 g/dl (32.0-36.5); MEAN CORPUSCULAR VOLUME 93.4 fl (80.0-96.0); PLATELET COUNT, AUTOMATED 203 10^3/uL (150-450); RED BLOOD COUNT 4.55 10^6/uL (4.30-6.10); WHITE BLOOD COUNT 5.9 10^3/uL (4.0-10.0)
[2023-04-01 10:30] LABS: ALBUMIN 4.1 G/DL (3.2-5.2); ALKALINE PHOSPHATASE 69 U/L (46-116); ALT/SGPT 28 U/L (7.0-40); AST/SGOT 19 U/L (<34); BILIRUBIN,TOTAL 0.8 MG/DL (0.3-1.2); BLOOD UREA NITROGEN 21 MG/DL (9-23); CALCIUM LEVEL 9.2 MG/DL (8.3-10.6); CARBON DIOXIDE LEVEL 29 MMOL/L (20-31); CHLORIDE LEVEL 109 MMOL/L (98-107); GLOMERULAR FILTRATION RATE > 60.0 (>49); GLUCOSE, FASTING 105 MG/DL (74-106); SODIUM LEVEL 144 MMOL/L (136-145); TOTAL PROTEIN 6.7 G/DL (5.7-8.2)
== END ==
LOC: M WUC 08:04
PROVIDERS: ATTEND Nurse Practitioner Family
DX: Z94.4 Liver transplant status (principal); D84.9 Immunodeficiency, unspecified

== ENCOUNTER → 2023-06-01 | Outpatient (CLI) | payer MEDICARE ==
[2023-06-01 11:31] LABS: HEMATOCRIT 40.9 % (42.0-52.0); HEMOGLOBIN 13.9 g/dl (13.5-17.5); MEAN CORPUSCULAR HEMOGLOBIN 32.2 pg (27.0-33.0); MEAN CORPUSCULAR VOLUME 94.7 fl (80.0-96.0); PLATELET COUNT, AUTOMATED 184 10^3/uL (150-450); RED BLOOD COUNT 4.32 10^6/uL (4.30-6.10); WHITE BLOOD COUNT 5.8 10^3/uL (4.0-10.0)
[2023-06-01 11:51] LABS: ALBUMIN 4.1 G/DL (3.2-5.2); ALKALINE PHOSPHATASE 67 U/L (46-116); ALT/SGPT 25 U/L (7.0-40); AST/SGOT 18 U/L (<34); BILIRUBIN,TOTAL 0.9 MG/DL (0.3-1.2); BLOOD UREA NITROGEN 18 MG/DL (9-23); CALCIUM LEVEL 9.2 MG/DL (8.3-10.6); CARBON DIOXIDE LEVEL 27 MMOL/L (20-31); CHLORIDE LEVEL 108 MMOL/L (98-107); CREATININE FOR GFR 1.11 MG/DL (0.70-1.30); GLOMERULAR FILTRATION RATE > 60.0 (>49); GLUCOSE, FASTING 95 MG/DL (74-106); POTASSIUM SERUM 4.9 MMOL/L (3.5-5.1); SODIUM LEVEL 141 MMOL/L (136-145); TOTAL PROTEIN 6.5 G/DL (5.7-8.2)
== END ==
LOC: M WUC 08:11
PROVIDERS: ATTEND Nurse Practitioner
DX: Z94.4 Liver transplant status (principal); Z79.899 Other long term (current) drug therapy

== ENCOUNTER → 2023-08-24 | Outpatient (CLI) | payer MEDICARE ==
[2023-08-24 09:43] LABS: HEMOGLOBIN 14.1 g/dl (13.5-17.5); MEAN CORPUSCULAR HEMOGLOBIN 31.5 pg (27.0-33.0); MEAN CORPUSCULAR HGB CONC 33.6 g/dl (32.0-36.5); PLATELET COUNT, AUTOMATED 207 10^3/uL (150-450); RED BLOOD COUNT 4.47 10^6/uL (4.30-6.10); WHITE BLOOD COUNT 5.7 10^3/uL (4.0-10.0)
[2023-08-24 10:12] LABS: ALBUMIN 4.1 G/DL (3.2-5.2); ALKALINE PHOSPHATASE 69 U/L (46-116); ALT/SGPT 29 U/L (7.0-40); AST/SGOT 22 U/L (<34); BILIRUBIN,TOTAL 0.9 MG/DL (0.3-1.2); BLOOD UREA NITROGEN 16 MG/DL (9-23); CALCIUM LEVEL 9.2 MG/DL (8.3-10.6); CARBON DIOXIDE LEVEL 28 MMOL/L (20-31); CHLORIDE LEVEL 110 MMOL/L (98-107); CREATININE FOR GFR 1.11 MG/DL (0.70-1.30); GLOMERULAR FILTRATION RATE > 60.0 (>49); GLUCOSE, FASTING 95 MG/DL (74-106); POTASSIUM SERUM 5.1 MMOL/L (3.5-5.1); SODIUM LEVEL 140 MMOL/L (136-145); TOTAL PROTEIN 6.8 G/DL (5.7-8.2)
== END ==
LOC: M WUC 08:02
PROVIDERS: ATTEND Nurse Practitioner
DX: Z94.4 Liver transplant status (principal); Z79.899 Other long term (current) drug therapy

== ENCOUNTER → 2023-09-30 | Outpatient (REF) | payer MEDICARE ==
[~2023-09-30] MED LIST changes: +MEPH5TAB6 PO; -PHYT5TA PO
== END ==
LOC: M LABWUC 12:38
PROVIDERS: ATTEND Family Medicine
DX: M25.50 Pain in unspecified joint (principal)

== ENCOUNTER → 2023-12-28 | Outpatient (CLI) | payer MEDICARE ==
[~2023-12-28] MED LIST changes: +HYDR-161 PO; -HYDR10TAB PO
[2023-12-28 11:43] LABS: HEMATOCRIT 42.1 % (42.0-52.0); HEMOGLOBIN 14.3 g/dl (13.5-17.5); MEAN CORPUSCULAR HEMOGLOBIN 32.1 pg (27.0-33.0); MEAN CORPUSCULAR VOLUME 94.6 fl (80.0-96.0); PLATELET COUNT, AUTOMATED 204 10^3/uL (150-450); RED BLOOD COUNT 4.45 10^6/uL (4.30-6.10)
[2023-12-28 12:18] LABS: ALBUMIN 4.1 G/DL (3.2-5.2); ALKALINE PHOSPHATASE 71 U/L (46-116); ALT/SGPT 28 U/L (7.0-40); AST/SGOT 23 U/L (<34); BILIRUBIN,TOTAL 0.7 MG/DL (0.3-1.2); BLOOD UREA NITROGEN 22 MG/DL (9-23); CALCIUM LEVEL 9.6 MG/DL (8.3-10.6); CARBON DIOXIDE LEVEL 26 MMOL/L (20-31); CHLORIDE LEVEL 109 MMOL/L (98-107); CREATININE FOR GFR 1.08 MG/DL (0.70-1.30); GLOMERULAR FILTRATION RATE > 60.0 (>49); GLUCOSE, FASTING 93 MG/DL (74-106); POTASSIUM SERUM 5.1 MMOL/L (3.5-5.1); SODIUM LEVEL 142 MMOL/L (136-145); TOTAL PROTEIN 6.8 G/DL (5.7-8.2)
== END ==
LOC: M WUC 08:06
PROVIDERS: ATTEND Nurse Practitioner
DX: Z94.4 Liver transplant status (principal); Z79.899 Other long term (current) drug therapy

== ENCOUNTER → 2024-04-27 | Outpatient (CLI) | payer MEDICARE ==
[2024-04-27 10:41] LABS: HEMATOCRIT 43.2 % (42.0-52.0); HEMOGLOBIN 14.5 g/dl (13.5-17.5); MEAN CORPUSCULAR HEMOGLOBIN 32.2 pg (27.0-33.0); MEAN CORPUSCULAR HGB CONC 33.6 g/dl (32.0-36.5); PLATELET COUNT, AUTOMATED 224 10^3/uL (150-450); WHITE BLOOD COUNT 7.2 10^3/uL (4.0-10.0)
[2024-04-27 10:56] LABS: ALBUMIN 4.2 G/DL (3.2-5.2); ALKALINE PHOSPHATASE 76 U/L (46-116); ALT/SGPT 25 U/L (7.0-40); AST/SGOT 18 U/L (<34); BILIRUBIN,TOTAL 0.9 MG/DL (0.3-1.2); BLOOD UREA NITROGEN 24 MG/DL (9-23); CARBON DIOXIDE LEVEL 28 MMOL/L (20-31); CHLORIDE LEVEL 109 MMOL/L (98-107); CREATININE FOR GFR 1.09 MG/DL (0.70-1.30); GLOMERULAR FILTRATION RATE > 60.0 (>49); GLUCOSE, FASTING 106 MG/DL (74-106); POTASSIUM SERUM 5.6 MMOL/L (3.5-5.1); SODIUM LEVEL 142 MMOL/L (136-145)
== END ==
LOC: M WUC 08:03
PROVIDERS: ATTEND Nurse Practitioner
DX: Z94.4 Liver transplant status (principal); Z79.899 Other long term (current) drug therapy

== ENCOUNTER → 2024-07-25 | Outpatient (CLI) | payer MEDICARE ==
[2024-07-25 10:19] LABS: HEMOGLOBIN 14.7 g/dl (13.5-17.5); MEAN CORPUSCULAR HEMOGLOBIN 31.5 pg (27.0-33.0); MEAN CORPUSCULAR HGB CONC 33.4 g/dl (32.0-36.5); MEAN CORPUSCULAR VOLUME 94.4 fl (80.0-96.0); PLATELET COUNT, AUTOMATED 211 10^3/uL (150-450); RED BLOOD COUNT 4.66 10^6/uL (4.30-6.10); WHITE BLOOD COUNT 6.9 10^3/uL (4.0-10.0)
[2024-07-25 10:42] LABS: ALBUMIN 4.2 G/DL (3.2-5.2); ALKALINE PHOSPHATASE 75 U/L (46-116); ALT/SGPT 24 U/L (7.0-40); AST/SGOT 19 U/L (<34); BILIRUBIN,TOTAL 0.9 MG/DL (0.3-1.2); BLOOD UREA NITROGEN 17 MG/DL (9-23); CALCIUM LEVEL 9.4 MG/DL (8.3-10.6); CARBON DIOXIDE LEVEL 27 MMOL/L (20-31); CHLORIDE LEVEL 110 MMOL/L (98-107); GLOMERULAR FILTRATION RATE > 60.0 (>49); GLUCOSE, FASTING 107 MG/DL (74-106); POTASSIUM SERUM 4.8 MMOL/L (3.5-5.1); SODIUM LEVEL 139 MMOL/L (136-145); TOTAL PROTEIN 7.1 G/DL (5.7-8.2)
== END ==
LOC: M WUC 08:06
PROVIDERS: ATTEND Nurse Practitioner
DX: Z94.4 Liver transplant status (principal)

== ENCOUNTER → 2024-09-20 | Outpatient (CLI) | payer MEDICARE ==
[~2024-09-20] MED LIST changes: -MULT200T7 PO; +MULT200T9 PO
[2024-09-20 11:20] LABS: HEMATOCRIT 41.7 % (42.0-52.0); HEMOGLOBIN 14.3 g/dl (13.5-17.5); MEAN CORPUSCULAR HEMOGLOBIN 31.9 pg (27.0-33.0); MEAN CORPUSCULAR HGB CONC 34.3 g/dl (32.0-36.5); MEAN CORPUSCULAR VOLUME 93.1 fl (80.0-96.0); PLATELET COUNT, AUTOMATED 209 10^3/uL (150-450); RED BLOOD COUNT 4.48 10^6/uL (4.30-6.10); WHITE BLOOD COUNT 6.4 10^3/uL (4.0-10.0)
[2024-09-20 11:51] LABS: ALBUMIN 4.1 G/DL (3.2-5.2); ALKALINE PHOSPHATASE 72 U/L (40-129); ALT/SGPT 31 U/L (7.0-40); AST/SGOT 22 U/L (<34); BILIRUBIN,TOTAL 1.1 MG/DL (0.3-1.2); BLOOD UREA NITROGEN 21 MG/DL (9-23); CALCIUM LEVEL 9.8 MG/DL (8.3-10.6); CARBON DIOXIDE LEVEL 27 MMOL/L (20-31); CHLORIDE LEVEL 106 MMOL/L (98-107); CREATININE FOR GFR 1.11 MG/DL (0.70-1.30); GLOMERULAR FILTRATION RATE > 60.0 (>49); GLUCOSE, FASTING 94 MG/DL (74-106); POTASSIUM SERUM 4.8 MMOL/L (3.5-5.1); SODIUM LEVEL 138 MMOL/L (136-145); TOTAL PROTEIN 7.2 G/DL (5.7-8.2)
== END ==
LOC: M WUC 08:14
PROVIDERS: ATTEND Nurse Practitioner
DX: Z94.4 Liver transplant status (principal)

== ENCOUNTER → 2024-10-06 | Outpatient (REF) | payer MEDICARE | LOC: M LABWUC 09:48 | PROVIDERS: ATTEND Nurse Practitioner | DX: Z94.4 Liver transplant status (principal) ==

== ENCOUNTER → 2024-11-23 | Outpatient (CLI) | payer MEDICARE ==
[2024-11-23 10:10] LABS: HEMATOCRIT 44.5 % (42.0-52.0); HEMOGLOBIN 15.1 g/dl (13.5-17.5); MEAN CORPUSCULAR HEMOGLOBIN 32.4 pg (27.0-33.0); MEAN CORPUSCULAR HGB CONC 33.9 g/dl (32.0-36.5); MEAN CORPUSCULAR VOLUME 95.5 fl (80.0-96.0); PLATELET COUNT, AUTOMATED 218 10^3/uL (150-450); RED BLOOD COUNT 4.66 10^6/uL (4.30-6.10); WHITE BLOOD COUNT 6.9 10^3/uL (4.0-10.0)
[2024-11-23 10:33] LABS: ALBUMIN 4.2 G/DL (3.2-5.2); ALKALINE PHOSPHATASE 70 U/L (40-129); ALT/SGPT 30 U/L (7.0-40); AST/SGOT 24 U/L (<34); BLOOD UREA NITROGEN 24 MG/DL (9-23); CALCIUM LEVEL 10.3 MG/DL (8.3-10.6); CARBON DIOXIDE LEVEL 30 MMOL/L (20-31); CHLORIDE LEVEL 107 MMOL/L (98-107); CREATININE FOR GFR 1.16 MG/DL (0.70-1.30); GLOMERULAR FILTRATION RATE > 60.0 (>49); GLUCOSE, FASTING 105 MG/DL (74-106); POTASSIUM SERUM 4.8 MMOL/L (3.5-5.1); SODIUM LEVEL 144 MMOL/L (136-145); TOTAL PROTEIN 7.6 G/DL (5.7-8.2)
== END ==
LOC: M WUC 08:04
PROVIDERS: ATTEND Nurse Practitioner
DX: Z94.4 Liver transplant status (principal)

== ENCOUNTER → 2025-01-24 | Outpatient (CLI) | payer MEDICARE ==
[2025-01-24 17:10] LABS: HEMATOCRIT 43.8 % (42.0-52.0); HEMOGLOBIN 14.5 g/dl (13.5-17.5); MEAN CORPUSCULAR HGB CONC 33.1 g/dl (32.0-36.5); MEAN CORPUSCULAR VOLUME 96.7 fl (80.0-96.0); PLATELET COUNT, AUTOMATED 217 10^3/uL (150-450); RED BLOOD COUNT 4.53 10^6/uL (4.30-6.10); WHITE BLOOD COUNT 6.2 10^3/uL (4.0-10.0)
[2025-01-24 17:40] LABS: ALBUMIN 4.3 G/DL (3.2-5.2); ALKALINE PHOSPHATASE 66 U/L (40-129); ALT/SGPT 29 U/L (7.0-40); AST/SGOT 24 U/L (<34); BLOOD UREA NITROGEN 25 MG/DL (9-23); CALCIUM LEVEL 9.7 MG/DL (8.3-10.6); CARBON DIOXIDE LEVEL 28 MMOL/L (20-31); CHLORIDE LEVEL 106 MMOL/L (98-107); CREATININE FOR GFR 1.14 MG/DL (0.70-1.30); GLOMERULAR FILTRATION RATE > 60.0 (>49); GLUCOSE, FASTING 107 MG/DL (74-106); SODIUM LEVEL 143 MMOL/L (136-145); TOTAL PROTEIN 7.2 G/DL (5.7-8.2)
== END ==
LOC: M WUC 08:05
PROVIDERS: ATTEND Nurse Practitioner Family
DX: Z94.4 Liver transplant status (principal)

== ENCOUNTER → 2025-08-01 | Outpatient (CLI) | payer MEDICARE ==
[~2025-08-01] MED LIST changes: -VITA500T17 PO; +VITA500T8 PO
[2025-08-01 12:47] LABS: PLATELET COUNT, AUTOMATED 267 10^3/uL (150-450)
[2025-08-01 12:50] LABS: ALT/SGPT 25.0 U/L (7.0-40); AST/SGOT 25.0 U/L (<34); CALCIUM LEVEL 9.5 MG/DL (8.3-10.6); CARBON DIOXIDE LEVEL 28.0 MMOL/L (20-31); CHLORIDE LEVEL 107.0 MMOL/L (98-107); CREATININE FOR GFR 1.12 MG/DL (0.70-1.30); GLOMERULAR FILTRATION RATE 71.1 (>49); POTASSIUM SERUM 5.0 MMOL/L (3.5-5.1); SODIUM LEVEL 141.0 MMOL/L (136-145)
== END ==
LOC: M WUC 08:04
PROVIDERS: ATTEND Nurse Practitioner Family
DX: Z94.4 Liver transplant status (principal)

== ENCOUNTER → 2025-09-25 | Outpatient (CLI) | payer MEDICARE | LOC: M CARPUL 09:52 | PROVIDERS: ATTEND Physician Assistant | DX: I77.810 Thoracic aortic ectasia (principal); I35.8 Other nonrheumatic aortic valve disorders ==

== ENCOUNTER → 2025-11-07 | Outpatient (REF) | payer MEDICARE ==
[2025-11-07 17:44] LABS: PLATELET COUNT, AUTOMATED 220 10^3/uL (150-450)
[2025-11-07 18:23] LABS: ALT/SGPT 20.0 U/L (7.0-40); AST/SGOT 27.0 U/L (<34); CALCIUM LEVEL 9.3 MG/DL (8.3-10.6); CARBON DIOXIDE LEVEL 26.0 MMOL/L (20-31); CHLORIDE LEVEL 106.0 MMOL/L (98-107); CREATININE FOR GFR 1.07 MG/DL (0.70-1.30); GLOMERULAR FILTRATION RATE 74.7 (>42); POTASSIUM SERUM 4.7 MMOL/L (3.5-5.1); SODIUM LEVEL 141.0 MMOL/L (136-145)
== END ==
LOC: M LABDRWAD 17:36
PROVIDERS: ATTEND Nurse Practitioner
DX: Z94.4 Liver transplant status (principal)